=== PATIENT | male | born 1955 | race American Indian/Alaskan Native ===

== ENCOUNTER 2016-11-26 14:03 | Inpatient (IN) | payer SELFPAY ==
[2016-11-26] MEDS ORDERED: NACL 0.9% 1000 ML 1,000 ML IV ONE (14:56)
[2016-11-26 15:06] LABS: Basophils % (Auto) 0.9 % (0.0-1.8); Eosinophils % (Auto) 0.2 % (0.0-4.3); Hematocrit 39.2 % (35.5-45.6); Hemoglobin 13.7 gm/dl (11.8-15.2); Mean Corpuscular HGB Conc 35 % (32-34); Mean Corpuscular Hemoglobin 34 pg (28-32); Mean Corpuscular Volume 96 fl (84-94); Platelet Count 161 K/mm3 (140-440); Red Blood Count 4.07 M/mm3 (3.65-5.03); Red Cell Distribution Width 14.9 % (13.2-15.2); White Blood Count 10.8 K/mm3 (4.5-11.0)
[2016-11-26 15:18] LABS: INR 1.31 (0.87-1.13)
[2016-11-26 15:19] LABS: Partial Thromboplastin Time 33.2 Sec. (24.2-36.6)
[2016-11-26 15:29] LABS: Albumin 3.5 g/dL (3.9-5); Albumin/Globulin Ratio 0.8 %; Bilirubin,Total 2.4 mg/dL (0.1-1.2); Calcium 8.5 mg/dL (8.4-10.2); Chloride 93.7 mmol/L (98-107); Potassium 3.3 mmol/L (3.6-5.0); Total Protein 7.9 g/dL (6.3-8.2)
[2016-11-26] MEDS ORDERED: NACL 0.9% 500 ML 500 ML IV ONE (18:03)
[2016-11-26] MEDS ORDERED: PROTONIX IV ONE (18:03)
[2016-11-26] MEDS ORDERED: ROCEPHIN/NS 1 GM/50 ML 1 GM/50 ML BAG IV ONE (18:12)
--- NOTE | 2016-11-26 18:12 | Emergency Department Report ---
ED General Adult HPI - General Chief complaint: GI Bleed Stated complaint: DARK STOOL/WEAKNESS/DIZZINESS Time Seen by Provider: 11/26/16 17:45 Source: patient Mode of arrival: Ambulatory Limitations: No Limitations - History of Present Illness Initial comments: 61 y/o cirrhotic, alcoholic, presents w/ cc of dark stools, lightheadedness. Pt states he has been drinking 1-2 shots per day depending on whether he can afford etoh. Pt deneis vomiting, hematemesis, but has noticed a gross change in stool, dark black, tarry. Pt feels lightheaded but no syncope. No hx of headache, vomiting, dyspnea, fever, chills. Denies anticoagulant use. Pt did have 2 episodes of aleve. Pt does not mild epigastric abd pain/left sided abd discomfort, no hx of trauma, falls. Severity scale (0 -10): 10 - Related Data Home Medications Medication Instructions Recorded Confirmed Last Taken Ranitidine HCl [Zantac] 300 mg PO QDAY 05/11/13 05/20/14 05/19/14 20:00 Previous Rx's Medication Instructions Recorded Last Taken Type Ferrous Sulfate [Feosol] 325 mg PO BID #60 tablet 05/13/13 Unknown Rx Pantoprazole [Protonix TAB] 40 mg PO QDAY #30 tablet 05/13/13 Unknown Rx Folic Acid [Folvite] 1 mg PO QDAY #30 tablet 05/24/14 Unknown Rx Furosemide [Lasix] 40 mg PO DAILY #30 tablet 05/24/14 Unknown Rx Spironolactone [Aldactone] 100 mg PO QDAY #30 tablet 05/24/14 Unknown Rx Thiamine [Vitamin B-1] 100 mg PO QDAY #30 tablet 05/24/14 Unknown Rx Allergies Allergy/AdvReac Type Severity Reaction Status Date / Time No Known Allergies Allergy Verified 11/26/16 14:51 ED Review of Systems ROS: Stated complaint: DARK STOOL/WEAKNESS/DIZZINESS Other details as noted in HPI Comment: All other systems reviewed and negative Constitutional: denies: chills, fever Eyes: denies: eye pain, eye discharge, vision change ENT: denies: ear pain, throat pain Respiratory: denies: cough, shortness of breath, wheezing Cardiovascular: denies: chest pain, palpitations Endocrine: no symptoms reported Gastrointestinal: denies: abdominal pain, nausea, diarrhea Genitourinary: denies: urgency, dysuria Musculoskeletal: denies: back pain, joint swelling, arthralgia Skin: denies: rash, lesions Neurological: denies: headache, weakness, paresthesias Psychiatric: denies: anxiety, depression Hematological/Lymphatic: denies: easy bleeding, easy bruising ED Past Medical Hx - Past Medical History Hx Hypertension: No Hx Heart Attack/AMI: No Hx Congestive Heart Failure: No Hx Diabetes: No Hx Deep Vein Thrombosis: No Hx Pulmonary Embolism: No Hx GERD: Yes Hx Liver Disease: No Hx Renal Disease: No Hx Sickle Cell Disease: No Hx Arthritis: No Hx Headaches / Migraines: No Hx Seizures: No Hx Kidney Stones: No Hx Asthma: No Hx COPD: No Hx Tuberculosis: No Hx Dementia: No Hx HIV: No Additional medical history: ulcers. esophagus "swells up into little knots". diverticulitis - Surgical History Past Surgical History?: No Hx Coronary Stent: No Hx Open Heart Surgery: No Hx Pacemaker: No Hx Internal Defibrillator: No Hx Cholecystectomy: No Hx Appendectomy: No Hx Breast Surgery: No - Social History Smoking Status: Never Smoker Substance Use Type: Alcohol - Medications Home Medications: Home Medications Medication Instructions Recorded Confirmed Last Taken Type Ranitidine HCl [Zantac] 300 mg PO QDAY 05/11/13 05/20/14 05/19/14 20:00 History Ferrous Sulfate [Feosol] 325 mg PO BID #60 tablet 05/13/13 05/24/14 Unknown Rx Pantoprazole [Protonix TAB] 40 mg PO QDAY #30 tablet 05/13/13 05/24/14 Unknown Rx Folic Acid [Folvite] 1 mg PO QDAY #30 tablet 05/24/14 Unknown Rx Furosemide [Lasix] 40 mg PO DAILY #30 tablet 05/24/14 Unknown Rx Spironolactone [Aldactone] 100 mg PO QDAY #30 tablet 05/24/14 Unknown Rx Thiamine [Vitamin B-1] 100 mg PO QDAY #30 tablet 05/24/14 Unknown Rx ED Physical Exam - General Limitations: No Limitations General appearance: alert, in no apparent distress - Head Head exam: Present: atraumatic, normocephalic - Eye Eye exam: Present: normal appearance, PERRL, EOMI - ENT ENT exam: Present: mucous membranes moist - Neck Neck exam: Present: normal inspection - Respiratory Respiratory exam: Present: normal lung sounds bilaterally. Absent: respiratory distress - Cardiovascular Cardiovascular Exam: Present: regular rate, normal rhythm. Absent: systolic murmur, diastolic murmur, rubs, gallop - GI/Abdominal GI/Abdominal exam: Present: soft, distended, normal bowel sounds, other (+ fluid wave, no rebound) - Rectal Rectal exam: Present: other (Jimenez Molina as advertising supervisor, grossly melanotic stool) - Extremities Exam Extremities exam: Present: normal inspection - Back Exam Back exam: Present: normal inspection - Neurological Exam Neurological exam: Present: alert, altered, oriented X3, CN II-XII intact, normal gait - Psychiatric Psychiatric exam: Present: normal affect, normal mood - Skin Skin exam: Present: warm, dry, intact, normal color. Absent: rash ED Course Vital Signs 11/26/16 11/26/16 11/26/16 14:45 17:11 17:55 Temperature 98.6 F 98.6 F Pulse Rate 103 H 99 H Respiratory 18 18 Rate Blood Pressure 85/51 101/58 97/61 Blood Pressure [Left] O2 Sat by Pulse 100 100 Oximetry 11/26/16 11/26/16 11/26/16 17:56 18:00 18:11 Temperature 98 F Pulse Rate 95 H 97 H Respiratory 16 20 16 Rate Blood Pressure 112/50 Blood Pressure 96/61 [Left] O2 Sat by Pulse 100 99 Oximetry ED Medical Decision Making - Lab Data Result diagrams: 11/26/16 14:57 11/26/16 14:57 - Medical Decision Making Suspect upper gi bleed, differential includes gastritis, variceal given etoh hx , PUD, will start octretodide/rocephin in case of variceal bleed, and protonix GTT. BP at eval was 112/64, improved. Spoke with Dr. Jay will admit Critical care attestation.: If time is entered above; I have spent that time in minutes in the direct care of this critically ill patient, excluding procedure time. ED Disposition Clinical Impression: Dehydration GI bleed Qualifiers: GI bleed type/associated pathology: melena Qualified Code(s): K92.1 - Melena Cirrhosis Qualifiers: Hepatic cirrhosis type: alcoholic cirrhosis Ascites presence: with ascites Qualified Code(s): K70.31 - Alcoholic cirrhosis of liver with ascites Ascites Qualifiers: Ascites type: due to alcoholic cirrhosis Qualified Code(s): K70.31 - Alcoholic cirrhosis of liver with ascites Disposition: OP ADMITTED IP TO THIS HOSP Is pt being admited?: Yes Condition: Stable Referrals: PRIMARY CARE, [Primary Care Provider] - 3-5 Days Forms: Accompanied Note Time of Disposition: 18:16
[2016-11-26] MEDS ORDERED: NACL 0.9% IV ONE (19:00)
[2016-11-26] MEDS ORDERED: PROTONIX 80 MG in NACL 0.9% 100 ML IV SCH (19:00)
[2016-11-26] MEDS ORDERED: SANDOSTATIN IV ONE (19:00)
[2016-11-26] MEDS ORDERED: SandoSTATIN 500 MCG in NACL 0.9% 100 ML IV ONE (19:03)
--- NOTE | 2016-11-26 19:43 | History and Physical Report ---
History of Present Illness Date of examination: 11/26/16 Date of admission: 11/26/2016 Chief complaint: CC Black Tarry stools History of present illness: 61 y/o AAM comes in for black tarry stools.and Lightheadedness.Patient has been drinking 1 to 2 shots per day inspite of having Cirrhosis and esophageal varices.Ascites present..Some SOB present.Patient denies vomiting and hematemesis.No Syncope.No Hx of Headache.No fever chills .Patient took Aleve testerday.No epigastric pain. Patient has history of EtOH dependence. Past medical history: Anemia, gastritis, esophageal varices, cirrhosis, ascites, . Past surgical history no surgeries. Social history: Alcohol on a regular basis. Used to drink heavily. Now in spite of having cirrhosis still uses 2-3 shots. Maybe understating. Family history: Significant for hypertension. Review of System: Constitutional: no fever, no chills, no weight loss Ears, eyes, nose, mouth and throat: no nasal congestion, no nasal discharge, no sinus pressure, no vision change, no red eye. Neck: No neck pain or rigidity. Cardiovascular: No chest pain, no orthopnea, no palpitations, no leg swelling Respiratory: No shortness of breath, no cough, no congestion, no wheezing Gastrointestinal: : As in HPI. Black tarry stools. Genitourinary : no dysuria, no hematuria Musculoskeletal: no joint swelling or muscle ache Integumentary: no rash, no pruritis Neurological: no parathesias, no numbness, no tingling Endocrine: no cold or heat intolerance, no polyuria or polydipsia Hematologic/Lymphatic: no easy bruising, no easy bleeding, no gland swelling Allergic/Immunologic: no urticaria, no angioedema. Medications and Allergies Allergies Allergy/AdvReac Type Severity Reaction Status Date / Time No Known Allergies Allergy Verified 11/26/16 14:51 Home Medications Medication Instructions Recorded Confirmed Last Taken Type Ranitidine HCl [Zantac] 300 mg PO QDAY 05/11/13 05/20/14 05/19/14 20:00 History Ferrous Sulfate [Feosol] 325 mg PO BID #60 tablet 05/13/13 05/24/14 Unknown Rx Pantoprazole [Protonix TAB] 40 mg PO QDAY #30 tablet 05/13/13 05/24/14 Unknown Rx Folic Acid [Folvite] 1 mg PO QDAY #30 tablet 05/24/14 Unknown Rx Furosemide [Lasix] 40 mg PO DAILY #30 tablet 05/24/14 Unknown Rx Spironolactone [Aldactone] 100 mg PO QDAY #30 tablet 05/24/14 Unknown Rx Thiamine [Vitamin B-1] 100 mg PO QDAY #30 tablet 05/24/14 Unknown Rx Active Meds: Active Medications Pantoprazole Sodium 80 mg/ (Sodium Chloride) 100 mls @ 10 mls/hr IV Q10H LUBA PRN Reason: 8 MG/HR Octreotide Acetate 500 mcg/ (Sodium Chloride) 101 mls @ 5.05 mls/hr IV TITRATE LUBA; 25 MCG/HR PRN Reason: Protocol Review of Systems All systems: negative Exam - Physical Exam Narrative exam: A middle-age male lying in bed in no distress - Constitutional Vitals: Temp Pulse Resp BP Pulse Ox 98 F 107 H 14 87/52 99 11/26/16 17:56 11/26/16 19:10 11/26/16 19:10 11/26/16 19:10 11/26/16 19:10 General appearance: Present: no acute distress, well-nourished - EENT Eyes: Present: PERRL ENT: hearing intact, clear oral mucosa - Neck Neck: Present: supple, normal ROM - Respiratory Respiratory effort: normal Respiratory: bilateral: CTA - Cardiovascular Heart rate: 80 Rhythm: regular Heart Sounds: Present: S1 & S2. Absent: rub, click - Extremities Extremities: pulses symmetrical, No edema Extremity abnormal: edema Peripheral Pulses: within normal limits - Abdominal General gastrointestinal: Present: soft, non-tender, distended (moderate), normal bowel sounds Male genitourinary: Present: normal - Rectal Rectal Exam: other (tarry stool positive for occult blood strongly) - Integumentary Integumentary: Present: clear, warm, dry - Musculoskeletal Musculoskeletal: gait normal, strength equal bilaterally - Psychiatric Psychiatric: appropriate mood/affect, intact judgment & insight - Neurologic Neurologic: CNII-XII intact, moves all extremities Results - Labs CBC & Chem 7: 11/26/16 14:57 11/26/16 14:57 Labs: Laboratory Last Values WBC 10.8 K/mm3 (4.5-11.0) 11/26/16 14:57 RBC 4.07 M/mm3 (3.65-5.03) 11/26/16 14:57 Hgb 13.7 gm/dl (11.8-15.2) 11/26/16 14:57 Hct 39.2 % (35.5-45.6) 11/26/16 14:57 MCV 96 fl (84-94) H 11/26/16 14:57 MCH 34 pg (28-32) H 11/26/16 14:57 MCHC 35 % (32-34) H 11/26/16 14:57 RDW 14.9 % (13.2-15.2) 11/26/16 14:57 Plt Count 161 K/mm3 (140-440) 11/26/16 14:57 Lymph % (Auto) 23.5 % (13.4-35.0) 11/26/16 14:57 [place] % (Auto) 8.7 % (0.0-7.3) H 11/26/16 14:57 Eos % (Auto) 0.2 % (0.0-4.3) 11/26/16 14:57 Baso % (Auto) 0.9 % (0.0-1.8) 11/26/16 14:57 Lymph # 2.5 K/mm3 (1.2-5.4) 11/26/16 14:57 [place] # 0.9 K/mm3 (0.0-0.8) H 11/26/16 14:57 Eos # 0.0 K/mm3 (0.0-0.4) 11/26/16 14:57 Baso # 0.1 K/mm3 (0.0-0.1) 11/26/16 14:57 Seg Neutrophils % 66.7 % (40.0-70.0) 11/26/16 14:57 Seg Neutrophils # 7.2 K/mm3 (1.8-7.7) 11/26/16 14:57 PT 16.2 Sec. (12.2-14.9) H 11/26/16 14:57 INR 1.31 (0.87-1.13) H 11/26/16 14:57 APTT 33.2 Sec. (24.2-36.6) 11/26/16 14:57 Sodium 132 mmol/L (137-145) L 11/26/16 14:57 Potassium 3.3 mmol/L (3.6-5.0) L 11/26/16 14:57 Chloride 93.7 mmol/L (98-107) L 11/26/16 14:57 Carbon Dioxide 26 mmol/L (22-30) 11/26/16 14:57 Anion Gap 16 mmol/L 11/26/16 14:57 BUN 44 mg/dL (9-20) H 11/26/16 14:57 Creatinine 2.2 mg/dL (0.8-1.5) H 11/26/16 14:57 Estimated GFR 37 ml/min 11/26/16 14:57 BUN/Creatinine Ratio 20.00 % 11/26/16 14:57 Glucose 100 mg/dL (75-100) 11/26/16 14:57 Lactic Acid 2.0 mmol/L (0.7-2.0) 11/26/16 18:35 Calcium 8.5 mg/dL (8.4-10.2) 11/26/16 14:57 Total Bilirubin 2.4 mg/dL (0.1-1.2) H 11/26/16 14:57 AST 54 units/L (5-40) H 11/26/16 14:57 ALT 38 units/L (7-56) 11/26/16 14:57 Alkaline Phosphatase 70 units/L (35-129) 11/26/16 14:57 Total Protein 7.9 g/dL (6.3-8.2) 11/26/16 14:57 Albumin 3.5 g/dL (3.9-5) L 11/26/16 14:57 Albumin/Globulin Ratio 0.8 % 11/26/16 14:57 Lipase 53 units/L (13-60) 11/26/16 14:57 Blood Type O POSITIVE 11/26/16 14:55 Antibody Screen TNR 11/26/16 14:55 LAURI Antibody Screen Negative 11/26/16 14:55 Short CBC 11/26/16 Range/Units 14:57 WBC 10.8 (4.5-11.0) K/mm3 Hgb 13.7 (11.8-15.2) gm/dl Hct 39.2 (35.5-45.6) % Plt Count 161 (140-440) K/mm3 BMP 11/26/16 14:57 Sodium 132 L Potassium 3.3 L Chloride 93.7 L Carbon Dioxide 26 BUN 44 H Creatinine 2.2 H Glucose 100 Calcium 8.5 Liver Function 11/26/16 Range/Units 14:57 Total Bilirubin 2.4 H (0.1-1.2) mg/dL AST 54 H (5-40) units/L ALT 38 (7-56) units/L Alkaline Phosphatase 70 (35-129) units/L Albumin 3.5 L (3.9-5) g/dL - Imaging and Cardiology EKG: report reviewed Assessment and Plan Assessment and plan: Assessment and plan: #1 GI bleed: Probably from upper GI tract from the esophageal varices or or from. Duodenal ulcer. Patient started on IV Protonix drip. GI consult requested. Check hemoglobin and hematocrit every 66-8 hours and transfuse if necessary. #2 Cirrhosis: Continue spironolactone. #3 Hypokalemia: Supplemental potassium. IV potassium ordered. #4 EtOH dependence: Patient started on CIWA protocol to prevent DTs. #5 DVT prophylaxis: Only SCDs for now. No Lovenox. Advance Directives: Yes (full code) VTE prophylaxis?: Mechanical Plan of care discussed with patient/family: Yes
[2016-11-26] MEDS ORDERED: MILK OF MAGNESIA PO PRN (19:46)
[2016-11-26] MEDS ORDERED: ZOFRAN IV PRN (19:46)
[2016-11-26] MEDS ORDERED: TYLENOL PO PRN (19:46)
[2016-11-26] MEDS ORDERED: DILAUDID IV PRN (19:46)
[2016-11-26] MEDS ORDERED: DULCOLAX PR PRN (19:46)
[2016-11-26] MEDS ORDERED: HALDOL IV PRN (19:54)
[2016-11-26] MEDS ORDERED: ATIVAN IV PRN ×3 (19:54)
[2016-11-26] MEDS ORDERED: ATIVAN PO PRN (19:54)
[2016-11-26] MEDS ORDERED: LIBRIUM PO PRN (19:54)
[2016-11-26] MEDS ORDERED: KCL 10MEQ/100ML 10 MEQ/100 ML BAG IV ONE (20:08)
[2016-11-26] MEDS: KCL 10MEQ/100ML 10 MEQ/100 ML BAG IV SCH (20:36)
[2016-11-26] MEDS: D5NS 1,000 ML IV SCH (21:29)
[2016-11-26] MEDS: SandoSTATIN 500 MCG in NACL 0.9% 100 ML IV SCH (22:14)
[2016-11-27] MEDS: KCL 10MEQ/100ML 10 MEQ/100 ML BAG IV SCH ×4 (00:02→02:37)
[2016-11-27] MEDS ORDERED: PROTONIX 80 MG in NACL 0.9% 100 ML IV SCH (05:00)
[2016-11-27 05:34] LABS: Basophils % (Auto) 0.5 % (0.0-1.8); Eosinophils % (Auto) 0.4 % (0.0-4.3); Hemoglobin 11.7 gm/dl (11.8-15.2); Mean Corpuscular HGB Conc 34 % (32-34); Mean Corpuscular Hemoglobin 33 pg (28-32); Mean Corpuscular Volume 97 fl (84-94); Platelet Count 117 K/mm3 (140-440); Red Blood Count 3.52 M/mm3 (3.65-5.03); Red Cell Distribution Width 14.8 % (13.2-15.2); White Blood Count 10.8 K/mm3 (4.5-11.0)
[2016-11-27 05:38] LABS: Alanine Aminotransferase 30 units/L (7-56); Albumin 3.1 g/dL (3.9-5); Albumin/Globulin Ratio 0.8 %; Alkaline Phosphatase 59 units/L (35-129); Anion Gap 16 mmol/L; BUN/Creatinine Ratio 28.33; Bilirubin,Total 2.3 mg/dL (0.1-1.2); Blood Urea Nitrogen 34 mg/dL (9-20); Calcium 7.9 mg/dL (8.4-10.2); Carbon Dioxide 23 mmol/L (22-30); Chloride 101.2 mmol/L (98-107); Glucose 109 mg/dL (75-100); Sodium 136 mmol/L (137-145); Total Protein 6.8 g/dL (6.3-8.2)
[2016-11-27 05:46] LABS: Potassium 4.6 mmol/L (3.6-5.0)
--- NOTE | 2016-11-27 12:24 | Post Operative Note ---
Pre-op diagnosis: gi bleed Post-op diagnosis: same Findings: EGD: hiatal hernia - small gastric remnant - 1 cm white based ulcer anastomosis (bx's) - ulcerated joseph anastomosis - negative other Procedure: EGD Anesthesia: MAC Surgeon: DARWIN EPPS Estimated blood loss: none Pathology: list Specimen disposition: to lab Condition: stable Disposition: floor
[2016-11-27] MEDS: SandoSTATIN 500 MCG in NACL 0.9% 100 ML IV SCH (12:46)
[2016-11-27] MEDS ORDERED: WATER FOR IRRIG STERILE IR ONE (13:03)
[2016-11-27] MEDS ORDERED: NACL 0.9% 1000 ML 1,000 ML ONE (14:15)
--- NOTE | 2016-11-27 14:42 | Anesthesia Day of Surgery ---
Anesthesia Day of Surgery - Day of Surgery Patient Examined: Yes Patient H&P Reviewed: Yes Patient is NPO: Yes
--- NOTE | 2016-11-27 14:42 | Anesthesia Consultation ---
Anesthesia Consult and Med Hx Date of service: 11/27/16 - Airway Anesthetic Teeth Evaluation: Partials (upper) ROM Head & Neck: Adequate Mental/Hyoid Distance: Adequate Mallampati Class: Class II Intubation Access Assessment: Probably Good - Pre-Operative Health Status ASA Pre-Surgery Classification: ASA3 Proposed Anesthetic Plan: MAC - Pulmonary Hx Smoking: No Hx Asthma: No SOB: No COPD: No Hx Pneumonia: No Hx Sleep Apnea: No - Cardiovascular System Hx Hypertension: Yes Hx Coronary Artery Disease: No Hx Heart Attack/AMI: No Hx Angina: No Hx Percutaneous Transluminal Coronary Angioplasty (PTCA): No Hx Pacemaker: No Hx Internal Defibrillator: No Hx Valvular Heart Disease: No Hx Heart Murmur: No Hx Peripheral Vascular Disease: No - Central Nervous System Hx Seizures: No CVA: No Hx Back Pain: No Hx Psychiatric Problems: No - Gastrointestinal Hx Ulcer: Yes (esophageal varices) - Endocrine Hx Renal Disease: No Hx End Stage Renal Disease: No Hx Cirrhosis: Yes Hx Liver Disease: No (h/o ascitis, s/p paracentesis x 2 (2013)) Hx Hypothyroidism: No Hx Hyperthyroidism: No - Hematic Hx Anemia: No Hx Sickle Cell Disease: No - Other Systems Hx Alcohol Use: Yes (abuse) Hx Substance Use: No Hx Cancer: No Hx Obesity: No
[2016-11-27] MEDS ORDERED: DIPRIVAN 10 MG/ML IV ONE (14:44)
[2016-11-27] MEDS ORDERED: NACL 0.9% 1000 ML 1,000 ML IV SCH (15:00)
--- NOTE | 2016-11-27 15:19 | Post Operative Note ---
Pre-op diagnosis: anemia Post-op diagnosis: same Findings: EGD: hiatal hernia - Grade II varices w/o bleeding stigmata - slightly irregular patch above g-e junction in area of varices (not biopsied) - 7 mm white based ulcer with multiple smaller ulceration antrum (bx's) - 10-12 mm mainly white based ulcer with some pigmented area noted distal duodenal buolb (possible bleeding source), bx's - negative other Procedure: EGD Anesthesia: MAC Surgeon: DARWIN EPPS Estimated blood loss: none Pathology: list Specimen disposition: to lab Condition: stable Disposition: floor
--- NOTE | 2016-11-27 16:03 | Progress Note ---
Assessment and Plan Assessment and plan: 1. GIB EGD performed today and showing hiatal hernia, grade 2 varices without bleeding stigmata, ulceration antrum, distal duodenal bulb ulcer which could be the bleeding source GI recommending switching PPI drip to IV twice a day, add Carafate, as well as, propranolol Needs outpatient follow-up for repeat EGD in 3-6 weeks 2. Esophageal varices See above discussion 3. Cirrhosis Secondary to alcohol abuse; still drinking despite having cirrhosis with esophageal varices; extensively counseled regarding importance of quitting Monitor coag, platelets 4. Alcohol abuse Placed on CiWA protocol Status post banana bag Start thiamine po 5. Anemia Acute blood loss anemia likely superimposed on chronic anemia No further bleeding Monitor H&H 6. Thrombocytopenia Secondary to alcohol abuse Monitor 7. Malnutrition Secondary to alcohol abuse and nutritional deficiencies Diet supplementation 8. Hypokalemia Replaced Today within normal limits Continue to monitor 9. Acute renal failure Likely secondary to vasomotor nephropathy Resolved with IV fluids 10. DVT prophylaxis SCDs History Interval history: s/p EGD; doing well, no complaints Hospitalist Physical - Constitutional Vitals: Temp Pulse Resp BP Pulse Ox 98.7 F 84 18 100/58 99 11/27/16 10:03 11/27/16 10:03 11/27/16 10:03 11/27/16 10:03 11/27/16 10:03 General appearance: Present: no acute distress, well-nourished - EENT Eyes: Present: PERRL, EOM intact. Absent: scleral icterus, conjunctival injection - Neck Neck: Present: supple. Absent: enlarged thyroid, masses or JVD - Respiratory Respiratory effort: normal Respiratory: bilateral: CTA, negative: rhonchi, wheezing - Cardiovascular Rhythm: regular Heart Sounds: Present: S1 & S2. Absent: systolic murmur - Extremities Extremities: no ischemia - Abdominal General gastrointestinal: soft, non-tender, non-distended, normal bowel sounds - Integumentary Integumentary: Present: warm, dry. Absent: jaundice, rash - Psychiatric Psychiatric: cooperative - Neurologic Neurologic: CNII-XII intact, no focal deficits Results - Labs CBC & Chem 7: 11/27/16 04:32 11/27/16 04:32 Labs: Laboratory Last Values WBC 10.8 K/mm3 (4.5-11.0) 11/27/16 04:32 RBC 3.52 M/mm3 (3.65-5.03) L 11/27/16 04:32 Hgb 11.7 gm/dl (11.8-15.2) L 11/27/16 04:32 Hct 34.0 % (35.5-45.6) L 11/27/16 04:32 MCV 97 fl (84-94) H 11/27/16 04:32 MCH 33 pg (28-32) H 11/27/16 04:32 MCHC 34 % (32-34) 11/27/16 04:32 RDW 14.8 % (13.2-15.2) 11/27/16 04:32 Plt Count 117 K/mm3 (140-440) L 11/27/16 04:32 Lymph % (Auto) 25.6 % (13.4-35.0) 11/27/16 04:32 [place] % (Auto) 9.0 % (0.0-7.3) H 11/27/16 04:32 Eos % (Auto) 0.4 % (0.0-4.3) 11/27/16 04:32 Baso % (Auto) 0.5 % (0.0-1.8) 11/27/16 04:32 Lymph # 2.8 K/mm3 (1.2-5.4) 11/27/16 04:32 [place] # 1.0 K/mm3 (0.0-0.8) H 11/27/16 04:32 Eos # 0.0 K/mm3 (0.0-0.4) 11/27/16 04:32 Baso # 0.1 K/mm3 (0.0-0.1) 11/27/16 04:32 Seg Neutrophils % 64.5 % (40.0-70.0) 11/27/16 04:32 Seg Neutrophils # 7.0 K/mm3 (1.8-7.7) 11/27/16 04:32 PT 16.2 Sec. (12.2-14.9) H 11/26/16 14:57 INR 1.31 (0.87-1.13) H 11/26/16 14:57 APTT 33.2 Sec. (24.2-36.6) 11/26/16 14:57 Sodium 136 mmol/L (137-145) L 11/27/16 04:32 Potassium 4.6 mmol/L (3.6-5.0) D 11/27/16 04:32 Chloride 101.2 mmol/L (98-107) 11/27/16 04:32 Carbon Dioxide 23 mmol/L (22-30) 11/27/16 04:32 Anion Gap 16 mmol/L 11/27/16 04:32 BUN 34 mg/dL (9-20) H 11/27/16 04:32 Creatinine 1.2 mg/dL (0.8-1.5) 11/27/16 04:32 Estimated GFR > 60 ml/min 11/27/16 04:32 BUN/Creatinine Ratio 28.33 % 11/27/16 04:32 Glucose 109 mg/dL (75-100) H 11/27/16 04:32 Lactic Acid 2.0 mmol/L (0.7-2.0) 11/26/16 18:35 Calcium 7.9 mg/dL (8.4-10.2) L 11/27/16 04:32 Total Bilirubin 2.3 mg/dL (0.1-1.2) H 11/27/16 04:32 AST 43 units/L (5-40) H 11/27/16 04:32 ALT 30 units/L (7-56) 11/27/16 04:32 Alkaline Phosphatase 59 units/L (35-129) 11/27/16 04:32 Ammonia 69.0 umol/L (25-60) H 11/26/16 20:12 Total Protein 6.8 g/dL (6.3-8.2) 11/27/16 04:32 Albumin 3.1 g/dL (3.9-5) L 11/27/16 04:32 Albumin/Globulin Ratio 0.8 % 11/27/16 04:32 Lipase 53 units/L (13-60) 11/26/16 14:57 Blood Type O POSITIVE 11/26/16 14:55 Antibody Screen TNR 11/26/16 14:55 LAURI Antibody Screen Negative 11/26/16 14:55
--- NOTE | 2016-11-27 16:05 | Operative Report ---
PROCEDURE: EGD. INDICATION: 1. Anemia. 2. GI bleed. MEDICATIONS: Propofol per MUSIC EDUCATION DIRECTOR. COMPLICATIONS: None. DESCRIPTION OF PROCEDURE: The patient was brought to the procedure suite. The patient had the procedure discussed with him at length. All risks, complications, and benefits were discussed after which the patient signed for the procedure to be performed. The patient was placed in left lateral decubitus position. Mouth block was placed in the patient's oral cavity. After adequate sedation, medication as above, endoscope was placed into the mouth and brought to the level of the second portion of duodenum. Retroflexion view performed. The patient's vital signs remained stable throughout the procedure. FINDINGS: There was noted to be 3 columns of grade 1 to 2 varices noted in the mid to distal esophagus. No significant bleeding stigmata was notable requiring treatment at this time. There was noted to be an irregular patch noted at GE junction just in the area of gastric varices. This was not malignant in appearance. Given its close proximity to the no interventions including biopsies were performed. There was a small to medium hiatal hernia at GE junction. The esophagus otherwise appeared to be normal. GE junction was 38 cm from the gums. There was noted to be multiple small ulcerations noted in the distal body and antrum. There was a 7 mm wide based ulcer also noted in that area. Biopsies were taken and sent to pathology. The remaining stomach otherwise appeared to be normal. There was a 9 to 12 mm mainly wide based ulcer with a pigmented area was noted in the distal bulb just before the duodenal sweep. No interventions were performed. Biopsies were taken and sent to pathology. Remaining duodenum otherwise appeared to be normal. Retroflexion view performed in the stomach showed no other pathology other than noted above. The patient tolerated the procedure well. No complications noted during the procedure. IMPRESSION: 1. Hiatal hernia. 2. Varices without interventions performed. 3. Irregular patch, not biopsied. 4. Smaller ulcer with multiple ulcerations as noted above in the stomach with biopsy performed. 5. Large ulcer in the duodenum with biopsies performed. Large ulcer may be the source of bleeding. RECOMMENDATIONS: 1. Followup hematocrit and transfuse as needed. 2. PPI IV b.i.d. and start Carafate suspension q.i.d. 3. Start propranolol 10 mg p.o. b.i.d. 4. Advance diet. 5. If H and H stable in a.m., okay to discharge. 6. The patient will require further repeat EGD as an outpatient. JOB# [id number] CAB/NTS
[2016-11-27] MEDS: CARAFATE PO SCH ×2 (18:07→23:59)
--- NOTE | 2016-11-27 22:47 | Consultation ---
INDICATION: 1. Anemia. 2. Gastrointestinal bleed. HISTORY OF PRESENT ILLNESS: The patient is a 61-year-old black male with history of reported alcoholic cirrhosis, who reported to have history of varices in the past. The patient reports he has not seen manager learning or had an EGD in over 5 years. The patient reports that he has been taking of NSAIDs recently. He also reports that he has been drinking recently. He reports 2-3 days of black tarry stools with progressive weakness and dizziness. Subsequently, came to the Emergency Room where he was noted to be anemic and heme positive. Subsequently, he was admitted and GI consulted. Denies any other specific GI problems or complaints. Denies any diarrhea or constipation. Denies any abdominal pain. Denies any weight loss. PAST MEDICAL HISTORY: 1. Alcoholic cirrhosis. 2. Reported history of esophageal varices in the past. MEDICATIONS: See chart. ALLERGIES: No known drug allergies. SOCIAL HISTORY: Reports heavy drinker in the past. FAMILY HISTORY: Negative for colon cancer, IBD, or liver disease. REVIEW OF SYSTEMS: GENERAL: Reports mild weakness. HEENT: No visual complaints or tinnitus. PULMONARY: No shortness of breath. CARDIOVASCULAR: No chest pain. GASTROINTESTINAL: Reports black stools. All points of 13-point review of systems otherwise negative. PHYSICAL EXAMINATION: VITAL SIGNS: Temperature of 99.5, pulse , respirations 20, blood pressure 112/59. GENERAL: Fairly nourished male in no acute distress. HEENT: Pupils equal, round, reactive to light and accommodation. Extraocular muscles intact. PULMONARY: Clear to auscultation bilaterally. CARDIOVASCULAR: Regular rate and rhythm. Normal S1, S2. ABDOMEN: Positive bowel sounds, soft. SKIN: No obvious rashes. LABORATORY DATA: Pertinent for white count of 10.8, hemoglobin and hematocrit of 11.7 and 34.0, platelet count of 117. INR of 1.31 with a PT of 16.2, PTT of 33.2. Chem-7 within normal limits. AST, ALT of 43 and 30, total bilirubin of 2.3, alkaline phosphatase normal. ASSESSMENT AND PLAN: A 61-year-old male with a reported history of alcoholic cirrhosis in the past who has not had any GI evaluation in over 5 years and recent history of NSAID use, now presents with black stools and noted anemia. Possibility of esophageal variceal bleed versus peptic ulcer versus other. PLAN: 1. Follow hematocrit and transfuse as needed. 2. IV PPI drip. 3. Sandostatin drip. 4. EGD today. 5. Further recommendation based on EGD and the patient's progress. JOB# [id number] [facility]
[2016-11-27] MEDS: PROTONIX IV SCH (23:59)
[2016-11-27] MEDS: INDERAL PO SCH (23:59)
[2016-11-28] MEDS: D5NS 1,000 ML IV SCH
[2016-11-28] MEDS: CARAFATE PO SCH (05:47)
[2016-11-28 06:16] LABS: Hematocrit 33.2 % (35.5-45.6); Hemoglobin 11.4 gm/dl (11.8-15.2); Mean Corpuscular HGB Conc 34 % (32-34); Mean Corpuscular Hemoglobin 34 pg (28-32); Mean Corpuscular Volume 99 fl (84-94); Platelet Count 111 K/mm3 (140-440); Red Blood Count 3.37 M/mm3 (3.65-5.03); Red Cell Distribution Width 14.7 % (13.2-15.2)
[2016-11-28 07:08] LABS: Anion Gap 13 mmol/L; BUN/Creatinine Ratio 17.77; Blood Urea Nitrogen 16 mg/dL (9-20); Calcium 8.1 mg/dL (8.4-10.2); Carbon Dioxide 24 mmol/L (22-30); Chloride 102.6 mmol/L (98-107); Glucose 94 mg/dL (75-100); Potassium 3.9 mmol/L (3.6-5.0); Sodium 136 mmol/L (137-145)
--- NOTE | 2016-11-28 08:51 | Discharge Summary ---
Providers - Providers Date of Admission: 11/26/16 18:30 Date of discharge: 11/28/16 Attending physician: UDAY BARAHONA 11/26/16 19:46 Consult to Physician [CONS] Routine Consulting Provider: LOGAN PAULSON Reason For Exam: GI bleed Place consult to:: yes Notified:: ALICE AT [facility] Phone number called:: [phone] Was contact made?: Yes If yes, spoke with:: ALICE AT [facility] Time called:: 21:37 Comment:: DR EPPS CALLED BACKED Primary care physician: LINTER SAW SHARPENER Hospitalization Reason for admission: black stools Condition: Stable Procedures: EGD Hospital course: Patient is a 61 years old -Portuguese male with alcoholic cirrhosis and esophageal varices, who continues to drink and take nonsteroidal anti- inflammatories occasionally, and presented to the hospital complaining of black , tarry stools. She was diagnosed with upper GI bleed, GI was consulted and underwent EGD that showed grade 2 esophageal varices without bleeding stigmata, but multiple ulcerations ( the distal duodenal bulb ulcer seems to be the bleeding source). Patient was on Protonix drip and was successfully transitioned to po along with Carafate; also started on propranolol as prophylaxis for bleeding from esophageal varices. He needs to follow with GI and have a repeat EGD in 3-6 weeks. Counseled regarding importance of quitting drinking, adherence to treatment and follow-up appointments. Discharge diagnosis: 1. UGIB 2. Esophageal varices 3. Alcoholic cirrhosis 4. Alcohol abuse 5. Blood loss anemia 6. Thrombocytopenia 7. Malnutrition 8. Hypokalemia - resolved 9. Acute renal failure - resolved Disposition: DISCHARGED TO HOME OR SELFCARE Time spent for discharge: 35 min Core Measure Documentation - Palliative Care Palliative Care/ Comfort Measures: Not Applicable - Core Measures Any of the following diagnoses?: none Exam - Physical Exam Narrative exam: Patient seen and examined: - Constitutional Vitals: Temp Pulse Resp BP Pulse Ox 98.6 F 77 18 128/69 99 11/28/16 08:30 11/28/16 08:30 11/28/16 08:30 11/28/16 08:30 11/28/16 08:30 General appearance: Present: no acute distress, well-nourished - EENT Eyes: Present: PERRL, EOM intact. Absent: scleral icterus, conjunctival injection - Neck Neck: Present: supple, normal ROM. Absent: masses or JVD - Respiratory Respiratory effort: normal Respiratory: bilateral: CTA, negative: rhonchi, wheezing - Cardiovascular Rhythm: regular Heart Sounds: Present: S1 & S2. Absent: systolic murmur - Extremities Extremities: no ischemia - Abdominal General gastrointestinal: Present: soft, non-tender, non-distended, normal bowel sounds - Integumentary Integumentary: Present: warm, dry. Absent: jaundice, rash - Musculoskeletal Musculoskeletal: strength equal bilaterally - Psychiatric Psychiatric: cooperative - Neurologic Neurologic: CNII-XII intact, no focal deficits Plan Activity: advance as tolerated Diet: low cholesterol, low salt Follow up with: PRIMARY CAREMD [Primary Care Provider] - 3-5 Days DARWIN EPPS MD [Staff Physician] - 6 Weeks Forms: Accompanied Note Prescriptions: Folic Acid [Folvite] 1 mg PO QDAY #30 tablet Pantoprazole [Protonix] 40 mg PO BID #60 tablet Propranolol [Inderal] 10 mg PO Q12HR #60 tablet Spironolactone [Aldactone] 100 mg PO QDAY #30 tablet Sucralfate [Carafate] 1 gm PO Q6HR #120 oral.liqd Thiamine [Vitamin B-1] 100 mg PO QDAY #30 tablet
[2016-11-28] MEDS: PROTONIX IV SCH (10:35)
[2016-11-28] MEDS: INDERAL PO SCH (10:51)
[2016-11-28 11:03] VITALS: BP 121/66
--- NOTE | 2016-11-28 11:16 | Admit Criteria Form ---
Admission Criteria Documentation: GASTROINTESTINAL BLEEDING Clinical Indications for Inpatient Care (Place 'X' for any and all applicable criteria): Ongoing inpatient care may be indicated for gastrointestinal bleeding with ANY ONE of the following (4)(20)(21)(22)(23)(24): [ ]I. Active bleeding (eg, fresh voluminous blood in emesis or nasogastric aspirate, or per rectum) [ ]II. Hemodynamic instability [ ]III. Anticoagulation therapy or coagulopathy ((eg, advanced liver disease, irreversible anticoagulation) [ ]IV. Ischemic colitis (22) [ ]V. Endoscopy showing arterial bleeding, adherent clot, nonbleeding visible vessel, varices, flat red spots, ulcer size greater than 2 cm, or portal hypertensive gastropathy [ ]. High-risk low platelet count [ ]VII. Anemia requiring inpatient care as indicated by ANY ONE of the following a)[ ] Cognitive impairment b)[ ] Syncope c)[ ] Heart failure d)[ ] Chest pain e)[ ] Dyspnea f)[ ] Other findings suggesting inadequate perfusion (eg, peripheral or myocardial ischemia, end organ dysfunction) [ ]VIII. High-risk low platelet count [X]IX. Suspected variceal cause of bleeding as indicated by ANY ONE of the following(27)(28): a)[X] Known varices b)[ ] Hepatomegaly or splenomegaly c)[ ] Ascites d)[ ] Jaundice or scleral icterus e)[ ] History of liver disease (eg, cirrhosis) f)[ ] Physical findings of portal hypertension (eg, caput medusa) g)[ ] Comorbid disorder indicating risk for portal vein thrombosis (eg , abdominal surgery, sepsis, shock, exchange transfusion, prior umbilical vein catheterization) Extended stay may be needed until ALL of the following are present(20)(38)(47): [ ]a) Hemodynamic stability [ ]b) No evidence of active bleeding (eg, stable Hematocrit) [ ]c) Platelet count, prothrombin time, and partial thromboplastin time acceptable for next level of care [ ]d) Surgical or other acute intervention not needed [ ]e) Oral hydration and diet tolerated The original [facility] [employer] content created by Morgan Vázquez has been revised. The portions of the content which have been revised are identified through the use of italic text or in bold, and Morgan Vázquez has neither reviewed nor approved the modified material. All other unmodified content is copyright [facility]. Please see references footnoted in the original [facility] edition 2016 Admission Criteria Met: Yes
--- NOTE | 2016-11-28 13:11 | Gastroenterology Progress Note ---
Assessment and Plan GI: stable w/o signs bleeding overnight - ok to d/c, - call if needed Subjective Date of service: 11/28/16 Interval history: - no problems overnight Objective - Constitutional Vitals: Temp Pulse Resp BP Pulse Ox 98.2 F 86 18 121/66 98 11/28/16 11:02 11/28/16 11:49 11/28/16 11:02 11/28/16 11:02 11/28/16 11:02 General appearance: no acute distress - Neck Neck: supple - Respiratory Respiratory: bilateral: CTA - Cardiovascular Rhythm: regular Heart Sounds: Present: S1 & S2 - Gastrointestinal General gastrointestinal: Present: soft, non-tender, non-distended - Labs CBC & Chem 7: 11/28/16 04:23 11/28/16 04:23 Labs: Laboratory Results - last 24 hr 11/28/16 11/28/16 04:23 04:23 WBC 7.0 RBC 3.37 L Hgb 11.4 L Hct 33.2 L MCV 99 H MCH 34 H MCHC 34 RDW 14.7 Plt Count 111 L Sodium 136 L Potassium 3.9 Chloride 102.6 Carbon Dioxide 24 Anion Gap 13 BUN 16 Creatinine 0.9 Estimated GFR > 60 BUN/Creatinine Ratio 17.77 Glucose 94 Calcium 8.1 L
[2016-11-28] MEDS ORDERED: PROTONIX PO SCH (22:00)
== END 2016-11-28 12:16 | disposition home or self-care (01) | DRG 378 ==
LOC: ED 14:03 → 4A 18:30
PROVIDERS: ADMIT Internal Medicine; ATTEND Internal Medicine
PROC: 0DB98ZX Excision of Duodenum, Via Natural or Artificial Opening Endoscopic, Diagnostic (ICD-10-PCS; principal; 2016-11-27)
PROC: 0DB68ZX Excision of Stomach, Via Natural or Artificial Opening Endoscopic, Diagnostic (ICD-10-PCS; 2016-11-27)
DX: K26.4 Chronic or unspecified duodenal ulcer with hemorrhage (principal); E46 Unspecified protein-calorie malnutrition; N17.9 Acute kidney failure, unspecified; K70.31 Alcoholic cirrhosis of liver with ascites; I85.00 Esophageal varices without bleeding; K21.9 Gastro-esophageal reflux disease without esophagitis; E86.0 Dehydration; K44.9 Diaphragmatic hernia without obstruction or gangrene; K25.9 Gastric ulcer, unspecified as acute or chronic, without hemorrhage or perforation; Z82.49 Family history of ischemic heart disease and other diseases of the circulatory system; E87.6 Hypokalemia; F10.20 Alcohol dependence, uncomplicated; D64.9 Anemia, unspecified; D69.6 Thrombocytopenia, unspecified; Z68.26 Body mass index [BMI] 26.0-26.9, adult; I10 Essential (primary) hypertension; Z71.41 Alcohol abuse counseling and surveillance of alcoholic
CPT/HCPCS: 36415; 80048; 80053; 82140; 82271; 83690; 85025; 85027; 85610; 85730; 86850; 86900; 86901; 87040; 88305; 88342; 93005; 93010; 96365; 96368; C9113; J0696; J2354; J2704; J3480; J7030; J7040; J7042

== ENCOUNTER 2017-02-08 09:50 | Emergency (ER) | payer SELFPAY ==
[2017-02-08] MEDS ORDERED: FOLVITE PO SCH (10:00)
[2017-02-08 10:49] LABS: Basophils % (Auto) 1.3 % (0.0-1.8); Hematocrit 39.6 % (35.5-45.6); Hemoglobin 13.6 gm/dl (11.8-15.2); Mean Corpuscular HGB Conc 34 % (32-34); Mean Corpuscular Hemoglobin 32 pg (28-32); Mean Corpuscular Volume 94 fl (84-94); Platelet Count 144 K/mm3 (140-440); Red Blood Count 4.22 M/mm3 (3.65-5.03); White Blood Count 5.7 K/mm3 (4.5-11.0)
[2017-02-08 10:57] LABS: Alanine Aminotransferase 62 units/L (7-56); Albumin/Globulin Ratio 0.8 %; Alkaline Phosphatase 82 units/L (35-129); Anion Gap 26 mmol/L; BUN/Creatinine Ratio 4.44; Blood Urea Nitrogen 4 mg/dL (9-20); Calcium 8.6 mg/dL (8.4-10.2); Carbon Dioxide 23 mmol/L (22-30); Glucose 96 mg/dL (75-100); Lipase 52 units/L (13-60); Potassium 3.2 mmol/L (3.6-5.0); Sodium 141 mmol/L (137-145); Total Protein 9.2 g/dL (6.3-8.2)
[2017-02-08] MEDS ORDERED: ZOFRAN ONE (16:45)
[2017-02-08] MEDS ORDERED: ZOFRAN IV ONE (16:51)
[2017-02-08] MEDS ORDERED: CARAFATE PO ONE (18:17)
[2017-02-08] MEDS ORDERED: VALIUM IV ONE (18:17)
[2017-02-08] MEDS ORDERED: PROTONIX IV ONE (18:17)
[2017-02-08] MEDS ORDERED: ATIVAN IV PRN (18:17)
[2017-02-08] MEDS ORDERED: VITAMIN B-1 100 MG, FOLVITE 1 MG, INFUVITE 10 ML in NACL 0.9% 1000 ML 1,000 ML IV ONE (18:18)
[2017-02-08] MEDS ORDERED: K-DUR PO ONE (18:19)
[2017-02-08] MEDS ORDERED: MAGNESIUM SULFATE 2GM/50ML 2 GM/50 ML BAG IV ONE (18:19)
--- NOTE | 2017-02-08 18:20 | Emergency Department Report ---
ED General Adult HPI - General Chief complaint: Chest Pain Stated complaint: CHEST AND ABD PAIN Time Seen by Provider: 02/08/17 18:06 Source: patient, RN notes reviewed, old records reviewed Mode of arrival: Ambulatory Limitations: No Limitations - History of Present Illness Initial comments: This is a 61-year-old male. The patient has a past medical history of alcohol abuse, esophageal varices, alcoholic cirrhosis, thrombocytopenia, upper GI bleed. He does not currently have a primary care doctor. He does not follow with local gastroenterology. The patient has an upper endoscopy performed November 2016, findings included hiatal hernia, grade 2 varices without bleeding stigmata, slightly irregular patch above the gastroesophageal junction and area of the varices, white-based ulcer with multiple smaller ulcerations at the antrum, and 10-12 mm mainly right -based ulcers with some pigmented areas noted distal to the duodenal bulb. The patient is brought to the hospital along with his with complaint of left upper quadrant/epigastric "funny sensation." The patient reports 2 episodes of red emesis. The patient reports that there is no bright red blood per rectum. As for the patient's nurse, the patient complained of chest pain, and his corroborates this, however the patient denies chest pain to me at this time. He reports that he consumes hard liquor daily, his last drink was yesterday. He is not homicidal. He is not suicidal. There is no leg pain. There is no leg swelling. No recent trips greater than 4 hours. A recent hospital admissions within the past 3-4 weeks. The patient cannot describe exacerbating or relieving factors. He does feel like he is experiencing alcohol withdrawal at this time. -: Gradual Location: abdomen Radiation: non-radiation Quality: aching Consistency: intermittent Improves with: none Worsens with: none Associated Symptoms: chest pain, loss of appetite, malaise, weakness - Related Data Home Medications Medication Instructions Recorded Confirmed Last Taken Ranitidine HCl [Zantac 150 MG TAB] 150 mg PO PRN PRN 02/08/17 02/08/17 Unknown Previous Rx's Medication Instructions Recorded Last Taken Type Folic Acid [Folvite] 1 mg PO QDAY #30 tablet 11/28/16 Unknown Rx Pantoprazole [Protonix] 40 mg PO BID #60 tablet 11/28/16 Unknown Rx Propranolol [Inderal] 10 mg PO Q12HR #60 tablet 11/28/16 Unknown Rx Spironolactone [Aldactone] 100 mg PO QDAY #30 tablet 11/28/16 Unknown Rx Sucralfate [Carafate] 1 gm PO Q6HR #120 oral.liqd 11/28/16 Unknown Rx Thiamine [Vitamin B-1] 100 mg PO QDAY #30 tablet 11/28/16 Unknown Rx Folic Acid [Folvite] 1 mg PO QDAY #30 tablet 02/08/17 Unknown Rx Multivitamin Tab [Multiple Vitamin 1 each PO QDAY #30 tablet 02/08/17 Unknown Rx TAB (Theragran)] Sucralfate [Carafate] 1 gm PO ACHS #60 tablet 02/08/17 Unknown Rx Thiamine [Vitamin B-1] 100 mg PO QDAY #30 tablet 02/08/17 Unknown Rx Allergies Allergy/AdvReac Type Severity Reaction Status Date / Time No Known Allergies Allergy Verified 11/26/16 14:51 ED Review of Systems ROS: Stated complaint: CHEST AND ABD PAIN Other details as noted in HPI Constitutional: malaise. denies: fever Eyes: denies: vision change ENT: denies: epistaxis Respiratory: denies: cough, orthopnea Cardiovascular: chest pain Gastrointestinal: nausea, vomiting, hematemesis. denies: hematochezia Genitourinary: as per HPI Musculoskeletal: as per HPI Skin: as per HPI. denies: lesions Neurological: weakness Psychiatric: denies: homicidal thoughts, suicidal thoughts ED Past Medical Hx - Past Medical History Previous Medical History?: Yes Hx Hypertension: Yes Hx Heart Attack/AMI: No Hx Congestive Heart Failure: No Hx Diabetes: No Hx Deep Vein Thrombosis: No Hx Pulmonary Embolism: No Hx GERD: Yes Hx Liver Disease: Yes (h/o ascitis, s/p paracentesis x 2 (2013)) Hx Renal Disease: No Hx Sickle Cell Disease: No Hx Arthritis: No Hx Headaches / Migraines: No Hx Seizures: No Hx Kidney Stones: No Hx Asthma: No Hx COPD: No Hx Tuberculosis: No Hx Dementia: No Hx HIV: No Additional medical history: ulcers. esophagus "swells up into little knots". diverticulitis - Surgical History Past Surgical History?: Yes Hx Coronary Stent: No Hx Open Heart Surgery: No Hx Pacemaker: No Hx Internal Defibrillator: No Hx Cholecystectomy: No Hx Appendectomy: No Hx Breast Surgery: No Additional Surgical History: paracentesis - Social History Smoking Status: Never Smoker Substance Use Type: Alcohol, Prescribed - Medications Home Medications: Home Medications Medication Instructions Recorded Confirmed Last Taken Type Folic Acid [Folvite] 1 mg PO QDAY #30 tablet 11/28/16 02/08/17 Unknown Rx Pantoprazole [Protonix] 40 mg PO BID #60 tablet 11/28/16 02/08/17 Unknown Rx Propranolol [Inderal] 10 mg PO Q12HR #60 tablet 11/28/16 02/08/17 Unknown Rx Spironolactone [Aldactone] 100 mg PO QDAY #30 tablet 11/28/16 02/08/17 Unknown Rx Sucralfate [Carafate] 1 gm PO Q6HR #120 oral.liqd 11/28/16 02/08/17 Unknown Rx Thiamine [Vitamin B-1] 100 mg PO QDAY #30 tablet 11/28/16 02/08/17 Unknown Rx Folic Acid [Folvite] 1 mg PO QDAY #30 tablet 02/08/17 Unknown Rx Multivitamin Tab [Multiple Vitamin 1 each PO QDAY #30 tablet 02/08/17 Unknown Rx TAB (Theragran)] Ranitidine HCl [Zantac 150 MG TAB] 150 mg PO PRN PRN 02/08/17 02/08/17 Unknown History Sucralfate [Carafate] 1 gm PO ACHS #60 tablet 02/08/17 Unknown Rx Thiamine [Vitamin B-1] 100 mg PO QDAY #30 tablet 02/08/17 Unknown Rx ED Physical Exam - General Limitations: No Limitations General appearance: alert, in no apparent distress - Head Head exam: Present: atraumatic, normocephalic - Eye Eye exam: Present: normal appearance, EOMI. Absent: PERRL, nystagmus - ENT ENT exam: Present: normal exam, normal orophraynx, mucous membranes dry, other ( patient has active tongue fasciculations) - Neck Neck exam: Present: normal inspection, full ROM. Absent: tenderness, meningismus - Respiratory Respiratory exam: Present: normal lung sounds bilaterally. Absent: respiratory distress, wheezes, rales, rhonchi, stridor, chest wall tenderness, accessory muscle use, decreased breath sounds, prolonged expiratory - Cardiovascular Cardiovascular Exam: Present: normal rhythm, tachycardia, normal heart sounds. Absent: systolic murmur, diastolic murmur, rubs, gallop - GI/Abdominal GI/Abdominal exam: Present: soft, normal bowel sounds. Absent: distended, tenderness, guarding, rebound, rigid, pulsatile mass - Rectal Rectal exam: Present: normal inspection, normal rectal tone, heme (-) stool, other (escorted by CIRERA Lomeli) - Extremities Exam Extremities exam: Present: normal inspection, full ROM, normal capillary refill. Absent: tenderness, pedal edema, joint swelling, calf tenderness - Back Exam Back exam: Present: normal inspection, full ROM. Absent: tenderness, CVA tenderness (R), CVA tenderness (L), muscle spasm, paraspinal tenderness, vertebral tenderness - Neurological Exam Neurological exam: Present: alert, oriented X3, other (Extraocular movements intact. Tongue midline. No facial droop. Facial sensation intact to light touch in the V1, V2, V3 distribution bilaterally. 5 and 5 strength in 4 extremities.. Sensation is intact to light touch in 4 extremities.). Absent: motor sensory deficit - Psychiatric Psychiatric exam: Present: anxious. Absent: homicidal ideation, suicidal ideation - Skin Skin exam: Present: warm, dry, intact, normal color. Absent: rash ED Course Vital Signs 02/08/17 02/08/17 02/08/17 10:01 15:22 15:31 Temperature 98.8 F Pulse Rate 116 H 97 H 98 H Respiratory 20 15 17 Rate Blood Pressure 143/85 O2 Sat by Pulse 98 99 Oximetry 02/08/17 02/08/17 02/08/17 15:40 15:50 16:00 Temperature Pulse Rate 102 H 102 H 103 H Respiratory 13 16 13 Rate Blood Pressure 149/92 160/86 O2 Sat by Pulse 98 98 98 Oximetry 02/08/17 02/08/17 02/08/17 16:10 16:20 16:30 Temperature Pulse Rate 129 H 105 H 107 H Respiratory 24 17 18 Rate Blood Pressure 160/86 161/86 154/87 O2 Sat by Pulse 98 98 98 Oximetry 02/08/17 02/08/17 02/08/17 17:00 17:30 18:00 Temperature Pulse Rate 107 H 106 H 108 H Respiratory 14 21 17 Rate Blood Pressure 147/81 166/86 165/88 O2 Sat by Pulse 96 98 99 Oximetry 02/08/17 02/08/17 02/08/17 18:30 18:54 19:00 Temperature Pulse Rate 110 H 96 H Respiratory 16 20 18 Rate Blood Pressure 145/91 148/86 O2 Sat by Pulse 96 97 Oximetry 02/08/17 02/08/17 02/08/17 19:30 20:00 20:30 Temperature Pulse Rate 104 H Respiratory 16 21 13 Rate Blood Pressure 136/88 140/89 151/92 O2 Sat by Pulse 97 94 94 Oximetry 02/08/17 02/08/17 02/08/17 21:00 21:30 22:25 Temperature Pulse Rate 110 H Respiratory 22 22 20 Rate Blood Pressure 161/108 162/96 157/102 O2 Sat by Pulse 97 96 96 Oximetry 02/08/17 02/08/17 02/08/17 22:31 22:39 22:41 Temperature Pulse Rate 101 H 104 H 103 H Respiratory 16 19 22 Rate Blood Pressure 159/90 159/90 159/90 O2 Sat by Pulse Oximetry 02/08/17 02/08/17 02/08/17 22:43 22:45 22:47 Temperature Pulse Rate 104 H 103 H 108 H Respiratory 18 18 17 Rate Blood Pressure 159/90 159/90 159/90 O2 Sat by Pulse Oximetry 02/08/17 02/08/17 02/08/17 22:49 22:51 22:53 Temperature Pulse Rate 100 H 98 H 103 H Respiratory 17 17 22 Rate Blood Pressure 157/102 157/102 157/102 O2 Sat by Pulse Oximetry 02/08/17 02/08/17 02/08/17 22:55 22:57 22:59 Temperature Pulse Rate 101 H 105 H 104 H Respiratory 14 14 17 Rate Blood Pressure 157/102 157/102 144/100 O2 Sat by Pulse Oximetry 02/08/17 02/08/17 02/08/17 23:00 23:01 23:03 Temperature Pulse Rate 107 H 109 H 103 H Respiratory 22 17 17 Rate Blood Pressure 144/100 144/100 144/100 O2 Sat by Pulse Oximetry 02/08/17 02/08/17 02/08/17 23:05 23:07 23:09 Temperature Pulse Rate 106 H 106 H 112 H Respiratory 13 17 15 Rate Blood Pressure 144/100 144/100 144/100 O2 Sat by Pulse Oximetry 02/08/17 02/08/17 02/08/17 23:11 23:13 23:15 Temperature Pulse Rate 111 H 111 H 109 H Respiratory 20 14 16 Rate Blood Pressure 144/100 144/100 144/100 O2 Sat by Pulse Oximetry 02/08/17 02/08/17 23:17 23:28 Temperature 97.9 F Pulse Rate 106 H Respiratory 16 Rate Blood Pressure 151/98 O2 Sat by Pulse 96 Oximetry ED Medical Decision Making - Lab Data Result diagrams: 02/08/17 10:14 02/08/17 10:14 Vital Signs 02/08/17 02/08/17 02/08/17 10:01 15:22 15:31 Temperature 98.8 F Pulse Rate 116 H 97 H 98 H Respiratory 20 15 17 Rate Blood Pressure 143/85 O2 Sat by Pulse 98 99 Oximetry 02/08/17 02/08/17 02/08/17 15:40 15:50 16:00 Temperature Pulse Rate 102 H 102 H 103 H Respiratory 13 16 13 Rate Blood Pressure 149/92 160/86 O2 Sat by Pulse 98 98 98 Oximetry 02/08/17 02/08/17 02/08/17 16:10 16:20 16:30 Temperature Pulse Rate 129 H 105 H 107 H Respiratory 24 17 18 Rate Blood Pressure 160/86 161/86 154/87 O2 Sat by Pulse 98 98 98 Oximetry 02/08/17 02/08/17 02/08/17 17:00 17:30 18:00 Temperature Pulse Rate 107 H 106 H 108 H Respiratory 14 21 17 Rate Blood Pressure 147/81 166/86 165/88 O2 Sat by Pulse 96 98 99 Oximetry 02/08/17 02/08/17 02/08/17 18:30 18:54 19:00 Temperature Pulse Rate 110 H 96 H Respiratory 16 20 18 Rate Blood Pressure 145/91 148/86 O2 Sat by Pulse 96 97 Oximetry Lab Results 02/08/17 02/08/17 02/08/17 Range/Units 10:14 10:14 13:24 WBC 5.7 (4.5-11.0) K/mm3 RBC 4.22 (3.65-5.03) M/mm3 Hgb 13.6 (11.8-15.2) gm/dl Hct 39.6 (35.5-45.6) % MCV 94 (84-94) fl MCH 32 (28-32) pg MCHC 34 (32-34) % RDW 15.0 (13.2-15.2) % Plt Count 144 (140-440) K/mm3 Lymph % (Auto) 16.0 (13.4-35.0) % [place] % (Auto) 6.3 (0.0-7.3) % Eos % (Auto) 0.0 (0.0-4.3) % Baso % (Auto) 1.3 (0.0-1.8) % Lymph # 0.9 L (1.2-5.4) K/mm3 [place] # 0.4 (0.0-0.8) K/mm3 Eos # 0.0 (0.0-0.4) K/mm3 Baso # 0.1 (0.0-0.1) K/mm3 Seg Neutrophils % 76.4 H (40.0-70.0) % Seg Neutrophils # 4.3 (1.8-7.7) K/mm3 PT (12.2-14.9) Sec. INR (0.87-1.13) APTT (24.2-36.6) Sec. Sodium 141 (137-145) mmol/L Potassium 3.2 L (3.6-5.0) mmol/L Chloride 95.0 L (98-107) mmol/L Carbon Dioxide 23 (22-30) mmol/L Anion Gap 26 mmol/L BUN 4 L (9-20) mg/dL Creatinine 0.9 (0.8-1.5) mg/dL Estimated GFR > 60 ml/min BUN/Creatinine Ratio 4.44 % Glucose 96 (75-100) mg/dL Lactic Acid (0.7-2.0) mmol/L Calcium 8.6 (8.4-10.2) mg/dL Magnesium (1.7-2.3) mg/dL Total Bilirubin 1.50 H (0.1-1.2) mg/dL AST 142 H (5-40) units/L ALT 62 H (7-56) units/L Alkaline Phosphatase 82 (35-129) units/L Ammonia (25-60) umol/L Total Creatine Kinase (55-170) units/L Troponin T < 0.010 < 0.010 (0.00-0.029) ng/mL Total Protein 9.2 H (6.3-8.2) g/dL Albumin 4.0 (3.9-5) g/dL Albumin/Globulin Ratio 0.8 % Lipase 52 (13-60) units/L Plasma/Serum Alcohol (0-0.07) gm% 02/08/17 02/08/17 02/08/17 Range/Units 16:15 18:54 18:54 WBC (4.5-11.0) K/mm3 RBC (3.65-5.03) M/mm3 Hgb (11.8-15.2) gm/dl Hct (35.5-45.6) % MCV (84-94) fl MCH (28-32) pg MCHC (32-34) % RDW (13.2-15.2) % Plt Count (140-440) K/mm3 Lymph % (Auto) (13.4-35.0) % [place] % (Auto) (0.0-7.3) % Eos % (Auto) (0.0-4.3) % Baso % (Auto) (0.0-1.8) % Lymph # (1.2-5.4) K/mm3 [place] # (0.0-0.8) K/mm3 Eos # (0.0-0.4) K/mm3 Baso # (0.0-0.1) K/mm3 Seg Neutrophils % (40.0-70.0) % Seg Neutrophils # (1.8-7.7) K/mm3 PT (12.2-14.9) Sec. INR (0.87-1.13) APTT (24.2-36.6) Sec. Sodium (137-145) mmol/L Potassium (3.6-5.0) mmol/L Chloride (98-107) mmol/L Carbon Dioxide (22-30) mmol/L Anion Gap mmol/L BUN (9-20) mg/dL Creatinine (0.8-1.5) mg/dL Estimated GFR ml/min BUN/Creatinine Ratio % Glucose (75-100) mg/dL Lactic Acid 3.30 H* (0.7-2.0) mmol/L Calcium (8.4-10.2) mg/dL Magnesium 1.50 L (1.7-2.3) mg/dL Total Bilirubin (0.1-1.2) mg/dL AST (5-40) units/L ALT (7-56) units/L Alkaline Phosphatase (35-129) units/L Ammonia (25-60) umol/L Total Creatine Kinase 648 H (55-170) units/L Troponin T < 0.010 (0.00-0.029) ng/mL Total Protein (6.3-8.2) g/dL Albumin (3.9-5) g/dL Albumin/Globulin Ratio % Lipase (13-60) units/L Plasma/Serum Alcohol (0-0.07) gm% 02/08/17 02/08/17 02/08/17 Range/Units 18:54 18:54 18:54 WBC (4.5-11.0) K/mm3 RBC (3.65-5.03) M/mm3 Hgb (11.8-15.2) gm/dl Hct (35.5-45.6) % MCV (84-94) fl MCH (28-32) pg MCHC (32-34) % RDW (13.2-15.2) % Plt Count (140-440) K/mm3 Lymph % (Auto) (13.4-35.0) % [place] % (Auto) (0.0-7.3) % Eos % (Auto) (0.0-4.3) % Baso % (Auto) (0.0-1.8) % Lymph # (1.2-5.4) K/mm3 [place] # (0.0-0.8) K/mm3 Eos # (0.0-0.4) K/mm3 Baso # (0.0-0.1) K/mm3 Seg Neutrophils % (40.0-70.0) % Seg Neutrophils # (1.8-7.7) K/mm3 PT 18.0 H (12.2-14.9) Sec. INR 1.49 H (0.87-1.13) APTT 33.3 (24.2-36.6) Sec. Sodium (137-145) mmol/L Potassium (3.6-5.0) mmol/L Chloride (98-107) mmol/L Carbon Dioxide (22-30) mmol/L Anion Gap mmol/L BUN (9-20) mg/dL Creatinine (0.8-1.5) mg/dL Estimated GFR ml/min BUN/Creatinine Ratio % Glucose (75-100) mg/dL Lactic Acid (0.7-2.0) mmol/L Calcium (8.4-10.2) mg/dL Magnesium (1.7-2.3) mg/dL Total Bilirubin (0.1-1.2) mg/dL AST (5-40) units/L ALT (7-56) units/L Alkaline Phosphatase (35-129) units/L Ammonia < 10.0 L (25-60) umol/L Total Creatine Kinase (55-170) units/L Troponin T (0.00-0.029) ng/mL Total Protein (6.3-8.2) g/dL Albumin (3.9-5) g/dL Albumin/Globulin Ratio % Lipase (13-60) units/L Plasma/Serum Alcohol 0.01 (0-0.07) gm% - EKG Data -: EKG Interpreted by La Rate: tachycardia - EKG Data 02/08/17 19:50 sinus tachycardia, 112 bpm, normal axis, QTC 513 ms, abnormal EKG , not morphologically consistent with STEMI, T-wave inversions in the inferior leads, appears unchanged from prior EKG from November 2016. - Radiology Data Radiology results: image reviewed - Medical Decision Making Differential diagnosis: Alcohol withdrawal, Terri-Simmons tear, upper GI bleed, pneumonia, acute coronary syndrome, alcohol dependency, pancreatitis, electrolyte derangement Assessment and plan: 61-year-old male with complaint of left upper quadrant abdominal pain, 2 episodes of reddish emesis, who is actively tremulous, and appears to be in mild to moderate alcohol withdrawal. He is clinically sober at this time, alert and oriented 3, not homicidal or suicidal, does not require a 1013. No pulmonary embolus or DVT risk factors, low risk by well's criteria. Abdomen is soft and benign, lipase is unremarkable, therefore I don't believe the patient requires an emergent imaging of the abdomen/pelvis. Hemoglobin and hematocrit stable. Guaiac negative from below. Carafate, fluids and Protonix ordered. Patient has a number of laboratory abnormalities, including hypomagnesemia, hypokalemia, and elevated lactic acid. Patient will be started on the ciwa protocol, he will be started on Protonix, and he will be started on IV fluids and D5 half-normal for probable starvation ketosis secondary to alcohol consumption. Elevated lactic acid is appreciated, this is most likely secondary to alcohol consumption. His electrolytes will be repleted. The case is discussed with the Hospital physician, Dr. Kat, who graciously to the patient to his service. Aspirin will be withheld giving concern for possible upper GI bleed. Liver function tests are appreciated, they appear to be chronic, I will defer to the inpatient team to further manage these as they see fit. Critical care attestation.: If time is entered above; I have spent that time in minutes in the direct care of this critically ill patient, excluding procedure time. ED Disposition Clinical Impression: EtOH dependence, Hypokalemia, Hematemesis, Chest pain Disposition: OP ADMIT IP TO THIS HOSP Is pt being admited?: Yes Condition: Stable Instructions: Chest Pain (ED) Prescriptions: Folic Acid [Folvite] 1 mg PO QDAY #30 tablet Multivitamin Tab [Multiple Vitamin TAB (Theragran)] 1 each PO QDAY #30 tablet Sucralfate [Carafate] 1 gm PO ACHS #60 tablet Thiamine [Vitamin B-1] 100 mg PO QDAY #30 tablet Referrals: PRIMARY CARE, [Primary Care Provider] - 3-5 Days
[2017-02-08] MEDS ORDERED: D5/0.45NS 1,000 ML IV SCH (19:00)
--- NOTE | 2017-02-08 19:09 | History and Physical Report ---
Medications and Allergies Allergies Allergy/AdvReac Type Severity Reaction Status Date / Time No Known Allergies Allergy Verified 11/26/16 14:51 Home Medications Medication Instructions Recorded Confirmed Last Taken Type Folic Acid [Folvite] 1 mg PO QDAY #30 tablet 11/28/16 02/08/17 Unknown Rx Pantoprazole [Protonix] 40 mg PO BID #60 tablet 11/28/16 02/08/17 Unknown Rx Propranolol [Inderal] 10 mg PO Q12HR #60 tablet 11/28/16 02/08/17 Unknown Rx Spironolactone [Aldactone] 100 mg PO QDAY #30 tablet 11/28/16 02/08/17 Unknown Rx Sucralfate [Carafate] 1 gm PO Q6HR #120 oral.liqd 11/28/16 02/08/17 Unknown Rx Thiamine [Vitamin B-1] 100 mg PO QDAY #30 tablet 11/28/16 02/08/17 Unknown Rx Active Meds: Active Medications Thiamine HCl 100 mg/ Folic Acid 1 mg/ Multivitamins/Minerals 10 ml/ Sodium Chloride 1,011.2 mls @ 250 mls/hr IV ONCE.ED ONE Stop: 02/08/17 22:20 Dextrose/Sodium Chloride (D5/0.45ns) 1,000 mls @ 0 mls/hr IV DIRECT LUBA PRN Reason: Wide Open Potassium Chloride (Kcl 10meq/100ml) 10 meq in 100 mls @ 100 mls/hr IV Q1H LUBA Stop: 02/08/17 20:59 Lorazepam (Ativan) 2 mg IV Q1HR PRN PRN Reason: [facility] 03-21 Exam - Constitutional Vitals: Temp Pulse Resp BP Pulse Ox 98.8 F 105 H 20 161/86 98 02/08/17 10:01 02/08/17 16:20 02/08/17 18:54 02/08/17 16:20 02/08/17 16:20 Results - Labs CBC & Chem 7: 02/08/17 10:14 02/08/17 10:14 Labs: Abnormal lab results 02/08/17 02/08/17 Range/Units 10:14 10:14 Lymph # 0.9 L (1.2-5.4) K/mm3 Seg Neutrophils % 76.4 H (40.0-70.0) % Potassium 3.2 L (3.6-5.0) mmol/L Chloride 95.0 L (98-107) mmol/L BUN 4 L (9-20) mg/dL Total Bilirubin 1.50 H (0.1-1.2) mg/dL AST 142 H (5-40) units/L ALT 62 H (7-56) units/L Total Protein 9.2 H (6.3-8.2) g/dL
[2017-02-08 19:23] LABS: INR 1.49 (0.87-1.13)
[2017-02-08 19:24] LABS: Partial Thromboplastin Time 33.3 Sec. (24.2-36.6)
[2017-02-08 19:33] LABS: Magnesium 1.5 mg/dL (1.7-2.3)
[2017-02-08] MEDS ORDERED: VITAMIN B-1 PO ONE (20:18)
[2017-02-08] MEDS ORDERED: THERAGRAN Tab PO ONE (20:18)
[2017-02-08] MEDS: KCL 10MEQ/100ML 10 MEQ/100 ML BAG IV SCH ×2 (20:56→21:11)
[2017-02-08] MEDS ORDERED: NACL 0.45% 500 ML IV ONE (21:00)
[2017-02-08] MEDS ORDERED: NACL ONE ×2 (21:34→21:59)
--- NOTE | 2017-02-08 22:49 | Cat Scan Report ---
FINAL REPORT PROCEDURE: CT ANGIO CHEST TECHNIQUE: Computerized tomographic angiography of the chest was performed after the IV injection of iodinated nonionic contrast including image processing. The image data was postprocessed using 2-dimensional multiplanar reformatted (MPR) and 3-dimensional (MIP and/or volume rendered) techniques. HISTORY: chest pain COMPARISON: No prior studies are available for comparison. FINDINGS: No pneumothorax or pleural effusion is seen. There is fatty infiltration of the liver. Benign cyst is seen in the superior pole of the right kidney. There is a moderate sized hiatus hernia. There is suggestion of paraesophageal varices. No mediastinal lymphadenopathy is seen. Heart and thoracic aorta are normal in size without evidence of dissection. No pulmonary embolus is seen. IMPRESSION: There is fatty infiltration of the liver and paraesophageal varices. Likely small hiatus hernia is seen. No pulmonary embolus is seen.
[2017-02-08 23:28] VITALS: BP 151/98
--- NOTE | 2017-02-09 09:46 | XRay Report ---
AP CHEST: History: Chest pain. AP view of the chest demonstrates a normal mediastinal and cardiac contour with clear lungs and normal bony and soft tissue structures. IMPRESSION: Normal AP chest.
== END 2017-02-08 23:50 | disposition admitted as inpatient to this hospital (09) ==
LOC: ED 09:50
DX: E87.6 Hypokalemia (principal); K92.0 Hematemesis; R07.9 Chest pain, unspecified; F10.20 Alcohol dependence, uncomplicated; I10 Essential (primary) hypertension; K21.9 Gastro-esophageal reflux disease without esophagitis
CPT/HCPCS: 36415; 71010; 71275; 80053; 82140; 82271; 82550; 83690; 83735; 84484; 85025; 85379; 85610; 85730; 93005; 93010; 96361; 96365; 96366; 96368; 96375; 99285; G0480; J2060; J2405; J3411; J3475; J3480; J7030; Q9967; 80320

== ENCOUNTER 2018-08-01 06:24 | Emergency (ER) | payer SELFPAY ==
[2018-08-01] MEDS ORDERED: NACL 0.9% 1000 ML 1,000 ML IV ONE (06:54)
[2018-08-01 07:15] LABS: Hematocrit 32.2 % (35.5-45.6); Hemoglobin 11.4 gm/dl (11.8-15.2); Mean Corpuscular HGB Conc 35 % (32-34); Mean Corpuscular Hemoglobin 38 pg (28-32); Mean Corpuscular Volume 107 fl (84-94); Platelet Count 91 K/mm3 (140-440); Red Blood Count 3.02 M/mm3 (3.65-5.03); Red Cell Distribution Width 15.6 % (13.2-15.2)
[2018-08-01 07:16] LABS: Basophils % (Auto) 0.5 % (0.0-1.8); Eosinophils % (Auto) 0.1 % (0.0-4.3); Lymphocytes # (Auto) 0.9 K/mm3 (1.2-5.4); Monocytes # (Auto) 0.9 K/mm3 (0.0-0.8); Monocytes % (Auto) 11.9 % (0.0-7.3)
[2018-08-01 07:32] LABS: Alanine Aminotransferase 37 units/L (7-56); Albumin 2.3 g/dL (3.9-5); BUN/Creatinine Ratio 8; Blood Urea Nitrogen 6 mg/dL (9-20); Calcium 7.7 mg/dL (8.4-10.2); Hemolysis Index 2; Lipase 40 units/L (13-60)
--- NOTE | 2018-08-01 08:10 | Emergency Department Report ---
ED Abdominal Pain HPI - General Chief Complaint: Abdominal Pain Stated Complaint: ABD PAIN Time Seen by Provider: 08/01/18 08:05 Source: patient Mode of arrival: Stretcher Limitations: No Limitations - History of Present Illness Initial Comments: Patient is 62-year-old male that presents to emergency room with complaints of abdominal pain and distention 3 weeks that is worsening. Patient states that he is also having bilateral lower extremity swelling and shortness of breath. Patient states that his shortness of breath is better with rest and worse with exertion. Patient states his abdominal pain is better with rest and worse with exertion. Patient states abdominal pain is a 8 out of 10 and is nonradiating. Patient denies pain in his legs. Patient states he's has cirrhosis of the liver and has had a paracentesis for over 6 months. MD Complaint: abdominal pain -: Gradual Location: diffuse Radiation: none Migration to: no migration Severity scale (0 -10): 8 Quality: aching, fullness Consistency: constant Improves With: rest Worsens With: movement Associated Symptoms: denies other symptoms. denies: nausea, vomiting, diarrhea, fever, chills, constipation, dysuria, hematemesis, hematochezia, melena, hematuria, anorexia, syncope - Related Data Home Medications Medication Instructions Recorded Confirmed Last Taken Ranitidine HCl [Zantac 150 MG TAB] 150 mg PO PRN PRN 02/08/17 02/08/17 Unknown Previous Rx's Medication Instructions Recorded Last Taken Type Folic Acid [Folvite] 1 mg PO QDAY #30 tablet 11/28/16 Unknown Rx Pantoprazole [Protonix] 40 mg PO BID #60 tablet 11/28/16 Unknown Rx Propranolol [Inderal] 10 mg PO Q12HR #60 tablet 11/28/16 Unknown Rx Spironolactone [Aldactone] 100 mg PO QDAY #30 tablet 11/28/16 Unknown Rx Sucralfate [Carafate] 1 gm PO Q6HR #120 oral.liqd 11/28/16 Unknown Rx Thiamine [Vitamin B-1] 100 mg PO QDAY #30 tablet 11/28/16 Unknown Rx Folic Acid [Folvite] 1 mg PO QDAY #30 tablet 02/08/17 Unknown Rx Multivitamin Tab [Multiple Vitamin 1 each PO QDAY #30 tablet 02/08/17 Unknown Rx TAB (Theragran)] Sucralfate [Carafate] 1 gm PO ACHS #60 tablet 02/08/17 Unknown Rx Thiamine [Vitamin B-1] 100 mg PO QDAY #30 tablet 02/08/17 Unknown Rx Allergies Allergy/AdvReac Type Severity Reaction Status Date / Time No Known Allergies Allergy Verified 11/26/16 14:51 ED Review of Systems ROS: Stated complaint: ABD PAIN Other details as noted in HPI Constitutional: denies: chills, fever Eyes: denies: eye pain, eye discharge, vision change ENT: denies: ear pain, throat pain Respiratory: shortness of breath. denies: cough, wheezing Cardiovascular: denies: chest pain, palpitations Endocrine: no symptoms reported Gastrointestinal: abdominal pain. denies: nausea, diarrhea Genitourinary: denies: urgency, dysuria Musculoskeletal: denies: back pain, joint swelling, arthralgia Skin: denies: rash, lesions Neurological: denies: headache, weakness, paresthesias Psychiatric: denies: anxiety, depression Hematological/Lymphatic: denies: easy bleeding, easy bruising ED Past Medical Hx - Past Medical History Previous Medical History?: Yes Hx Hypertension: Yes Hx Heart Attack/AMI: No Hx Congestive Heart Failure: No Hx Diabetes: No Hx Deep Vein Thrombosis: No Hx Pulmonary Embolism: No Hx GERD: Yes Hx Liver Disease: Yes (h/o ascitis, s/p paracentesis x 2 (2013)) Hx Renal Disease: No Hx Sickle Cell Disease: No Hx Arthritis: No Hx Headaches / Migraines: No Hx Seizures: No Hx Kidney Stones: No Hx Asthma: No Hx COPD: No Hx Tuberculosis: No Hx Dementia: No Hx HIV: No Additional medical history: ulcers. esophagus "swells up into little knots". diverticulitis - Surgical History Past Surgical History?: Yes Hx Coronary Stent: No Hx Open Heart Surgery: No Hx Pacemaker: No Hx Internal Defibrillator: No Hx Cholecystectomy: No Hx Appendectomy: No Hx Breast Surgery: No Additional Surgical History: paracentesis - Family History Family history: no significant - Social History Smoking Status: Never Smoker Substance Use Type: None - Medications Home Medications: Home Medications Medication Instructions Recorded Confirmed Last Taken Type Folic Acid [Folvite] 1 mg PO QDAY #30 tablet 11/28/16 02/08/17 Unknown Rx Pantoprazole [Protonix] 40 mg PO BID #60 tablet 11/28/16 02/08/17 Unknown Rx Propranolol [Inderal] 10 mg PO Q12HR #60 tablet 11/28/16 02/08/17 Unknown Rx Spironolactone [Aldactone] 100 mg PO QDAY #30 tablet 11/28/16 02/08/17 Unknown Rx Sucralfate [Carafate] 1 gm PO Q6HR #120 oral.liqd 11/28/16 02/08/17 Unknown Rx Thiamine [Vitamin B-1] 100 mg PO QDAY #30 tablet 11/28/16 02/08/17 Unknown Rx Folic Acid [Folvite] 1 mg PO QDAY #30 tablet 02/08/17 Unknown Rx Multivitamin Tab [Multiple Vitamin 1 each PO QDAY #30 tablet 02/08/17 Unknown Rx TAB (Theragran)] Ranitidine HCl [Zantac 150 MG TAB] 150 mg PO PRN PRN 02/08/17 02/08/17 Unknown History Sucralfate [Carafate] 1 gm PO ACHS #60 tablet 02/08/17 Unknown Rx Thiamine [Vitamin B-1] 100 mg PO QDAY #30 tablet 02/08/17 Unknown Rx ED Physical Exam - General Limitations: No Limitations General appearance: alert, in no apparent distress - Head Head exam: Present: atraumatic, normocephalic - Eye Eye exam: Present: normal appearance - ENT ENT exam: Present: mucous membranes moist - Neck Neck exam: Present: normal inspection - Respiratory Respiratory exam: Present: normal lung sounds bilaterally. Absent: respiratory distress - Cardiovascular Cardiovascular Exam: Present: regular rate, normal rhythm. Absent: systolic murmur, diastolic murmur, rubs, gallop - GI/Abdominal GI/Abdominal exam: Present: soft, distended, tenderness (generalized tenderness), normal bowel sounds - Rectal Rectal exam: Present: deferred - Extremities Exam Extremities exam: Present: full ROM, pedal edema, other (lower ext swelling noted) - Back Exam Back exam: Present: normal inspection - Neurological Exam Neurological exam: Present: alert, oriented X3 - Psychiatric Psychiatric exam: Present: normal affect, normal mood - Skin Skin exam: Present: warm, dry, intact, normal color. Absent: rash ED Course Vital Signs 08/01/18 08/01/18 08/01/18 06:46 08:44 08:45 Temperature 99.4 F Pulse Rate 117 H Respiratory 20 Rate Blood Pressure 140/78 129/74 Blood Pressure [Left] O2 Sat by Pulse 97 98 99 Oximetry 08/01/18 08/01/18 08/01/18 08:46 09:00 09:16 Temperature Pulse Rate 109 H Respiratory 18 Rate Blood Pressure 127/76 127/76 Blood Pressure 124/72 [Left] O2 Sat by Pulse 96 96 98 Oximetry 08/01/18 08/01/18 08/01/18 09:30 09:46 10:00 Temperature Pulse Rate Respiratory Rate Blood Pressure 127/76 127/76 127/76 Blood Pressure [Left] O2 Sat by Pulse 98 96 95 Oximetry 08/01/18 08/01/18 08/01/18 10:16 10:30 11:14 Temperature Pulse Rate Respiratory Rate Blood Pressure 133/73 133/73 133/73 Blood Pressure [Left] O2 Sat by Pulse 96 96 91 Oximetry 08/01/18 08/01/18 08/01/18 11:15 12:18 14:18 Temperature Pulse Rate Respiratory Rate Blood Pressure 133/73 120/71 Blood Pressure [Left] O2 Sat by Pulse 98 96 96 Oximetry 08/01/18 14:20 Temperature 98.7 F Pulse Rate 113 H Respiratory 18 Rate Blood Pressure Blood Pressure 120/71 [Left] O2 Sat by Pulse 96 Oximetry - Reevaluation(s) Reevaluation #1: Discussed all results with patient. Discussed plan of care and admission pat ient. Patient agrees with plan of admission 08/01/18 13:41 - Consultations Consultation #1: Hospital course consulted for admission. Hospitalist to assume care. 08/01/18 14:05 ED Medical Decision Making - Lab Data Result diagrams: 08/01/18 07:01 08/01/18 06:56 - EKG Data -: EKG Interpreted by Oh EKG shows normal: sinus rhythm, axis, intervals, QRS complexes, ST-T waves Rate: tachycardia - Radiology Data Radiology results: report reviewed CT ABDOMEN AND PELVIS WITH CONTRAST INDICATION: Abdominal pain. COMPARISON: 02/08/2017 chest CTA relevant images. FINDINGS: Abdomen and pelvis CT performed following intravenous administration of 100 cc of Omnipaque 300. LUNG BASES: Mild to moderate distal esophageal prominence/thickening again noted with multiple paraesophageal varices and new 4.3 x 2.7 cm left distal paraesophageal focal fluid on axial image 19, series 2. Mild extreme bibasilar atelectasis posteriorly noted as also possible trace right pleural effusion on axial images 36-37. ABDOMEN: Moderate ascites is new, also noted perihepatic and perisplenic. Cirrhotic liver again diffusely hypodense and heterogeneous with few tiny subcentimeter, indeterminate hypodensities. Patent veins. Homogenous spleen, approximately 13 cm in length. No radiopaque gallstones. No hydronephrosis with bilateral renal contrast excretion incidentally noted on the portal venous phase. Approximately 3.2 x 2 cm exophytic right interpolar cortical cyst again noted on axial image 51, series 2. Pancreas, adrenals, aorta and IVC within normal limits. Nonopacified GI tract evaluation limited, though grossly nonobstructive. Few perigastric varices incidentally noted. Colon decompressed with nonspecific diffuse exaggerated wall thickness. Some fluid/edema at the umbilicus incidentally noted on axial image 115, series 2. PELVIS: Seminal vesicle calcifications. Prostate may be slightly enlarged, though overall age-appropriate. Simple attenuation pelvic ascites noted. Otherwise grossly unremarkable urinary bladder and the rectosigmoid. No size significant adenopathy. Multilevel spinal degenerative changes as spurring, greatest lower thoracic. Bilateral SI joint degenerative changes with bony bridging on the left also noted. Bilateral hip degenerative changes also seen. CONCLUSION: 1. New mild to moderate ascites since February 2017 in this patient with underlying cirrhosis and portal hypertension, as detailed above. 2. Various other incidental findings, including slight bibasilar atelectasis and bony degenerative changes, amongst others, as above. Thank you for the opportunity to participate in this patient's care. Transcribed By: RS Dictated By: RAMONA WALKER MD Electronically Authenticated By: RAMONA WALKER MD Signed Date/Time: 08/01/18 1143 - Medical Decision Making She is a 8-year-old male presents to emergency with complaints of abdominal swelling and distention, abdominal pain and lower extremity swelling. Patient will have anasarca and ascites and cirrhosis of liver. Patient to be admitted to the hospitalist service for evaluation treatment. Patient's labs reviewed. Patient's CT reviewed and discussed with the patient. - Differential Diagnosis anisarca, ascites. abd pain. liver dis. sob. acs. Critical Care Time: Yes Critical care attestation.: If time is entered above; I have spent that time in minutes in the direct care of this critically ill patient, excluding procedure time. Critical Care Time: 45 minutes. ED Disposition Clinical Impression: SOB (shortness of breath), Hyponatremia, Thrombocytopenia, Liver disease, Anasarca, Edema extremities, Hypokalemia Ascites Qualifiers: Ascites type: other type Qualified Code(s): R18.8 - Other ascites Cirrhosis Qualifiers: Hepatic cirrhosis type: unspecified hepatic cirrhosis Ascites presence: with ascites Qualified Code(s): K74.60 - Unspecified cirrhosis of liver Disposition: DC-09 OP ADMIT IP TO THIS HOSP Is pt being admited?: Yes Does the pt Need Aspirin: No Condition: Critical Time of Disposition: 13:43
--- NOTE | 2018-08-01 08:30 | XRay Report ---
CHEST 2 VIEWS INDICATION: Shortness of breath. COMPARISON: 02/08/2017 FINDINGS: Frontal and lateral chest radiographs again demonstrate normal cardiomediastinal silhouette. Well-expanded lungs. No pleural effusions or CHF. Subtle left retrocardiac density may represent known hiatal hernia. Multilevel thoracic spondylosis/DISH. CONCLUSION: No acute chest process, as described. Thank you for the opportunity to participate in this patient's care.
--- NOTE | 2018-08-01 11:47 | Cat Scan Report ---
CT ABDOMEN AND PELVIS WITH CONTRAST INDICATION: Abdominal pain. COMPARISON: 02/08/2017 chest CTA relevant images. FINDINGS: Abdomen and pelvis CT performed following intravenous administration of 100 cc of Omnipaque 300. LUNG BASES: Mild to moderate distal esophageal prominence/thickening again noted with multiple paraesophageal varices and new 4.3 x 2.7 cm left distal paraesophageal focal fluid on axial image 19, series 2. Mild extreme bibasilar atelectasis posteriorly noted as also possible trace right pleural effusion on axial images 36-37. ABDOMEN: Moderate ascites is new, also noted perihepatic and perisplenic. Cirrhotic liver again diffusely hypodense and heterogeneous with few tiny subcentimeter, indeterminate hypodensities. Patent veins. Homogenous spleen, approximately 13 cm in length. No radiopaque gallstones. No hydronephrosis with bilateral renal contrast excretion incidentally noted on the portal venous phase. Approximately 3.2 x 2 cm exophytic right interpolar cortical cyst again noted on axial image 51, series 2. Pancreas, adrenals, aorta and IVC within normal limits. Nonopacified GI tract evaluation limited, though grossly nonobstructive. Few perigastric varices incidentally noted. Colon decompressed with nonspecific diffuse exaggerated wall thickness. Some fluid/edema at the umbilicus incidentally noted on axial image 115, series 2. PELVIS: Seminal vesicle calcifications. Prostate may be slightly enlarged, though overall age-appropriate. Simple attenuation pelvic ascites noted. Otherwise grossly unremarkable urinary bladder and the rectosigmoid. No size significant adenopathy. Multilevel spinal degenerative changes as spurring, greatest lower thoracic. Bilateral SI joint degenerative changes with bony bridging on the left also noted. Bilateral hip degenerative changes also seen. CONCLUSION: 1. New mild to moderate ascites since February 2017 in this patient with underlying cirrhosis and portal hypertension, as detailed above. 2. Various other incidental findings, including slight bibasilar atelectasis and bony degenerative changes, amongst others, as above. Thank you for the opportunity to participate in this patient's care.
[2018-08-01 12:53] LABS: Bilirubin,Urine NEG (Negative); Blood,Urine NEG (Negative); Color,Urine Amber (Yellow); Protein,Urine <15 mg/dL mg/dL (Negative)
[2018-08-01] MEDS ORDERED: ZOFRAN IV ONE (13:39)
--- NOTE | 2018-08-01 14:05 | Consultation ---
Medications and Allergies Allergies Allergy/AdvReac Type Severity Reaction Status Date / Time No Known Allergies Allergy Verified 11/26/16 14:51 Home Medications Medication Instructions Recorded Confirmed Last Taken Type Folic Acid [Folvite] 1 mg PO QDAY #30 tablet 11/28/16 02/08/17 Unknown Rx Pantoprazole [Protonix] 40 mg PO BID #60 tablet 11/28/16 02/08/17 Unknown Rx Propranolol [Inderal] 10 mg PO Q12HR #60 tablet 11/28/16 02/08/17 Unknown Rx Spironolactone [Aldactone] 100 mg PO QDAY #30 tablet 11/28/16 02/08/17 Unknown Rx Sucralfate [Carafate] 1 gm PO Q6HR #120 oral.liqd 11/28/16 02/08/17 Unknown Rx Thiamine [Vitamin B-1] 100 mg PO QDAY #30 tablet 11/28/16 02/08/17 Unknown Rx Folic Acid [Folvite] 1 mg PO QDAY #30 tablet 02/08/17 Unknown Rx Multivitamin Tab [Multiple Vitamin 1 each PO QDAY #30 tablet 02/08/17 Unknown Rx TAB (Theragran)] Ranitidine HCl [Zantac 150 MG TAB] 150 mg PO PRN PRN 02/08/17 02/08/17 Unknown History Sucralfate [Carafate] 1 gm PO ACHS #60 tablet 02/08/17 Unknown Rx Thiamine [Vitamin B-1] 100 mg PO QDAY #30 tablet 02/08/17 Unknown Rx Exam - Constitutional Vitals: Temp Pulse Resp BP Pulse Ox 99.4 F 109 H 18 133/73 98 08/01/18 06:46 08/01/18 08:46 08/01/18 08:46 08/01/18 11:15 08/01/18 11:15 Results - Labs CBC & Chem 7: 08/01/18 07:01 08/01/18 06:56 Labs: Abnormal lab results 08/01/18 08/01/18 08/01/18 Range/Units 06:56 07:01 12:22 RBC 3.02 L (3.65-5.03) M/mm3 Hgb 11.4 L (11.8-15.2) gm/dl Hct 32.2 L (35.5-45.6) % MCV 107 H (84-94) fl MCH 38 H (28-32) pg MCHC 35 H (32-34) % RDW 15.6 H (13.2-15.2) % Plt Count 91 L (140-440) K/mm3 Lymph % (Auto) 12.0 L (13.4-35.0) % Sunflower % (Auto) 11.9 H (0.0-7.3) % Lymph # 0.9 L (1.2-5.4) K/mm3 Sunflower # 0.9 H (0.0-0.8) K/mm3 Seg Neutrophils % 75.5 H (40.0-70.0) % Sodium 131 L (137-145) mmol/L Potassium 3.2 L (3.6-5.0) mmol/L Chloride 93.5 L (98-107) mmol/L BUN 6 L (9-20) mg/dL Calcium 7.7 L (8.4-10.2) mg/dL Total Bilirubin 7.60 H (0.1-1.2) mg/dL AST 115 H (5-40) units/L Total Protein 8.4 H (6.3-8.2) g/dL Albumin 2.3 L (3.9-5) g/dL Ur Specific [place] 1.036 H (1.003-1.030)
[2018-08-01 14:15] LABS: Creatine Kinase MB 4.7 ng/mL (0.0-4.0)
[2018-08-01 14:21] VITALS: BP 120/71
== END 2018-08-01 18:35 | disposition admitted as inpatient to this hospital (09) ==
LOC: ED 06:24
DX: R18.8 Other ascites (principal); K74.60 Unspecified cirrhosis of liver; E87.6 Hypokalemia; E87.1 Hypo-osmolality and hyponatremia; R60.0 Localized edema; R60.1 Generalized edema; D69.6 Thrombocytopenia, unspecified; I10 Essential (primary) hypertension; K21.9 Gastro-esophageal reflux disease without esophagitis
CPT/HCPCS: 36415; 71046; 74177; 80053; 81001; 82550; 82553; 83690; 83880; 84484; 85025; 93005; 93010; 96374; 99291; J2405; Q9967

== ENCOUNTER 2018-11-19 11:56 | Inpatient (IN) | payer OTHER ==
--- NOTE | 2018-11-19 12:37 | Emergency Department Report ---
Chief Complaint: Medical Clearance Stated Complaint: DIALYSIS Time Seen by Provider: 11/19/18 12:31 - HPI History of Present Illness: pt states he was admitted at [facility] and was started on dialysis was admitted for alcoholic cirrhosis presents to the ED for "dialysis" pt was discharged from the hospital 11/17 pt is asymptomatic mildly tachycardic, otherwise normal will send to the MAIN ed for further eval and management MSE screening note: Focused history performed Due to findings the following was ordered: labs, EKG ED Disposition for MSE Condition: Stable
[2018-11-19 13:21] LABS: Basophils % (Auto) 0.3 % (0.0-1.8); Eosinophils % (Auto) 0.4 % (0.0-4.3); Hematocrit 25.3 % (35.5-45.6); Hemoglobin 8.8 gm/dl (11.8-15.2); Lymphocytes % (Auto) 13.1 % (13.4-35.0); Mean Corpuscular HGB Conc 35 % (32-34); Mean Corpuscular Volume 105 fl (84-94); Monocytes % (Auto) 12.5 % (0.0-7.3); Platelet Count 85 K/mm3 (140-440); Red Blood Count 2.42 M/mm3 (3.65-5.03); Red Cell Distribution Width 20.2 % (13.2-15.2)
[2018-11-19 13:34] LABS: Albumin 2.2 g/dL (3.9-5); Calcium 7.6 mg/dL (8.4-10.2)
[2018-11-19] MEDS ORDERED: CEPHULAC PO ONE (14:40)
[2018-11-19] MEDS ORDERED: MAG-OX PO STA (14:40)
--- NOTE | 2018-11-19 14:41 | Emergency Department Report ---
ED General Adult HPI - General Chief complaint: Medical Clearance Stated complaint: DIALYSIS Time Seen by Provider: 11/19/18 12:31 Source: patient, family, EMS (ems notes not available at time of chart dictation), RN notes reviewed Mode of arrival: Ambulatory Limitations: No Limitations - History of Present Illness Initial comments: Nephrology: Dr. Chriss Min/ Dr Linda Horta covering This is a 63-year-old gentleman. He has a past medical history of end-stage renal disease, on dialysis, hepatic encephalopathy. The patient was recently and reportedly discharged from [facility], after a near one-month stay for hepatic encephalopathy, and end- stage renal disease on dialysis. Patient had a tunneled dialysis access catheter placed, and was discharged, and as per family, does not have outpatient dialysis. He is also reportedly not taking his lactulose, or his rifixin, secondary to cost. He presents to the emergency room today with family because they were instructed to present to the emergency room by a hospice nurse; Shelley Arnold; [phone]. The patient's specifically states that this aforementioned nurse instructed the patient to present to this emergency room, in spite of his care being delivered at the aforementioned medical facility. The patient denies physical pain at this time. He denies complaints at this time. In the emergency room, found to have renal insufficiency, with a creatinine of 4.3, elevated ammonia levels, at 109, although patient is not encephalopathic at this time. He is also found to be hyponatremic, suspected to be hypervolemic hyponatremia. Contacted case management, who indicates that the patient's does not have outpatient dialysis. Contacted risk management, Ann Thibodeaux, and they were informed about the patient's bounce back. Case management, risk management will follow. Old medical records have been requested. Aforementioned covering retail planning manager will follow in consultation. Patient will be admitted to the medical service for dialysis. Dr Bijan Jay to admit Radiation: other Severity scale (0 -10): 0 Quality: other Consistency: other Improves with: other Worsens with: other - Related Data Home Medications Medication Instructions Recorded Confirmed Last Taken Ranitidine HCl [Zantac 150 MG TAB] 150 mg PO PRN PRN 02/08/17 11/20/18 11/18/18 Previous Rx's Medication Instructions Recorded Last Taken Type Folic Acid [Folvite] 1 mg PO QDAY #30 tablet 11/28/16 11/18/18 Rx Pantoprazole [Protonix] 40 mg PO BID #60 tablet 11/28/16 11/18/18 Rx Sucralfate [Carafate] 1 gm PO Q6HR #120 oral.liqd 11/28/16 11/18/18 Rx Thiamine [Vitamin B-1] 100 mg PO QDAY #30 tablet 11/28/16 11/18/18 Rx Folic Acid [Folvite] 1 mg PO QDAY #30 tablet 08/01/18 11/18/18 Rx Multivitamin Tab [Multiple Vitamin 1 each PO QDAY #30 tablet 08/01/18 11/18/18 Rx TAB (Theragran)] Propranolol [Inderal] 10 mg PO Q12HR #60 tablet 08/01/18 11/18/18 Rx Spironolactone [Aldactone] 100 mg PO QDAY #30 tablet 08/01/18 11/18/18 Rx Sucralfate [Carafate] 1 gm PO ACHS #60 tablet 08/01/18 11/18/18 Rx Thiamine [Vitamin B-1] 100 mg PO QDAY #30 tablet 08/01/18 11/18/18 Rx Allergies Allergy/AdvReac Type Severity Reaction Status Date / Time No Known Allergies Allergy Verified 11/26/16 14:51 ED Review of Systems ROS: Stated complaint: DIALYSIS Other details as noted in HPI Constitutional: denies: fever Eyes: denies: eye discharge Respiratory: shortness of breath (chronic). denies: cough Cardiovascular: denies: chest pain Gastrointestinal: denies: abdominal pain, vomiting Genitourinary: denies: dysuria Musculoskeletal: denies: back pain Neurological: weakness. denies: as per HPI ED Past Medical Hx - Past Medical History Hx Hypertension: Yes Hx Heart Attack/AMI: No Hx Congestive Heart Failure: No Hx Diabetes: No Hx Deep Vein Thrombosis: No Hx Pulmonary Embolism: No Hx GERD: Yes Hx Liver Disease: Yes (h/o ascitis, s/p paracentesis x 2 (2013)) Hx Renal Disease: Yes (HD) Hx Sickle Cell Disease: No Hx Arthritis: No Hx Headaches / Migraines: No Hx Seizures: No Hx Kidney Stones: No Hx Asthma: No Hx COPD: No Hx Tuberculosis: No Hx Dementia: No Hx HIV: No Additional medical history: ulcers. esophagus "swells up into little knots", alcoholic cirrohsis. diverticulitis - Surgical History Hx Coronary Stent: No Hx Open Heart Surgery: No Hx Pacemaker: No Hx Internal Defibrillator: No Hx Cholecystectomy: No Hx Appendectomy: No Hx Breast Surgery: No Additional Surgical History: paracentesis, right chest wall VASCATH - Social History Smoking Status: Unknown if ever smoked Substance Use Type: None - Medications Home Medications: Home Medications Medication Instructions Recorded Confirmed Last Taken Type Folic Acid [Folvite] 1 mg PO QDAY #30 tablet 11/28/16 11/20/18 11/18/18 Rx Pantoprazole [Protonix] 40 mg PO BID #60 tablet 11/28/16 11/20/18 11/18/18 Rx Sucralfate [Carafate] 1 gm PO Q6HR #120 oral.liqd 11/28/16 11/20/18 11/18/18 Rx Thiamine [Vitamin B-1] 100 mg PO QDAY #30 tablet 11/28/16 11/20/18 11/18/18 Rx Ranitidine HCl [Zantac 150 MG TAB] 150 mg PO PRN PRN 02/08/17 11/20/18 11/18/18 History Folic Acid [Folvite] 1 mg PO QDAY #30 tablet 08/01/18 11/20/18 11/18/18 Rx Multivitamin Tab [Multiple Vitamin 1 each PO QDAY #30 tablet 08/01/18 11/20/18 11/18/18 Rx TAB (Theragran)] Propranolol [Inderal] 10 mg PO Q12HR #60 tablet 08/01/18 11/20/18 11/18/18 Rx Spironolactone [Aldactone] 100 mg PO QDAY #30 tablet 08/01/18 11/20/18 11/18/18 Rx Sucralfate [Carafate] 1 gm PO ACHS #60 tablet 08/01/18 11/20/18 11/18/18 Rx Thiamine [Vitamin B-1] 100 mg PO QDAY #30 tablet 08/01/18 11/20/18 11/18/18 Rx ED Physical Exam - General Limitations: No Limitations General appearance: alert, in no apparent distress - Head Head exam: Present: atraumatic, normocephalic - Eye Eye exam: Present: normal appearance, EOMI, other (visual acuity intact to finger counting, color perception, reading at a close distance). Absent: nystagmus - ENT ENT exam: Present: normal exam, normal orophraynx, mucous membranes moist, normal external ear exam - Neck Neck exam: Present: normal inspection, full ROM. Absent: tenderness, me ningismus - Respiratory Respiratory exam: Present: normal lung sounds bilaterally, other (there is a dialysis access catheter in the right hemithorax, with no redness, pus or streaking). Absent: respiratory distress - Cardiovascular Cardiovascular Exam: Present: regular rate, normal rhythm, tachycardia, normal heart sounds. Absent: bradycardia, systolic murmur, diastolic murmur, rubs, gallop - GI/Abdominal GI/Abdominal exam: Present: soft, distended, other (fluid wave is appreciated). Absent: tenderness, guarding, rebound, rigid, pulsatile mass - Rectal Rectal exam: Present: deferred - Extremities Exam Extremities exam: Present: normal inspection, full ROM, pedal edema, other (2+ pulses noted in the bilateral upper, lower extremities. Compartments soft. No long bony tenderness. The pelvis is stable.). Absent: calf tenderness - Back Exam Back exam: Present: normal inspection, full ROM. Absent: paraspinal tenderness, vertebral tenderness - Neurological Exam Neurological exam: Present: alert, oriented X3, other (Extraocular movements intact. Tongue midline. No facial droop. Facial sensation intact to light touch in the V1, V2, V3 distribution bilaterally. 5 and 5 strength in 4 extremities.. Sensation is intact to light touch in 4 extremities.). Absent: motor sensory deficit - Psychiatric Psychiatric exam: Present: normal affect, normal mood - Skin Skin exam: Present: warm, dry, intact, normal color. Absent: rash ED Course Vital Signs 11/19/18 11/19/18 11/19/18 12:33 14:17 14:30 Temperature 98.2 F Pulse Rate 105 H 103 H 101 H Respiratory 20 14 Rate Blood Pressure 123/72 127/69 O2 Sat by Pulse 99 Oximetry 11/19/18 11/19/18 11/19/18 14:31 14:40 14:50 Temperature Pulse Rate 101 H 101 H 94 H Respiratory 16 14 12 Rate Blood Pressure 127/69 127/69 113/68 O2 Sat by Pulse 100 100 100 Oximetry 11/19/18 11/19/18 11/19/18 15:00 15:10 15:20 Temperature Pulse Rate 90 92 H 96 H Respiratory 10 L 10 L 13 Rate Blood Pressure 123/69 123/69 113/64 O2 Sat by Pulse 100 100 100 Oximetry 11/19/18 11/19/18 11/19/18 15:30 15:40 15:50 Temperature Pulse Rate 96 H 91 H 98 H Respiratory 13 14 13 Rate Blood Pressure 122/69 122/69 125/74 O2 Sat by Pulse 100 100 100 Oximetry 11/19/18 11/19/18 11/19/18 16:00 16:10 16:20 Temperature Pulse Rate 89 89 89 Respiratory 9 L 12 11 L Rate Blood Pressure 123/65 123/65 125/68 O2 Sat by Pulse 100 100 100 Oximetry 11/19/18 11/19/18 11/19/18 16:30 16:40 16:58 Temperature Pulse Rate 93 H 91 H 105 H Respiratory 14 11 L 12 Rate Blood Pressure 119/64 119/64 135/73 O2 Sat by Pulse 100 Oximetry 11/19/18 11/19/18 11/19/18 17:00 17:10 17:20 Temperature Pulse Rate 97 H 98 H 88 Respiratory 13 11 L 13 Rate Blood Pressure 135/73 135/73 80/43 O2 Sat by Pulse Oximetry 11/19/18 11/19/18 11/19/18 17:30 17:40 17:50 Temperature Pulse Rate 92 H 95 H 92 H Respiratory 11 L 15 22 Rate Blood Pressure 80/43 80/43 135/73 O2 Sat by Pulse Oximetry 11/19/18 11/19/18 11/19/18 18:00 18:10 18:20 Temperature Pulse Rate 90 94 H 93 H Respiratory 15 13 14 Rate Blood Pressure 100/58 100/58 80/43 O2 Sat by Pulse Oximetry 11/19/18 11/19/18 18:30 18:50 Temperature 98.2 F Pulse Rate 96 H 93 H Respiratory 12 18 Rate Blood Pressure 80/43 100/82 O2 Sat by Pulse Oximetry - Reevaluation(s) Reevaluation #1: 11/19/18 16:57 Differential diagnosis, including without limited to: Hype ammonemia, end-stage renal disease, on dialysis, hyperammonemia, need for outpatient dialysis ED Medical Decision Making - Lab Data Result diagrams: 11/20/18 05:43 11/20/18 05:43 Vital Signs 11/19/18 11/19/18 11/19/18 12:33 14:17 14:30 Temperature 98.2 F Pulse Rate 105 H 103 H 101 H Respiratory 20 14 Rate Blood Pressure 123/72 127/69 O2 Sat by Pulse 99 Oximetry Lab Results 11/19/18 11/19/18 11/19/18 Range/Units 13:06 13:06 13:06 WBC 7.8 (4.5-11.0) K/mm3 RBC 2.42 L (3.65-5.03) M/mm3 Hgb 8.8 L (11.8-15.2) gm/dl Hct 25.3 L (35.5-45.6) % MCV 105 H (84-94) fl MCH 36 H (28-32) pg MCHC 35 H (32-34) % RDW 20.2 H (13.2-15.2) % Plt Count 85 L (140-440) K/mm3 Lymph % (Auto) 13.1 L (13.4-35.0) % [place] % (Auto) 12.5 H (0.0-7.3) % Eos % (Auto) 0.4 (0.0-4.3) % Baso % (Auto) 0.3 (0.0-1.8) % Lymph # 1.0 L (1.2-5.4) K/mm3 [place] # 1.0 H (0.0-0.8) K/mm3 Eos # 0.0 (0.0-0.4) K/mm3 Baso # 0.0 (0.0-0.1) K/mm3 Seg Neutrophils % 73.7 H (40.0-70.0) % Seg Neutrophils # 5.8 (1.8-7.7) K/mm3 Sodium 127 L (137-145) mmol/L Potassium 3.9 (3.6-5.0) mmol/L Chloride 93.4 L (98-107) mmol/L Carbon Dioxide 24 (22-30) mmol/L Anion Gap 14 mmol/L BUN 31 H (9-20) mg/dL Creatinine 4.3 H (0.8-1.5) mg/dL Estimated GFR 17 ml/min BUN/Creatinine Ratio 7 % Glucose 133 H (75-100) mg/dL Calcium 7.6 L (8.4-10.2) mg/dL Phosphorus 3.50 (2.5-4.5) mg/dL Magnesium 1.60 L (1.7-2.3) mg/dL Total Bilirubin 3.40 H (0.1-1.2) mg/dL AST 40 (5-40) units/L ALT 22 (7-56) units/L Alkaline Phosphatase 136 H (35-129) units/L Ammonia 109.0 H (25-60) umol/L Total Protein 7.9 (6.3-8.2) g/dL Albumin 2.2 L (3.9-5) g/dL Albumin/Globulin Ratio 0.4 % - EKG Data -: EKG Interpreted by Mo EKG shows normal: sinus rhythm Rate: normal - EKG Data 11/19/18 16:56 This is a sinus rhythm, 97 bpm, motion artifact, left ventricular hypertrophy, QTC prolonged, abnormal EKG, not having chest pain, his EKG is not consistent with ST elevation myocardial infarction. - Radiology Data Radiology results: report reviewed, image reviewed Print Report Referring Physician: ANA PAULINO Patient Name: BIJAN GARCIA Date of : 1955 Sex: Male Report Date: 2018-11-19 Report Status: Finalized Findings [facility] [address] [place] [address] XRay Report Signed Patient: BIJAN GARCIA MR#: [id number] : 1955 Acct:[id number] Age/Sex: 63 / M ADM Date: 11/19/18 Loc: ED Attending Dr: Ordering Physician: ANA PAULINO MD Date of Service: 11/19/18 Procedure(s): XR chest 1V ap Accession Number(s): [id number] cc: ANA PAULINO MD Fluoro Time In Minutes: PROCEDURE: XR CHEST 1V AP TECHNIQUE: Frontal chest radiograph. HISTORY: esrd COMPARISONS: 08/01/2018. FINDINGS: Placement of a right IJ emma neled catheter is noted with the tip projecting within the right atrium. The cardiomediastinal silhouette is normal. Mild patchy left lower lobe opacities are seen. No pleural effusion. No pneumothorax. No acute osseous abnormality. IMPRESSION: 1. Right IJ tunneled assess catheter tip projecting the right atrium. 2. Mild focal left lower lobe opacities are similar in appearance to the prior study which may represent focal atelectasis versus scarring. This document is electronically signed by Demi Cristobal., November 19 2018 04:06:15 PM ET Transcribed By: MG Dictated By: DEMI POLLARD MD Electronically Authenticated By: DEMI POLLARD MD Signed Date/Time: 11/19/18 8440 Critical care attestation.: If time is entered above; I have spent that time in minutes in the direct care of this critically ill patient, excluding procedure time. ED Disposition Clinical Impression: Hyperammonemia, ESRD needing dialysis Disposition: OP ADMIT IP TO THIS HOSP Is pt being admited?: Yes Condition: Fair
[2018-11-19] MEDS ORDERED: PROCRIT SUB-Q PRN (15:47)
[2018-11-19] MEDS ORDERED: NACL 0.9% 100 ML IV PRN ×2 (15:47→17:24)
--- NOTE | 2018-11-19 16:08 | XRay Report ---
PROCEDURE: XR CHEST 1V AP TECHNIQUE: Frontal chest radiograph. HISTORY: esrd COMPARISONS: 08/01/2018. FINDINGS: Placement of a right IJ tunneled catheter is noted with the tip projecting within the right atrium. T he cardiomediastinal silhouette is normal. Mild patchy left lower lobe opacities are seen. No pleural effusion. No pneumothorax. No acute osseous abnormality. IMPRESSION: 1. Right IJ tunneled assess catheter tip projecting the right atrium. 2. Mild focal left lower lobe opacities are similar in appearance to the prior study which may repres ent focal atelectasis versus scarring. This document is electronically signed by Demi Cristobal., November 19 2018 04:06:15 PM ET
[2018-11-19 20:57] LABS: Hepatitis C Virus Antibody Non-Reactive (NonReactive)
[2018-11-19 20:58] LABS: Hepatitis B Surface Antigen Non-Reactive (Negative)
[2018-11-19] MEDS: ALDACTONE PO SCH (21:34)
--- NOTE | 2018-11-19 21:36 | History and Physical Report ---
History of Present Illness Date of examination: 11/19/18 Date of admission: 11/19/18 16:58 Chief complaint: Comes in for Hemodialysis History of present illness: 63-year-old AAM with recent initiation of HD at [facility] renamed as [facility] comed in for HD.Does not have any complaints. He has a past medical history of end- stage renal disease, on dialysis, hepatic encephalopathy. The patient was recently discharged from [facility], after a near one-month stay for hepatic encephalopathy, and end-stage renal disease on dialysis. Apparently no HD outpatient slot was arranged for the patient. Patient had a tunneled dialysis access catheter placed, and was discharged, and as per family, does not have outpatient dialysis. He is also reportedly not taking his lactulose, or his rifixin, secondary to cost. He presents to the emergency room today with family because they were instructed to present to the emergency room by a hospice nurse; Shelley Arnold; [phone]. Case management and risk management informed. Patient asymptomatic Past Medical History Hypertension: Yes GERD: Yes Liver Disease: Yes (h/o ascitis, s/p paracentesis x 2 (2013)) Renal Disease: Yes (HD) Kidney Ston alcoholic cirrohsis. diverticulitis Surgical History paracentesis, right chest wall VASCATH Social History Smoking Status: Unknown if ever smoked Substance Use Type: None Review of systems Stated complaint: DIALYSIS Other details as noted in HPI Constitutional: denies: fever Eyes: denies: eye discharge Respiratory: shortness of breath (chronic). denies: cough Cardiovascular: denies: chest pain Gastrointestinal: denies: abdominal pain, vomiting Genitourinary: denies: dysuria Musculoskeletal: denies: back pain Neurological: weakness. denies: as per HPI Medications and Allergies Allergies Allergy/AdvReac Type Severity Reaction Status Date / Time No Known Allergies Allergy Verified 11/26/16 14:51 Home Medications Medication Instructions Recorded Confirmed Last Taken Type Folic Acid [Folvite] 1 mg PO QDAY #30 tablet 11/28/16 02/08/17 Unknown Rx Pantoprazole [Protonix] 40 mg PO BID #60 tablet 11/28/16 02/08/17 Unknown Rx Sucralfate [Carafate] 1 gm PO Q6HR #120 oral.liqd 11/28/16 02/08/17 Unknown Rx Thiamine [Vitamin B-1] 100 mg PO QDAY #30 tablet 11/28/16 02/08/17 Unknown Rx Ranitidine HCl [Zantac 150 MG TAB] 150 mg PO PRN PRN 02/08/17 02/08/17 Unknown History Folic Acid [Folvite] 1 mg PO QDAY #30 tablet 08/01/18 Unknown Rx Multivitamin Tab [Multiple Vitamin 1 each PO QDAY #30 tablet 08/01/18 Unknown Rx TAB (Theragran)] Propranolol [Inderal] 10 mg PO Q12HR #60 tablet 08/01/18 Unknown Rx Spironolactone [Aldactone] 100 mg PO QDAY #30 tablet 08/01/18 Unknown Rx Sucralfate [Carafate] 1 gm PO ACHS #60 tablet 08/01/18 Unknown Rx Thiamine [Vitamin B-1] 100 mg PO QDAY #30 tablet 08/01/18 Unknown Rx Active Meds: Active Medications Epoetin Kennedy (Procrit) 20,000 unit SUB-Q MIRANDA PRN PRN Reason: hemodialysis Folic Acid (Folvite) 1 mg PO QDAY LUBA Sodium Chloride (Nacl 0.9%) 100 mls @ 999 mls/hr IV MIRANDA PRN PRN Reason: Hypotension Sodium Chloride (Nacl 0.9%) 100 mls @ 999 mls/hr IV MIRANDA PRN PRN Reason: Hypotension Multivitamins (Theragran Tab) 1 each PO QDAY LUBA Pantoprazole Sodium (Protonix) 40 mg PO BID LUBA Propranolol HCl (Inderal) 10 mg PO Q12HR LUBA Spironolactone (Aldactone) 100 mg PO QDAY LUBA Sucralfate (Carafate) 1 gm PO ACHS LUBA Thiamine HCl (Vitamin B-1) 100 mg PO QDAY [facility] Exam - Constitutional Vitals: Temp Pulse Resp BP Pulse Ox 98.2 F 94 H 18 106/69 99 11/19/18 18:50 11/19/18 21:15 11/19/18 18:50 11/19/18 21:15 11/19/18 12:33 General appearance: Present: no acute distress, well-nourished - EENT Eyes: Present: PERRL ENT: hearing intact, clear oral mucosa - Neck Neck: Present: supple, normal ROM - Respiratory Respiratory effort: normal Respiratory: bilateral: CTA (RT Chest Vas cath) - Cardiovascular Heart rate: 116 Rhythm: regular Heart Sounds: Present: S1 & S2. Absent: rub, click - Extremities Extremities: no ischemia, pulses intact, pulses symmetrical, No edema Peripheral Pulses: within normal limits - Abdominal General gastrointestinal: Present: soft, non-tender, non-distended, normal bowel sounds Male genitourinary: Present: normal - Rectal Rectal Exam: deferred - Integumentary Integumentary: Present: clear, warm, dry - Musculoskeletal Musculoskeletal: gait normal, strength equal bilaterally - Psychiatric Psychiatric: appropriate mood/affect, intact judgment & insight - Neurologic Neurologic: CNII-XII intact, moves all extremities Results - Labs CBC & Chem 7: 11/19/18 13:06 11/19/18 13:06 Labs: Laboratory Last Values WBC 7.8 K/mm3 (4.5-11.0) 11/19/18 13:06 RBC 2.42 M/mm3 (3.65-5.03) L 11/19/18 13:06 Hgb 8.8 gm/dl (11.8-15.2) L 11/19/18 13:06 Hct 25.3 % (35.5-45.6) L 11/19/18 13:06 MCV 105 fl (84-94) H 11/19/18 13:06 MCH 36 pg (28-32) H 11/19/18 13:06 MCHC 35 % (32-34) H 11/19/18 13:06 RDW 20.2 % (13.2-15.2) H 11/19/18 13:06 Plt Count 85 K/mm3 (140-440) L 11/19/18 13:06 Lymph % (Auto) 13.1 % (13.4-35.0) L 11/19/18 13:06 [place] % (Auto) 12.5 % (0.0-7.3) H 11/19/18 13:06 Eos % (Auto) 0.4 % (0.0-4.3) 11/19/18 13:06 Baso % (Auto) 0.3 % (0.0-1.8) 11/19/18 13:06 Lymph # 1.0 K/mm3 (1.2-5.4) L 11/19/18 13:06 [place] # 1.0 K/mm3 (0.0-0.8) H 11/19/18 13:06 Eos # 0.0 K/mm3 (0.0-0.4) 11/19/18 13:06 Baso # 0.0 K/mm3 (0.0-0.1) 11/19/18 13:06 Seg Neutrophils % 73.7 % (40.0-70.0) H 11/19/18 13:06 Seg Neutrophils # 5.8 K/mm3 (1.8-7.7) 11/19/18 13:06 Sodium 127 mmol/L (137-145) L 11/19/18 13:06 Potassium 3.9 mmol/L (3.6-5.0) 11/19/18 13:06 Chloride 93.4 mmol/L (98-107) L 11/19/18 13:06 Carbon Dioxide 24 mmol/L (22-30) 11/19/18 13:06 Anion Gap 14 mmol/L 11/19/18 13:06 BUN 31 mg/dL (9-20) H 11/19/18 13:06 Creatinine 4.3 mg/dL (0.8-1.5) H 11/19/18 13:06 Estimated GFR 17 ml/min 11/19/18 13:06 BUN/Creatinine Ratio 7 % 11/19/18 13:06 Glucose 133 mg/dL (75-100) H 11/19/18 13:06 Calcium 7.6 mg/dL (8.4-10.2) L 11/19/18 13:06 Phosphorus 3.50 mg/dL (2.5-4.5) 11/19/18 13:06 Magnesium 1.60 mg/dL (1.7-2.3) L 11/19/18 13:06 Total Bilirubin 3.40 mg/dL (0.1-1.2) H 11/19/18 13:06 AST 40 units/L (5-40) 11/19/18 13:06 ALT 22 units/L (7-56) 11/19/18 13:06 Alkaline Phosphatase 136 units/L (35-129) H 11/19/18 13:06 Ammonia 109.0 umol/L (25-60) H 11/19/18 13:06 Total Protein 7.9 g/dL (6.3-8.2) 11/19/18 13:06 Albumin 2.2 g/dL (3.9-5) L 11/19/18 13:06 Albumin/Globulin Ratio 0.4 % 11/19/18 13:06 Hepatitis A IgM Ab Non-reactive (NonReactive) 11/19/18 19:50 Hep Bs Antigen Non-reactive (Negative) 11/19/18 19:50 Hep B Core IgM Ab Non-reactive (NonReactive) 11/19/18 19:50 Hepatitis C Antibody Non-reactive (NonReactive) 11/19/18 19:50 - Imaging and Cardiology EKG: report reviewed (Sinus tach 118/min) Assessment and Plan Advance Directives: Yes (full code) VTE prophylaxis?: Chemical Plan of care discussed with patient/family: Yes - Patient Problems (1) HE (hepatic encephalopathy) Current Visit: Yes Status: Acute Plan to address problem: Lactulose initiated q12h.Maybe increased to q8h Recheck Ammonia level (2) ESRD needing dialysis Current Visit: Yes Status: Acute Plan to address problem: Needs HD Needs placement for HD (3) GERD (gastroesophageal reflux disease) Current Visit: No Status: Chronic Qualifiers: Esophagitis presence: without esophagitis Qualified Code(s): K21.9 - Gastro-esophageal reflux disease without esophagitis Plan to address problem: COnt PPIs (4) HTN (hypertension) Current Visit: No Status: Chronic Qualifiers: Hypertension type: essential hypertension Qualified Code(s): I10 - Esse ntial (primary) hypertension Plan to address problem: Cont antihypertensives (5) Hepatic failure Current Visit: No Status: Chronic Qualifiers: Hepatic coma status: without hepatic coma Plan to address problem: On Lactulose (6) Hypomagnesemia Current Visit: No Status: Acute Plan to address problem: Supplemented (7) Cirrhosis Current Visit: No Status: Chronic Qualifiers: Hepatic cirrhosis type: alcoholic cirrhosis Ascites presence: without ascites Qualified Code(s): K70.30 - Alcoholic cirrhosis of liver without ascites Plan to address problem: Spironolactone Monitor K levels closely (8) DVT prophylaxis Current Visit: No Status: Acute Plan to address problem: On Heparin and GI prophyulaxis
[2018-11-19] MEDS ORDERED: SODIUM CHLORIDE FLUSH SYRINGE 10 ML IV PRN (21:40)
[2018-11-19] MEDS ORDERED: ZOFRAN IV PRN (21:40)
[2018-11-19] MEDS ORDERED: DILAUDID IV PRN (21:40)
[2018-11-19] MEDS ORDERED: TYLENOL PO PRN (21:40)
[2018-11-19] MEDS ORDERED: PROCRIT ONE (21:55)
[2018-11-19] MEDS ORDERED: CEPHULAC PR SCH (22:00)
[2018-11-19] MEDS: CEPHULAC PO SCH (22:48)
[2018-11-19] MEDS: PROTONIX PO SCH (22:52)
[2018-11-19] MEDS: VITAMIN B-1 PO SCH (22:52)
[2018-11-19] MEDS: CARAFATE PO SCH (22:52)
[2018-11-19] MEDS: SODIUM CHLORIDE FLUSH SYRINGE 10 ML IV SCH (22:53)
[2018-11-19] MEDS: INDERAL PO SCH (23:16)
--- NOTE | 2018-11-19 23:22 | Consultation ---
History of Present Illness - Reason for Consult Consult date: 11/19/18 end stage renal disease - History of Present Illness The patient is a 63 YO male with history significant for Alcoholic cirrhosis, Ascites, PUD, Anemia 2/2 GI bleed and ESRD (recently started on hemodialysis) who presented [facility] for need of hemodialysis. Patient was admitted at [facility] between 10/15/18 and 10/17/18, but unable to place him in any dialysis center. He was advised to go to the nearest ER for hemodialysis three times a week. He also had paracentesis twice at [facility]. Patient denies any N, V, D, abd pain, dizziness, fever, chills, dysuria, hematuria, cp, sob or weakness. He was last dialyzed 3 days ago. Nephrology was consulted for further evaluation. Past History Past Medical History: anemia, dialysis, ESRD Medications and Allergies Allergies Allergy/AdvReac Type Severity Reaction Status Date / Time No Known Allergies Allergy Verified 11/26/16 14:51 Home Medications Medication Instructions Recorded Confirmed Last Taken Type Folic Acid [Folvite] 1 mg PO QDAY #30 tablet 11/28/16 11/20/18 11/18/18 Rx Pantoprazole [Protonix] 40 mg PO BID #60 tablet 11/28/16 11/20/18 11/18/18 Rx Sucralfate [Carafate] 1 gm PO Q6HR #120 oral.liqd 11/28/16 11/20/18 11/18/18 Rx Thiamine [Vitamin B-1] 100 mg PO QDAY #30 tablet 11/28/16 11/20/18 11/18/18 Rx Ranitidine HCl [Zantac 150 MG TAB] 150 mg PO PRN PRN 02/08/17 11/20/18 11/18/18 History Folic Acid [Folvite] 1 mg PO QDAY #30 tablet 08/01/18 11/20/18 11/18/18 Rx Multivitamin Tab [Multiple Vitamin 1 each PO QDAY #30 tablet 08/01/18 11/20/18 11/18/18 Rx TAB (Theragran)] Propranolol [Inderal] 10 mg PO Q12HR #60 tablet 08/01/18 11/20/18 11/18/18 Rx Spironolactone [Aldactone] 100 mg PO QDAY #30 tablet 08/01/18 11/20/18 11/18/18 Rx Sucralfate [Carafate] 1 gm PO ACHS #60 tablet 08/01/18 11/20/18 11/18/18 Rx Thiamine [Vitamin B-1] 100 mg PO QDAY #30 tablet 08/01/18 11/20/18 11/18/18 Rx Active Meds: Active Medications Acetaminophen (Tylenol) 650 mg PO Q4H PRN PRN Reason: Pain MILD(1-3)/Fever >100.5/NASH Epoetin Kennedy (Procrit) 20,000 unit SUB-Q MIRANDA PRN PRN Reason: hemodialysis Folic Acid (Folvite) 1 mg PO QDAY [facility] Hydromorphone HCl (Dilaudid) 0.25 mg IV Q3H PRN PRN Reason: Pain, Moderate (4-6) Sodium Chloride (Nacl 0.9%) 100 mls @ 999 mls/hr IV MIRANAD PRN PRN Reason: Hypotension Sodium Chloride (Nacl 0.9%) 100 mls @ 999 mls/hr IV MIRANDA PRN PRN Reason: Hypotension Lactulose (Cephulac) 26.6667 gm PO Q12HR [facility] Last Admin: 11/19/18 22:48 Dose: Not Given Documented by: Multivitamins (Theragran Tab) 1 each PO QDAY [facility] Ondansetron HCl (Zofran) 4 mg IV Q8H PRN PRN Reason: Nausea And Vomiting Pantoprazole Sodium (Protonix) 40 mg PO BID [facility] Last Admin: 11/19/18 22:52 Dose: 40 mg Documented by: Propranolol HCl (Inderal) 10 mg PO Q12HR [facility] Last Admin: 11/19/18 23:16 Dose: 10 mg Documented by: Sodium Chloride (Sodium Chloride Flush Syringe 10 Ml) 10 ml IV BID [facility] Last Admin: 11/19/18 22:53 Dose: 10 ml Documented by: Sodium Chloride (Sodium Chloride Flush Syringe 10 Ml) 10 ml IV PRN PRN PRN Reason: LINE FLUSH Spironolactone (Aldactone) 100 mg PO QDAY [facility] Sucralfate (Carafate) 1 gm PO ACHS [facility] Last Admin: 11/19/18 22:52 Dose: 1 gm Documented by: Thiamine HCl (Vitamin B-1) 100 mg PO QDAY [facility] Last Admin: 11/19/18 22:52 Dose: 100 mg Documented by: Review of Systems Constitutional: no weight loss, no weight gain, no fever, no chills, no anorexia, no weakness, no poor appetite Cardiovascular: edema, leg edema, no chest pain, no orthopnea, no syncope, no lightheadedness, no shortness of breath, no dyspnea on exertion, no high blood pressure Respiratory: no cough, no hemoptysis, no shortness of breath, no dyspnea on exertion, no sleep apnea Gastrointestinal: no abdominal pain, no nausea, no vomiting, no diarrhea, no melena Genitourinary Male: no dysuria, no hematuria Musculoskeletal: no redness of joints Integumentary: no rash, no pruritis, no redness, no wounds, no jaundice Neurological: no head injury, no paralysis, no change in speech, no change in mentation Exam - Vital Signs Vital signs: Vital Signs Temp Pulse Resp BP Pulse Ox 98.2 F 105 H 20 123/72 99 11/19/18 12:33 11/19/18 12:33 11/19/18 12:33 11/19/18 12:33 11/19/18 12:33 - General Appearance General appearance: well-developed, appears stated age, other (not in distress, R IJ tunnel catheter) EENT: ATNC, PERRL, hearing intact, vision intact Neck: Present: neck supple, trachea midline Respiratory: Clear to Ascultation Heart: regular, S1S2, no murmurs Gastrointestinal: Present: normoactive bowel sounds, distended. Absent: tenderness Integumentary: no rash, warm and dry Neurologic: no focal deficit, no asterixis Musculoskeletal: Present: other (trace LE edema noted) Results - Lab Results 11/20/18 05:43 11/20/18 05:43 Most recent lab results Calcium 7.6 mg/dL (8.4-10.2) L 11/19/18 13:06 Phosphorus 3.50 mg/dL (2.5-4.5) 11/19/18 13:06 Magnesium 1.60 mg/dL (1.7-2.3) L 11/19/18 13:06 Assessment and Plan 1. ESRD: Hemodialysis today. Continue hemodialysis three times a week. Need outpatient HD chair. 2. Hyponatremia. 3. Anemia: Epogen with HD. 4. Alcoholic cirrhosis with ascites. 5. H/o GI bleed. 6. Intermittent hypotension.
[2018-11-20 06:15] LABS: Basophils % (Auto) 0.4 % (0.0-1.8); Eosinophils # (Auto) 0.1 K/mm3 (0.0-0.4); Hemoglobin 8.1 gm/dl (11.8-15.2); Lymphocytes # (Auto) 1.4 K/mm3 (1.2-5.4); Lymphocytes % (Auto) 19.4 % (13.4-35.0); Mean Corpuscular HGB Conc 35 % (32-34); Mean Corpuscular Volume 103 fl (84-94); Monocytes % (Auto) 13.9 % (0.0-7.3); Red Blood Count 2.24 M/mm3 (3.65-5.03)
[2018-11-20 06:17] LABS: Platelet Count 61 K/mm3 (140-440); Red Cell Distribution Width 20.2 % (13.2-15.2)
[2018-11-20] MEDS ORDERED: MAGNESIUM SULFATE 2GM/50ML 2 GM/50 ML BAG IV ONE (06:26)
[2018-11-20 06:42] LABS: Albumin 1.9 g/dL (3.9-5); Calcium 7.8 mg/dL (8.4-10.2)
--- NOTE | 2018-11-20 08:40 | Progress Note ---
Assessment and Plan 1. ESRD: Continue hemodialysis three times a week. Need outpatient HD chair. 2. Hypomagnesemia. 3. Anemia: Epogen with HD. 4. Alcoholic cirrhosis with ascites. 5. H/o GI bleed. 6. Intermittent hypotension. Subjective Date of service: 11/20/18 Interval history: Patient is doing ok. Objective - Vital Signs Vital signs: Vital Signs - 12hr 11/19/18 11/19/18 11/19/18 20:45 21:00 21:15 Temperature Pulse Rate 90 92 H 94 H Respiratory Rate Blood Pressure 111/69 111/73 106/69 O2 Sat by Pulse Oximetry 11/19/18 11/19/18 11/19/18 21:30 21:45 22:00 Temperature Pulse Rate 91 H 94 H 100 H Respiratory Rate Blood Pressure 112/69 105/69 110/73 O2 Sat by Pulse Oximetry 11/19/18 11/19/18 11/19/18 22:36 22:50 23:16 Temperature 98.2 F 97.3 F L Pulse Rate 96 H 105 H 105 H Respiratory 20 16 Rate Blood Pressure 123/75 109/64 109/64 O2 Sat by Pulse 100 Oximetry - General Appearance General appearance: well-developed, appears stated age, other (not in distress, R IJ tunnel catheter) EENT: ATNC, PERRL, hearing intact, vision intact Neck: supple Respiratory: Present: Clear to Ascultation Cardiology: regular, S1S2, no murmurs Gastrointestinal: normoactive bowel sounds, no tenderness, distended Integumentary: no rash, warm and dry Neurologic: no focal deficit, no asterixis Musculoskeletal: other (trace LE edema noted) Psychiatric: cooperative - Lab 11/20/18 05:43 11/20/18 05:43 Most recent lab results Calcium 7.8 mg/dL (8.4-10.2) L 11/20/18 05:43 Phosphorus 3.50 mg/dL (2.5-4.5) 11/19/18 13:06 Magnesium 1.50 mg/dL (1.7-2.3) L 11/20/18 05:43 Medications & Allergies - Medications Allergies/Adverse Reactions: Allergies No Known Allergies Allergy (Verified 11/26/16 14:51) Home Medications: Home Medications Medication Instructions Recorded Confirmed Last Taken Type Folic Acid [Folvite] 1 mg PO QDAY #30 tablet 11/28/16 11/20/18 11/18/18 Rx Pantoprazole [Protonix] 40 mg PO BID #60 tablet 11/28/16 11/20/18 11/18/18 Rx Sucralfate [Carafate] 1 gm PO Q6HR #120 oral.liqd 11/28/16 11/20/18 11/18/18 Rx Thiamine [Vitamin B-1] 100 mg PO QDAY #30 tablet 11/28/16 11/20/18 11/18/18 Rx Ranitidine HCl [Zantac 150 MG TAB] 150 mg PO PRN PRN 02/08/17 11/20/18 11/18/18 History Folic Acid [Folvite] 1 mg PO QDAY #30 tablet 08/01/18 11/20/18 11/18/18 Rx Multivitamin Tab [Multiple Vitamin 1 each PO QDAY #30 tablet 08/01/18 11/20/18 11/18/18 Rx TAB (Theragran)] Propranolol [Inderal] 10 mg PO Q12HR #60 tablet 08/01/18 11/20/18 11/18/18 Rx Spironolactone [Aldactone] 100 mg PO QDAY #30 tablet 08/01/18 11/20/18 11/18/18 Rx Sucralfate [Carafate] 1 gm PO ACHS #60 tablet 08/01/18 11/20/18 11/18/18 Rx Thiamine [Vitamin B-1] 100 mg PO QDAY #30 tablet 08/01/18 11/20/18 11/18/18 Rx Active Medications: Generic Name Dose Route Start Last Admin Trade Name Freq PRN Reason Stop Dose Admin Acetaminophen 650 mg 11/19/18 21:40 Tylenol PO Q4H PRN Pain MILD(1-3)/Fever >100.5/NASH Epoetin Kennedy 20,000 unit 11/19/18 15:47 Procrit SUB-Q MIRANDA PRN hemodialysis Folic Acid 1 mg 11/20/18 10:00 Folvite PO QDAY LUBA Heparin Sodium (Porcine) 5,000 unit 11/20/18 10:00 Heparin SUB-Q Q12HR [facility] Hydromorphone HCl 0.25 mg 11/19/18 21:40 Dilaudid IV Q3H PRN Pain, Moderate (4-6) Sodium Chloride 100 mls @ 999 mls/hr 11/19/18 15:47 Nacl 0.9% IV MIRANDA PRN Hypotension Sodium Chloride 100 mls @ 999 mls/hr 11/19/18 17:24 Nacl 0.9% IV MIRANDA PRN Hypotension Lactulose 26.6667 gm 11/19/18 22:00 11/19/18 22:48 Cephulac PO Not Given Q12HR [facility] Multivitamins 1 each 11/20/18 10:00 Theragran Tab PO QDAY [facility] Ondansetron HCl 4 mg 11/19/18 21:40 Zofran IV Q8H PRN Nausea And Vomiting Pantoprazole Sodium 40 mg 11/19/18 22:00 11/19/18 22:52 Protonix PO 40 mg BID LUBA Administration Propranolol HCl 10 mg 11/19/18 22:00 11/19/18 23:16 Inderal PO 10 mg Q12HR [facility] Administration Sodium Chloride 10 ml 11/19/18 22:00 11/19/18 22:53 Sodium Chloride Flush Syringe 10 Ml IV 10 ml BID LUBA Administration Sodium Chloride 10 ml 11/19/18 21:40 Sodium Chloride Flush Syringe 10 Ml IV PRN PRN LINE FLUSH Spironolactone 100 mg 11/19/18 21:34 Aldactone PO QDAY [facility] Sucralfate 1 gm 11/19/18 22:00 11/19/18 22:52 Carafate PO 1 gm ACHS LUBA Administration Thiamine HCl 100 mg 11/19/18 22:00 11/19/18 22:52 Vitamin B-1 PO 100 mg QDAY LU[facility] Administration
[2018-11-20] MEDS: CARAFATE PO SCH ×4 (08:57→21:43)
[2018-11-20] MEDS: ALDACTONE PO SCH (09:46)
[2018-11-20] MEDS: THERAGRAN Tab PO SCH (09:46)
[2018-11-20] MEDS: CEPHULAC PO SCH ×3 (09:46→21:41)
[2018-11-20] MEDS: FOLVITE PO SCH (09:46)
[2018-11-20] MEDS: PROTONIX PO SCH ×2 (09:46→21:41)
[2018-11-20] MEDS: VITAMIN B-1 PO SCH (09:46)
[2018-11-20] MEDS: INDERAL PO SCH ×2 (09:47→21:32)
[2018-11-20] MEDS: SODIUM CHLORIDE FLUSH SYRINGE 10 ML IV SCH ×2 (09:48→21:35)
[2018-11-20] MEDS: HEPARIN SUB-Q SCH ×3 (09:48→22:00)
--- NOTE | 2018-11-20 11:47 | Progress Note ---
Assessment and Plan Assessment and plan: Hepatic encephalopathy. Continue lactulose and monitor serial ammonia levels. ESRD. Continue hemodialysis per pediatric anesthesiologist. Case management consult for outpatient hemodialysis. GERD. Continue PPIs. Hypertension. Resume antihypertensive medications. Cirrhosis. Supportive care. Hypomagnesemia. Continue to replete as needed. History Interval history: 63-year-old AAM with recent initiation of HD at [facility] renamed as [facility] come in for HD.Does not have any complaints. He has a past medical history of end- stage renal disease, on dialysis, hepatic encephalopathy. The patient was recently discharged from [facility], after a near one-month stay for hepatic encephalopathy, and end-stage renal disease on dialysis. Apparently no HD outpatient slot was arranged for the patient. Patient had a tunneled dialysis access catheter placed, and was discharged, and as per family, does not have outpatient dialysis. He is also reportedly not taking his lactulose, or his rifixin, secondary to cost. He presents to the emergency room at our facility on 11/19/18 with family because they were instructed to present to the emergency room by a hospice nurse; Shelley Arnold; [phone]. Case management and risk management informed. Hospitalist Physical - Constitutional Vitals: Temp Pulse Resp BP Pulse Ox 98.0 F 74 19 94/56 100 11/20/18 11:19 11/20/18 11:19 11/20/18 11:19 11/20/18 11:19 11/20/18 11:19 General appearance: Present: no acute distress, well-nourished - EENT Eyes: Present: PERRL, EOM intact ENT: hearing intact, clear oral mucosa, dentition normal - Neck Neck: Present: supple, normal ROM - Respiratory Respiratory effort: normal Respiratory: bilateral: CTA - Cardiovascular Rhythm: regular Heart Sounds: Present: S1 & S2. Absent: gallop, rub - Extremities Extremities: no ischemia, No edema, Full ROM - Abdominal General gastrointestinal: soft, non-tender, non-distended, normal bowel sounds - Integumentary Integumentary: Present: clear, warm, dry - Neurologic Neurologic: CNII-XII intact, moves all extremities Results - Labs CBC & Chem 7: 11/20/18 05:43 11/20/18 05:43 Labs: Laboratory Last Values WBC 7.3 K/mm3 (4.5-11.0) 11/20/18 05:43 RBC 2.24 M/mm3 (3.65-5.03) L 11/20/18 05:43 Hgb 8.1 gm/dl (11.8-15.2) L 11/20/18 05:43 Hct 23.0 % (35.5-45.6) L 11/20/18 05:43 MCV 103 fl (84-94) H 11/20/18 05:43 MCH 36 pg (28-32) H 11/20/18 05:43 MCHC 35 % (32-34) H 11/20/18 05:43 RDW 20.2 % (13.2-15.2) H 11/20/18 05:43 Plt Count 61 K/mm3 (140-440) L 11/20/18 05:43 Lymph % (Auto) 19.4 % (13.4-35.0) 11/20/18 05:43 [place] % (Auto) 13.9 % (0.0-7.3) H 11/20/18 05:43 Eos % (Auto) 1.0 % (0.0-4.3) 11/20/18 05:43 Baso % (Auto) 0.4 % (0.0-1.8) 11/20/18 05:43 Lymph # 1.4 K/mm3 (1.2-5.4) 11/20/18 05:43 [place] # 1.0 K/mm3 (0.0-0.8) H 11/20/18 05:43 Eos # 0.1 K/mm3 (0.0-0.4) 11/20/18 05:43 Baso # 0.0 K/mm3 (0.0-0.1) 11/20/18 05:43 Seg Neutrophils % 65.3 % (40.0-70.0) 11/20/18 05:43 Seg Neutrophils # 4.8 K/mm3 (1.8-7.7) 11/20/18 05:43 Sodium 133 mmol/L (137-145) L 11/20/18 05:43 Potassium 4.0 mmol/L (3.6-5.0) 11/20/18 05:43 Chloride 98.0 mmol/L (98-107) 11/20/18 05:43 Carbon Dioxide 26 mmol/L (22-30) 11/20/18 05:43 Anion Gap 13 mmol/L 11/20/18 05:43 BUN 16 mg/dL (9-20) 11/20/18 05:43 Creatinine 2.8 mg/dL (0.8-1.5) H 11/20/18 05:43 Estimated GFR 28 ml/min 11/20/18 05:43 BUN/Creatinine Ratio 6 % 11/20/18 05:43 Glucose 88 mg/dL (75-100) 11/20/18 05:43 Hemoglobin A1c < 4.2 % (4-6) 11/19/18 13:00 Calcium 7.8 mg/dL (8.4-10.2) L 11/20/18 05:43 Phosphorus 3.50 mg/dL (2.5-4.5) 11/19/18 13:06 Magnesium 1.50 mg/dL (1.7-2.3) L 11/20/18 05:43 Total Bilirubin 3.00 mg/dL (0.1-1.2) H 11/20/18 05:43 AST 38 units/L (5-40) 11/20/18 05:43 ALT 19 units/L (7-56) 11/20/18 05:43 Alkaline Phosphatase 126 units/L (35-129) 11/20/18 05:43 Ammonia 109.0 umol/L (25-60) H 11/19/18 13:06 Total Protein 7.0 g/dL (6.3-8.2) 11/20/18 05:43 Albumin 1.9 g/dL (3.9-5) L 11/20/18 05:43 Albumin/Globulin Ratio 0.4 % 11/20/18 05:43 Hepatitis A IgM Ab Non-reactive (NonReactive) 11/19/18 19:50 Hep Bs Antigen Non-reactive (Negative) 11/19/18 19:50 Hep B Core IgM Ab Non-reactive (NonReactive) 11/19/18 19:50 Hepatitis C Antibody Non-reactive (NonReactive) 11/19/18 19:50 Active Medications - Current Medications Current Medications: Generic Name Dose Route Start Last Admin Trade Name Freq PRN Reason Stop Dose Admin Acetaminophen 650 mg 11/19/18 21:40 Tylenol PO Q4H PRN Pain MILD(1-3)/Fever >100.5/NASH Epoetin Kennedy 20,000 unit 11/19/18 15:47 Procrit SUB-Q MIRANDA PRN hemodialysis Folic Acid 1 mg 11/20/18 10:00 11/20/18 09:46 Folvite PO 1 mg QDAY LUBA Administration Heparin Sodium (Porcine) 5,000 unit 11/20/18 10:00 11/20/18 09:48 Heparin SUB-Q 5,000 unit Q12HR [facility] Administration Hydromorphone HCl 0.25 mg 11/19/18 21:40 Dilaudid IV Q3H PRN Pain, Moderate (4-6) Sodium Chloride 100 mls @ 999 mls/hr 11/19/18 15:47 Nacl 0.9% IV MIRANDA PRN Hypotension Sodium Chloride 100 mls @ 999 mls/hr 11/19/18 17:24 Nacl 0.9% IV MIRANDA PRN Hypotension Lactulose 26.6667 gm 11/19/18 22:00 11/20/18 09:46 Cephulac PO Not Given Q12HR [facility] Multivitamins 1 each 11/20/18 10:00 11/20/18 09:46 Theragran Tab PO 1 each QDAY LUBA Administration Ondansetron HCl 4 mg 11/19/18 21:40 Zofran IV Q8H PRN Nausea And Vomiting Pantoprazole Sodium 40 mg 11/19/18 22:00 11/20/18 09:46 Protonix PO 40 mg BID LUBA Administration Propranolol HCl 10 mg 11/19/18 22:00 11/20/18 09:47 Inderal PO 10 mg Q12HR LUBA Administration Sodium Chloride 10 ml 11/19/18 22:00 11/20/18 09:48 Sodium Chloride Flush Syringe 10 Ml IV 10 ml BID LUBA Administration Sodium Chloride 10 ml 11/19/18 21:40 Sodium Chloride Flush Syringe 10 Ml IV PRN PRN LINE FLUSH Spironolactone 100 mg 11/19/18 21:34 11/20/18 09:46 Aldactone PO 100 mg QDAY [facility] Administration Sucralfate 1 gm 11/19/18 22:00 11/20/18 11:40 Carafate PO 1 gm ACHS LUBA Administration Thiamine HCl 100 mg 11/19/18 22:00 11/20/18 09:46 Vitamin B-1 PO 100 mg QDAY LUBA Administration Nutrition/Malnutrition Assess - Dietary Evaluation Nutrition/Malnutrition Findings: Nutrition Notes Start: 11/20/18 10:13 Freq: Status: Active Protocol: Document 11/20/18 10:13 CP (Rec: 11/20/18 10:14 CP [id number]) Co-Sign 11/20/18 10:13 LP Nutrition Notes Need for Assessment generated from: Low BMI Initial or Follow up Brief Note Subjective/Other Information RD screen for low BMI. Pt has a BMI of 25.5. Nutrition Intervention Revisit per MD consult or patient Sign Off request:
[2018-11-21] MEDS: CARAFATE PO SCH ×4 (08:03→21:15)
[2018-11-21] MEDS: PROTONIX PO SCH ×2 (09:58→21:15)
[2018-11-21] MEDS: SODIUM CHLORIDE FLUSH SYRINGE 10 ML IV SCH ×2 (09:58→21:25)
[2018-11-21] MEDS: THERAGRAN Tab PO SCH (09:58)
[2018-11-21] MEDS: FOLVITE PO SCH (09:58)
[2018-11-21] MEDS: CEPHULAC PO SCH ×2 (09:59→21:16)
[2018-11-21] MEDS: ALDACTONE PO SCH (10:00)
[2018-11-21] MEDS: INDERAL PO SCH ×2 (10:00→21:25)
[2018-11-21] MEDS: HEPARIN SUB-Q SCH ×2 (10:00→21:15)
[2018-11-21] MEDS: VITAMIN B-1 PO SCH (11:06)
--- NOTE | 2018-11-21 12:16 | Progress Note ---
Assessment and Plan Assessment and plan: Hepatic encephalopathy. Continue lactulose and monitor serial ammonia levels. ESRD. Continue hemodialysis per fabricator special items. Case management consult for outpatient hemodialysis. GERD. Continue PPIs. Hypertension. Resume antihypertensive medications. Cirrhosis. Supportive care. Hypomagnesemia. Continue to replete as needed. History Interval history: 63-year-old AAM with recent initiation of HD at [facility] renamed as [facility] come in for HD.Does not have any complaints. He has a past medical history of end- stage renal disease, on dialysis, hepatic encephalopathy. The patient was recently discharged from [facility], after a near one-month stay for hepatic encephalopathy, and end-stage renal disease on dialysis. Apparently no HD outpatient slot was arranged for the patient. Patient had a tunneled dialysis access catheter placed, and was discharged, and as per family, does not have outpatient dialysis. He is also reportedly not taking his lactulose, or his rifixin, secondary to cost. He presents to the emergency room at our facility on 11/19/18 with family because they were instructed to present to the emergency room by a hospice nurse; Shelley Arnold; [phone]. Case management and risk management informed. Hospitalist Physical - Constitutional Vitals: Temp Pulse Resp BP Pulse Ox 98.6 F 82 16 99/57 98 11/21/18 11:23 11/21/18 11:23 11/21/18 11:23 11/21/18 11:23 11/21/18 11:23 General appearance: Present: no acute distress, well-nourished - EENT Eyes: Present: PERRL, EOM intact ENT: hearing intact, clear oral mucosa, dentition normal - Neck Neck: Present: supple, normal ROM - Respiratory Respiratory effort: normal Respiratory: bilateral: CTA - Cardiovascular Rhythm: regular Heart Sounds: Present: S1 & S2. Absent: gallop, rub - Extremities Extremities: no ischemia, No edema, Full ROM - Abdominal General gastrointestinal: soft, non-tender, non-distended, normal bowel sounds - Integumentary Integumentary: Present: clear, warm, dry - Neurologic Neurologic: CNII-XII intact, moves all extremities Results - Labs CBC & Chem 7: 11/20/18 05:43 11/20/18 05:43 Labs: Laboratory Last Values WBC 7.3 K/mm3 (4.5-11.0) 11/20/18 05:43 RBC 2.24 M/mm3 (3.65-5.03) L 11/20/18 05:43 Hgb 8.1 gm/dl (11.8-15.2) L 11/20/18 05:43 Hct 23.0 % (35.5-45.6) L 11/20/18 05:43 MCV 103 fl (84-94) H 11/20/18 05:43 MCH 36 pg (28-32) H 11/20/18 05:43 MCHC 35 % (32-34) H 11/20/18 05:43 RDW 20.2 % (13.2-15.2) H 11/20/18 05:43 Plt Count 61 K/mm3 (140-440) L 11/20/18 05:43 Lymph % (Auto) 19.4 % (13.4-35.0) 11/20/18 05:43 [place] % (Auto) 13.9 % (0.0-7.3) H 11/20/18 05:43 Eos % (Auto) 1.0 % (0.0-4.3) 11/20/18 05:43 Baso % (Auto) 0.4 % (0.0-1.8) 11/20/18 05:43 Lymph # 1.4 K/mm3 (1.2-5.4) 11/20/18 05:43 [place] # 1.0 K/mm3 (0.0-0.8) H 11/20/18 05:43 Eos # 0.1 K/mm3 (0.0-0.4) 11/20/18 05:43 Baso # 0.0 K/mm3 (0.0-0.1) 11/20/18 05:43 Seg Neutrophils % 65.3 % (40.0-70.0) 11/20/18 05:43 Seg Neutrophils # 4.8 K/mm3 (1.8-7.7) 11/20/18 05:43 Sodium 133 mmol/L (137-145) L 11/20/18 05:43 Potassium 4.0 mmol/L (3.6-5.0) 11/20/18 05:43 Chloride 98.0 mmol/L (98-107) 11/20/18 05:43 Carbon Dioxide 26 mmol/L (22-30) 11/20/18 05:43 Anion Gap 13 mmol/L 11/20/18 05:43 BUN 16 mg/dL (9-20) 11/20/18 05:43 Creatinine 2.8 mg/dL (0.8-1.5) H 11/20/18 05:43 Estimated GFR 28 ml/min 11/20/18 05:43 BUN/Creatinine Ratio 6 % 11/20/18 05:43 Glucose 88 mg/dL (75-100) 11/20/18 05:43 Hemoglobin A1c < 4.2 % (4-6) 11/19/18 13:00 Calcium 7.8 mg/dL (8.4-10.2) L 11/20/18 05:43 Phosphorus 3.50 mg/dL (2.5-4.5) 11/19/18 13:06 Magnesium 1.50 mg/dL (1.7-2.3) L 11/20/18 05:43 Total Bilirubin 3.00 mg/dL (0.1-1.2) H 11/20/18 05:43 AST 38 units/L (5-40) 11/20/18 05:43 ALT 19 units/L (7-56) 11/20/18 05:43 Alkaline Phosphatase 126 units/L (35-129) 11/20/18 05:43 Ammonia 83.0 umol/L (25-60) H 11/21/18 09:19 Total Protein 7.0 g/dL (6.3-8.2) 11/20/18 05:43 Albumin 1.9 g/dL (3.9-5) L 11/20/18 05:43 Albumin/Globulin Ratio 0.4 % 11/20/18 05:43 Hepatitis A IgM Ab Non-reactive (NonReactive) 11/19/18 19:50 Hep Bs Antigen Non-reactive (Negative) 11/19/18 19:50 Hep B Core IgM Ab Non-reactive (NonReactive) 11/19/18 19:50 Hepatitis C Antibody Non-reactive (NonReactive) 11/19/18 19:50 Active Medications - Current Medications Current Medications: Generic Name Dose Route Start Last Admin Trade Name Freq PRN Reason Stop Dose Admin Acetaminophen 650 mg 11/19/18 21:40 Tylenol PO Q4H PRN Pain MILD(1-3)/Fever >100.5/NASH Epoetin Kennedy 20,000 unit 11/19/18 15:47 Procrit SUB-Q MIRANDA PRN hemodialysis Folic Acid 1 mg 11/20/18 10:00 11/21/18 09:58 Folvite PO 1 mg QDAY LUBA Administration Heparin Sodium (Porcine) 5,000 unit 11/20/18 10:00 11/21/18 10:00 Heparin SUB-Q 5,000 unit Q12HR LUBA Administration Hydromorphone HCl 0.25 mg 11/19/18 21:40 Dilaudid IV Q3H PRN Pain, Moderate (4-6) Sodium Chloride 100 mls @ 999 mls/hr 11/19/18 15:47 Nacl 0.9% IV MIRANDA PRN Hypotension Sodium Chloride 100 mls @ 999 mls/hr 11/19/18 17:24 Nacl 0.9% IV MIRANDA PRN Hypotension Lactulose 26.6667 gm 11/19/18 22:00 11/21/18 09:59 Cephulac PO Not Given Q12HR [facility] Multivitamins 1 each 11/20/18 10:00 11/21/18 09:58 Theragran Tab PO 1 each QDAY LUBA Administration Ondansetron HCl 4 mg 11/19/18 21:40 Zofran IV Q8H PRN Nausea And Vomiting Pantoprazole Sodium 40 mg 11/19/18 22:00 11/21/18 09:58 Protonix PO 40 mg BID LUBA Administration Propranolol HCl 10 mg 11/19/18 22:00 11/21/18 10:00 Inderal PO Not Given Q12HR LUBA Sodium Chloride 10 ml 11/19/18 22:00 11/21/18 09:58 Sodium Chloride Flush Syringe 10 Ml IV 10 ml BID LUBA Administration Sodium Chloride 10 ml 11/19/18 21:40 Sodium Chloride Flush Syringe 10 Ml IV PRN PRN LINE FLUSH Spironolactone 100 mg 11/19/18 21:34 11/20/18 09:46 Aldactone PO 100 mg QDAY LUBA Administration Sucralfate 1 gm 11/19/18 22:00 11/21/18 08:03 Carafate PO 1 gm ACHS LUBA Administration Thiamine HCl 100 mg 11/19/18 22:00 11/21/18 11:06 Vitamin B-1 PO 100 mg QDAY LUBA Administration Nutrition/Malnutrition Assess - Dietary Evaluation Nutrition/Malnutrition Findings: Nutrition Notes Start: 11/20/18 10:13 Freq: Status: Active Protocol: Document 11/20/18 10:13 CP (Rec: 11/20/18 10:14 CP [id number]) Co-Sign 11/20/18 10:13 LP Nutrition Notes Need for Assessment generated from: Low BMI Initial or Follow up Brief Note Subjective/Other Information RD screen for low BMI. Pt has a BMI of 25.5. Nutrition Intervention Revisit per MD consult or patient Sign Off request:
--- NOTE | 2018-11-21 21:39 | Progress Note ---
Assessment and Plan 1. ESRD: Continue hemodialysis three times a week. Need outpatient HD chair. 2. Hypomagnesemia. 3. Anemia: Epogen with HD. 4. Alcoholic cirrhosis with ascites. 5. H/o GI bleed. 6. Hypotension: Start on Midodrine. Subjective Date of service: 11/21/18 Interval history: Patient is doing ok. Objective - Vital Signs Vital signs: Vital Signs - 12hr 11/21/18 11/21/18 11/21/18 10:00 11:23 17:08 Temperature 98.6 F 97.8 F Pulse Rate 82 87 Respiratory 16 20 Rate Blood Pressure 91/58 99/57 108/60 O2 Sat by Pulse 98 100 Oximetry 11/21/18 11/21/18 21:14 21:25 Temperature 98.0 F Pulse Rate 88 86 Respiratory 15 Rate Blood Pressure 84/41 84/41 O2 Sat by Pulse 100 Oximetry - General Appearance General appearance: well-developed, appears stated age, other (not in distress, R IJ tunnel catheter) EENT: ATNC, PERRL, hearing intact, vision intact Neck: supple Respiratory: Present: Clear to Ascultation Cardiology: regular, S1S2, no murmurs Gastrointestinal: normoactive bowel sounds, no tenderness, distended Integumentary: no rash, warm and dry Neurologic: no focal deficit, no asterixis Musculoskeletal: other (trace LE edema noted) Psychiatric: cooperative - Lab 11/20/18 05:43 11/20/18 05:43 Most recent lab results Calcium 7.8 mg/dL (8.4-10.2) L 11/20/18 05:43 Phosphorus 3.50 mg/dL (2.5-4.5) 11/19/18 13:06 Magnesium 1.50 mg/dL (1.7-2.3) L 11/20/18 05:43 Medications & Allergies - Medications Allergies/Adverse Reactions: Allergies No Known Allergies Allergy (Verified 11/26/16 14:51) Home Medications: Home Medications Medication Instructions Recorded Confirmed Last Taken Type Folic Acid [Folvite] 1 mg PO QDAY #30 tablet 11/28/16 11/20/18 11/18/18 Rx Pantoprazole [Protonix] 40 mg PO BID #60 tablet 11/28/16 11/20/18 11/18/18 Rx Sucralfate [Carafate] 1 gm PO Q6HR #120 oral.liqd 11/28/16 11/20/18 11/18/18 Rx Thiamine [Vitamin B-1] 100 mg PO QDAY #30 tablet 11/28/16 11/20/18 11/18/18 Rx Ranitidine HCl [Zantac 150 MG TAB] 150 mg PO PRN PRN 02/08/17 11/20/18 11/18/18 History Folic Acid [Folvite] 1 mg PO QDAY #30 tablet 08/01/18 11/20/18 11/18/18 Rx Multivitamin Tab [Multiple Vitamin 1 each PO QDAY #30 tablet 08/01/18 11/20/18 11/18/18 Rx TAB (Theragran)] Propranolol [Inderal] 10 mg PO Q12HR #60 tablet 08/01/18 11/20/18 11/18/18 Rx Spironolactone [Aldactone] 100 mg PO QDAY #30 tablet 08/01/18 11/20/18 11/18/18 Rx Sucralfate [Carafate] 1 gm PO ACHS #60 tablet 08/01/18 11/20/18 11/18/18 Rx Thiamine [Vitamin B-1] 100 mg PO QDAY #30 tablet 08/01/18 11/20/18 11/18/18 Rx Active Medications: Generic Name Dose Route Start Last Admin Trade Name Freq PRN Reason Stop Dose Admin Acetaminophen 650 mg 11/19/18 21:40 Tylenol PO Q4H PRN Pain MILD(1-3)/Fever >100.5/NASH Epoetin Kennedy 20,000 unit 11/19/18 15:47 Procrit SUB-Q MIRANDA PRN hemodialysis Folic Acid 1 mg 11/20/18 10:00 11/21/18 09:58 Folvite PO 1 mg QDAY LUBA Administration Heparin Sodium (Porcine) 5,000 unit 11/20/18 10:00 11/21/18 21:15 Heparin SUB-Q 5,000 unit Q12HR LUBA Administration Hydromorphone HCl 0.25 mg 11/19/18 21:40 Dilaudid IV Q3H PRN Pain, Moderate (4-6) Sodium Chloride 100 mls @ 999 mls/hr 11/19/18 15:47 Nacl 0.9% IV MIRANDA PRN Hypotension Sodium Chloride 100 mls @ 999 mls/hr 11/19/18 17:24 Nacl 0.9% IV MIRANDA PRN Hypotension Lactulose 26.6667 gm 11/19/18 22:00 11/21/18 21:16 Cephulac PO Not Given Q12HR [facility] Midodrine 10 mg 11/21/18 22:00 Proamatine PO TID [facility] Multivitamins 1 each 11/20/18 10:00 11/21/18 09:58 Theragran Tab PO 1 each QDAY [facility] Administration Ondansetron HCl 4 mg 11/19/18 21:40 Zofran IV Q8H PRN Nausea And Vomiting Pantoprazole Sodium 40 mg 11/19/18 22:00 11/21/18 21:15 Protonix PO 40 mg BID [facility] Administration Propranolol HCl 10 mg 11/19/18 22:00 11/21/18 21:25 Inderal PO Not Given Q12HR [facility] Sodium Chloride 10 ml 11/19/18 22:00 11/21/18 21:25 Sodium Chloride Flush Syringe 10 Ml IV 10 ml BID LUBA Administration Sodium Chloride 10 ml 11/19/18 21:40 Sodium Chloride Flush Syringe 10 Ml IV PRN PRN LINE FLUSH Spironolactone 100 mg 11/19/18 21:34 11/21/18 10:00 Aldactone PO Not Given QDAY [facility] Sucralfate 1 gm 11/19/18 22:00 11/21/18 21:15 Carafate PO 1 gm ACHS LUBA Administration Thiamine HCl 100 mg 11/19/18 22:00 11/21/18 11:06 Vitamin B-1 PO 100 mg QDAY [facility] Administration
[2018-11-21] MEDS ORDERED: ALBURX 25% (ALBUMIN) IV ONE (23:01)
[2018-11-21] MEDS: PROAMATINE PO SCH (23:10)
[2018-11-22 05:39] LABS: Hematocrit 23.7 % (35.5-45.6); Hemoglobin 8.3 gm/dl (11.8-15.2)
[2018-11-22 06:51] LABS: Albumin 2.1 g/dL (3.9-5); Calcium 7.7 mg/dL (8.4-10.2)
[2018-11-22] MEDS ORDERED: NACL 0.9% 100 ML IV PRN (07:12)
[2018-11-22] MEDS: CARAFATE PO SCH ×4 (08:00→21:51)
[2018-11-22] MEDS: PROAMATINE PO SCH ×3 (09:00→20:41)
--- NOTE | 2018-11-22 09:31 | Progress Note ---
Assessment and Plan 1. ESRD: Continue hemodialysis three times a week. HD today. 2. Hypomagnesemia. 3. Anemia: Epogen with HD. 4. Alcoholic cirrhosis with ascites: Paracentesis tomorrow. 5. H/o GI bleed. 6. Hypotension: On Midodrine. Subjective Date of service: 11/22/18 Interval history: Patient is doing ok. Objective - Vital Signs Vital signs: Vital Signs - 12hr 11/21/18 11/22/18 11/22/18 23:11 00:05 00:28 Temperature 98.4 F 98.4 F 97.7 F Pulse Rate 90 90 88 Respiratory 18 16 16 Rate Blood Pressure 91/44 91/44 Blood Pressure 93/50 [Left] O2 Sat by Pulse 99 100 Oximetry 11/22/18 11/22/18 00:43 05:01 Temperature 98.2 F 98.4 F Pulse Rate 91 H 92 H Respiratory 15 18 Rate Blood Pressure 107/63 Blood Pressure 85/37 [Left] O2 Sat by Pulse 100 100 Oximetry - General Appearance General appearance: well-developed, appears stated age, other (not in distress, R IJ tunnel catheter) EENT: ATNC, PERRL, hearing intact, vision intact Neck: supple Respiratory: Present: Clear to Ascultation Cardiology: regular, S1S2, no murmurs Gastrointestinal: normoactive bowel sounds, no tenderness, distended (increasing ascites) Integumentary: no rash, warm and dry Neurologic: no focal deficit, no asterixis, alert and oriented x3 Musculoskeletal: other (no edema) - Lab 11/22/18 05:20 11/22/18 05:20 Most recent lab results Calcium 7.7 mg/dL (8.4-10.2) L 11/22/18 05:20 Phosphorus 3.50 mg/dL (2.5-4.5) 11/19/18 13:06 Magnesium 1.50 mg/dL (1.7-2.3) L 11/20/18 05:43 Medications & Allergies - Medications Allergies/Adverse Reactions: Allergies No Known Allergies Allergy (Verified 11/26/16 14:51) Home Medications: Home Medications Medication Instructions Recorded Confirmed Last Taken Type Folic Acid [Folvite] 1 mg PO QDAY #30 tablet 11/28/16 11/20/18 11/18/18 Rx Pantoprazole [Protonix] 40 mg PO BID #60 tablet 11/28/16 11/20/18 11/18/18 Rx Sucralfate [Carafate] 1 gm PO Q6HR #120 oral.liqd 11/28/16 11/20/18 11/18/18 Rx Thiamine [Vitamin B-1] 100 mg PO QDAY #30 tablet 11/28/16 11/20/18 11/18/18 Rx Ranitidine HCl [Zantac 150 MG TAB] 150 mg PO PRN PRN 02/08/17 11/20/18 11/18/18 History Folic Acid [Folvite] 1 mg PO QDAY #30 tablet 08/01/18 11/20/18 11/18/18 Rx Multivitamin Tab [Multiple Vitamin 1 each PO QDAY #30 tablet 08/01/18 11/20/18 11/18/18 Rx TAB (Theragran)] Propranolol [Inderal] 10 mg PO Q12HR #60 tablet 08/01/18 11/20/18 11/18/18 Rx Spironolactone [Aldactone] 100 mg PO QDAY #30 tablet 08/01/18 11/20/18 11/18/18 Rx Sucralfate [Carafate] 1 gm PO ACHS #60 tablet 08/01/18 11/20/18 11/18/18 Rx Thiamine [Vitamin B-1] 100 mg PO QDAY #30 tablet 08/01/18 11/20/18 11/18/18 Rx Active Medications: Generic Name Dose Route Start Last Admin Trade Name Freq PRN Reason Stop Dose Admin Acetaminophen 650 mg 11/19/18 21:40 Tylenol PO Q4H PRN Pain MILD(1-3)/Fever >100.5/NASH Epoetin Kennedy 20,000 unit 11/19/18 15:47 Procrit SUB-Q MIRANDA PRN hemodialysis Folic Acid 1 mg 11/20/18 10:00 11/21/18 09:58 Folvite PO 1 mg QDAY LUBA Administration Heparin Sodium (Porcine) 5,000 unit 11/20/18 10:00 11/21/18 21:15 Heparin SUB-Q 5,000 unit Q12HR LUBA Administration Hydromorphone HCl 0.25 mg 11/19/18 21:40 Dilaudid IV Q3H PRN Pain, Moderate (4-6) Sodium Chloride 100 mls @ 999 mls/hr 11/19/18 15:47 Nacl 0.9% IV MIRANDA PRN Hypotension Sodium Chloride 100 mls @ 999 mls/hr 11/22/18 07:12 Nacl 0.9% IV MIRANDA PRN Hypotension Lactulose 26.6667 gm 11/19/18 22:00 11/21/18 21:16 Cephulac PO Not Given Q12HR LUBA Midodrine 10 mg 11/21/18 22:00 11/21/18 23:10 Proamatine PO 10 mg TID LUBA Administration Multivitamins 1 each 11/20/18 10:00 11/21/18 09:58 Theragran Tab PO 1 each QDAY LUBA Administration Ondansetron HCl 4 mg 11/19/18 21:40 Zofran IV Q8H PRN Nausea And Vomiting Pantoprazole Sodium 40 mg 11/19/18 22:00 11/21/18 21:15 Protonix PO 40 mg BID LUBA Administration Propranolol HCl 10 mg 11/19/18 22:00 11/21/18 21:25 Inderal PO Not Given Q12HR LUBA Sodium Chloride 10 ml 11/19/18 22:00 11/21/18 21:25 Sodium Chloride Flush Syringe 10 Ml IV 10 ml BID LUBA Administration Sodium Chloride 10 ml 11/19/18 21:40 Sodium Chloride Flush Syringe 10 Ml IV PRN PRN LINE FLUSH Spironolactone 100 mg 11/19/18 21:34 11/21/18 10:00 Aldactone PO Not Given QDAY LUBA Sucralfate 1 gm 11/19/18 22:00 11/21/18 21:15 Carafate PO 1 gm ACHS LUBA Administration Thiamine HCl 100 mg 11/19/18 22:00 11/21/18 11:06 Vitamin B-1 PO 100 mg QDAY LUBA Administration
[2018-11-22] MEDS ORDERED: NACL 0.9 (PRIMING MACHINE ONLY DIALYSIS) MC ONE (11:51)
--- NOTE | 2018-11-22 12:07 | Progress Note ---
Assessment and Plan Assessment and plan: Hepatic encephalopathy. Continue lactulose and monitor serial ammonia levels. Elevated today at 197. Resume lactulose. Give rectally if patient refuses. ESRD. Continue hemodialysis per trimmer operator three knife. Case management consult for outpatient hemodialysis. GERD. Continue PPIs. Hypertension. Resume antihypertensive medications. Cirrhosis. Supportive care. Hypomagnesemia. Continue to replete as needed. History Interval history: 63-year-old AAM with recent initiation of HD at [facility] renamed as [facility] come in for HD.Does not have any complaints. He has a past medical history of end- stage renal disease, on dialysis, hepatic encephalopathy. The patient was recently discharged from [facility], after a near one-month stay for hepatic encephalopathy, and end-stage renal disease on dialysis. Apparently no HD outpatient slot was arranged for the patient. Patient had a tunneled dialysis access catheter placed, and was discharged, and as per family, does not have outpatient dialysis. He is also reportedly not taking his lactulose, or his rifixin, secondary to cost. He presents to the emergency room at our facility on 11/19/18 with family because they were instructed to present to the emergency room by a hospice nurse; Shelley Arnold; [phone]. Case management and risk management informed. Patient refusing his medications this morning. Patient is somewhat confused Hospitalist Physical - Constitutional Vitals: Temp Pulse Resp BP Pulse Ox 98.2 F 89 16 96/61 100 11/22/18 09:30 11/22/18 12:00 11/22/18 09:30 11/22/18 12:00 11/22/18 05:01 General appearance: Present: no acute distress, well-nourished - EENT Eyes: Present: PERRL, EOM intact ENT: hearing intact, clear oral mucosa, dentition normal - Neck Neck: Present: supple, normal ROM - Respiratory Respiratory effort: normal Respiratory: bilateral: CTA - Cardiovascular Rhythm: regular Heart Sounds: Present: S1 & S2. Absent: gallop, rub - Extremities Extremities: no ischemia, No edema, Full ROM - Abdominal General gastrointestinal: soft, non-tender, non-distended, normal bowel sounds - Integumentary Integumentary: Present: clear, warm, dry - Neurologic Neurologic: CNII-XII intact, moves all extremities Results - Labs CBC & Chem 7: 11/22/18 05:20 11/22/18 05:20 Labs: Laboratory Last Values WBC 7.3 K/mm3 (4.5-11.0) 11/20/18 05:43 RBC 2.24 M/mm3 (3.65-5.03) L 11/20/18 05:43 Hgb 8.3 gm/dl (11.8-15.2) L 11/22/18 05:20 Hct 23.7 % (35.5-45.6) L 11/22/18 05:20 MCV 103 fl (84-94) H 11/20/18 05:43 MCH 36 pg (28-32) H 11/20/18 05:43 MCHC 35 % (32-34) H 11/20/18 05:43 RDW 20.2 % (13.2-15.2) H 11/20/18 05:43 Plt Count 61 K/mm3 (140-440) L 11/20/18 05:43 Lymph % (Auto) 19.4 % (13.4-35.0) 11/20/18 05:43 [place] % (Auto) 13.9 % (0.0-7.3) H 11/20/18 05:43 Eos % (Auto) 1.0 % (0.0-4.3) 11/20/18 05:43 Baso % (Auto) 0.4 % (0.0-1.8) 11/20/18 05:43 Lymph # 1.4 K/mm3 (1.2-5.4) 11/20/18 05:43 [place] # 1.0 K/mm3 (0.0-0.8) H 11/20/18 05:43 Eos # 0.1 K/mm3 (0.0-0.4) 11/20/18 05:43 Baso # 0.0 K/mm3 (0.0-0.1) 11/20/18 05:43 Seg Neutrophils % 65.3 % (40.0-70.0) 11/20/18 05:43 Seg Neutrophils # 4.8 K/mm3 (1.8-7.7) 11/20/18 05:43 Sodium 129 mmol/L (137-145) L 11/22/18 05:20 Potassium 4.0 mmol/L (3.6-5.0) 11/22/18 05:20 Chloride 94.4 mmol/L (98-107) L 11/22/18 05:20 Carbon Dioxide 24 mmol/L (22-30) 11/22/18 05:20 Anion Gap 15 mmol/L 11/22/18 05:20 BUN 28 mg/dL (9-20) H 11/22/18 05:20 Creatinine 4.2 mg/dL (0.8-1.5) H 11/22/18 05:20 Estimated GFR 18 ml/min 11/22/18 05:20 BUN/Creatinine Ratio 7 % 11/22/18 05:20 Glucose 117 mg/dL (75-100) H 11/22/18 05:20 Hemoglobin A1c < 4.2 % (4-6) 11/19/18 13:00 Calcium 7.7 mg/dL (8.4-10.2) L 11/22/18 05:20 Phosphorus 3.50 mg/dL (2.5-4.5) 11/19/18 13:06 Magnesium 1.50 mg/dL (1.7-2.3) L 11/20/18 05:43 Total Bilirubin 2.30 mg/dL (0.1-1.2) H 11/22/18 05:20 AST 29 units/L (5-40) 11/22/18 05:20 ALT 17 units/L (7-56) 11/22/18 05:20 Alkaline Phosphatase 123 units/L (35-129) 11/22/18 05:20 Ammonia 197.0 umol/L (25-60) H 11/22/18 05:20 Total Protein 6.9 g/dL (6.3-8.2) 11/22/18 05:20 Albumin 2.1 g/dL (3.9-5) L 11/22/18 05:20 Albumin/Globulin Ratio 0.4 % 11/22/18 05:20 Hepatitis A IgM Ab Non-reactive (NonReactive) 11/19/18 19:50 Hep Bs Antigen Non-reactive (Negative) 11/19/18 19:50 Hep B Core IgM Ab Non-reactive (NonReactive) 11/19/18 19:50 Hepatitis C Antibody Non-reactive (NonReactive) 11/19/18 19:50 Active Medications - Current Medications Current Medications: Generic Name Dose Route Start Last Admin Trade Name Freq PRN Reason Stop Dose Admin Acetaminophen 650 mg 11/19/18 21:40 Tylenol PO Q4H PRN Pain MILD(1-3)/Fever >100.5/NASH Epoetin Kennedy 20,000 unit 11/19/18 15:47 11/22/18 12:05 Procrit SUB-Q 20,000 unit MIRANDA PRN Administration hemodialysis Folic Acid 1 mg 11/20/18 10:00 11/21/18 09:58 Folvite PO 1 mg QDAY LUBA Administration Heparin Sodium (Porcine) 5,000 unit 11/20/18 10:00 11/21/18 21:15 Heparin SUB-Q 5,000 unit Q12HR LUBA Administration Hydromorphone HCl 0.25 mg 11/19/18 21:40 Dilaudid IV Q3H PRN Pain, Moderate (4-6) Sodium Chloride 100 mls @ 999 mls/hr 11/19/18 15:47 Nacl 0.9% IV MIRANDA PRN Hypotension Sodium Chloride 100 mls @ 999 mls/hr 11/22/18 07:12 Nacl 0.9% IV MIRANDA PRN Hypotension Lactulose 26.6667 gm 11/19/18 22:00 11/21/18 21:16 Cephulac PO Not Given Q12HR LUBA Midodrine 10 mg 11/21/18 22:00 11/21/18 23:10 Proamatine PO 10 mg TID LUBA Administration Multivitamins 1 each 11/20/18 10:00 11/21/18 09:58 Theragran Tab PO 1 each QDAY LUBA Administration Ondansetron HCl 4 mg 11/19/18 21:40 Zofran IV Q8H PRN Nausea And Vomiting Pantoprazole Sodium 40 mg 11/19/18 22:00 11/21/18 21:15 Protonix PO 40 mg BID LUBA Administration Propranolol HCl 10 mg 11/19/18 22:00 11/21/18 21:25 Inderal PO Not Given Q12HR LUBA Sodium Chloride 10 ml 11/19/18 22:00 11/21/18 21:25 Sodium Chloride Flush Syringe 10 Ml IV 10 ml BID LUBA Administration Sodium Chloride 10 ml 11/19/18 21:40 Sodium Chloride Flush Syringe 10 Ml IV PRN PRN LINE FLUSH Spironolactone 100 mg 11/19/18 21:34 11/21/18 10:00 Aldactone PO Not Given QDAY LUBA Sucralfate 1 gm 11/19/18 22:00 11/21/18 21:15 Carafate PO 1 gm ACHS LUBA Administration Thiamine HCl 100 mg 11/19/18 22:00 11/21/18 11:06 Vitamin B-1 PO 100 mg QDAY LUBA Administration Nutrition/Malnutrition Assess - Dietary Evaluation Nutrition/Malnutrition Findings: Nutrition Notes Start: 11/20/18 10:13 Freq: Status: Active Protocol: Document 11/20/18 10:13 CP (Rec: 11/20/18 10:14 CP [id number]) Co-Sign 11/20/18 10:13 LP Nutrition Notes Need for Assessment generated from: Low BMI Initial or Follow up Brief Note Subjective/Other Information RD screen for low BMI. Pt has a BMI of 25.5. Nutrition Intervention Revisit per MD consult or patient Sign Off request:
[2018-11-22] MEDS: INDERAL PO SCH ×2 (13:56→22:01)
[2018-11-22] MEDS: ALDACTONE PO SCH (13:57)
[2018-11-22] MEDS: VITAMIN B-1 PO SCH (14:02)
[2018-11-22] MEDS: HEPARIN SUB-Q SCH ×2 (14:02→21:51)
[2018-11-22] MEDS: THERAGRAN Tab PO SCH (14:02)
[2018-11-22] MEDS: PROTONIX PO SCH ×2 (14:02→21:51)
[2018-11-22] MEDS: FOLVITE PO SCH (14:03)
[2018-11-22] MEDS: CEPHULAC PO SCH ×2 (14:04→21:48)
[2018-11-22] MEDS: SODIUM CHLORIDE FLUSH SYRINGE 10 ML IV SCH ×2 (14:05→22:02)
--- NOTE | 2018-11-23 08:22 | Vascular Lab Report ---
PROCEDURE: VL VENOUS DUPLEX UE BILAT TECHNIQUE: Duplex Doppler evaluation performed of bilateral upper extremity arteries and veins. Duque scale, color flow and spectral waveform imaging performed. HISTORY: Hemodialysis access. COMPARISON: None FINDINGS: There are are acceptable arterial waveforms bilaterally. There is some thrombus noted in the left cephalic vein in the forearm. Veins are otherwise patent. Hi gh bifurcation of the left radial and ulnar arteries noted. Vascular diameters as follows: Right brachial artery: 0.41 cm, 55 cm/s Right radial artery: 0.15 cm, 81 cm/s Right ulnar artery: 0.17 cm, 38 cm/s right axillary artery 0.41 cm, 77 cm/s Left brachial artery: 0.39 cm, 63 cm/s Left radial artery: 0.20 cm, 57 cm/s Ulnar artery: 0.10 cm, 67 cm/s. Left axillary artery: 0.50 cm, 67 cm/s Right axillary vein: 0.70 cm Right upper and mid biceps basilic vein not visualized. Right lobe biceps basilic vein: 0.19 cm Right Antecubital fossa basilic vein: 0.26 cm Right Forearm basilic vein: Not visualized Right cephalic vein at the shoulder, upper biceps, mid biceps lower biceps measuring 0.21, 0.09, 0.11 , 0.12 cm respectively. Right forearm cephalic vein is not visualized. Left axillary vein: 0.5 cm Left axillary basilic vein: 0.62 cm Left Upper biceps basilic vein 0.23 cm Left Mid biceps basilic: 0.18 cm Left lobe biceps basilic vein: 0.23 cm Left Antecubital fossa basilic vein 0.23 cm: 0.16 cm Left forearm basilic vein: Not visualized Left cephalic vein in the upper arm not visualized. Left cephalic veins in upper forearm, mid forearm and distal forearm measuring 0.21, 0.19, 0.12 cm respectively. Chronic thrombus noted in this area. IMPRESSION: Vascular diameters and an velocity measurements as indicated above. Some thrombus seen i n forearm cephalic vein of the left upper extremity. This document is electronically signed by Maria Luisa Dobson MD., November 23 2018 08:19:55 AM ET
[2018-11-23] MEDS: PROAMATINE PO SCH ×3 (08:33→21:36)
[2018-11-23] MEDS: CARAFATE PO SCH ×3 (08:34→18:13)
[2018-11-23 09:13] LABS: INR 1.71 (0.87-1.13)
[2018-11-23] MEDS: CEPHULAC PO SCH (09:30)
[2018-11-23] MEDS: FOLVITE PO SCH (09:31)
[2018-11-23] MEDS: ALDACTONE PO SCH (09:31)
[2018-11-23] MEDS: PROTONIX PO SCH (09:31)
[2018-11-23] MEDS: VITAMIN B-1 PO SCH (09:31)
[2018-11-23] MEDS: THERAGRAN Tab PO SCH (09:31)
[2018-11-23] MEDS: SODIUM CHLORIDE FLUSH SYRINGE 10 ML IV SCH (09:31)
[2018-11-23] MEDS: HEPARIN SUB-Q SCH (09:32)
[2018-11-23] MEDS: INDERAL PO SCH (09:33)
[2018-11-23] MEDS ORDERED: MAG-OX PO SCH (10:00)
--- NOTE | 2018-11-23 10:23 | Progress Note ---
Assessment and Plan 1. ESRD: Continue hemodialysis three times a week. HD today. 2. Hypomagnesemia. 3. Anemia: Epogen with HD. 4. Alcoholic cirrhosis with ascites: S/p Paracentesis today. 5. H/o GI bleed. 6. Hypotension: On Midodrine. Outpatient HD at [facility] starting 11/30/18. Subjective Date of service: 11/23/18 Interval history: Patient is doing ok. Objective - Vital Signs Vital signs: Vital Signs - 12hr 11/22/18 11/23/18 22:42 04:15 Temperature 97.9 F Pulse Rate 94 H 96 H Respiratory 24 24 Rate Blood Pressure 94/47 O2 Sat by Pulse 100 99 Oximetry - General Appearance General appearance: well-developed, appears stated age, other (not in distress, R IJ tunnel catheter) EENT: ATNC, PERRL, mucous membranes moist, hearing intact, vision intact Neck: supple Respiratory: Present: Clear to Ascultation Cardiology: regular, S1S2, no murmurs Gastrointestinal: normoactive bowel sounds, other (slight dsitention noted) Integumentary: no rash Neurologic: no focal deficit, no asterixis, alert and oriented x3 Musculoskeletal: other (no edema) - Lab 11/22/18 05:20 11/22/18 05:20 Most recent lab results Calcium 7.7 mg/dL (8.4-10.2) L 11/22/18 05:20 Phosphorus 3.50 mg/dL (2.5-4.5) 11/19/18 13:06 Magnesium 1.50 mg/dL (1.7-2.3) L 11/20/18 05:43 Medications & Allergies - Medications Allergies/Adverse Reactions: Allergies No Known Allergies Allergy (Verified 11/26/16 14:51) Home Medications: Home Medications Medication Instructions Recorded Confirmed Last Taken Type Sucralfate [Carafate] 1 gm PO Q6HR #120 oral.liqd 11/28/16 11/20/18 11/18/18 Rx Ranitidine HCl [Zantac 150 MG TAB] 150 mg PO PRN PRN 02/08/17 11/20/18 11/18/18 History Folic Acid [Folvite] 1 mg PO QDAY #30 tablet 08/01/18 11/20/18 11/18/18 Rx Thiamine [Vitamin B-1] 100 mg PO QDAY #30 tablet 08/01/18 11/20/18 11/18/18 Rx Folic Acid [Folvite] 1 mg PO QDAY #30 tablet 11/23/18 Unknown Rx Lactulose [Cephulac] 26.6667 gm PO Q12HR 30 Days 11/23/18 Unknown Rx oral.liqd Magnesium Oxide [Mag-Ox] 400 mg PO QDAY #30 tablet 11/23/18 Unknown Rx Midodrine [Proamatine] 10 mg PO TID #90 tablet 11/23/18 Unknown Rx Multivitamin Tab [Multiple Vitamin 1 each PO QDAY #30 tablet 11/23/18 Unknown Rx TAB (Theragran)] Pantoprazole [Protonix TAB] 40 mg PO BID #60 tablet 11/23/18 Unknown Rx Propranolol [Inderal] 10 mg PO Q12HR #60 tablet 11/23/18 Unknown Rx Spironolactone [Aldactone] 100 mg PO QDAY #30 tablet 11/23/18 Unknown Rx Sucralfate [Carafate] 1 gm PO ACHS #60 tablet 11/23/18 Unknown Rx Thiamine [Vitamin B-1] 100 mg PO QDAY #30 tablet 11/23/18 Unknown Rx Active Medications: Generic Name Dose Route Start Last Admin Trade Name Freq PRN Reason Stop Dose Admin Acetaminophen 650 mg 11/19/18 21:40 Tylenol PO Q4H PRN Pain MILD(1-3)/Fever >100.5/NASH Epoetin Kennedy 20,000 unit 11/19/18 15:47 11/22/18 12:05 Procrit SUB-Q 20,000 unit MIRANDA PRN Administration hemodialysis Folic Acid 1 mg 11/20/18 10:00 11/23/18 09:31 Folvite PO 1 mg QDAY LUBA Administration Heparin Sodium (Porcine) 5,000 unit 11/20/18 10:00 11/23/18 09:32 Heparin SUB-Q Not Given Q12HR LUBA Hydromorphone HCl 0.25 mg 11/19/18 21:40 Dilaudid IV Q3H PRN Pain, Moderate (4-6) Sodium Chloride 100 mls @ 999 mls/hr 11/19/18 15:47 Nacl 0.9% IV MIRANDA PRN Hypotension Sodium Chloride 100 mls @ 999 mls/hr 11/22/18 07:12 Nacl 0.9% IV MIRANDA PRN Hypotension Lactulose 26.6667 gm 11/19/18 22:00 11/23/18 09:30 Cephulac PO 26.6667 gm Q12HR LUBA Administration Magnesium Oxide 400 mg 11/23/18 10:00 11/23/18 09:31 Mag-Ox PO 400 mg QDAY LUBA Administration Midodrine 10 mg 11/21/18 22:00 11/23/18 08:33 Proamatine PO 10 mg TID LUBA Administration Multivitamins 1 each 11/20/18 10:00 11/23/18 09:31 Theragran Tab PO 1 each QDAY LUBA Administration Ondansetron HCl 4 mg 11/19/18 21:40 Zofran IV Q8H PRN Nausea And Vomiting Pantoprazole Sodium 40 mg 11/19/18 22:00 11/23/18 09:31 Protonix PO 40 mg BID LUBA Administration Propranolol HCl 10 mg 11/19/18 22:00 11/23/18 09:33 Inderal PO Not Given Q12HR LUBA Sodium Chloride 10 ml 11/19/18 22:00 11/23/18 09:31 Sodium Chloride Flush Syringe 10 Ml IV 10 ml BID LUBA Administration Sodium Chloride 10 ml 11/19/18 21:40 Sodium Chloride Flush Syringe 10 Ml IV PRN PRN LINE FLUSH Spironolactone 100 mg 11/19/18 21:34 11/23/18 09:31 Aldactone PO 100 mg QDAY LUBA Administration Sucralfate 1 gm 11/19/18 22:00 11/23/18 08:34 Carafate PO 1 gm ACHS LUBA Administration Thiamine HCl 100 mg 11/19/18 22:00 11/23/18 09:31 Vitamin B-1 PO 100 mg QDAY LUBA Administration
[2018-11-23] MEDS ORDERED: XYLOCAINE 1% 20 mL ONE (10:46)
--- NOTE | 2018-11-23 11:59 | Discharge Summary ---
Providers - Providers Date of Admission: 11/19/18 16:58 Date of discharge: 11/23/18 Attending physician: OSIRIS HARPER 11/19/18 14:37 Consult to Case Management [CONS] Urgent Services Needed at Discharge: Log Operations Coordinator Notified:: needs hd Consult to Physician [CONS] Urgent Comment: Consulting Provider: TRINITY IRELAND Physician Instructions: Reason For Exam: ckd 11/19/18 15:32 Consult to Physician [CONS] Urgent Comment: Consulting Provider: VERNA HUGHES Physician Instructions: Reason For Exam: vicki [facility] Reason for admission: ESRD Condition: Fair Hospital course: 63-year-old AAM with recent initiation of HD at [facility] presented in for HD. He has a past medical history of end-stage renal disease, on dialysis, and hepatic encephalopathy. The patient was recently discharged from [facility], after a near one-month stay for hepatic encephalopathy, and end-stage renal disease on dialysis. Apparently no HD outpatient slot was arranged for the patient as initially presumed. Patient had a tunneled dialysis access catheter placed, and was discharged, and as per family but did not have outpatient dialysis. He was also reportedly not taking his lactulose, or his rifixin, secondary to cost. He presented to the emergency room at our facility on 11/19/18 with family because they were instructed to present to the emergency room by a hospice nurse; Shelley Arnold; [phone]. The patient was seen by nephrology in consultation and underwent appropriate hemodialysis while as an inpatient at our facility. Patient was continued on his lactulose. Patient refuses a dose of lactulose yesterday and had a resultant elevation in ammonia level of 197. He was confused yesterday morning but resolved after taking his lactulose yesterday evening. Patient is at his baseline mental status and ammonia level is 53 this morning. Case management reports that patient is accepted at facility of [facility]. Pt schedule is T-T-S at 1:30 p.m. First treatment will start 11/27/18. Pt must arrive 30 minutes prior to scheduled time. Dedicated discharge time 32 minutes. Disposition: - TO HOME OR SELFCARE Time spent for discharge: 32 - Discharge Diagnoses (1) ESRD needing dialysis Status: Acute (2) HE (hepatic encephalopathy) Status: Acute (3) Hyperammonemia Status: Acute (4) Ascites Status: Acute (5) Cirrhosis Status: Acute Qualifiers: Hepatic cirrhosis type: unspecified hepatic cirrhosis Ascites presence: with ascites Qualified Code(s): K74.60 - Unspecified cirrhosis of liver; R18.8 - Other ascites Core Measure Documentation - Palliative Care Palliative Care/ Comfort Measures: Not Applicable - Core Measures Any of the following diagnoses?: none Exam - Constitutional Vitals: Temp Pulse Resp BP Pulse Ox 97.9 F 96 H 24 94/47 99 11/23/18 04:15 11/23/18 04:15 11/23/18 04:15 11/23/18 04:15 11/23/18 04:15 General appearance: Present: no acute distress, well-nourished - EENT Eyes: Present: PERRL ENT: hearing intact, clear oral mucosa - Neck Neck: Present: supple, normal ROM - Respiratory Respiratory effort: normal Respiratory: bilateral: CTA - Cardiovascular Heart Sounds: Present: S1 & S2. Absent: rub, click - Extremities Extremities: pulses symmetrical, No edema Peripheral Pulses: within normal limits - Abdominal General gastrointestinal: Present: soft, non-tender, non-distended, normal bowel sounds Male genitourinary: Present: normal - Integumentary Integumentary: Present: clear, warm, dry - Musculoskeletal Musculoskeletal: gait normal, strength equal bilaterally - Psychiatric Psychiatric: appropriate mood/affect, intact judgment & insight - Neurologic Neurologic: CNII-XII intact, moves all extremities Plan Activity: no restrictions Weight Bearing Status: Full Weight Bearing Diet: low salt Special Instructions: restrict fluid intake to (1L) Follow up with: DOC LINARES MD [Primary Care Provider] - 3-5 Days Prescriptions: Spironolactone [Aldactone] 100 mg PO QDAY #30 tablet Sucralfate [Carafate] 1 gm PO ACHS #60 tablet Lactulose [Cephulac] 26.6667 gm PO Q12HR 30 Days oral.liqd Folic Acid [Folvite] 1 mg PO QDAY #30 tablet Propranolol [Inderal] 10 mg PO Q12HR #60 tablet Magnesium Oxide [Mag-Ox] 400 mg PO QDAY #30 tablet Multivitamin Tab [Multiple Vitamin TAB (Theragran)] 1 each PO QDAY #30 tablet Midodrine [Proamatine] 10 mg PO TID #90 tablet Pantoprazole [Protonix TAB] 40 mg PO BID #60 tablet Thiamine [Vitamin B-1] 100 mg PO QDAY #30 tablet
--- NOTE | 2018-11-23 12:25 | Procedure Note ---
Date of procedure: 11/23/18 Pre-op diagnosis: Ascites Post-op diagnosis: same Procedure: US guided paracentesis. Findings: 5.7 liters of yellow serous fluid removed. Anesthesia: local Surgeon: RAMONA WALKER Estimated blood loss: none Pathology: none Specimen disposition: discarded Condition: stable Disposition: floor
--- NOTE | 2018-11-23 12:28 | Ultrasound Report ---
ULTRASOUND-GUIDED PARACENTESIS INDICATION: Ascites. COMPARISON: 05/21/2014 at this institution. Patient also states most recent paracentesis at [place] 1 week ago. FINDINGS: After explaining the risk and benefits to the patient, written informed consent obtained. Using ultrasound guidance, an appropriate skin site in the right lower quadrant marked. Skin prepped and draped in the usual sterile fashion. 1% Xylocaine used for local anesthesia. Using ultrasound guidance, a 5 [place] [employer] catheter was placed into the fluid and 5700 cc of straw-colored fluid aspirated. No sample sent to laboratory. Catheter removed and hemostasis achieved. Patient tolerated the procedure well and left the radiology department in stable condition. CONCLUSION: Ultrasound guided paracentesis, as described above. Dr. Sykes present for and performed the entire procedure. Thank you for the opportunity to participate in this patient's care.
[2018-11-23] MEDS ORDERED: NACL 0.9% 100 ML IV PRN (14:19)
[2018-11-23 20:09] VITALS: BP 118/62
== END 2018-11-23 21:25 | disposition home or self-care (01) | DRG 441 ==
LOC: ED 11:56 → 3A 16:58
PROVIDERS: ADMIT Internal Medicine; ATTEND Hospitalist
PROC: 5A1D70Z Performance of Urinary Filtration, Intermittent, Less than 6 Hours Per Day (ICD-10-PCS; 2018-11-19)
PROC: 5A1D70Z Performance of Urinary Filtration, Intermittent, Less than 6 Hours Per Day (ICD-10-PCS; 2018-11-22)
PROC: 0W9G3ZZ Drainage of Peritoneal Cavity, Percutaneous Approach (ICD-10-PCS; principal; 2018-11-23)
PROC: 5A1D70Z Performance of Urinary Filtration, Intermittent, Less than 6 Hours Per Day (ICD-10-PCS; 2018-11-23)
DX: K72.90 Hepatic failure, unspecified without coma (principal); N18.6 End stage renal disease; E72.20 Disorder of urea cycle metabolism, unspecified; E87.1 Hypo-osmolality and hyponatremia; F10.188 Alcohol abuse with other alcohol-induced disorder; I12.0 Hypertensive chronic kidney disease with stage 5 chronic kidney disease or end stage renal disease; K21.9 Gastro-esophageal reflux disease without esophagitis; E83.42 Hypomagnesemia; D63.1 Anemia in chronic kidney disease; K70.31 Alcoholic cirrhosis of liver with ascites; Y90.9 Presence of alcohol in blood, level not specified; Z79.899 Other long term (current) drug therapy
CPT/HCPCS: 36415; 49083; 71045; 80053; 80074; 82140; 83036; 83735; 84100; 85014; 85018; 85025; 85610; 93005; 93010; 93970; G0378; J0885; J1644; J3475; J7030; P9047

== ENCOUNTER 2018-12-04 11:58 | Inpatient (IN) | payer OTHER ==
--- NOTE | 2018-12-04 13:56 | XRay Report ---
AP CHEST: HISTORY: Volume overload AP view of the chest demonstrates a normal mediastinal and cardiac contour with clear lungs and normal bony and soft tissue structures. Right IJ venous catheter is unchanged in position since 11/19/18. IMPRESSION: Unremarkable AP chest.
[2018-12-04 14:00] LABS: Basophils # (Auto) 0.1 K/mm3 (0.0-0.1); Basophils % (Auto) 0.7 % (0.0-1.8); Eosinophils % (Auto) 0.2 % (0.0-4.3); Hematocrit 21.2 % (35.5-45.6); Hemoglobin 7.4 gm/dl (11.8-15.2); Lymphocytes % (Auto) 13.7 % (13.4-35.0); Mean Corpuscular HGB Conc 35 % (32-34); Mean Corpuscular Volume 105 fl (84-94); Monocytes # (Auto) 0.5 K/mm3 (0.0-0.8); Monocytes % (Auto) 7.5 % (0.0-7.3); Red Blood Count 2.02 M/mm3 (3.65-5.03); Red Cell Distribution Width 18.8 % (13.2-15.2)
--- NOTE | 2018-12-04 14:07 | Emergency Department Report ---
ED General Adult HPI - General Chief complaint: Medical Clearance Stated complaint: HYPOTENSION Time Seen by Provider: 12/04/18 12:41 Source: EMS Mode of arrival: Stretcher Limitations: Other - History of Present Illness Initial comments: Patient presents to the emergency department with a chief complaint of missing dialysis. Patient states he was at dialysis today and was sent to the emergency department for further evaluation. Prior to dialysis first patient's blood pressure was 96/45 THEN 80/41, THEN 60/32 AT that point the certified pharmacy technician was con tacted and Midodrin 10mg x 2 was ordered. -: Gradual Location: abdomen Severity scale (0 -10): 1 Quality: aching Consistency: constant Improves with: none Worsens with: none Associated Symptoms: denies other symptoms Treatments Prior to Arrival: none - Related Data Home Medications Medication Instructions Recorded Confirmed Last Taken Lactulose [Cephulac] 30 ml PO Q12HR 12/04/18 12/04/18 Unknown Previous Rx's Medication Instructions Recorded Last Taken Type Folic Acid [Folvite] 1 mg PO QDAY #30 tablet 11/23/18 Unknown Rx Magnesium Oxide [Mag-Ox] 400 mg PO QDAY #30 tablet 11/23/18 Unknown Rx Midodrine [Proamatine] 10 mg PO TID #90 tablet 11/23/18 Unknown Rx Multivitamin Tab [Multiple Vitamin 1 each PO QDAY #30 tablet 11/23/18 Unknown Rx TAB (Theragran)] Pantoprazole [Protonix TAB] 40 mg PO BID #60 tablet 11/23/18 Unknown Rx Propranolol [Inderal] 10 mg PO Q12HR #60 tablet 11/23/18 Unknown Rx Spironolactone [Aldactone] 100 mg PO QDAY #30 tablet 11/23/18 Unknown Rx Sucralfate [Carafate] 1 gm PO ACHS #60 tablet 11/23/18 Unknown Rx Thiamine [Vitamin B-1] 100 mg PO QDAY #30 tablet 11/23/18 Unknown Rx Allergies Allergy/AdvReac Type Severity Reaction Status Date / Time No Known Allergies Allergy Verified 11/26/16 14:51 ED Review of Systems ROS: Stated complaint: HYPOTENSION Other details as noted in HPI Comment: All other systems reviewed and negative Constitutional: denies: chills, fever Eyes: denies: eye pain, eye discharge, vision change ENT: denies: ear pain, throat pain Respiratory: denies: cough, shortness of breath, wheezing Cardiovascular: denies: chest pain, palpitations Endocrine: no symptoms reported Gastrointestinal: denies: abdominal pain, nausea, diarrhea Genitourinary: denies: urgency, dysuria Musculoskeletal: denies: back pain, joint swelling, arthralgia Skin: denies: rash, lesions Neurological: denies: headache, weakness, paresthesias Psychiatric: denies: anxiety, depression Hematological/Lymphatic: denies: easy bleeding, easy bruising ED Past Medical Hx - Past Medical History Previous Medical History?: Yes Hx Hypertension: Yes Hx Heart Attack/AMI: No Hx Congestive Heart Failure: No Hx Diabetes: No Hx Deep Vein Thrombosis: No Hx Pulmonary Embolism: No Hx GERD: Yes Hx Liver Disease: Yes (h/o ascitis, s/p paracentesis x 2 (2013)) Hx Renal Disease: No Hx Sickle Cell Disease: No Hx Arthritis: No Hx Headaches / Migraines: No Hx Seizures: No Hx Kidney Stones: No (ESRD) Hx Asthma: No Hx COPD: No Hx Tuberculosis: No Hx Dementia: No Hx HIV: No Additional medical history: ulcers. esophagus "swells up into little knots". diverticulitis - Surgical History Past Surgical History?: Yes Hx Coronary Stent: No Hx Open Heart Surgery: No Hx Pacemaker: No Hx Internal Defibrillator: No Hx Cholecystectomy: No Hx Appendectomy: No Hx Breast Surgery: No Additional Surgical History: paracentesis - Social History Smoking Status: Never Smoker Substance Use Type: Alcohol - Medications Home Medications: Home Medications Medication Instructions Recorded Confirmed Last Taken Type Folic Acid [Folvite] 1 mg PO QDAY #30 tablet 11/23/18 12/04/18 Unknown Rx Magnesium Oxide [Mag-Ox] 400 mg PO QDAY #30 tablet 11/23/18 12/04/18 Unknown Rx Midodrine [Proamatine] 10 mg PO TID #90 tablet 11/23/18 12/04/18 Unknown Rx Multivitamin Tab [Multiple Vitamin 1 each PO QDAY #30 tablet 11/23/18 12/04/18 U nknown Rx TAB (Theragran)] Pantoprazole [Protonix TAB] 40 mg PO BID #60 tablet 11/23/18 12/04/18 Unknown Rx Propranolol [Inderal] 10 mg PO Q12HR #60 tablet 11/23/18 12/04/18 Unknown Rx Spironolactone [Aldactone] 100 mg PO QDAY #30 tablet 11/23/18 12/04/18 Unknown Rx Sucralfate [Carafate] 1 gm PO ACHS #60 tablet 11/23/18 12/04/18 Unknown Rx Thiamine [Vitamin B-1] 100 mg PO QDAY #30 tablet 11/23/18 12/04/18 Unknown Rx Lactulose [Cephulac] 30 ml PO Q12HR 12/04/18 12/04/18 Unknown History ED Physical Exam - General Limitations: Other General appearance: alert, in no apparent distress - Head Head exam: Present: atraumatic, normocephalic - Eye Eye exam: Present: normal appearance - ENT ENT exam: Present: mucous membranes moist - Neck Neck exam: Present: normal inspection - Respiratory Respiratory exam: Present: normal lung sounds bilaterally. Absent: respiratory distress - Cardiovascular Cardiovascular Exam: Present: regular rate, normal rhythm. Absent: systolic murmur, diastolic murmur, rubs, gallop - GI/Abdominal GI/Abdominal exam: Present: soft, distended (positive fluid wave), normal bowel sounds. Absent: tenderness - Rectal Rectal exam: Present: deferred - Extremities Exam Extremities exam: Present: normal inspection - Back Exam Back exam: Present: normal inspection - Neurological Exam Neurological exam: Present: alert, oriented X3, CN II-XII intact. Absent: motor sensory deficit - Psychiatric Psychiatric exam: Present: normal affect, normal mood - Skin Skin exam: Present: warm, dry, intact, normal color. Absent: rash ED Course Vital Signs 12/04/18 12/04/18 12/04/18 12:04 12:10 12:46 Temperature 98 F Pulse Rate 102 H Respiratory 16 Rate Blood Pressure 107/43 109/61 Blood Pressure 107/43 [Left] O2 Sat by Pulse 100 100 Oximetry 12/04/18 12/04/18 12/04/18 12:50 13:15 13:30 Temperature Pulse Rate Respiratory 16 Rate Blood Pressure 114/59 126/66 Blood Pressure [Left] O2 Sat by Pulse 100 100 99 Oximetry 12/04/18 12/04/18 12/04/18 14:27 15:00 16:00 Temperature Pulse Rate Respiratory Rate Blood Pressure 126/66 106/63 100/58 Blood Pressure [Left] O2 Sat by Pulse 98 100 99 Oximetry 12/04/18 12/04/18 17:00 18:15 Temperature 98 F Pulse Rate 102 H Respiratory 16 Rate Blood Pressure 103/55 Blood Pressure 107/43 [Left] O2 Sat by Pulse 100 100 Oximetry ED Medical Decision Making - Lab Data Result diagrams: 12/04/18 13:36 12/04/18 13:36 Lab Results 12/04/18 12/04/18 12/04/18 Range/Units 13:36 13:36 13:36 WBC 7.1 (4.5-11.0) K/mm3 RBC 2.02 L (3.65-5.03) M/mm3 Hgb 7.4 L (11.8-15.2) gm/dl Hct 21.2 L (35.5-45.6) % MCV 105 H (84-94) fl MCH 37 H (28-32) pg MCHC 35 H (32-34) % RDW 18.8 H (13.2-15.2) % Plt Count 12 L* (140-440) K/mm3 Lymph % (Auto) 13.7 (13.4-35.0) % [place] % (Auto) 7.5 H (0.0-7.3) % Eos % (Auto) 0.2 (0.0-4.3) % Baso % (Auto) 0.7 (0.0-1.8) % Lymph # 1.0 L (1.2-5.4) K/mm3 [place] # 0.5 (0.0-0.8) K/mm3 Eos # 0.0 (0.0-0.4) K/mm3 Baso # 0.1 (0.0-0.1) K/mm3 Seg Neutrophils % 77.9 H (40.0-70.0) % Seg Neutrophils # 5.5 (1.8-7.7) K/mm3 PT 23.4 H (12.2-14.9) Sec. INR 1.93 H (0.87-1.13) Ammonia 46.0 (25-60) umol/L - Radiology Data Radiology results: report reviewed - Medical Decision Making Results and plan a care discussed with the patient Critical Care Time: Yes Critical care time in (mins) excluding proc time.: 35 Critical care attestation.: If time is entered above; I have spent that time in minutes in the direct care of this critically ill patient, excluding procedure time. ED Disposition Clinical Impression: Hypotension, Thrombocytopenia Ascites Qualifiers: Ascites type: other type Qualified Code(s): R18.8 - Other ascites Disposition: OP ADMIT IP TO THIS HOSP Is pt being admited?: Yes Does the pt Need Aspirin: No Condition: Fair
[2018-12-04 14:10] LABS: Platelet Count 12 K/mm3 (140-440)
--- NOTE | 2018-12-04 14:25 | Ultrasound Report ---
ULTRASOUND ABDOMEN LIMITED: TECHNIQUE: Transabdominal ultrasound with color Doppler interrogation. HISTORY: Ascites, abdominal distention. COMPARISON: none. FINDINGS: The 4 quadrants of the abdomen were scanned which demonstrate moderate to large simple appearing ascites throughout the abdomen. IMPRESSION: Moderate to large ascites.
[2018-12-04 14:38] LABS: INR TNR (0.87-1.13)
[2018-12-04 14:42] LABS: Partial Thromboplastin Time TNR Sec. (24.2-36.6)
[2018-12-04] MEDS ORDERED: NACL 0.9% 500 ML 500 ML IV ONE (15:07)
--- NOTE | 2018-12-04 15:07 | History and Physical Report ---
History of Present Illness Chief complaint: I need dialysis, and im bloated History of present illness: 63 YO Male with ETOH Dependence, Cirrhosis, ESRD on HD(T,R,Sa), Hepatic Encephalopathy presents to ED for evaluation. Pt states that he went to his dialysis center for routine dialysis and was found to be hypotensive with blood pressure of 80-96/32-41, as well as shortness of breath and abdominal distention. EMS notified and upon arrival the patient was found to be in distress and transported to [facility]. Pt seen and evaluated in ED and found to have ESRD, Thrombocytopenia, as well as recurrent Acsites. Nephrology consulted in ED. IR consulted for therapeutic paracentesis. Pt admitted to medical floor. Pt denies fever, chills, CP, Palpitations, NVD, Abdominal pain, productive cough, or recent ill contacts. Past History Past Medical History: other (ETOH Dependence, Cirrhosis) Past Surgical History: Other (Paracentesis, Vas Cath) Social history: single, alcohol abuse. denies: smoking, prescription drug abuse Family history: hypertension Medications and Allergies Allergies Allergy/AdvReac Type Severity Reaction Status Date / Time No Known Allergies Allergy Verified 11/26/16 14:51 Home Medications Medication Instructions Recorded Confirmed Last Taken Type Folic Acid [Folvite] 1 mg PO QDAY #30 tablet 11/23/18 12/04/18 Unknown Rx Magnesium Oxide [Mag-Ox] 400 mg PO QDAY #30 tablet 11/23/18 12/04/18 Unknown Rx Midodrine [Proamatine] 10 mg PO TID #90 tablet 11/23/18 12/04/18 Unknown Rx Multivitamin Tab [Multiple Vitamin 1 each PO QDAY #30 tablet 11/23/18 12/04/18 Unknown Rx TAB (Theragran)] Pantoprazole [Protonix TAB] 40 mg PO BID #60 tablet 11/23/18 12/04/18 Unknown Rx Propranolol [Inderal] 10 mg PO Q12HR #60 tablet 11/23/18 12/04/18 Unknown Rx Spironolactone [Aldactone] 100 mg PO QDAY #30 tablet 11/23/18 12/04/18 Unknown Rx Sucralfate [Carafate] 1 gm PO ACHS #60 tablet 11/23/18 12/04/18 Unknown Rx Thiamine [Vitamin B-1] 100 mg PO QDAY #30 tablet 11/23/18 12/04/18 Unknown Rx Lactulose [Cephulac] 30 ml PO Q12HR 12/04/18 12/04/18 Unknown History Review of Systems Constitutional: no weight loss, no weight gain, no fever, no chills Ears, nose, mouth and throat: no ear pain, no ear discharge, no tinnitis, no decreased hearing, no nose pain Cardiovascular: no chest pain, no orthopnea, no palpitations, no rapid/irregular heart beat Respiratory: no cough, no cough with sputum, no excessive sputum, no hemoptysis Gastrointestinal: no abdominal pain, no nausea, no vomiting, no diarrhea Genitourinary Male: no hematuria, no flank pain, no discharge, no urinary frequency, no urinary hesitancy Rectal: no pain, no incontinence, no bleeding Musculoskeletal: no neck stiffness, no neck pain, no shooting arm pain, no arm numbness/tingling, no low back pain Integumentary: no rash, no pruritis, no redness, no sores, no wounds Neurological: no transient paralysis, no paralysis, no weakness, no parathesias, no numbness, no tingling, no seizures Psychiatric: no anxiety, no memory loss, no change in sleep habits, no sleep disturbances, no insomnia, no hypersomnia, no change in appetite Endocrine: no cold intolerance, no heat intolerance, no polyphagia, no excessive thirst, no polydipsia, no polyuria, no nocturia, no excessive sweating Hematologic/Lymphatic: no easy bruising, no easy bleeding, no lymphadenopathy, no lymphedema Allergic/Immunologic: no urticaria, no allergic rhinitis, no wheezing, no persistent infections, no anaphylaxis Exam - Constitutional Vitals: Temp Pulse Resp BP Pulse Ox 98 F 102 H 16 126/66 99 12/04/18 12:10 12/04/18 12:10 12/04/18 12:50 12/04/18 13:30 12/04/18 13:30 General appearance: Present: mild distress - EENT Eyes: Present: PERRL ENT: hearing intact, clear oral mucosa - Neck Neck: Present: supple, normal ROM, masses or JVD - Respiratory Respiratory effort: normal Respiratory: bilateral: diminished, rhonchi - Cardiovascular Heart Sounds: Present: S1 & S2. Absent: rub, click - Extremities Extremities: pulses symmetrical Extremity abnormal: edema Peripheral Pulses: within normal limits - Abdominal General gastrointestinal: Present: soft, non-tender, distended, normal bowel sounds. Absent: hypoactive bowel sounds, absent bowel sounds, hepatomegaly, splenomegaly, mass Male genitourinary: Present: normal - Integumentary Integumentary: Present: clear, warm, dry - Musculoskeletal Musculoskeletal: gait normal, strength equal bilaterally - Psychiatric Psychiatric: appropriate mood/affect, intact judgment & insight - Neurologic Neurologic: CNII-XII intact, moves all extremities Results - Labs CBC & Chem 7: 12/04/18 13:36 12/04/18 13:36 Labs: Abnormal lab results 12/04/18 Range/Units 13:36 RBC 2.02 L (3.65-5.03) M/mm3 Hgb 7.4 L (11.8-15.2) gm/dl Hct 21.2 L (35.5-45.6) % MCV 105 H (84-94) fl MCH 37 H (28-32) pg MCHC 35 H (32-34) % RDW 18.8 H (13.2-15.2) % Plt Count 12 L* (140-440) K/mm3 [place] % (Auto) 7.5 H (0.0-7.3) % Lymph # 1.0 L (1.2-5.4) K/mm3 Seg Neutrophils % 77.9 H (40.0-70.0) % Assessment and Plan - Patient Problems (1) ESRD (end stage renal disease) on dialysis Current Visit: Yes Status: Acute Plan to address problem: Nephrology consulted in ED, dialysis as per renal team. (2) Ascites Current Visit: No Status: Acute Qualifiers: Ascites type: due to alcoholic cirrhosis Qualified Code(s): K70.31 - Alcoholic cirrhosis of liver with ascites Plan to address problem: IR consulted for Paracentesis, serial abdominal exam. (3) Cirrhosis Current Visit: No Status: Acute Qualifiers: Hepatic cirrhosis type: unspecified hepatic cirrhosis Ascites presence: with ascites Qualified Code(s): K74.60 - Unspecified cirrhosis of liver; R18.8 - Other ascites Plan to address problem: Secondary to ESRD, supportive care, LFT, supportive care. (4) Thrombocytopenia Current Visit: Yes Status: Acute Plan to address problem: Platelet transfusion, am cbc to evaluated platelet count prior to paracentesis. goal platelet count above 20K. (5) Hyponatremia syndrome Current Visit: Yes Status: Acute Plan to address problem: IVF resuscitation as tolerated in AM, fluid restriction overnight, repeat bmp in AM. (6) DVT prophylaxis Current Visit: No Status: Acute Plan to address problem: SCD to BLE while in bed,
[2018-12-04] MEDS ORDERED: PERCOCET 5/325 PO PRN (15:09)
[2018-12-04] MEDS ORDERED: SODIUM CHLORIDE FLUSH SYRINGE 10 ML IV PRN (15:09)
[2018-12-04] MEDS ORDERED: TYLENOL PO PRN (15:09)
[2018-12-04] MEDS ORDERED: PROVENTIL IH PRN (15:09)
[2018-12-04] MEDS ORDERED: ZOFRAN IV PRN (15:09)
--- NOTE | 2018-12-04 15:14 | Consultation ---
History of Present Illness - Reason for Consult Consult date: 12/04/18 end stage renal disease - History of Present Illness The patient is a 63 YO Male, who is known to our service, with history significant for ETOH Cirrhosis, Recurrent ascites, PUD, ESRD on HD(TTS) and Anemia who presented to [facility] ED for evaluation of low BP. Pt's SBP dropped to 70's while on hemodialysis today and he was transferred to ED via ambulance. Patient c/o sob, orthopnea, leg swelling and abdominal distention. In the ED his BP is 107/43, Hb 7.4 and platelet 12. IR consulted for therapeutic paracentesis, but unable to do due to low platelet count. Pt denies fever, chills, CP, N, V, D, Abdominal pain, cough, dizziness or syncope. Nephrology was consulted for further evaluation. Past History Past Medical History: anemia, dialysis, ESRD, other (cirrhosis) Medications and Allergies Allergies Allergy/AdvReac Type Severity Reaction Status Date / Time No Known Allergies Allergy Verified 11/26/16 14:51 Home Medications Medication Instructions Recorded Confirmed Last Taken Type Folic Acid [Folvite] 1 mg PO QDAY #30 tablet 11/23/18 12/04/18 Unknown Rx Magnesium Oxide [Mag-Ox] 400 mg PO QDAY #30 tablet 11/23/18 12/04/18 Unknown Rx Midodrine [Proamatine] 10 mg PO TID #90 tablet 11/23/18 12/04/18 Unknown Rx Multivitamin Tab [Multiple Vitamin 1 each PO QDAY #30 tablet 11/23/18 12/04/18 Unknown Rx TAB (Theragran)] Pantoprazole [Protonix TAB] 40 mg PO BID #60 tablet 11/23/18 12/04/18 Unknown Rx Propranolol [Inderal] 10 mg PO Q12HR #60 tablet 11/23/18 12/04/18 Unknown Rx Spironolactone [Aldactone] 100 mg PO QDAY #30 tablet 11/23/18 12/04/18 Unknown Rx Sucralfate [Carafate] 1 gm PO ACHS #60 tablet 11/23/18 12/04/18 Unknown Rx Thiamine [Vitamin B-1] 100 mg PO QDAY #30 tablet 11/23/18 12/04/18 Unknown Rx Lactulose [Cephulac] 30 ml PO Q12HR 12/04/18 12/04/18 Unknown History Active Meds: Active Medications Acetaminophen (Tylenol) 650 mg PO Q4H PRN PRN Reason: Pain MILD(1-3)/Fever >100.5/NASH Albuterol (Proventil) 2.5 mg IH Q4HRT PRN PRN Reason: Shortness Of Breath Famotidine (Pepcid) 20 mg PO BID LUBA Ondansetron HCl (Zofran) 4 mg IV Q8H PRN PRN Reason: Nausea And Vomiting Oxycodone/Acetaminophen (Percocet 5/325) 1 tab PO Q6H PRN PRN Reason: Pain, Moderate (4-6) Sodium Chloride (Sodium Chloride Flush Syringe 10 Ml) 10 ml IV BID LUBA Sodium Chloride (Sodium Chloride Flush Syringe 10 Ml) 10 ml IV PRN PRN PRN Reason: LINE FLUSH Review of Systems Constitutional: no weight loss, no weight gain, no fever, no chills, no weakness Cardiovascular: orthopnea, edema, shortness of breath, dyspnea on exertion, leg edema, no chest pain, no palpitations, no syncope, no lightheadedness, no high blood pressure Respiratory: shortness of breath, dyspnea on exertion, no cough Gastrointestinal: no abdominal pain, no nausea, no vomiting, no diarrhea, no melena Genitourinary Male: no dysuria, no hematuria Exam - Vital Signs Vital signs: Vital Signs BP 107/43 12/04/18 12:04 - General Appearance General appearance: well-developed, appears stated age, other (not in distress) EENT: ATNC, PERRL, hearing intact, vision intact Neck: Present: neck supple, trachea midline Respiratory: Clear to Ascultation Heart: regular, S1S2, no murmurs Gastrointestinal: Present: normoactive bowel sounds, other (distended, ascites noted). Absent: tenderness Integumentary: no rash, warm and dry Neurologic: no focal deficit, no asterixis, alert and oriented x3 Musculoskeletal: Present: other (trace LE edema noted) Results - Lab Results 12/05/18 04:56 12/05/18 04:56 Assessment and Plan 1. ESRD: Patient's outpatient schedule is TTS. Monitor for hemodialysis needs. 2. Hyponatremia: Monitor. 3. Anemia: Epogen with HD. 4. Alcoholic cirrhosis with ascites: IR paracentesis. 5. Hypotension: Midodrine.
[2018-12-04 16:04] LABS: Albumin 1.8 g/dL (3.9-5); Calcium 8.4 mg/dL (8.4-10.2)
[2018-12-04] MEDS: PEPCID PO SCH (21:20)
[2018-12-04] MEDS: SODIUM CHLORIDE FLUSH SYRINGE 10 ML IV SCH (21:20)
[2018-12-05 05:20] LABS: Basophils % (Auto) 0.5 % (0.0-1.8); Eosinophils # (Auto) 0.1 K/mm3 (0.0-0.4); Lymphocytes # (Auto) 1.6 K/mm3 (1.2-5.4); Lymphocytes % (Auto) 19.8 % (13.4-35.0); Mean Corpuscular HGB Conc 35 % (32-34); Mean Corpuscular Volume 104 fl (84-94); Monocytes # (Auto) 1.2 K/mm3 (0.0-0.8); Monocytes % (Auto) 14.9 % (0.0-7.3); Platelet Count 120 K/mm3 (140-440); Red Blood Count 1.51 M/mm3 (3.65-5.03); Red Cell Distribution Width 18.3 % (13.2-15.2)
[2018-12-05 05:25] LABS: Hematocrit 15.7 % (35.5-45.6); Hemoglobin 5.5 gm/dl (11.8-15.2)
[2018-12-05] MEDS ORDERED: NACL 0.9% 500 ML 500 ML IV ONE ×2 (05:29→09:50)
[2018-12-05 05:44] LABS: Calcium 7.8 mg/dL (8.4-10.2)
[2018-12-05] MEDS: PEPCID PO SCH (09:31)
[2018-12-05] MEDS: SODIUM CHLORIDE FLUSH SYRINGE 10 ML IV SCH ×2 (09:31→21:29)
[2018-12-05] MEDS ORDERED: NACL 0.9% 500 ML 500 ML IV NR (10:00)
[2018-12-05] MEDS ORDERED: PROTONIX PO SCH (10:00)
[2018-12-05 11:04] LABS: INR 1.8 (0.87-1.13)
--- NOTE | 2018-12-05 11:50 | Progress Note ---
Assessment and Plan 1. ESRD: Patient's outpatient schedule is TTS. Plan for HD tomorrow. Monitor for hemodialysis needs. 2. Hyponatremia: Monitor. 3. Anemia: PRBC today. Epogen with HD. 4. Alcoholic cirrhosis with ascites: IR paracentesis. 5. Hypotension: Midodrine. 6. Coagulopathy: FFP ordered. Subjective Date of service: 12/05/18 Interval history: Patient was seen and examined at the bedside. Objective - Vital Signs Vital signs: Vital Signs - 12hr 12/05/18 12/05/18 12/05/18 00:27 00:50 01:05 Temperature 97.4 F L 97.7 F Pulse Rate 88 92 H Respiratory 16 20 Rate Blood Pressure 90/50 92/54 Blood Pressure 90/52 [Left] O2 Sat by Pulse Oximetry 12/05/18 12/05/18 12/05/18 01:35 06:11 06:18 Temperature 97.8 F 98.1 F Pulse Rate 88 101 H Respiratory 16 15 Rate Blood Pressure 96/54 80/39 Blood Pressure 90/50 [Left] O2 Sat by Pulse 93 Oximetry 12/05/18 12/05/18 12/05/18 10:00 11:30 11:45 Temperature 99.4 F 98.5 F Pulse Rate 98 H 97 H Respiratory 18 18 Rate Blood Pressure 89/51 88/50 Blood Pressure [Left] O2 Sat by Pulse 94 94 Oximetry - General Appearance General appearance: well-developed, appears stated age, other (not in distress, R IJ tunnel catheter) EENT: ATNC, PERRL, hearing intact, vision intact Neck: supple Respiratory: Present: Clear to Ascultation Cardiology: regular, S1S2, no murmurs Gastrointestinal: normoactive bowel sounds, no tenderness, distended Integumentary: no rash, warm and dry Neurologic: no focal deficit, no asterixis, alert and oriented x3 Musculoskeletal: other (trace LE edema noted) - Lab 12/05/18 04:56 12/05/18 04:56 Most recent lab results Calcium 7.8 mg/dL (8.4-10.2) L 12/05/18 04:56 Medications & Allergies - Medications Allergies/Adverse Reactions: Allergies No Known Allergies Allergy (Verified 11/26/16 14:51) Home Medications: Home Medications Medication Instructions Recorded Confirmed Last Taken Type Folic Acid [Folvite] 1 mg PO QDAY #30 tablet 11/23/18 12/04/18 Unknown Rx Magnesium Oxide [Mag-Ox] 400 mg PO QDAY #30 tablet 11/23/18 12/04/18 Unknown Rx Midodrine [Proamatine] 10 mg PO TID #90 tablet 11/23/18 12/04/18 Unknown Rx Multivitamin Tab [Multiple Vitamin 1 each PO QDAY #30 tablet 11/23/18 12/04/18 Unknown Rx TAB (Theragran)] Pantoprazole [Protonix TAB] 40 mg PO BID #60 tablet 11/23/18 12/04/18 Unknown Rx Propranolol [Inderal] 10 mg PO Q12HR #60 tablet 11/23/18 12/04/18 Unknown Rx Spironolactone [Aldactone] 100 mg PO QDAY #30 tablet 11/23/18 12/04/18 Unknown Rx Sucralfate [Carafate] 1 gm PO ACHS #60 tablet 11/23/18 12/04/18 Unknown Rx Thiamine [Vitamin B-1] 100 mg PO QDAY #30 tablet 11/23/18 12/04/18 Unknown Rx Lactulose [Cephulac] 30 ml PO Q12HR 12/04/18 12/04/18 Unknown History Active Medications: Generic Name Dose Route Start Last Admin Trade Name Freq PRN Reason Stop Dose Admin Acetaminophen 650 mg 12/04/18 15:09 Tylenol PO Q4H PRN Pain MILD(1-3)/Fever >100.5/NASH Albuterol 2.5 mg 12/04/18 15:09 Proventil IH Q4HRT PRN Shortness Of Breath Folic Acid 1 mg 12/05/18 10:00 Folvite PO QDAY [facility] Sodium Chloride 500 mls @ 0 mls/hr 12/05/18 10:00 12/05/18 09:32 Nacl 0.9% 500 Ml IV 12/05/18 14:00 50 mls/hr ONCE NR Administration As Directed Midodrine 10 mg 12/05/18 12:00 Proamatine PO TID LUBA Multivitamins 1 each 12/05/18 10:00 Theragran Tab PO QDAY [facility] Ondansetron HCl 4 mg 12/04/18 15:09 Zofran IV Q8H PRN Nausea And Vomiting Oxycodone/Acetaminophen 1 tab 12/04/18 15:09 Percocet 5/325 PO Q6H PRN Pain, Moderate (4-6) Pantoprazole Sodium 40 mg 12/05/18 11:00 Protonix IV BID LUBA Sodium Chloride 10 ml 12/04/18 22:00 12/05/18 09:31 Sodium Chloride Flush Syringe 10 Ml IV 10 ml BID LUBA Administration Sodium Chloride 10 ml 12/04/18 15:09 Sodium Chloride Flush Syringe 10 Ml IV PRN PRN LINE FLUSH Sucralfate 1 gm 12/05/18 11:30 Carafate PO ACHS [facility] Thiamine HCl 100 mg 12/05/18 10:00 Vitamin B-1 PO QDAY LUBA
[2018-12-05] MEDS: PROTONIX IV SCH ×2 (12:08→21:29)
[2018-12-05] MEDS: PROAMATINE PO SCH ×2 (12:08→21:29)
[2018-12-05] MEDS: FOLVITE PO SCH (12:09)
[2018-12-05] MEDS: CARAFATE PO SCH ×3 (12:09→21:29)
[2018-12-05] MEDS: THERAGRAN Tab PO SCH (12:10)
[2018-12-05] MEDS: VITAMIN B-1 PO SCH (12:10)
--- NOTE | 2018-12-05 12:28 | Gastroenterology Consultation ---
<KAEL RAMSEY - Last Filed: 12/05/18 13:03> History of Present Illness - Reason for Consult Consult date: 12/05/18 anemia Requesting physician: ADRIANA OLIVO - History of Present Illness Patient is a 63 y/o male with PMH of ETOH abuse, alcoholic cirrhosis, hepatic encephalopathy, and ESRD on HD who was brought from dialysis to ED for further evaluation of hypotension. Upon admission, he was found to have abdominal distension (ascites), and thrombocytopenia (plt count 12). Nephrology following. GI has been consulted for drop in H/H this am (5.5/15.7). Patient is previously known to our service from a consult in 2017 for GI bleed/anemia with undergoing an EGD at that time that revealed PUD and varices (grade II). This morning paulo jacobson was resting in bed w/o acute distress. He reports black stool for the past few days. No hematemesis or hematochezia. Admits to abdominal distention with discomfort described as a "fullness" associated with ascites but denies fever, CP, SOB, dizziness, wt loss, N/V, diarrhea, or constipation. No NSAID use. Denies recent alcohol use. Past History Past Medical History: other (as per HPI) Past Surgical History: Other (Paracentesis, Vas Cath) Social history: single, alcohol abuse. denies: smoking, prescription drug abuse Family history: hypertension Medications and Allergies Allergies Allergy/AdvReac Type Severity Reaction Status Date / Time No Known Allergies Allergy Verified 11/26/16 14:51 Home Medications Medication Instructions Recorded Confirmed Last Taken Type Folic Acid [Folvite] 1 mg PO QDAY #30 tablet 11/23/18 12/04/18 Unknown Rx Magnesium Oxide [Mag-Ox] 400 mg PO QDAY #30 tablet 11/23/18 12/04/18 Unknown Rx Midodrine [Proamatine] 10 mg PO TID #90 tablet 11/23/18 12/04/18 Unknown Rx Multivitamin Tab [Multiple Vitamin 1 each PO QDAY #30 tablet 11/23/18 12/04/18 U nknown Rx TAB (Theragran)] Pantoprazole [Protonix TAB] 40 mg PO BID #60 tablet 11/23/18 12/04/18 Unknown Rx Propranolol [Inderal] 10 mg PO Q12HR #60 tablet 11/23/18 12/04/18 Unknown Rx Spironolactone [Aldactone] 100 mg PO QDAY #30 tablet 11/23/18 12/04/18 Unknown Rx Sucralfate [Carafate] 1 gm PO ACHS #60 tablet 11/23/18 12/04/18 Unknown Rx Thiamine [Vitamin B-1] 100 mg PO QDAY #30 tablet 11/23/18 12/04/18 Unknown Rx Lactulose [Cephulac] 30 ml PO Q12HR 12/04/18 12/04/18 Unknown History Active Meds: Active Medications Acetaminophen (Tylenol) 650 mg PO Q4H PRN PRN Reason: Pain MILD(1-3)/Fever >100.5/NASH Albuterol (Proventil) 2.5 mg IH Q4HRT PRN PRN Reason: Shortness Of Breath Folic Acid (Folvite) 1 mg PO QDAY [facility] Last Admin: 12/05/18 12:09 Dose: 1 mg Documented by: Sodium Chloride (Nacl 0.9% 500 Ml) 500 mls @ 0 mls/hr IV ONCE NR Stop: 12/05/18 14:00 Last Admin: 12/05/18 09:32 Dose: 50 mls/hr Documented by: Midodrine (Proamatine) 10 mg PO TID [facility] Last Admin: 12/05/18 12:08 Dose: 10 mg Documented by: Multivitamins (Theragran Tab) 1 each PO QDAY [facility] Last Admin: 12/05/18 12:10 Dose: 1 each Documented by: Ondansetron HCl (Zofran) 4 mg IV Q8H PRN PRN Reason: Nausea And Vomiting Oxycodone/Acetaminophen (Percocet 5/325) 1 tab PO Q6H PRN PRN Reason: Pain, Moderate (4-6) Pantoprazole Sodium (Protonix) 40 mg IV BID [facility] Last Admin: 12/05/18 12:08 Dose: 40 mg Documented by: Sodium Chloride (Sodium Chloride Flush Syringe 10 Ml) 10 ml IV BID [facility] Last Admin: 12/05/18 09:31 Dose: 10 ml Documented by: Sodium Chloride (Sodium Chloride Flush Syringe 10 Ml) 10 ml IV PRN PRN PRN Reason: LINE FLUSH Sucralfate (Carafate) 1 gm PO [facility] Last Admin: 12/05/18 12:09 Dose: 1 gm Documented by: Thiamine HCl (Vitamin B-1) 100 mg PO QDAY [facility] Last Admin: 12/05/18 12:10 Dose: 100 mg Documented by: medications reviewed/updated as required Review of Systems - Review of Systems All systems: negative Gastrointestinal: melena, other (abdominal distension (ascites)) Exam - Constitutional Vital Signs: Temp Pulse Resp BP Pulse Ox 98.4 F 99 H 18 87/51 94 12/05/18 12:15 12/05/18 12:15 12/05/18 12:15 12/05/18 12:15 12/05/18 12:15 General appearance: no acute distress - EENT Eyes: PERRL, EOM intact ENT: hearing intact - Respiratory Respiratory: bilateral: CTA - Cardiovascular Rhythm: regular - Gastrointestinal General gastrointestinal: Present: soft, non-tender, distended (ascites), normal bowel sounds - Neurologic Neurological: alert and oriented x3 - Labs CBC & Chem 7: 12/05/18 04:56 12/05/18 04:56 Lab Results: Laboratory Results - last 24 hr 12/04/18 12/04/18 12/04/18 13:36 13:36 13:36 WBC 7.1 RBC 2.02 L Hgb 7.4 L Hct 21.2 L MCV 105 H MCH 37 H MCHC 35 H RDW 18.8 H Plt Count 12 L* Lymph % (Auto) 13.7 [place] % (Auto) 7.5 H Eos % (Auto) 0.2 Baso % (Auto) 0.7 Lymph # 1.0 L [place] # 0.5 Eos # 0.0 Baso # 0.1 Seg Neutrophils % 77.9 H Seg Neutrophils # 5.5 PT TNR INR TNR APTT TNR Sodium 125 L Potassium 3.9 Chloride 88.6 L Carbon Dioxide 20 L Anion Gap 20 BUN 30 H Creatinine 6.2 H Estimated GFR 11 BUN/Creatinine Ratio 5 Glucose 96 POC Glucose Calcium 8.4 Total Bilirubin 7.50 H AST 40 ALT 17 Alkaline Phosphatase 79 Ammonia Total Protein 7.1 Albumin 1.8 L Albumin/Globulin Ratio 0.3 Blood Type Antibody Screen Crossmatch 12/04/18 12/04/18 12/04/18 13:36 15:15 15:15 WBC RBC Hgb Hct MCV MCH MCHC RDW Plt Count Lymph % (Auto) [place] % (Auto) Eos % (Auto) Baso % (Auto) Lymph # [place] # Eos # Baso # Seg Neutrophils % Seg Neutrophils # PT INR APTT 42.0 H Sodium Potassium Chloride Carbon Dioxide Anion Gap BUN Creatinine Estimated GFR BUN/Creatinine Ratio Glucose POC Glucose Calcium Total Bilirubin AST ALT Alkaline Phosphatase Ammonia 46.0 Total Protein Albumin Albumin/Globulin Ratio Blood Type O POSITIVE Antibody Screen Crossmatch 12/04/18 12/05/18 12/05/18 21:37 04:56 04:56 WBC 8.1 RBC 1.51 L Hgb 5.5 L* Hct 15.7 L* MCV 104 H MCH 37 H MCHC 35 H RDW 18.3 H Plt Count 120 L D Lymph % (Auto) 19.8 [place] % (Auto) 14.9 H Eos % (Auto) 1.0 Baso % (Auto) 0.5 Lymph # 1.6 [place] # 1.2 H Eos # 0.1 Baso # 0.0 Seg Neutrophils % 63.8 Seg Neutrophils # 5.1 PT INR APTT Sodium 126 L Potassium 3.7 Chloride 89.3 L Carbon Dioxide 26 Anion Gap 14 BUN 38 H Creatinine 7.5 H Estimated GFR 9 BUN/Creatinine Ratio 5 Glucose 88 POC Glucose 125 H Calcium 7.8 L Total Bilirubin AST ALT Alkaline Phosphatase Ammonia Total Protein Albumin Albumin/Globulin Ratio Blood Type Antibody Screen Crossmatch 12/05/18 12/05/18 12/05/18 05:19 08:24 Unknown WBC RBC Hgb Hct MCV MCH MCHC RDW Plt Count Lymph % (Auto) [place] % (Auto) Eos % (Auto) Baso % (Auto) Lymph # [place] # Eos # Baso # Seg Neutrophils % Seg Neutrophils # PT 22.1 H INR 1.80 H APTT Sodium Potassium Chloride Carbon Dioxide Anion Gap BUN Creatinine Estimated GFR BUN/Creatinine Ratio Glucose POC Glucose 79 Calcium Total Bilirubin AST ALT Alkaline Phosphatase Ammonia Total Protein Albumin Albumin/Globulin Ratio Blood Type O POSITIVE Antibody Screen Negative Crossmatch See Detail Assessment and Plan 1.anemia 2.melena 3.H/o PUD 4.alcoholic cirrhosis 5.H/o esophageal varices -afebrile -WBC WNL -plt 120-s/p transfusion -INR 1.80 -T.sidney 7.50, AST 40, ALT 17, alk phos 79 -ammonia WNL (46) -H/H 5.5/15.7-transfusion PRBCs pending -continue to monitor H/H and transfuse as -hold blood thinning medications -patient reports black stool for the past few days. No hematemesis or hematochezia. He has a hx of decompensated cirrhosis with ascites, hepatic encephalopathy, and esophageal varices, along with PUD -last EGD 2016 showed grade II varices, antral ulcer with multiple other small ulcerations, and duodenal bulb ulcer -etiology-possible ulcer vs varices vs other -clinically, patient is currently hypotensive. Reports abdominal distension/discomfort but no N/V. No encephalopathy noted upon exam. -EGD once medically stable -Keen NPO -continue PPI and MVI -hold blood thinning medications -ascites-paracentesis pending -resume home lactulose (titrate to goal of BMs x 2-3/day) -will defer diuretics to nephrology -home propanalol on hold due to hypotension -continue alcohol cessation -continue to trend labs and supportive care -electrolyte management per primary team -further recommendations to follow 6.ESRD on HD <LOGAN PAULSON R - Last Filed: 12/05/18 15:07> Medications and Allergies Active Meds: Active Medications Acetaminophen (Tylenol) 650 mg PO Q4H PRN PRN Reason: Pain MILD(1-3)/Fever >100.5/NASH Albuterol (Proventil) 2.5 mg IH Q4HRT PRN PRN Reason: Shortness Of Breath Folic Acid (Folvite) 1 mg PO QDAY [facility] Last Admin: 12/05/18 12:09 Dose: 1 mg Documented by: Midodrine (Proamatine) 10 mg PO TID [facility] Last Admin: 12/05/18 12:08 Dose: 10 mg Documented by: Multivitamins (Theragran Tab) 1 each PO QDAY [facility] Last Admin: 12/05/18 12:10 Dose: 1 each Documented by: Ondansetron HCl (Zofran) 4 mg IV Q8H PRN PRN Reason: Nausea And Vomiting Oxycodone/Acetaminophen (Percocet 5/325) 1 tab PO Q6H PRN PRN Reason: Pain, Moderate (4-6) Pantoprazole Sodium (Protonix) 40 mg IV BID [facility] Last Admin: 12/05/18 12:08 Dose: 40 mg Documented by: Sodium Chloride (Sodium Chloride Flush Syringe 10 Ml) 10 ml IV BID [facility] Last Admin: 12/05/18 09:31 Dose: 10 ml Documented by: Sodium Chloride (Sodium Chloride Flush Syringe 10 Ml) 10 ml IV PRN PRN PRN Reason: LINE FLUSH Sucralfate (Carafate) 1 gm PO ACHS [facility] Last Admin: 12/05/18 12:09 Dose: 1 gm Documented by: Thiamine HCl (Vitamin B-1) 100 mg PO QDAY [facility] Last Admin: 12/05/18 12:10 Dose: 100 mg Documented by: Exam - Constitutional Vital Signs: Temp Pulse Resp BP Pulse Ox 98 F 95 H 20 101/62 94 12/05/18 14:50 12/05/18 14:50 12/05/18 14:50 12/05/18 14:50 12/05/18 14:35 - Labs CBC & Chem 7: 12/05/18 04:56 12/05/18 04:56 Lab Results: Laboratory Results - last 24 hr 12/04/18 12/04/18 12/04/18 13:36 15:15 15:15 WBC RBC Hgb Hct MCV MCH MCHC RDW Plt Count Lymph % (Auto) [place] % (Auto) Eos % (Auto) Baso % (Auto) Lymph # [place] # Eos # Baso # Seg Neutrophils % Seg Neutrophils # PT INR APTT 42.0 H Sodium 125 L Potassium 3.9 Chloride 88.6 L Carbon Dioxide 20 L Anion Gap 20 BUN 30 H Creatinine 6.2 H Estimated GFR 11 BUN/Creatinine Ratio 5 Glucose 96 POC Glucose Calcium 8.4 Total Bilirubin 7.50 H AST 40 ALT 17 Alkaline Phosphatase 79 Total Protein 7.1 Albumin 1.8 L Albumin/Globulin Ratio 0.3 Blood Type O POSITIVE Antibody Screen Crossmatch 12/04/18 12/05/18 12/05/18 21:37 04:56 04:56 WBC 8.1 RBC 1.51 L Hgb 5.5 L* Hct 15.7 L* MCV 104 H MCH 37 H MCHC 35 H RDW 18.3 H Plt Count 120 L D Lymph % (Auto) 19.8 [place] % (Auto) 14.9 H Eos % (Auto) 1.0 Baso % (Auto) 0.5 Lymph # 1.6 [place] # 1.2 H Eos # 0.1 Baso # 0.0 Seg Neutrophils % 63.8 Seg Neutrophils # 5.1 PT INR APTT Sodium 126 L Potassium 3.7 Chloride 89.3 L Carbon Dioxide 26 Anion Gap 14 BUN 38 H Creatinine 7.5 H Estimated GFR 9 BUN/Creatinine Ratio 5 Glucose 88 POC Glucose 125 H Calcium 7.8 L Total Bilirubin AST ALT Alkaline Phosphatase Total Protein Albumin Albumin/Globulin Ratio Blood Type Antibody Screen Crossmatch 12/05/18 12/05/18 12/05/18 05: 08:24 Unknown WBC RBC Hgb Hct MCV MCH MCHC RDW Plt Count Lymph % (Auto) [place] % (Auto) Eos % (Auto) Baso % (Auto) Lymph # [place] # Eos # Baso # Seg Neutrophils % Seg Neutrophils # PT 22.1 H INR 1.80 H APTT Sodium Potassium Chloride Carbon Dioxide Anion Gap BUN Creatinine Estimated GFR BUN/Creatinine Ratio Glucose POC Glucose 79 Calcium Total Bilirubin AST ALT Alkaline Phosphatase Total Protein Albumin Albumin/Globulin Ratio Blood Type O POSITIVE Antibody Screen Negative Crossmatch See Detail Assessment and Plan Pt with ESLD due to EtOH, quit 4 yrs ago, with 1 month hx of ESRD on HD, admitted from HD for low BP. Found to be profoundly anemic. Also has tense ascites. Pt has been getting monthly paracentesis x several months, and was hospitalized at [facility] x 1 month, out last week. Has known esophageal varices and PUD. States had dark stool x last several days. No abd pain, N/V. PE - stool - light yellow INR - elevated Plan - agree with transfusion - give vit K and check for response - will do EGD tomorrow to assess and possibly treat varices. - agree with paracentesis, which he will likely need prn
--- NOTE | 2018-12-05 13:51 | Progress Note ---
Assessment and Plan /GI bleed with melana - hb 5.5 this am, transfuse two unit PRBC - consult GI, has h/o esophageal varices - PPI IV BID /ESRD (end stage renal disease) on dialysis Nephrology consulted in ED, dialysis as per renal team. /Hypotension - likely from GI bleed and chronic LD - start on midodrine, cont to monitor /Ascites IR consulted for Paracentesis, cont serial abdominal exam. /Alcoholic hepatic Cirrhosis Secondary to ESRD, supportive care, monitor LFT, / Thrombocytopenia, from LD Platelet transfusion, goal platelet count above 20K. / Hyponatremia likely from hypervolumia fluid restriction overnight, repeat bmp in AM. / DVT prophylaxis SCD to BLE while in bed, Brief history: Patient is a 63 y/o male with PMH of ETOH abuse, alcoholic cirrhosis, hepatic encephalopathy, and ESRD on HD who was brought from dialysis to ED for further evaluation of hypotension. Upon admission, he was found to have abdominal distension (ascites), and thrombocytopenia (plt count 12), H/H this am (5.5/15.7). Patient in 2017 had GI bleed/anemia with undergoing an EGD at that time that revealed PUD and varices (grade II). He reported black stool for the past few days. consulted renal for HD, GI for possible EGD and ordered paracentesis. Abdominal US: Moderate to severe ascitis Subjective Date of service: 12/05/18 Interval history: Patient seen and examined. Medical records and medication list reviewed. No acute event overnight noted by the RN. Patient denies any chest pain or difficulty breathing. hb noted 5.5 this am, had black stool for last few days Discussed plan of care at bedside with patient and with his daughter by phone. Objective - Exam Narrative Exam: General appearance: Present: mild distress - EENT Eyes: Present: PERRL ENT: hearing intact, clear oral mucosa - Neck Neck: Present: supple, normal ROM, masses or JVD - Respiratory Respiratory effort: normal Respiratory: bilateral: diminished, rhonchi - Cardiovascular Heart Sounds: Present: S1 & S2. Absent: rub, click - Extremities Extremities: pulses symmetrical Extremity abnormal: edema Peripheral Pulses: within normal limits - Abdominal General gastrointestinal: Present: non-tender, distended, normal bowel sounds. hypoactive bowel sounds, Male genitourinary: Present: normal - Integumentary Integumentary: Present: clear, warm, dry - Musculoskeletal Musculoskeletal: gait normal, strength equal bilaterally - Psychiatric Psychiatric: appropriate mood/affect, intact judgment & insight - Neurologic Neurologic: CNII-XII intact, moves all extremities - Constitutional Vitals: Vital Signs - 12hr 12/05/18 12/05/18 12/05/18 06:11 06:18 10:00 Temperature 98.1 F Pulse Rate 101 H Respiratory 15 Rate Blood Pressure 80/39 Blood Pressure 90/50 [Left] O2 Sat by Pulse 93 94 Oximetry 12/05/18 12/05/18 12/05/18 11:30 11:45 12:12 Temperature 99.4 F 98.5 F 98.4 F Pulse Rate 98 H 97 H 99 H Respiratory 18 18 18 Rate Blood Pressure 89/51 88/50 87/51 Blood Pressure [Left] O2 Sat by Pulse 94 Oximetry 12/05/18 12:15 Temperature 98.4 F Pulse Rate 99 H Respiratory 18 Rate Blood Pressure 87/51 Blood Pressure [Left] O2 Sat by Pulse 94 Oximetry - Labs CBC & Chem 7: 12/06/18 04:27 12/06/18 04:27 Labs: Abnormal lab results 12/04/18 12/04/18 12/04/18 Range/Units 13:36 13:36 15:15 RBC 2.02 L (3.65-5.03) M/mm3 Hgb 7.4 L (11.8-15.2) gm/dl Hct 21.2 L (35.5-45.6) % MCV 105 H (84-94) fl MCH 37 H (28-32) pg MCHC 35 H (32-34) % RDW 18.8 H (13.2-15.2) % Plt Count 12 L* (140-440) K/mm3 [place] % (Auto) 7.5 H (0.0-7.3) % Lymph # 1.0 L (1.2-5.4) K/mm3 [place] # (0.0-0.8) K/mm3 Seg Neutrophils % 77.9 H (40.0-70.0) % PT (12.2-14.9) Sec. INR (0.87-1.13) APTT 42.0 H (24.2-36.6) Sec. Sodium 125 L (137-145) mmol/L Chloride 88.6 L (98-107) mmol/L Carbon Dioxide 20 L (22-30) mmol/L BUN 30 H (9-20) mg/dL Creatinine 6.2 H (0.8-1.5) mg/dL POC Glucose (70-105) Calcium (8.4-10.2) mg/dL Total Bilirubin 7.50 H (0.1-1.2) mg/dL Albumin 1.8 L (3.9-5) g/dL Crossmatch 12/04/18 12/05/18 12/05/18 Range/Units 21:37 04:56 04:56 RBC 1.51 L (3.65-5.03) M/mm3 Hgb 5.5 L* (11.8-15.2) gm/dl Hct 15.7 L* (35.5-45.6) % MCV 104 H (84-94) fl MCH 37 H (28-32) pg MCHC 35 H (32-34) % RDW 18.3 H (13.2-15.2) % Plt Count 120 L D (140-440) K/mm3 [place] % (Auto) 14.9 H (0.0-7.3) % Lymph # (1.2-5.4) K/mm3 [place] # 1.2 H (0.0-0.8) K/mm3 Seg Neutrophils % (40.0-70.0) % PT (12.2-14.9) Sec. INR (0.87-1.13) APTT (24.2-36.6) Sec. Sodium 126 L (137-145) mmol/L Chloride 89.3 L (98-107) mmol/L Carbon Dioxide (22-30) mmol/L BUN 38 H (9-20) mg/dL Creatinine 7.5 H (0.8-1.5) mg/dL POC Glucose 125 H (70-105) Calcium 7.8 L (8.4-10.2) mg/dL Total Bilirubin (0.1-1.2) mg/dL Albumin (3.9-5) g/dL Crossmatch 12/05/18 12/05/18 Range/Units 05:19 Unknown RBC (3.65-5.03) M/mm3 Hgb (11.8-15.2) gm/dl Hct (35.5-45.6) % MCV (84-94) fl MCH (28-32) pg MCHC (32-34) % RDW (13.2-15.2) % Plt Count (140-440) K/mm3 [place] % (Auto) (0.0-7.3) % Lymph # (1.2-5.4) K/mm3 [place] # (0.0-0.8) K/mm3 Seg Neutrophils % (40.0-70.0) % PT 22.1 H (12.2-14.9) Sec. INR 1.80 H (0.87-1.13) APTT (24.2-36.6) Sec. Sodium (137-145) mmol/L Chloride (98-107) mmol/L Carbon Dioxide (22-30) mmol/L BUN (9-20) mg/dL Creatinine (0.8-1.5) mg/dL POC Glucose (70-105) Calcium (8.4-10.2) mg/dL Total Bilirubin (0.1-1.2) mg/dL Albumin (3.9-5) g/dL Crossmatch See Detail
[2018-12-05] MEDS ORDERED: XYLOCAINE 1% 20 mL ONE (15:16)
[2018-12-05] MEDS ORDERED: VITAMIN K (ADULT ONLY) 10 MG in NACL 0.9% 50 ML IV ONE (16:00)
[2018-12-06 06:12] LABS: Hemoglobin 6.6 gm/dl (11.8-15.2); Mean Corpuscular HGB Conc 36 % (32-34); Mean Corpuscular Volume 97 fl (84-94); Red Blood Count 1.88 M/mm3 (3.65-5.03)
[2018-12-06 06:26] LABS: INR 1.67 (0.87-1.13)
[2018-12-06 06:31] LABS: Platelet Count 88 K/mm3 (140-440); Red Cell Distribution Width 21.4 % (13.2-15.2)
[2018-12-06 06:36] LABS: Hematocrit 18.2 % (35.5-45.6)
[2018-12-06 08:49] LABS: Basophils % (Manual) 0 % (0.0-1.8); Total Cells Counted 100
[2018-12-06 08:50] LABS: Anisocytosis 2+; Hypochromasia 1+; Platelet Estimate Consistent w Auto
[2018-12-06] MEDS ORDERED: NACL 0.9% 500 ML 500 ML IV NR (09:00)
[2018-12-06] MEDS ORDERED: NACL 0.9% 100 ML IV PRN (09:33)
[2018-12-06] MEDS ORDERED: PROCRIT SUB-Q PRN (09:33)
[2018-12-06] MEDS ORDERED: ALBURX 25% (ALBUMIN) IV PRN (09:33)
--- NOTE | 2018-12-06 09:33 | Progress Note ---
Assessment and Plan 1. ESRD: Patient's outpatient schedule is TTS. Plan for HD today. 2. Hyponatremia: Monitor. 3. Anemia: PRBC today. Epogen with HD. S/p EGD today. 4. Alcoholic cirrhosis with ascites: S/p IR paracentesis yesterday. 5. Hypotension: Midodrine. 6. Coagulopathy. Subjective Date of service: 12/06/18 Interval history: Patient was seen and examined at the bedside. Objective - Vital Signs Vital signs: Vital Signs - 12hr 12/05/18 12/05/18 12/05/18 21:45 22:15 22:45 Temperature 98.4 F 98.0 F 98.7 F Pulse Rate 92 H 95 H 94 H Respiratory 20 16 20 Rate Blood Pressure 76/47 76/48 81/41 Blood Pressure [Left] O2 Sat by Pulse 95 94 96 Oximetry 12/05/18 12/05/18 12/06/18 23:15 23:45 00:00 Temperature 98.4 F 98.6 F 98.2 F Pulse Rate 94 H 92 H 92 H Respiratory 18 16 20 Rate Blood Pressure 79/48 78/48 Blood Pressure 80/49 [Left] O2 Sat by Pulse 94 95 98 Oximetry 12/06/18 12/06/18 00:30 05:49 Temperature 98.4 F 98.7 F Pulse Rate 95 H 94 H Respiratory 20 17 Rate Blood Pressure 80/44 89/41 Blood Pressure [Left] O2 Sat by Pulse 96 96 Oximetry - General Appearance General appearance: well-developed, appears stated age, other (not in distress, R IJ tunnel catheter) EENT: ATNC, PERRL, hearing intact, vision intact Neck: supple Respiratory: Present: Clear to Ascultation Cardiology: regular, S1S2, no murmurs Gastrointestinal: normoactive bowel sounds, no tenderness, distended (ascites noted) Integumentary: no rash, warm and dry Neurologic: no focal deficit, no asterixis, alert and oriented x3 Musculoskeletal: other (trace LE edema noted) Psychiatric: cooperative - Lab 12/06/18 04:27 12/06/18 04:27 Most recent lab results Calcium 8.0 mg/dL (8.4-10.2) L 12/06/18 04:27 Medications & Allergies - Medications Allergies/Adverse Reactions: Allergies No Known Allergies Allergy (Verified 11/26/16 14:51) Home Medications: Home Medications Medication Instructions Recorded Confirmed Last Taken Type Folic Acid [Folvite] 1 mg PO QDAY #30 tablet 11/23/18 12/04/18 Unknown Rx Magnesium Oxide [Mag-Ox] 400 mg PO QDAY #30 tablet 11/23/18 12/04/18 Unknown Rx Midodrine [Proamatine] 10 mg PO TID #90 tablet 11/23/18 12/04/18 Unknown Rx Multivitamin Tab [Multiple Vitamin 1 each PO QDAY #30 tablet 11/23/18 12/04/18 Unknown Rx TAB (Theragran)] Pantoprazole [Protonix TAB] 40 mg PO BID #60 tablet 11/23/18 12/04/18 Unknown Rx Propranolol [Inderal] 10 mg PO Q12HR #60 tablet 11/23/18 12/04/18 Unknown Rx Spironolactone [Aldactone] 100 mg PO QDAY #30 tablet 11/23/18 12/04/18 Unknown Rx Sucralfate [Carafate] 1 gm PO ACHS #60 tablet 11/23/18 12/04/18 Unknown Rx Thiamine [Vitamin B-1] 100 mg PO QDAY #30 tablet 11/23/18 12/04/18 Unknown Rx Lactulose [Cephulac] 30 ml PO Q12HR 12/04/18 12/04/18 Unknown History Active Medications: Generic Name Dose Route Start Last Admin Trade Name Freq PRN Reason Stop Dose Admin Acetaminophen 650 mg 12/04/18 15:09 Tylenol PO Q4H PRN Pain MILD(1-3)/Fever >100.5/NASH Albuterol 2.5 mg 12/04/18 15:09 Proventil IH Q4HRT PRN Shortness Of Breath Folic Acid 1 mg 12/05/18 10:00 12/05/18 12:09 Folvite PO 1 mg QDAY LUBA Administration Sodium Chloride 500 mls @ 0 mls/hr 12/06/18 09:00 Nacl 0.9% 500 Ml IV 12/06/18 16:00 ONCE NR As Directed Midodrine 10 mg 12/05/18 12:00 12/05/18 21:29 Proamatine PO 10 mg TID LUBA Administration Multivitamins 1 each 12/05/18 10:00 12/05/18 12:10 Theragran Tab PO 1 each QDAY LUBA Administration Ondansetron HCl 4 mg 12/04/18 15:09 Zofran IV Q8H PRN Nausea And Vomiting Oxycodone/Acetaminophen 1 tab 12/04/18 15:09 Percocet 5/325 PO Q6H PRN Pain, Moderate (4-6) Pantoprazole Sodium 40 mg 12/05/18 11:00 12/05/18 21:29 Protonix IV 40 mg BID LUBA Administration Sodium Chloride 10 ml 12/04/18 22:00 12/05/18 21:29 Sodium Chloride Flush Syringe 10 Ml IV 10 ml BID LUBA Administration Sodium Chloride 10 ml 12/04/18 15:09 Sodium Chloride Flush Syringe 10 Ml IV PRN PRN LINE FLUSH Sucralfate 1 gm 12/05/18 11:30 12/05/18 21:29 Carafate PO 1 gm ACHS LUBA Administration Thiamine HCl 100 mg 12/05/18 10:00 12/05/18 12:10 Vitamin B-1 PO 100 mg QDAY LUBA Administration
[2018-12-06] MEDS: CARAFATE PO SCH ×4 (09:43→21:43)
[2018-12-06] MEDS: PROAMATINE PO SCH ×4 (09:43→21:41)
[2018-12-06] MEDS: PROTONIX IV SCH ×2 (09:43→21:42)
[2018-12-06] MEDS: FOLVITE PO SCH (10:25)
[2018-12-06] MEDS: VITAMIN B-1 PO SCH (10:30)
[2018-12-06] MEDS ORDERED: NEO SYNEPHRINE/NS Syringe(OR USE) IV ONE (12:35)
[2018-12-06] MEDS ORDERED: AMIDATE IV ONE (12:35)
[2018-12-06] MEDS ORDERED: NACL 0.9% 1000 ML 1,000 ML ONE (12:56)
--- NOTE | 2018-12-06 13:09 | Post Operative Note ---
Pre-op diagnosis: Anemia, cirrhosis, hx melena Post-op diagnosis: other (Esophageal varices, hiatal hernia) Findings: 1. Grade 2 distal esophageal varices, banded x 3. No stigmata of bleeding. 2. 5 cm hiatal hernia. 3. O/w normal EGD, with no evidence of active or old bleeding. Procedure: EGD with variceal banding Anesthesia: MAC Surgeon: LOGAN PAULSON Estimated blood loss: none Pathology: none Condition: stable Disposition: floor (Monitor for complications. Will check NH3 and consider adding Xifaxan.)
--- NOTE | 2018-12-06 13:48 | Progress Note ---
Assessment and Plan /GI bleed with melana - hb dropped to 5.5, transfused two unit PRBC, will do additional one more unit as Hb 6.6 today - consult GI, has h/o esophageal varices - PPI IV BID, s/p EGD showed grade 2 esophageal varices /ESRD (end stage renal disease) on dialysis Nephrology consulted in ED, dialysis as per renal team. /Hypotension - likely from GI bleed and chronic LD - started on midodrine, cont to monitor /Ascites IR consulted for Paracentesis - pending for elevated INR, cont serial abdominal exam. /Alcoholic hepatic Cirrhosis Secondary to ESRD, supportive care, monitor LFT, / Thrombocytopenia, from LD s/p Platelet transfusion, goal platelet count above 20K. / Hyponatremia likely from hypervolumia fluid restriction overnight, monitor BMP. /Coagulopathy, likely from alcoholic liver disease s/p one unit FFP, cont to monitor / DVT prophylaxis SCD to BLE while in bed, Brief history: Patient is a 63 y/o male with PMH of ETOH abuse, alcoholic cirrhosis, hepatic encephalopathy, and ESRD on HD who was brought from dialysis to ED for further evaluation of hypotension. Upon admission, he was found to have abdominal distension (ascites), and thrombocytopenia (plt count 12), H/H this am (5.5/15.7). Patient in 2017 had GI bleed/anemia with undergoing an EGD at that time that revealed PUD and varices (grade II). He reported black stool for the past few days. consulted renal for HD, GI for possible EGD and ordered paracentesis. Abdominal US: Moderate to severe ascitis Subjective Date of service: 12/06/18 Interval history: Patient seen and examined. Medical records and medication list reviewed. No acute event overnight noted by the RN. Patient denies any chest pain or difficulty breathing. hb noted 6.6 this am, S/p EGD today, pending parenthesis Objective - Exam Narrative Exam: General appearance: Present: mild distress - EENT Eyes: Present: PERRL ENT: hearing intact, clear oral mucosa - Neck Neck: Present: supple, normal ROM, masses or JVD - Respiratory Respiratory effort: normal Respiratory: bilateral: diminished, rhonchi - Cardiovascular Heart Sounds: Present: S1 & S2. Absent: rub, click - Extremities Extremities: pulses symmetrical Extremity abnormal: edema Peripheral Pulses: within normal limits - Abdominal General gastrointestinal: Present: non-tender, distended, normal bowel sounds. hypoactive bowel sounds, Male genitourinary: Present: normal - Integumentary Integumentary: Present: clear, warm, dry - Musculoskeletal Musculoskeletal: gait normal, strength equal bilaterally - Psychiatric Psychiatric: appropriate mood/affect, intact judgment & insight - Neurologic Neurologic: CNII-XII intact, moves all extremities - Constitutional Vitals: Vital Signs - 12hr 12/06/18 12/06/18 12/06/18 05:49 10:27 10:43 Temperature 98.7 F 98.2 F 98.2 F Pulse Rate 94 H 88 91 H Respiratory 17 20 20 Rate Blood Pressure 89/41 86/48 97/49 O2 Sat by Pulse 96 97 97 Oximetry 12/06/18 12/06/18 12/06/18 10:55 11:25 11:42 Temperature 98.4 F 98.4 F 98.4 F Pulse Rate 88 89 95 H Respiratory 20 20 15 Rate Blood Pressure 98/51 89/52 97/49 O2 Sat by Pulse 100 98 94 Oximetry 12/06/18 12/06/18 12/06/18 11:45 12:12 13:06 Temperature 98.4 F 98.4 F 97.9 F Pulse Rate 95 H 91 H 106 H Respiratory 15 16 22 Rate Blood Pressure 97/49 95/55 105/44 O2 Sat by Pulse 94 96 99 Oximetry 12/06/18 12/06/18 13:24 13:35 Temperature Pulse Rate 93 H 97 H Respiratory 15 18 Rate Blood Pressure 95/45 92/51 O2 Sat by Pulse 100 100 Oximetry - Labs CBC & Chem 7: 12/07/18 07:44 12/07/18 07:44 Labs: Abnormal lab results 12/05/18 12/05/18 12/06/18 Range/Units 05:19 13:03 04:27 RBC 1.88 L (3.65-5.03) M/mm3 Hgb 6.6 L (11.8-15.2) gm/dl Hct 18.2 L* (35.5-45.6) % MCV 97 H (84-94) fl MCH 35 H (28-32) pg MCHC 36 H (32-34) % RDW 21.4 H (13.2-15.2) % Plt Count 88 L (140-440) K/mm3 Seg Neuts % (Manual) 81.0 H (40.0-70.0) % Lymphocytes # (Manual) 1.0 L (1.2-5.4) K/mm3 PT (12.2-14.9) Sec. INR (0.87-1.13) Sodium (137-145) mmol/L Potassium (3.6-5.0) mmol/L Chloride (98-107) mmol/L BUN (9-20) mg/dL Creatinine (0.8-1.5) mg/dL POC Glucose 122 H (70-105) Calcium (8.4-10.2) mg/dL Crossmatch See Detail 12/06/18 12/06/18 Range/Units 04:27 04:27 RBC (3.65-5.03) M/mm3 Hgb (11.8-15.2) gm/dl Hct (35.5-45.6) % MCV (84-94) fl MCH (28-32) pg MCHC (32-34) % RDW (13.2-15.2) % Plt Count (140-440) K/mm3 Seg Neuts % (Manual) (40.0-70.0) % Lymphocytes # (Manual) (1.2-5.4) K/mm3 PT 20.8 H (12.2-14.9) Sec. INR 1.67 H (0.87-1.13) Sodium 127 L (137-145) mmol/L Potassium 3.2 L (3.6-5.0) mmol/L Chloride 88.0 L (98-107) mmol/L BUN 45 H (9-20) mg/dL Creatinine 8.6 H (0.8-1.5) mg/dL POC Glucose (70-105) Calcium 8.0 L (8.4-10.2) mg/dL Crossmatch
[2018-12-06] MEDS: THERAGRAN Tab PO SCH (14:54)
[2018-12-06] MEDS: SODIUM CHLORIDE FLUSH SYRINGE 10 ML IV SCH ×2 (14:58→21:42)
--- NOTE | 2018-12-06 14:58 | Operative Report ---
UPPER ENDOSCOPY REPORT PROCEDURE: Upper endoscopy with variceal banding. SEDATION: MAC by Anesthesia. HISTORY: The patient is a 63-year-old man with a known history of end-stage liver disease due to cirrhosis with a prior history of varices. No history of bleeding. He does have a history of peptic ulcer disease that has bled apparently with anemia in the past. He was started on dialysis approximately a month ago for new onset renal failure. He presents with a history of black stool though on exam, he had light yellow stool. He was also anemic and had abdominal distention. He has undergone paracentesis. Procedure, indications, risks, and benefits were explained and consent was obtained. The patient was placed in left lateral decubitus position and sedated. [employer] video upper endoscope was passed through the mouth and oropharynx into the descending duodenum. Scope was then gradually withdrawn with close inspection of mucosa. FINDINGS: 1. Grade 2 esophageal varices with some red spots on them in the distal esophagus with the Z-line located at 33 cm from the gums. Three bands were placed start on 2 different columns. No bleeding noted prior to the procedure and there was only a small amount of blood after band placement. 2. A 5 cm hiatal hernia from 33-38 cm from the gums. 3. Otherwise, normal gastric antrum, fundus, body, and cardia. 4. Normal appearing duodenal bulb and duodenum with no evidence of ulcers. The patient apparently had 2 necrotic duodenal bulb ulcers 4 months ago. The patient tolerated the procedure well without immediate complication. IMPRESSION: 1. Grade 2 esophageal varices in the distal esophagus --3 bands placed. They were not actively bleeding and there was no stigmata. 2. A 5 cm hiatal hernia. 3. Otherwise, normal endoscopy. PLAN: 1. Monitor H and H and transfuse as needed. 2. Consider hematology evaluation or erythropoietin if it has not been initiated previously. 3. The patient is somewhat lethargic today and this may be due to his need for dialysis. If he fails to improve, would recommend rechecking ammonia level and initiating Xifaxan. 4. Follow up on paracentesis results and the patient may well need p.r.n. paracentesis. [facility]# [id number] HRC/NTS
--- NOTE | 2018-12-06 17:49 | Anesthesia Day of Surgery ---
Anesthesia Day of Surgery - Day of Surgery Patient Examined: Yes Patient H&P Reviewed: Yes Patient is NPO: Yes
[2018-12-07 05:58] LABS: Calcium 7.7 mg/dL (8.4-10.2)
[2018-12-07 08:05] LABS: Basophils % (Auto) 0.6 % (0.0-1.8); Eosinophils # (Auto) 0.1 K/mm3 (0.0-0.4); Hematocrit 23.5 % (35.5-45.6); Hemoglobin 8.4 gm/dl (11.8-15.2); Lymphocytes # (Auto) 1.6 K/mm3 (1.2-5.4); Lymphocytes % (Auto) 21.3 % (13.4-35.0); Mean Corpuscular HGB Conc 36 % (32-34); Mean Corpuscular Volume 97 fl (84-94); Monocytes # (Auto) 1.2 K/mm3 (0.0-0.8); Monocytes % (Auto) 15.9 % (0.0-7.3); Red Blood Count 2.42 M/mm3 (3.65-5.03); Red Cell Distribution Width 19.8 % (13.2-15.2)
[2018-12-07 08:08] LABS: Platelet Count 71 K/mm3 (140-440)
[2018-12-07] MEDS: CARAFATE PO SCH ×4 (08:15→21:22)
[2018-12-07 08:16] LABS: INR 1.77 (0.87-1.13)
[2018-12-07] MEDS: PROAMATINE PO SCH ×3 (08:16→21:22)
[2018-12-07 08:23] LABS: Calcium 7.7 mg/dL (8.4-10.2)
[2018-12-07] MEDS: FOLVITE PO SCH (09:20)
[2018-12-07] MEDS: VITAMIN B-1 PO SCH (09:20)
[2018-12-07] MEDS: THERAGRAN Tab PO SCH (09:20)
[2018-12-07] MEDS: SODIUM CHLORIDE FLUSH SYRINGE 10 ML IV SCH ×2 (09:21→21:23)
--- NOTE | 2018-12-07 09:31 | Progress Note ---
Assessment and Plan 1. ESRD: Continue hemodialysis three times a week, TTS schedule. 2. Hyponatremia: Monitor. 3. Anemia: S/p PRBC yesterday. Epogen with HD. S/p EGD. 4. Alcoholic cirrhosis with ascites: S/p IR paracentesis. 5. Hypotension: Midodrine. 6. Coagulopathy. Subjective Date of service: 12/07/18 Interval history: Patient was seen and examined at the bedside. No new complaint. Objective - Vital Signs Vital signs: Vital Signs - 12hr 12/06/18 12/07/18 22:04 05:06 Temperature 97.9 F 98.4 F Pulse Rate 91 H 93 H Respiratory 20 20 Rate Blood Pressure 97/58 90/38 O2 Sat by Pulse 97 93 Oximetry - General Appearance General appearance: well-developed, appears stated age, other (not in distress, R IJ tunnel catheter) EENT: ATNC, PERRL, hearing intact, vision intact Neck: supple Respiratory: Present: Clear to Ascultation Cardiology: regular, S1S2, no murmurs Gastrointestinal: normoactive bowel sounds, no tenderness, distended (ascites noted) Integumentary: no rash, warm and dry Neurologic: no focal deficit, no asterixis, alert and oriented x3 Musculoskeletal: other (no edema) - Lab 12/08/18 04:22 12/08/18 04:22 Most recent lab results Calcium 7.7 mg/dL (8.4-10.2) L 12/07/18 07:44 Medications & Allergies - Medications Allergies/Adverse Reactions: Allergies No Known Allergies Allergy (Verified 11/26/16 14:51) Home Medications: Home Medications Medication Instructions Recorded Confirmed Last Taken Type Folic Acid [Folvite] 1 mg PO QDAY #30 tablet 12/08/18 Unknown Rx Lactulose [Cephulac] 30 ml PO Q12HR 30 Days oral.liqd 12/08/18 Unknown Rx Midodrine [Proamatine] 10 mg PO TID #90 tablet 12/08/18 Unknown Rx Multivitamin Tab [Multiple Vitamin 1 each PO QDAY #30 tablet 12/08/18 Unknown Rx TAB (Theragran)] Pantoprazole [Protonix TAB] 40 mg PO BID #60 tablet 12/08/18 Unknown Rx Rifaximin [Xifaxan] 550 mg PO BID #60 tablet 12/08/18 Unknown Rx Sucralfate [Carafate] 1 gm PO ACHS #60 tablet 12/08/18 Unknown Rx Thiamine [Vitamin B-1] 100 mg PO QDAY #30 tablet 12/08/18 Unknown Rx Active Medications: Generic Name Dose Route Start Last Admin Trade Name Freq PRN Reason Stop Dose Admin Acetaminophen 650 mg 12/04/18 15:09 Tylenol PO Q4H PRN Pain MILD(1-3)/Fever >100.5/NASH Albumin Human 12.5 gm 12/06/18 09:33 Alburx 25% (Albumin) IV MIRANDA PRN Hypotension Albuterol 2.5 mg 12/04/18 15:09 Proventil IH Q4HRT PRN Shortness Of Breath Epoetin Kennedy 20,000 unit 12/06/18 09:33 Procrit SUB-Q MIRANDA PRN hemodialysis Folic Acid 1 mg 12/05/18 10:00 12/07/18 09:20 Folvite PO 1 mg QDAY LUBA Administration Sodium Chloride 100 mls @ 999 mls/hr 12/06/18 09:33 Nacl 0.9% IV MIRANDA PRN Hypotension Midodrine 10 mg 12/05/18 12:00 12/07/18 08:16 Proamatine PO 10 mg TID LUBA Administration Multivitamins 1 each 12/05/18 10:00 12/07/18 09:20 Theragran Tab PO 1 each QDAY LUBA Administration Ondansetron HCl 4 mg 12/04/18 15:09 Zofran IV Q8H PRN Nausea And Vomiting Oxycodone/Acetaminophen 1 tab 12/04/18 15:09 Percocet 5/325 PO Q6H PRN Pain, Moderate (4-6) Pantoprazole Sodium 40 mg 12/05/18 11:00 12/06/18 21:42 Protonix IV 40 mg BID LUBA Administration Sodium Chloride 10 ml 12/04/18 22:00 12/07/18 09:21 Sodium Chloride Flush Syringe 10 Ml IV 10 ml BID LUBA Administration Sodium Chloride 10 ml 12/04/18 15:09 Sodium Chloride Flush Syringe 10 Ml IV PRN PRN LINE FLUSH Sucralfate 1 gm 12/05/18 11:30 12/07/18 08:15 Carafate PO 1 gm ACHS LUBA Administration Thiamine HCl 100 mg 12/05/18 10:00 12/07/18 09:20 Vitamin B-1 PO 100 mg QDAY LUBA Administration
--- NOTE | 2018-12-07 09:36 | Progress Note ---
Assessment and Plan /GI bleed with melana - hb dropped to 5.5, transfused two unit PRBC, will do additional one more unit as Hb 6.6 today - consult GI, has h/o esophageal varices - PPI IV BID, s/p EGD showed grade 2 esophageal varices /ESRD (end stage renal disease) on dialysis Nephrology consulted in ED, dialysis as per renal team. /Hypotension - likely from GI bleed and chronic LD - started on midodrine, cont to monitor /Ascites IR consulted for Paracentesis - s/p 4l fluid drained on 12/05/18, cont serial abdominal exam. /Alcoholic hepatic Cirrhosis Secondary to ESRD, supportive care, monitor LFT, / Thrombocytopenia, from LD s/p Platelet transfusion, goal platelet count above 20K. / Hyponatremia likely from hypervolumia fluid restriction overnight, monitor BMP. /Coagulopathy, likely from alcoholic liver disease s/p one unit FFP, cont to monitor / DVT prophylaxis SCD to BLE while in bed, Brief history: Patient is a 63 y/o male with PMH of ETOH abuse, alcoholic cirrhosis, hepatic encephalopathy, and ESRD on HD who was brought from dialysis to ED for further evaluation of hypotension. Upon admission, he was found to have abdominal distension (ascites), and thrombocytopenia (plt count 12), H/H this am (5.5/15.7). Patient in 2017 had GI bleed/anemia with undergoing an EGD at that time that revealed PUD and varices (grade II). He reported black stool for the past few days. consulted renal for HD, GI for possible EGD and ordered paracentesis. Abdominal US: Moderate to severe ascitis Subjective Date of service: 12/07/18 Objective - Constitutional Vitals: Vital Signs - 12hr 12/06/18 12/07/18 22:04 05:06 Temperature 97.9 F 98.4 F Pulse Rate 91 H 93 H Respiratory 20 20 Rate Blood Pressure 97/58 90/38 O2 Sat by Pulse 97 93 Oximetry - Labs CBC & Chem 7: 12/07/18 07:44 12/07/18 07:44 Labs: Abnormal lab results 12/05/18 12/07/18 12/07/18 Range/Units 05:19 05:08 07:44 RBC 2.42 L (3.65-5.03) M/mm3 Hgb 8.4 L (11.8-15.2) gm/dl Hct 23.5 L (35.5-45.6) % MCV 97 H (84-94) fl MCH 35 H (28-32) pg MCHC 36 H (32-34) % RDW 19.8 H (13.2-15.2) % Plt Count 71 L (140-440) K/mm3 [place] % (Auto) 15.9 H (0.0-7.3) % [place] # 1.2 H (0.0-0.8) K/mm3 PT (12.2-14.9) Sec. INR (0.87-1.13) Sodium 130 L (137-145) mmol/L Potassium 3.3 L (3.6-5.0) mmol/L Chloride 95.8 L (98-107) mmol/L BUN 28 H (9-20) mg/dL Creatinine 6.5 H (0.8-1.5) mg/dL Calcium 7.7 L (8.4-10.2) mg/dL Crossmatch See Detail 12/07/18 12/07/18 Range/Units 07:44 07:44 RBC (3.65-5.03) M/mm3 Hgb (11.8-15.2) gm/dl Hct (35.5-45.6) % MCV (84-94) fl MCH (28-32) pg MCHC (32-34) % RDW (13.2-15.2) % Plt Count (140-440) K/mm3 [place] % (Auto) (0.0-7.3) % [place] # (0.0-0.8) K/mm3 PT 21.8 H (12.2-14.9) Sec. INR 1.77 H (0.87-1.13) Sodium 129 L (137-145) mmol/L Potassium 3.3 L (3.6-5.0) mmol/L Chloride 93.3 L (98-107) mmol/L BUN 29 H (9-20) mg/dL Creatinine 6.9 H (0.8-1.5) mg/dL Calcium 7.7 L (8.4-10.2) mg/dL Crossmatch
[2018-12-07] MEDS ORDERED: K-DUR PO ONE (10:00)
--- NOTE | 2018-12-07 10:05 | Discharge Summary ---
Providers - Providers Date of Admission: 12/04/18 15:09 Date of discharge: 12/08/18 Attending physician: ADRIANA OLIVO 12/04/18 15:11 Consult to Physician [CONS] Routine Comment: Consulting Provider: VERNA HUGHES Physician Instructions: Reason For Exam: esrd 12/04/18 17:18 Consult to Interventional Radiology [CONS] Routine Consulting Provider: ROB KILGORE Reason For Exam: therapeutic paracentesis Place consult to:: Notified:: Was contact made?: Yes If yes, spoke with:: SPOKE TO 12/05/18 13:34 Consult to Physician [CONS] Routine Comment: Consulting Provider: LOGAN PAULSON Physician Instructions: Reason For Exam: GI bleed 12/07/18 10:00 Consult to Physician [CONS] Routine Reason For Exam: therapeutic paracentesis Consulting Provider: ROB KILGORE Physician Instructions: Comment: [facility] Condition: Fair Pertinent studies: Abdominal US CXR Hospital course: Brief history: Patient is a 63 y/o male with PMH of ETOH abuse, alcoholic cirrhosis, hepatic encephalopathy, and ESRD on HD who was brought from dialysis to ED for further evaluation of hypotension. Upon admission, he was found to have abdominal distension (ascites), and thrombocytopenia (plt count 12), H/H (5.5/15.7). Patient in 2017 had GI bleed/anemia with undergoing an EGD at that time that revealed PUD and varices (grade II). He reported black stool for the past few days. consulted renal for HD, GI for possible EGD and ordered paracentesis. His mental status also declined and noted elevated ammonia level. He was transfused total 3 units PRBC, started on lactulose, received HD per renal, paracentesis drained 4L ascitic fluid. BP improved with midodrine. EGD showed grade 2 esophageal varices. FFP and platelets given for coagulopathy. GI recommended medical Mx. Patient and his family was discussed for hospice due to advance liver failure, recurrent anemia and ascitis. But patient refused. He was then discharged home with selfcare in stable condition. Abdominal US: Moderate to severe ascitis Discharge Diagnosis and management: / Encephalopathy, hepatic - had elevated ammonia level. placed on lactulose - mental status improved, ammonia level trended down /GI bleed with melana - hb dropped to 5.5, transfused total three units PRBC, - consulted GI, has h/o esophageal varices - Placed on PPI IV BID, s/p EGD showed grade 2 esophageal varices /ESRD (end stage renal disease) on dialysis Nephrology consulted in ED, dialysis as per renal team. /Hypotension - likely from GI bleed and chronic LD - started on midodrine, cont to monitor /Ascites IR consulted for Paracentesis - s/p 4l fluid drained on 12/05/18, further Mx outpt per IR /Alcoholic hepatic Cirrhosis Secondary to ESRD, supportive care, monitored LFT, / Thrombocytopenia, from LD s/p Platelet transfusion, goal platelet count above 20K. / Hyponatremia likely from hypervolumia fluid restriction, monitored BMP. /Coagulopathy, likely from alcoholic liver disease s/p one unit FFP, cont to monitor / DVT prophylaxis SCD to BLE while in bed, Disposition: Daughter wated home hospice, CM notified, but patient refused hospice. d/c home with self care. Disposition: TO HOME OR SELFCARE Time spent for discharge: 34 minutes Core Measure Documentation - Palliative Care Palliative Care/ Comfort Measures: Not Applicable (Patient denied hospice) - Core Measures Any of the following diagnoses?: none Exam - Physical Exam Narrative exam: General appearance: Present: no distress - EENT Eyes: Present: PERRL ENT: hearing intact, clear oral mucosa - Neck Neck: Present: supple, normal ROM, masses or JVD - Respiratory Respiratory effort: normal Respiratory: bilateral: diminished, rhonchi - Cardiovascular Heart Sounds: Present: S1 & S2. Absent: rub, click - Extremities Extremities: pulses symmetrical Extremity abnormal: edema Peripheral Pulses: within normal limits - Abdominal General gastrointestinal: Present: non-tender, mildly distended, normal bowel sounds. Male genitourinary: Present: normal - Integumentary Integumentary: Present: clear, warm, dry - Musculoskeletal Musculoskeletal: gait normal, strength equal bilaterally - Psychiatric Psychiatric: appropriate mood/affect, intact judgment & insight - Neurologic Neurologic: CNII-XII intact, moves all extremities - Constitutional Vitals: Temp Pulse Resp BP Pulse Ox 98.4 F 93 H 20 90/38 93 12/07/18 05:06 12/07/18 05:06 12/07/18 05:06 12/07/18 05:06 12/07/18 05:06 Plan Activity: fall precautions Weight Bearing Status: Non-Weight Bearing Diet: low fat Follow up with: DOC LINARES MD [Primary Care Provider] - 3-5 Days ROB KILGORE MD [Staff Physician] - 7 Days Prescriptions: Sucralfate [Carafate] 1 gm PO ACHS #60 tablet Lactulose [Cephulac] 30 ml PO Q12HR 30 Days oral.liqd Folic Acid [Folvite] 1 mg PO QDAY #30 tablet Multivitamin Tab [Multiple Vitamin TAB (Theragran)] 1 each PO QDAY #30 tablet Midodrine [Proamatine] 10 mg PO TID #90 tablet Pantoprazole [Protonix TAB] 40 mg PO BID #60 tablet Thiamine [Vitamin B-1] 100 mg PO QDAY #30 tablet Rifaximin [Xifaxan] 550 mg PO BID #60 tablet
[2018-12-07] MEDS: PROTONIX IV SCH (10:19)
--- NOTE | 2018-12-07 11:27 | Gastroenterology Progress Note ---
<KAEL RAMSEY - Last Filed: 12/07/18 11:27> Assessment and Plan 1.anemia 2.melena 3.H/o PUD 4.alcoholic cirrhosis 5.H/o esophageal varices 6.ESRD on HD -afebrile -WBC WNL (7.4) -plt 71, INR 1.77 -INR 1.77 -T.sidney 7.50, AST 40, ALT 17, alk phos 79 on 12/04 -ammonia WNL (46) on admission -H/H 8.4/23.5-s/p transfusion PRBCs -continue to monitor H/H and transfuse as needed -patient has a hx of decompensated cirrhosis with ascites, hepatic encephalopathy, and esophageal varices -EGD 2016 showed grade II varices, antral ulcer with multiple other small ulcerations, and duodenal bulb ulcer -s/p repeat EGD yesterday that showed grade 2 distal esophageal varices (banded x 3; no stigmata of bleeding) and 5 cm hiatal hernia -clinically, patient is stable but noted to be confused this am (oriented to person only). No evidence of abd pain or N/V. Abdomen remains distended (ascites). No active signs of bleeding overnight or this am per nursing. -ascites-s/p paracentesis 12/04 with 4L removed; repeat LVP pending -resume aldactone if okay with nephrology -encephalopathy- will order ammonia level-resume lactulose (titrate to goal of BM x 2-3/day) -start on xifaxan -continue PPI and MVI -consider resuming home propanalol when BP stable -continue to trend labs and supportive care (CMP and INR in am) -continue alcohol cessation -electrolyte management per primary team -will follow Subjective Date of service: 12/07/18 Principal diagnosis: GI bleed Interval history: Patient resting in bed this am w/o acute distress but noted to be confused and oriented to person only. No evidence of abd pain or N/V. No active signs of ble eding overnight or this am per nursing. Objective - Constitutional Vitals: Temp Pulse Resp BP Pulse Ox 98.4 F 93 H 20 90/38 93 12/07/18 05:06 12/07/18 05:06 12/07/18 05:06 12/07/18 05:06 12/07/18 05:06 General appearance: no acute distress, other (confused) - Respiratory Respiratory: bilateral: CTA (anterior) - Cardiovascular Rhythm: regular - Gastrointestinal General gastrointestinal: Present: soft, non-tender, distended (mildly), normal bowel sounds - Neurologic Neurological: oriented to person - Labs CBC & Chem 7: 12/07/18 07:44 12/07/18 07:44 Labs: Laboratory Results - last 24 hr 12/05/18 12/06/18 12/07/18 05:19 14:47 05:08 WBC RBC Hgb Hct MCV MCH MCHC RDW Plt Count Lymph % (Auto) Bracken % (Auto) Eos % (Auto) Baso % (Auto) Lymph # Bracken # Eos # Baso # Seg Neutrophils % Seg Neutrophils # PT INR Sodium 130 L Potassium 3.3 L Chloride 95.8 L Carbon Dioxide 25 Anion Gap 13 BUN 28 H Creatinine 6.5 H Estimated GFR 11 BUN/Creatinine Ratio 4 Glucose 81 POC Glucose 83 Calcium 7.7 L Crossmatch See Detail 12/07/18 12/07/18 12/07/18 07:44 07:44 07:44 WBC 7.4 RBC 2.42 L Hgb 8.4 L Hct 23.5 L MCV 97 H MCH 35 H MCHC 36 H RDW 19.8 H Plt Count 71 L Lymph % (Auto) 21.3 Bracken % (Auto) 15.9 H Eos % (Auto) 1.0 Baso % (Auto) 0.6 Lymph # 1.6 Bracken # 1.2 H Eos # 0.1 Baso # 0.0 Seg Neutrophils % 61.2 Seg Neutrophils # 4.5 PT 21.8 H INR 1.77 H Sodium 129 L Potassium 3.3 L Chloride 93.3 L Carbon Dioxide 27 Anion Gap 12 BUN 29 H Creatinine 6.9 H Estimated GFR 10 BUN/Creatinine Ratio 4 Glucose 79 POC Glucose Calcium 7.7 L Crossmatch <LOGAN PAULSON - Last Filed: 12/07/18 15:04> Assessment and Plan Pt awake and alert. Denies discomfort. Daughter in room. She states he has no appetite, and is not eating. Of note, [place] [facility] [place] and was getting paracentesis on a qod basis, per my conversation with Dr. Valladares. Refractory ascites is a poor prognostic sign, foreign with dialysis ongoing as well. Discussed options with daughter. Offered to refer to Liver Transplant center, as best option would be Liver/Kidney transplant, but pt is a poor candidate. Discussed need for better nutrition, and possible use of Marinol or other appetite stimulant. Alternatively, Hospice care is a reasonable option as well. Discussed with Dr. Sher. Will sign off. Thanks. Objective - Constitutional Vitals: Temp Pulse Resp BP Pulse Ox 98.1 F 95 H 14 92/54 97 12/07/18 11:32 12/07/18 11:32 12/07/18 11:32 12/07/18 11:32 12/07/18 11:32 - Labs CBC & Chem 7: 12/07/18 07:44 12/07/18 07:44 Labs: Laboratory Results - last 24 hr 12/07/18 12/07/18 12/07/18 05:08 07:44 07:44 WBC 7.4 RBC 2.42 L Hgb 8.4 L Hct 23.5 L MCV 97 H MCH 35 H MCHC 36 H RDW 19.8 H Plt Count 71 L Lymph % (Auto) 21.3 Bracken % (Auto) 15.9 H Eos % (Auto) 1.0 Baso % (Auto) 0.6 Lymph # 1.6 Bracken # 1.2 H Eos # 0.1 Baso # 0.0 Seg Neutrophils % 61.2 Seg Neutrophils # 4.5 PT INR Sodium 130 L 129 L Potassium 3.3 L 3.3 L Chloride 95.8 L 93.3 L Carbon Dioxide 25 27 Anion Gap 13 12 BUN 28 H 29 H Creatinine 6.5 H 6.9 H Estimated GFR 11 10 BUN/Creatinine Ratio 4 4 Glucose 81 79 Calcium 7.7 L 7.7 L 12/07/18 07:44 WBC RBC Hgb Hct MCV MCH MCHC RDW Plt Count Lymph % (Auto) Bracken % (Auto) Eos % (Auto) Baso % (Auto) Lymph # Bracken # Eos # Baso # Seg Neutrophils % Seg Neutrophils # PT 21.8 H INR 1.77 H Sodium Potassium Chloride Carbon Dioxide Anion Gap BUN Creatinine Estimated GFR BUN/Creatinine Ratio Glucose Calcium
[2018-12-07] MEDS: ALDACTONE PO SCH (11:48)
[2018-12-07] MEDS: CEPHULAC PO SCH (11:49)
[2018-12-07] MEDS: XIFAXAN PO SCH ×2 (13:16→21:22)
--- NOTE | 2018-12-07 15:18 | Event Note ---
Date: 12/07/18 Okay to discharge from an IR standpoint. The patient will be scheduled next week as an outpatient for paracentesis.
[2018-12-07 15:39] LABS: Hematocrit 26.4 % (35.5-45.6); Hemoglobin 9.1 gm/dl (11.8-15.2)
[2018-12-08 04:54] LABS: Basophils % (Auto) 0.5 % (0.0-1.8); Eosinophils # (Auto) 0.1 K/mm3 (0.0-0.4); Eosinophils % (Auto) 1.4 % (0.0-4.3); Hematocrit 24.3 % (35.5-45.6); Hemoglobin 8.5 gm/dl (11.8-15.2); Lymphocytes # (Auto) 1.9 K/mm3 (1.2-5.4); Lymphocytes % (Auto) 21.2 % (13.4-35.0); Mean Corpuscular HGB Conc 35 % (32-34); Mean Corpuscular Volume 99 fl (84-94); Monocytes # (Auto) 1.3 K/mm3 (0.0-0.8); Monocytes % (Auto) 14.8 % (0.0-7.3); Red Blood Count 2.46 M/mm3 (3.65-5.03)
[2018-12-08 04:55] LABS: Platelet Count 81 K/mm3 (140-440)
[2018-12-08 04:58] LABS: INR 1.85 (0.87-1.13)
[2018-12-08 05:11] LABS: Albumin 1.6 g/dL (3.9-5); Calcium 8.1 mg/dL (8.4-10.2)
[2018-12-08] MEDS: PROAMATINE PO SCH ×2 (08:11→15:18)
[2018-12-08] MEDS: CARAFATE PO SCH ×2 (08:11→12:55)
[2018-12-08] MEDS ORDERED: PROTONIX PO SCH (10:00)
[2018-12-08] MEDS ORDERED: PROTONIX IV SCH (10:00)
--- NOTE | 2018-12-08 12:41 | Progress Note ---
Assessment and Plan / Encephalopathy, hepatic - elevated ammonia level. placed on lactulose /GI bleed with melana - hb dropped to 5.5, transfused total three units PRBC, - consulted GI, has h/o esophageal varices - Placed on PPI IV BID, s/p EGD showed grade 2 esophageal varices /ESRD (end stage renal disease) on dialysis Nephrology consulted in ED, dialysis as per renal team. /Hypotension - likely from GI bleed and chronic LD - started on midodrine, cont to monitor /Ascites IR consulted for Paracentesis - s/p 4l fluid drained on 12/05/18, ordered another paracentesis today /Alcoholic hepatic Cirrhosis Secondary to ESRD, supportive care, monitor LFT, / Thrombocytopenia, from LD s/p Platelet transfusion, goal platelet count above 20K. / Hyponatremia likely from hypervolumia fluid restriction overnight, monitor BMP. /Coagulopathy, likely from alcoholic liver disease s/p one unit FFP, cont to monitor / DVT prophylaxis SCD to BLE while in bed, Disposition: home hospice, CM notified Brief history: Patient is a 63 y/o male with PMH of ETOH abuse, alcoholic cirrhosis, hepatic encephalopathy, and ESRD on HD who was brought from dialysis to ED for further evaluation of hypotension. Upon admission, he was found to have abdominal distension (ascites), and thrombocytopenia (plt count 12), H/H this am (5.5/15.7). Patient in 2017 had GI bleed/anemia with undergoing an EGD at that time that revealed PUD and varices (grade II). He reported black stool for the past few days. consulted renal for HD, GI for possible EGD and ordered paracentesis. Abdominal US: Moderate to severe ascitis Subjective Date of service: 12/07/18 Principal diagnosis: GI bleed Interval history: Patient seen and examined. Medical records and medication list reviewed. No acute event overnight noted by the RN. appears more lethargic today Discussed with daughter, she wants patient with hopsice Objective - Exam Narrative Exam: General appearance: Present: no distress - EENT Eyes: Present: PERRL ENT: hearing intact, clear oral mucosa - Neck Neck: Present: supple, normal ROM, masses or JVD - Respiratory Respiratory effort: normal Respiratory: bilateral: diminished, rhonchi - Cardiovascular Heart Sounds: Present: S1 & S2. Absent: rub, click - Extremities Extremities: pulses symmetrical Extremity abnormal: edema Peripheral Pulses: within normal limits - Abdominal General gastrointestinal: Present: non-tender, distended, normal bowel sounds. hypoactive bowel sounds, Male genitourinary: Present: normal - Integumentary Integumentary: Present: clear, warm, dry - Musculoskeletal Musculoskeletal: gait normal, strength equal bilaterally - Psychiatric Psychiatric: cooperative, appears lethargic - Neurologic Neurologic: CNII-XII intact, moves all extremities - Constitutional Vitals: Vital Signs - 12hr 12/08/18 12/08/18 12/08/18 08:35 08:47 09:00 Temperature 98.3 F Pulse Rate 85 84 84 Respiratory 20 Rate Blood Pressure 103/62 106/65 105/68 12/08/18 12/08/18 12/08/18 09:15 09:30 09:45 Temperature Pulse Rate 84 89 82 Respiratory Rate Blood Pressure 104/64 99/64 105/67 12/08/18 12/08/18 12/08/18 10:00 10:15 10:30 Temperature Pulse Rate 82 88 87 Respiratory Rate Blood Pressure 109/70 105/70 106/69 12/08/18 12/08/18 12/08/18 10:45 11:00 11:15 Temperature Pulse Rate 88 89 90 Respiratory Rate Blood Pressure 103/70 103/70 108/69 12/08/18 11:30 Temperature Pulse Rate 91 H Respiratory Rate Blood Pressure 103/64 - Labs CBC & Chem 7: 12/08/18 04:22 12/08/18 04:22 Labs: Abnormal lab results 12/07/18 12/07/18 12/08/18 Range/Units 15:20 15:20 04:22 RBC 2.46 L (3.65-5.03) M/mm3 Hgb 9.1 L 8.5 L (11.8-15.2) gm/dl Hct 26.4 L 24.3 L (35.5-45.6) % MCV 99 H (84-94) fl MCH 35 H (28-32) pg MCHC 35 H (32-34) % RDW 20.0 H (13.2-15.2) % Plt Count 81 L (140-440) K/mm3 Hayes % (Auto) 14.8 H (0.0-7.3) % Hayes # 1.3 H (0.0-0.8) K/mm3 PT (12.2-14.9) Sec. INR (0.87-1.13) Sodium (137-145) mmol/L Potassium (3.6-5.0) mmol/L Chloride (98-107) mmol/L BUN (9-20) mg/dL Creatinine (0.8-1.5) mg/dL Calcium (8.4-10.2) mg/dL Total Bilirubin (0.1-1.2) mg/dL Ammonia 158.0 H (25-60) umol/L Total Protein (6.3-8.2) g/dL Albumin (3.9-5) g/dL 12/08/18 12/08/18 Range/Units 04:22 04:22 RBC (3.65-5.03) M/mm3 Hgb (11.8-15.2) gm/dl Hct (35.5-45.6) % MCV (84-94) fl MCH (28-32) pg MCHC (32-34) % RDW (13.2-15.2) % Plt Count (140-440) K/mm3 Hayes % (Auto) (0.0-7.3) % Hayes # (0.0-0.8) K/mm3 PT 22.6 H (12.2-14.9) Sec. INR 1.85 H (0.87-1.13) Sodium 128 L (137-145) mmol/L Potassium 3.5 L (3.6-5.0) mmol/L Chloride 91.2 L (98-107) mmol/L BUN 33 H (9-20) mg/dL Creatinine 8.3 H (0.8-1.5) mg/dL Calcium 8.1 L (8.4-10.2) mg/dL Total Bilirubin 4.20 H (0.1-1.2) mg/dL Ammonia (25-60) umol/L Total Protein 5.8 L (6.3-8.2) g/dL Albumin 1.6 L (3.9-5) g/dL
--- NOTE | 2018-12-08 12:43 | Progress Note ---
Assessment and Plan / Encephalopathy, hepatic - elevated ammonia level. placed on lactulose /GI bleed with melana - hb dropped to 5.5, transfused total three units PRBC, - consulted GI, has h/o esophageal varices - Placed on PPI IV BID, s/p EGD showed grade 2 esophageal varices /ESRD (end stage renal disease) on dialysis Nephrology consulted in ED, dialysis as per renal team. /Hypotension - likely from GI bleed and chronic LD - started on midodrine, cont to monitor /Ascites IR consulted for Paracentesis - s/p 4l fluid drained on 12/05/18, further Mx outpt per IR /Alcoholic hepatic Cirrhosis Secondary to ESRD, supportive care, monitor LFT, / Thrombocytopenia, from LD s/p Platelet transfusion, goal platelet count above 20K. / Hyponatremia likely from hypervolumia fluid restriction overnight, monitor BMP. /Coagulopathy, likely from alcoholic liver disease s/p one unit FFP, cont to monitor / DVT prophylaxis SCD to BLE while in bed, Disposition: home hospice, CM notified - likely will be set up on Monday Brief history: Patient is a 63 y/o male with PMH of ETOH abuse, alcoholic cirrhosis, hepatic encephalopathy, and ESRD on HD who was brought from dialysis to ED for further evaluation of hypotension. Upon admission, he was found to have abdominal distension (ascites), and thrombocytopenia (plt count 12), H/H this am (5.5/15.7). Patient in 2017 had GI bleed/anemia with undergoing an EGD at that time that revealed PUD and varices (grade II). He reported black stool for the past few days. consulted renal for HD, GI for possible EGD and ordered paracentesis. Abdominal US: Moderate to severe ascitis Subjective Date of service: 12/08/18 Principal diagnosis: GI bleed Objective - Constitutional Vitals: Vital Signs - 12hr 12/08/18 12/08/18 12/08/18 08:35 08:47 09:00 Temperature 98.3 F Pulse Rate 85 84 84 Respiratory 20 Rate Blood Pressure 103/62 106/65 105/68 12/08/18 12/08/18 12/08/18 09:15 09:30 09:45 Temperature Pulse Rate 84 89 82 Respiratory Rate Blood Pressure 104/64 99/64 105/67 12/08/18 12/08/18 12/08/18 10:00 10:15 10:30 Temperature Pulse Rate 82 88 87 Respiratory Rate Blood Pressure 109/70 105/70 106/69 12/08/18 12/08/18 12/08/18 10:45 11:00 11:15 Temperature Pulse Rate 88 89 90 Respiratory Rate Blood Pressure 103/70 103/70 108/69 12/08/18 11:30 Temperature Pulse Rate 91 H Respiratory Rate Blood Pressure 103/64 - Labs CBC & Chem 7: 12/08/18 04:22 12/08/18 04:22 Labs: Abnormal lab results 12/07/18 12/07/18 12/08/18 Range/Units 15:20 15:20 04:22 RBC 2.46 L (3.65-5.03) M/mm3 Hgb 9.1 L 8.5 L (11.8-15.2) gm/dl Hct 26.4 L 24.3 L (35.5-45.6) % MCV 99 H (84-94) fl MCH 35 H (28-32) pg MCHC 35 H (32-34) % RDW 20.0 H (13.2-15.2) % Plt Count 81 L (140-440) K/mm3 Bureau % (Auto) 14.8 H (0.0-7.3) % Bureau # 1.3 H (0.0-0.8) K/mm3 PT (12.2-14.9) Sec. INR (0.87-1.13) Sodium (137-145) mmol/L Potassium (3.6-5.0) mmol/L Chloride (98-107) mmol/L BUN (9-20) mg/dL Creatinine (0.8-1.5) mg/dL Calcium (8.4-10.2) mg/dL Total Bilirubin (0.1-1.2) mg/dL Ammonia 158.0 H (25-60) umol/L Total Protein (6.3-8.2) g/dL Albumin (3.9-5) g/dL 12/08/18 12/08/18 Range/Units 04:22 04:22 RBC (3.65-5.03) M/mm3 Hgb (11.8-15.2) gm/dl Hct (35.5-45.6) % MCV (84-94) fl MCH (28-32) pg MCHC (32-34) % RDW (13.2-15.2) % Plt Count (140-440) K/mm3 Bureau % (Auto) (0.0-7.3) % Bureau # (0.0-0.8) K/mm3 PT 22.6 H (12.2-14.9) Sec. INR 1.85 H (0.87-1.13) Sodium 128 L (137-145) mmol/L Potassium 3.5 L (3.6-5.0) mmol/L Chloride 91.2 L (98-107) mmol/L BUN 33 H (9-20) mg/dL Creatinine 8.3 H (0.8-1.5) mg/dL Calcium 8.1 L (8.4-10.2) mg/dL Total Bilirubin 4.20 H (0.1-1.2) mg/dL Ammonia (25-60) umol/L Total Protein 5.8 L (6.3-8.2) g/dL Albumin 1.6 L (3.9-5) g/dL
[2018-12-08] MEDS: FOLVITE PO SCH (12:55)
[2018-12-08] MEDS: THERAGRAN Tab PO SCH (12:55)
[2018-12-08] MEDS: VITAMIN B-1 PO SCH (12:55)
[2018-12-08] MEDS: XIFAXAN PO SCH (12:55)
[2018-12-08] MEDS: ALDACTONE PO SCH (12:55)
[2018-12-08] MEDS: SODIUM CHLORIDE FLUSH SYRINGE 10 ML IV SCH (12:56)
[2018-12-08] MEDS: CEPHULAC PO SCH (12:56)
[2018-12-08] MEDS ORDERED: K-DUR PO ONE (13:00)
--- NOTE | 2018-12-08 13:39 | Progress Note ---
Assessment and Plan 1. ESRD: Continue hemodialysis three times a week, TTS schedule. 2. Hyponatremia: Limit fluid intake. Monitor. 3. Anemia: S/p PRBC. Epogen with HD. S/p EGD. 4. Alcoholic cirrhosis with ascites: S/p IR paracentesis. 5. Hypotension: Midodrine. 6. Coagulopathy. Subjective Date of service: 12/08/18 Principal diagnosis: GI bleed Interval history: Patient was seen and examined at the bedside. No new complaint. Objective - Vital Signs Vital signs: Vital Signs - 12hr 12/08/18 12/08/18 12/08/18 08:35 08:47 09:00 Temperature 98.3 F Pulse Rate 85 84 84 Respiratory 20 Rate Blood Pressure 103/62 106/65 105/68 12/08/18 12/08/18 12/08/18 09:15 09:30 09:45 Temperature Pulse Rate 84 89 82 Respiratory Rate Blood Pressure 104/64 99/64 105/67 12/08/18 12/08/18 12/08/18 10:00 10:15 10:30 Temperature Pulse Rate 82 88 87 Respiratory Rate Blood Pressure 109/70 105/70 106/69 12/08/18 12/08/18 12/08/18 10:45 11:00 11:15 Temperature Pulse Rate 88 89 90 Respiratory Rate Blood Pressure 103/70 103/70 108/69 12/08/18 12/08/18 12/08/18 11:30 11:45 12:49 Temperature Pulse Rate 91 H 92 H 93 H Respiratory Rate Blood Pressure 103/64 102/65 98/64 - General Appearance General appearance: well-developed, appears stated age, other (not in distress, R IJ tunnel catheter) EENT: ATNC, PERRL, hearing intact, vision intact Neck: supple Respiratory: Present: Clear to Ascultation Cardiology: regular, S1S2, no murmurs Gastrointestinal: normoactive bowel sounds, tenderness, distended (Ascites) Integumentary: no rash, warm and dry Neurologic: no focal deficit, no asterixis, alert and oriented x3 Musculoskeletal: other (no edema) - Lab 12/08/18 04:22 12/08/18 04:22 Most recent lab results Calcium 8.1 mg/dL (8.4-10.2) L 12/08/18 04:22 Medications & Allergies - Medications Allergies/Adverse Reactions: Allergies No Known Allergies Allergy (Verified 11/26/16 14:51) Home Medications: Home Medications Medication Instructions Recorded Confirmed Last Taken Type Folic Acid [Folvite] 1 mg PO QDAY #30 tablet 12/08/18 Unknown Rx Lactulose [Cephulac] 30 ml PO Q12HR 30 Days oral.liqd 12/08/18 Unknown Rx Midodrine [Proamatine] 10 mg PO TID #90 tablet 12/08/18 Unknown Rx Multivitamin Tab [Multiple Vitamin 1 each PO QDAY #30 tablet 12/08/18 Unknown Rx TAB (Theragran)] Pantoprazole [Protonix TAB] 40 mg PO BID #60 tablet 12/08/18 Unknown Rx Rifaximin [Xifaxan] 550 mg PO BID #60 tablet 12/08/18 Unknown Rx Sucralfate [Carafate] 1 gm PO ACHS #60 tablet 12/08/18 Unknown Rx Thiamine [Vitamin B-1] 100 mg PO QDAY #30 tablet 12/08/18 Unknown Rx Active Medications: Generic Name Dose Route Start Last Admin Trade Name Freq PRN Reason Stop Dose Admin Acetaminophen 650 mg 12/04/18 15:09 Tylenol PO Q4H PRN Pain MILD(1-3)/Fever >100.5/NASH Albumin Human 12.5 gm 12/06/18 09:33 Alburx 25% (Albumin) IV MIRANDA PRN Hypotension Albuterol 2.5 mg 12/04/18 15:09 Proventil IH Q4HRT PRN Shortness Of Breath Epoetin Kennedy 20,000 unit 12/06/18 09:33 12/08/18 12:12 Procrit SUB-Q 20,000 unit MIRANDA PRN Administration hemodialysis Folic Acid 1 mg 12/05/18 10:00 12/08/18 12:55 Folvite PO 1 mg QDAY LUBA Administration Sodium Chloride 100 mls @ 999 mls/hr 12/06/18 09:33 Nacl 0.9% IV MIRANDA PRN Hypotension Lactulose 20 gm 12/07/18 11:00 12/08/18 12:56 Cephulac PO 20 gm QDAY LUBA Administration Midodrine 10 mg 12/05/18 12:00 12/08/18 08:11 Proamatine PO 10 mg TID LUBA Administration Multivitamins 1 each 12/05/18 10:00 12/08/18 12:55 Theragran Tab PO 1 each QDAY LUBA Administration Ondansetron HCl 4 mg 12/04/18 15:09 Zofran IV Q8H PRN Nausea And Vomiting Oxycodone/Acetaminophen 1 tab 12/04/18 15:09 Percocet 5/325 PO Q6H PRN Pain, Moderate (4-6) Pantoprazole Sodium 40 mg 12/08/18 10:00 12/08/18 12:55 Protonix PO 40 mg DAILY LUBA Administration Rifaximin 550 mg 12/07/18 12:00 12/08/18 12:55 Xifaxan PO 550 mg BID LUBA Administration Sodium Chloride 10 ml 12/04/18 22:00 12/08/18 12:56 Sodium Chloride Flush Syringe 10 Ml IV 10 ml BID LUBA Administration Sodium Chloride 10 ml 12/04/18 15:09 Sodium Chloride Flush Syringe 10 Ml IV PRN PRN LINE FLUSH Spironolactone 50 mg 12/07/18 11:00 12/08/18 12:55 Aldactone PO 50 mg QDAY LUBA Administration Sucralfate 1 gm 12/05/18 11:30 12/08/18 12:55 Carafate PO 1 gm ACHS LUBA Administration Thiamine HCl 100 mg 12/05/18 10:00 12/08/18 12:55 Vitamin B-1 PO 100 mg QDAY LUBA Administration
[2018-12-08 14:09] VITALS: BP 107/62
[2018-12-08] MEDS ORDERED: NACL 0.9 (PRIMING MACHINE ONLY DIALYSIS) MC ONE (14:37)
--- NOTE | 2018-12-08 14:40 | Event Note ---
Date: 12/08/18 No significant change. For refractory ascites, options are prn paracentesis and also could consider peritoneal catheter placement for ease of drainage, though higher risk if pt has inadequate support. No further recommendations other than as noted previously.
--- NOTE | 2019-01-01 11:08 | Ultrasound Report ---
Exam: Ultrasound guided paracentesis Clinical indication: Ascites Date: 12/05/2018 Procedure: Following an explanation of the risks, benefits and alternatives; written informed consent was obtained. Patient was brought to the ultrasound suite and for quadrant ultrasound of the abdomen was performed. A moderate to large amount of ascites was identified. An appropriate access site was chosen in the left lower quadrant. The patient's left lower abdomen was prepped and draped in the usual sterile fashion. 1% lidocaine was used for anesthesia. Under ultrasound guidance, a 5 Nepali Yueh needle was advanced into the ascitic fluid. An ultrasound image was saved to document appropriate positioning. The trocar was removed and a total of 4 L of clear yellow ascitic fluid was aspirated. Samples were sent for laboratory analysis. The entire volume of ascitic fluid was not removed secondary to the patient's baseline hypotension. Yueh needle was removed and hemostasis achieved using compression. Sterile dressing was applied. The patient tolerated the procedure well. There were no immediate post procedure complications. Impression: Ultrasound guided paracentesis with 4 L of clear yellow ascitic fluid aspirated. Samples were sent for laboratory analysis.
== END 2018-12-08 16:15 | disposition home or self-care (01) | DRG 441 ==
LOC: ED 11:58 → 3A 15:09
PROVIDERS: ADMIT Internal Medicine; ATTEND Internal Medicine
PROC: 30233R1 Transfusion of Nonautologous Platelets into Peripheral Vein, Percutaneous Approach (ICD-10-PCS; 2018-12-05)
PROC: 30233N1 Transfusion of Nonautologous Red Blood Cells into Peripheral Vein, Percutaneous Approach (ICD-10-PCS; 2018-12-05)
PROC: 0W9G3ZZ Drainage of Peritoneal Cavity, Percutaneous Approach (ICD-10-PCS; 2018-12-05)
PROC: 06L38CZ Occlusion of Esophageal Vein with Extraluminal Device, Via Natural or Artificial Opening Endoscopic (ICD-10-PCS; principal; 2018-12-06)
PROC: 5A1D70Z Performance of Urinary Filtration, Intermittent, Less than 6 Hours Per Day (ICD-10-PCS; 2018-12-06)
PROC: 5A1D70Z Performance of Urinary Filtration, Intermittent, Less than 6 Hours Per Day (ICD-10-PCS; 2018-12-08)
DX: K72.90 Hepatic failure, unspecified without coma (principal); N18.6 End stage renal disease; I85.11 Secondary esophageal varices with bleeding; F10.288 Alcohol dependence with other alcohol-induced disorder; E87.1 Hypo-osmolality and hyponatremia; I12.0 Hypertensive chronic kidney disease with stage 5 chronic kidney disease or end stage renal disease; D68.4 Acquired coagulation factor deficiency; K70.31 Alcoholic cirrhosis of liver with ascites; Y90.0 Blood alcohol level of less than 20 mg/100 ml; D69.59 Other secondary thrombocytopenia; K21.9 Gastro-esophageal reflux disease without esophagitis; K44.9 Diaphragmatic hernia without obstruction or gangrene; D69.6 Thrombocytopenia, unspecified; Z99.2 Dependence on renal dialysis; Z82.49 Family history of ischemic heart disease and other diseases of the circulatory system; Z79.899 Other long term (current) drug therapy; Z87.11 Personal history of peptic ulcer disease
CPT/HCPCS: 36415; 36430; 49083; 71045; 76705; 80048; 80053; 82140; 82962; 85007; 85014; 85018; 85025; 85610; 85730; 86850; 86900; 86901; 86920; 87116; G0378; C9113; J0885; J2370; J3430; J7030; J7040; P9016; P9017; P9035

== ENCOUNTER 2018-12-24 21:02 | Inpatient (IN) | payer OTHER ==
[2018-12-24] MEDS ORDERED: NACL 0.9% 1000 ML 1,000 ML ONE (21:41)
[2018-12-24] MEDS ORDERED: NACL 0.9% 1000 ML 1,000 ML IV ONE ×2 (21:43→22:41)
[2018-12-24] MEDS ORDERED: D50W (25GM) Syringe IV ONE (22:00)
[2018-12-24] MEDS ORDERED: D50W (25GM) Vial IV ONE (22:01)
--- NOTE | 2018-12-24 22:08 | Emergency Department Report ---
- General Chief complaint: Dyspnea/Respdistress Stated complaint: DIFFICULTY IN BREATHING Time Seen by Provider: 12/24/18 21:39 Source: patient, old records reviewed Mode of arrival: Wheelchair Limitations: No Limitations - History of Present Illness Initial comments: 63-year-old male with a past medical history of alcoholic abuse, liver cirrhosis, hepatic and cephalopathy, disease on hemodialysis, ascites requiring paracentesis, thrombocytopenia, recurrent anemia secondary to GI bleed, and peptic ulcer disease and grade 3 varices presents to the hospital with complaints of generalized weakness and diminished mental status. Patient was just discharged from the hospital here December 08 after admission on December 04. At that time patient required repeated paracentesis and blood transfusion for H&H of 5.5/15.7 and a platelet count of 12. He also is treated for hepatic encephal opathy with lactulose. Hospice was offered but declined by patient. Since that time patient was readmitted to [facility] for "the same thing" and discharge 2 days ago. Patient lives at home with one of his sisters. Another sister came to check on him today and found that he was weak, confused, and had difficulty ambulating. She noted his blood pressure was low and therefore called EMS to bring him to a hospital. Patient undergoes dialysis Monday, , and Monday with last dialysis while at hospital but did not received dialysis on Monday. He denies any pain, fever, and states he has normal urine output. Patient is somewhat compliant with his medications. Patient is oriented to self, place, but states years 2012. Primary care doctor: [facility]. Patient's daughter is the primary decision maker -EGD 2016 showed grade II varices, antral ulcer with multiple other small ulcerations, and duodenal bulb ulcer -EGD 12/06/18 showed grade 2 distal esophageal varices (banded x 3; no stigmata of bleeding) and 5 cm hiatal hernia - Related Data Previous Rx's Medication Instructions Recorded Last Taken Type Folic Acid [Folvite] 1 mg PO QDAY #30 tablet 12/08/18 Unknown Rx Lactulose [Cephulac] 30 ml PO Q12HR 30 Days oral.liqd 12/08/18 Unknown Rx Midodrine [Proamatine] 10 mg PO TID #90 tablet 12/08/18 Unknown Rx Multivitamin Tab [Multiple Vitamin 1 each PO QDAY #30 tablet 12/08/18 Unknown Rx TAB (Theragran)] Pantoprazole [Protonix TAB] 40 mg PO BID #60 tablet 12/08/18 Unknown Rx Rifaximin [Xifaxan] 550 mg PO BID #60 tablet 12/08/18 Unknown Rx Sucralfate [Carafate] 1 gm PO ACHS #60 tablet 12/08/18 Unknown Rx Thiamine [Vitamin B-1] 100 mg PO QDAY #30 tablet 12/08/18 Unknown Rx Allergies Allergy/AdvReac Type Severity Reaction Status Date / Time No Known Allergies Allergy Verified 11/26/16 14:51 ED Review of Systems ROS: Stated complaint: DIFFICULTY IN BREATHING Other details as noted in HPI Comment: All other systems reviewed and negative ED Past Medical Hx - Past Medical History Hx Hypertension: Yes Hx Heart Attack/AMI: No Hx Congestive Heart Failure: No Hx Diabetes: No Hx Deep Vein Thrombosis: No Hx Pulmonary Embolism: No Hx GERD: Yes Hx Liver Disease: Yes (h/o ascitis, s/p paracentesis x 2 (2013)) Hx Renal Disease: Yes Hx Sickle Cell Disease: No Hx Arthritis: No Hx Headaches / Migraines: No Hx Seizures: No Hx Kidney Stones: No (ESRD) Hx Asthma: No Hx COPD: No Hx Tuberculosis: No Hx Dementia: No Hx HIV: No Additional medical history: ulcers. esophagus "swells up into little knots". diverticulitis - Surgical History Hx Coronary Stent: No Hx Open Heart Surgery: No Hx Pacemaker: No Hx Internal Defibrillator: No Hx Cholecystectomy: No Hx Appendectomy: No Hx Breast Surgery: No Additional Surgical History: paracentesis - Social History Smoking Status: Never Smoker - Medications Home Medications: Home Medications Medication Instructions Recorded Confirmed Last Taken Type Folic Acid [Folvite] 1 mg PO QDAY #30 tablet 12/08/18 Unknown Rx Lactulose [Cephulac] 30 ml PO Q12HR 30 Days oral.liqd 12/08/18 Unknown Rx Midodrine [Proamatine] 10 mg PO TID #90 tablet 12/08/18 Unknown Rx Multivitamin Tab [Multiple Vitamin 1 each PO QDAY #30 tablet 12/08/18 Unknown Rx TAB (Theragran)] Pantoprazole [Protonix TAB] 40 mg PO BID #60 tablet 12/08/18 Unknown Rx Rifaximin [Xifaxan] 550 mg PO BID #60 tablet 12/08/18 Unknown Rx Sucralfate [Carafate] 1 gm PO ACHS #60 tablet 12/08/18 Unknown Rx Thiamine [Vitamin B-1] 100 mg PO QDAY #30 tablet 12/08/18 Unknown Rx ED Physical Exam - General Limitations: No Limitations - Other Other exam information: General: No limitations, patient is alert in no acute distress Head exam: Atraumatic, normocephalic Eyes exam: Normal appearance ENT: Moist mucous membrane, normal oropharynx Neck exam: Normal inspection, full range of motion, no meningismus nontender Respiratory exam: Clear to auscultation bilateral, no wheezes, rales, crackles Cardiovascular: Normal rate and rhythm, right upper chest wall dialysis catheter Abdomen: Soft, nondistended, ascites, nontender, normal bowel sounds, no rebound or guarding. Rectal: Guaic positive stool brown in color, no melena Extremity: Full range of motion, 1-2+ pitting lower extremity edema. No leg asymmetry, or calf tenderness Back: Normal Inspection, full range of motion, no tenderness Neurologic: Alert, oriented x2, cranial nerves intact, no motor or sensory deficit Psychiatric: normal affect, normal mood Skin: Warm, dry, intact ED Course Vital Signs 12/24/18 12/24/18 12/24/18 21:16 21:20 21:25 Temperature Pulse Rate 102 H 104 H 104 H Respiratory 33 H 30 H 33 H Rate Blood Pressure 220/177 236/157 Blood Pressure [Right] O2 Sat by Pulse 96 Oximetry 12/24/18 12/24/18 12/24/18 21:30 21:35 21:41 Temperature Pulse Rate 103 H 102 H 104 H Respiratory 33 H 36 H 33 H Rate Blood Pressure 75/39 77/45 74/38 Blood Pressure [Right] O2 Sat by Pulse 100 Oximetry 12/24/18 12/24/18 12/24/18 21:45 21:51 21:55 Temperature Pulse Rate 102 H 103 H 104 H Respiratory 34 H 19 33 H Rate Blood Pressure 75/43 81/41 86/45 Blood Pressure [Right] O2 Sat by Pulse 48 L Oximetry 12/24/18 12/24/18 12/24/18 22:01 22:05 22:10 Temperature Pulse Rate 105 H 104 H 103 H Respiratory 29 H 23 24 Rate Blood Pressure 118/95 86/45 78/45 Blood Pressure [Right] O2 Sat by Pulse 89 94 Oximetry 12/24/18 12/24/18 12/24/18 22:15 22:20 22:25 Temperature Pulse Rate 102 H 105 H 105 H Respiratory 29 H 26 H 28 H Rate Blood Pressure 90/45 93/50 93/48 Blood Pressure [Right] O2 Sat by Pulse 100 98 99 Oximetry 12/24/18 12/24/18 12/24/18 22:30 22:35 22:40 Temperature Pulse Rate 104 H 101 H 103 H Respiratory 31 H 35 H 33 H Rate Blood Pressure 81/44 70/41 76/40 Blood Pressure [Right] O2 Sat by Pulse 97 95 96 Oximetry 12/24/18 12/24/18 12/24/18 22:45 22:50 22:53 Temperature Pulse Rate 105 H 107 H 109 H Respiratory 33 H 32 H 30 H Rate Blood Pressure 83/45 88/38 88/38 Blood Pressure [Right] O2 Sat by Pulse 96 94 94 Oximetry 12/24/18 12/24/18 12/24/18 22:55 23:00 23:04 Temperature 97 F L Pulse Rate 109 H 107 H 106 H Respiratory 29 H 31 H 28 H Rate Blood Pressure 93/54 95/51 Blood Pressure 95/51 [Right] O2 Sat by Pulse 95 97 98 Oximetry 12/24/18 12/24/18 12/24/18 23:05 23:10 23:15 Temperature Pulse Rate 104 H 106 H 103 H Respiratory 31 H 31 H 30 H Rate Blood Pressure 90/45 94/44 90/49 Blood Pressure [Right] O2 Sat by Pulse 97 96 96 Oximetry 12/24/18 12/24/18 12/24/18 23:20 23:25 23:30 Temperature Pulse Rate 104 H 104 H 105 H Respiratory 30 H 28 H 27 H Rate Blood Pressure 92/46 86/42 96/47 Blood Pressure [Right] O2 Sat by Pulse 96 95 93 Oximetry 12/24/18 12/24/18 12/24/18 23:35 23:41 23:45 Temperature Pulse Rate 108 H 103 H 104 H Respiratory 20 27 H 23 Rate Blood Pressure 96/47 73/41 76/49 Blood Pressure [Right] O2 Sat by Pulse 90 93 93 Oximetry 12/24/18 12/24/18 12/25/18 23:50 23:55 00:01 Temperature Pulse Rate 105 H 105 H 121 H Respiratory 26 H 27 H 29 H Rate Blood Pressure 78/51 67/44 91/46 Blood Pressure [Right] O2 Sat by Pulse 91 90 89 Oximetry 12/25/18 12/25/18 12/25/18 00:05 00:10 00:15 Temperature Pulse Rate 121 H 121 H 122 H Respiratory 28 H 29 H 28 H Rate Blood Pressure 96/56 88/47 86/40 Blood Pressure [Right] O2 Sat by Pulse 93 88 87 Oximetry 12/25/18 12/25/18 12/25/18 00:20 00:25 00:30 Temperature Pulse Rate 124 H 123 H 117 H Respiratory 29 H 28 H 29 H Rate Blood Pressure 86/43 87/50 76/43 Blood Pressure [Right] O2 Sat by Pulse 88 89 83 L Oximetry 12/25/18 12/25/18 12/25/18 00:35 00:40 00:45 Temperature Pulse Rate 105 H 105 H 107 H Respiratory 30 H 29 H 28 H Rate Blood Pressure 71/42 65/30 75/46 Blood Pressure [Right] O2 Sat by Pulse 86 85 84 Oximetry 12/25/18 12/25/18 12/25/18 00:50 00:55 01:00 Temperature Pulse Rate 106 H 107 H 106 H Respiratory 30 H 26 H 27 H Rate Blood Pressure 73/40 76/42 82/44 Blood Pressure [Right] O2 Sat by Pulse 86 84 92 Oximetry 12/25/18 12/25/18 12/25/18 01:05 01:10 01:15 Temperature Pulse Rate 107 H 105 H 107 H Respiratory 28 H 27 H 33 H Rate Blood Pressure 91/45 81/36 71/41 Blood Pressure [Right] O2 Sat by Pulse 92 92 93 Oximetry 12/25/18 12/25/18 12/25/18 01:20 01:25 01:30 Temperature Pulse Rate 106 H 105 H 106 H Respiratory 32 H 33 H 29 H Rate Blood Pressure 81/42 69/40 73/41 Blood Pressure [Right] O2 Sat by Pulse 93 94 93 Oximetry 12/25/18 12/25/18 01:35 01:40 Temperature Pulse Rate 103 H 103 H Respiratory 20 29 H Rate Blood Pressure 74/44 68/41 Blood Pressure [Right] O2 Sat by Pulse 92 95 Oximetry - Reevaluation(s) Reevaluation #1: 12/24/18 23:36 pt had elise hematemesis at this time. GI called. PPI and octreotide ordered - Consultations Consultation #1: 12/24/18 23:53 case d/w Dr. Kapoor GI continuous churn buttermaker. He will review chart and determine if emergent endoscopy is needed rec to be be reinformed if recurrent hematemesis 12/25/18 00:19 Pt has second episode of hematemesis. Dr Kaporo will come in to scope pt tonight. Consultation #2: 12/25/18 00:08 case d/w Dr Horta nephrology ED Medical Decision Making - Lab Data Result diagrams: 12/25/18 07:10 12/25/18 07:10 Lab Results 12/24/18 12/24/18 12/24/18 Range/Units 21:53 21:53 21:53 WBC 4.1 L (4.5-11.0) K/mm3 RBC 2.29 L (3.65-5.03) M/mm3 Hgb 8.2 L (11.8-15.2) gm/dl Hct 23.9 L (35.5-45.6) % MCV 104 H (84-94) fl MCH 36 H (28-32) pg MCHC 34 (32-34) % RDW 23.7 H (13.2-15.2) % Plt Count 49 L (140-440) K/mm3 Seg Neutrophils % Macroeconomics Professor PT (12.2-14.9) Sec. INR (0.87-1.13) APTT (24.2-36.6) Sec. VBG pH (7.320-7.420) Sodium 127 L (137-145) mmol/L Potassium 3.7 (3.6-5.0) mmol/L Chloride 91.3 L (98-107) mmol/L Carbon Dioxide 11 L (22-30) mmol/L Anion Gap 28 mmol/L BUN 56 H (9-20) mg/dL Creatinine 11.0 H (0.8-1.5) mg/dL Estimated GFR 6 ml/min BUN/Creatinine Ratio 5 % Glucose 59 L (75-100) mg/dL POC Glucose (70-105) Lactic Acid (0.7-2.0) mmol/L Calcium 7.7 L (8.4-10.2) mg/dL Magnesium (1.7-2.3) mg/dL Total Bilirubin 3.10 H (0.1-1.2) mg/dL AST 26 (5-40) units/L ALT 14 (7-56) units/L Alkaline Phosphatase 109 (35-129) units/L Ammonia 217.0 H (25-60) umol/L Total Creatine Kinase (55-170) units/L CK-MB (CK-2) (0.0-4.0) ng/mL CK-MB (CK-2) Rel Index (0-4) Troponin T (0.00-0.029) ng/mL NT-Pro-B Natriuret Pep 3036 H (0-900) pg/mL Total Protein 5.7 L (6.3-8.2) g/dL Albumin 1.5 L (3.9-5) g/dL Albumin/Globulin Ratio 0.4 % Blood Type Antibody Screen Antibody Identification 12/24/18 12/24/18 12/24/18 Range/Units 21:53 21:53 21:53 WBC (4.5-11.0) K/mm3 RBC (3.65-5.03) M/mm3 Hgb (11.8-15.2) gm/dl Hct (35.5-45.6) % MCV (84-94) fl MCH (28-32) pg MCHC (32-34) % RDW (13.2-15.2) % Plt Count (140-440) K/mm3 Seg Neutrophils % PT (12.2-14.9) Sec. INR (0.87-1.13) APTT (24.2-36.6) Sec. VBG pH (7.320-7.420) Sodium (137-145) mmol/L Potassium (3.6-5.0) mmol/L Chloride (98-107) mmol/L Carbon Dioxide (22-30) mmol/L Anion Gap mmol/L BUN (9-20) mg/dL Creatinine (0.8-1.5) mg/dL Estimated GFR ml/min BUN/Creatinine Ratio % Glucose (75-100) mg/dL POC Glucose (70-105) Lactic Acid 11.70 H* (0.7-2.0) mmol/L Calcium (8.4-10.2) mg/dL Magnesium (1.7-2.3) mg/dL Total Bilirubin (0.1-1.2) mg/dL AST (5-40) units/L ALT (7-56) units/L Alkaline Phosphatase (35-129) units/L Ammonia (25-60) umol/L Total Creatine Kinase 36 L (55-170) units/L CK-MB (CK-2) 1.7 (0.0-4.0) ng/mL CK-MB (CK-2) Rel Index 4.7 H (0-4) Troponin T < 0.010 (0.00-0.029) ng/mL NT-Pro-B Natriuret Pep (0-900) pg/mL Total Protein (6.3-8.2) g/dL Albumin (3.9-5) g/dL Albumin/Globulin Ratio % Blood Type O POSITIVE Antibody Screen Negative Antibody Identification Not Reportable 12/24/18 12/24/18 12/24/18 Range/Units 22:06 22:11 22:12 WBC (4.5-11.0) K/mm3 RBC (3.65-5.03) M/mm3 Hgb (11.8-15.2) gm/dl Hct (35.5-45.6) % MCV (84-94) fl MCH (28-32) pg MCHC (32-34) % RDW (13.2-15.2) % Plt Count (140-440) K/mm3 Seg Neutrophils % PT 13.7 (12.2-14.9) Sec. INR 0.99 (0.87-1.13) APTT 67.2 H* (24.2-36.6) Sec. VBG pH 7.313 L (7.320-7.420) Sodium (137-145) mmol/L Potassium (3.6-5.0) mmol/L Chloride (98-107) mmol/L Carbon Dioxide (22-30) mmol/L Anion Gap mmol/L BUN (9-20) mg/dL Creatinine (0.8-1.5) mg/dL Estimated GFR ml/min BUN/Creatinine Ratio % Glucose (75-100) mg/dL POC Glucose 53 L (70-105) Lactic Acid (0.7-2.0) mmol/L Calcium (8.4-10.2) mg/dL Magnesium (1.7-2.3) mg/dL Total Bilirubin (0.1-1.2) mg/dL AST (5-40) units/L ALT (7-56) units/L Alkaline Phosphatase (35-129) units/L Ammonia (25-60) umol/L Total Creatine Kinase (55-170) units/L CK-MB (CK-2) (0.0-4.0) ng/mL CK-MB (CK-2) Rel Index (0-4) Troponin T (0.00-0.029) ng/mL NT-Pro-B Natriuret Pep (0-900) pg/mL Total Protein (6.3-8.2) g/dL Albumin (3.9-5) g/dL Albumin/Globulin Ratio % Blood Type Antibody Screen Antibody Identification 12/24/18 12/24/18 Range/Units 22:12 22:50 WBC (4.5-11.0) K/mm3 RBC (3.65-5.03) M/mm3 Hgb (11.8-15.2) gm/dl Hct (35.5-45.6) % MCV (84-94) fl MCH (28-32) pg MCHC (32-34) % RDW (13.2-15.2) % Plt Count (140-440) K/mm3 Seg Neutrophils % PT (12.2-14.9) Sec. INR (0.87-1.13) APTT (24.2-36.6) Sec. VBG pH (7.320-7.420) Sodium (137-145) mmol/L Potassium (3.6-5.0) mmol/L Chloride (98-107) mmol/L Carbon Dioxide (22-30) mmol/L Anion Gap mmol/L BUN (9-20) mg/dL Creatinine (0.8-1.5) mg/dL Estimated GFR ml/min BUN/Creatinine Ratio % Glucose (75-100) mg/dL POC Glucose 122 H (70-105) Lactic Acid (0.7-2.0) mmol/L Calcium (8.4-10.2) mg/dL Magnesium 2.00 (1.7-2.3) mg/dL Total Bilirubin (0.1-1.2) mg/dL AST (5-40) units/L ALT (7-56) units/L Alkaline Phosphatase (35-129) units/L Ammonia (25-60) umol/L Total Creatine Kinase (55-170) units/L CK-MB (CK-2) (0.0-4.0) ng/mL CK-MB (CK-2) Rel Index (0-4) Troponin T (0.00-0.029) ng/mL NT-Pro-B Natriuret Pep (0-900) pg/mL Total Protein (6.3-8.2) g/dL Albumin (3.9-5) g/dL Albumin/Globulin Ratio % Blood Type Antibody Screen Antibody Identification - EKG Data -: EKG Interpreted by [facility] EKG shows normal: sinus rhythm, axis (qrs 24), QRS complexes (qrsd 82), ST-T waves (ant lat t wave inv) Rate: tachycardia (105) - Radiology Data Radiology results: report reviewed PROCEDURE: XR CHEST 1V AP TECHNIQUE: Chest radiograph single view. HISTORY: sob COMPARISONS: November 19, 2018 . FINDINGS: Heart: Normal. Mediastinum/Vessels: Normal. Lungs/Pleural space: Normal. Bony thorax: No acute osseous abnormality. Life support devices: There is a right central catheter, this ends in the SVC. IMPRESSION: No acute cardiopulmonary abnormality. - Medical Decision Making Patient has multiple significant end-stage comorbidities. Patient was offered hospice upon recent admission and the patient declined. -Hepatic encephalopathy by mouth lactulose ordered but then canceled once patient developed elise hematemesis. Protonix bolus followed by drip and octreotide bolus followed by drip ordered -Patient presents with hypotension, hypoglycemia, and low-sodium. This all could be related to liver cirrhosis/sepsis however, cortisol test was sent to rule out adrenal insufficiency. One dose of hydrocortisone IV was provided -PT has elevated lactic acid was covered empirically with vancomycin and Zosyn for sepsis. Patient also has a dialysis catheter which could be source of infection -Patient receiving normal saline IV bolus with reassessment of respiratory status in between boluses due to history of end-stage renal disease and chronic decreased renal output. No signs of initial pulmonary edema -Patient is coagulopathic which is chronic. transfusion may be needed given elise hematemesis (guaic + but brown stool) 2 Units PRBC to be held 1 unit of platelets ordered to be tranfused -There is some improvement in systolic pressure IV fluid bolus -Pt will need admission to the hospital for further management. - Differential Diagnosis sepsis, hyperkalemia, renal failure, noncompliance, liver failure, Critical Care Time: Yes Critical care time in (mins) excluding proc time.: 65 Critical care attestation.: If time is entered above; I have spent that time in minutes in the direct care of this critically ill patient, excluding procedure time. ED Disposition Clinical Impression: Cirrhosis, Hypotension, HE (hepatic encephalopathy), Hyponatremia syndrome, Hyperammonemia, ESRD (end stage renal disease) on dialysis, Thrombocytopenia, Ascites, Elevated lactic acid level, Hypoglycemia, Hematemesis Disposition: -09 OP ADMIT IP TO THIS HOSP Is pt being admited?: Yes Condition: Undetermined Time of Disposition: 23:18 (Dr Estrada/hosptialist)
[2018-12-24 22:30] LABS: Hematocrit 23.9 % (35.5-45.6); Hemoglobin 8.2 gm/dl (11.8-15.2); Mean Corpuscular HGB Conc 34 % (32-34); Mean Corpuscular Volume 104 fl (84-94); Red Blood Count 2.29 M/mm3 (3.65-5.03)
[2018-12-24 22:40] LABS: INR 0.99 (0.87-1.13)
[2018-12-24 22:46] LABS: Partial Thromboplastin Time 67.2 Sec. (24.2-36.6)
[2018-12-24 22:47] LABS: Creatine Kinase MB 1.7 ng/mL (0.0-4.0)
[2018-12-24 22:49] LABS: Albumin 1.5 g/dL (3.9-5); Calcium 7.7 mg/dL (8.4-10.2); Red Cell Distribution Width 23.7 % (13.2-15.2)
[2018-12-24] MEDS ORDERED: ZOSYN/NS 4.5GM/100ML 4.5 GM/100 ML VIAL IV ONE (22:59)
[2018-12-24] MEDS ORDERED: VANCOMYCIN/NS 1 GM/250 ML 1 GM/250 ML BAG IV ONE (23:00)
[2018-12-24] MEDS ORDERED: CEPHULAC PO ONE (23:00)
--- NOTE | 2018-12-24 23:05 | XRay Report ---
PROCEDURE: XR CHEST 1V AP TECHNIQUE: Chest radiograph single view. HISTORY: sob COMPARISONS: November 19, 2018 . FINDINGS: Heart: Normal. Mediastinum/Vessels: Normal. Lungs/Pleural space: Normal. Bony thorax: No acute osseous abnormality. Life support devices: There is a right central catheter, this ends in the SVC. IMPRESSION: No acute cardiopulmonary abnormality. This document is electronically signed by Deirdre Hernandez DO., Dec 24 2018 11:03:10 PM ET
[2018-12-24 23:19] LABS: Platelet Count 49 K/mm3 (140-440)
[2018-12-24] MEDS ORDERED: NACL 0.9% 1000 ML 1,000 ML IV SCH ×2 (23:31→23:45)
[2018-12-24] MEDS ORDERED: SandoSTATIN 500 MCG in NACL 0.9% 100 ML IV ONE (23:37)
[2018-12-24] MEDS ORDERED: PROTONIX IV ONE (23:37)
[2018-12-24] MEDS ORDERED: ZOFRAN ONE (23:39)
[2018-12-24] MEDS ORDERED: ZOFRAN IV ONE (23:40)
[2018-12-24] MEDS ORDERED: D5NS 1,000 ML IV SCH (23:45)
[2018-12-24] MEDS ORDERED: NACL 0.9% 500 ML 500 ML IV ONE ×2 (23:55→23:57)
[2018-12-25 00:19] LABS: Basophils % (Manual) 0 % (0.0-1.8); Total Cells Counted 100
[2018-12-25 00:20] LABS: Band Neutrophils # (Manual) 1.7 K/mm3; Eosinophils % (Manual) 0 % (0.0-4.3); Giant Platelets Rare; Large Platelets Few
[2018-12-25 00:21] LABS: Anisocytosis 2+; Hypochromasia 1+; Platelet Estimate Appears Decreased; Target Cells Few
[2018-12-25] MEDS: PROTONIX 80 MG in NACL 0.9% 100 ML IV SCH ×2 (00:40→08:30)
[2018-12-25] MEDS ORDERED: TYLENOL PO PRN (01:00)
[2018-12-25] MEDS ORDERED: SODIUM CHLORIDE FLUSH SYRINGE 10 ML IV PRN (01:00)
[2018-12-25] MEDS ORDERED: MORPHINE IV PRN (01:00)
[2018-12-25] MEDS ORDERED: LEVOPHED DRIP 4 MG/NS 250 ML 4 MG/250 ML BAG IV SCH ×3 (01:00→05:00)
[2018-12-25] MEDS ORDERED: ZOFRAN IV PRN (01:00)
[2018-12-25] MEDS ORDERED: NACL 0.9% 1000 ML 1,000 ML ONE (01:05)
[2018-12-25] MEDS ORDERED: WATER FOR IRRIG STERILE IR ONE ×2 (01:05→04:06)
[2018-12-25] MEDS ORDERED: QUELICIN ONE (01:50)
[2018-12-25] MEDS ORDERED: DIPRIVAN 10 MG/ML IV ONE (01:50)
[2018-12-25] MEDS ORDERED: XYLOCAINE MPF 2% ONE (01:50)
--- NOTE | 2018-12-25 01:52 | History and Physical Report ---
<NIGHAT DONG - Last Filed: 12/25/18 02:29> History of Present Illness Date of examination: 12/24/18 Date of admission: 12/24/2018 Chief complaint: Difficulty breathing, altered mental status History of present illness: 63-year-old -Filipino male with history of EtOH dependence, cirrhosis, ESRD on HD T/Th/S, hepatic encephalopathy, ascites requiring multiple therapeutic paracentesis, thrombocytopenia, recurrent anemia secondary to GI bleed, PUD with grade 2 distal esophageal varices( banded 3 on 12/06/18), who represents to [facility] via EMS complaints of generalized weakness and altered mental status. According to patient's sister he was found to be weak, confused and had difficulty ambulating. She decided to check his blood pressure and noted it to be low (recall exact reading), and decided to call EMS. Upon arrival to ED patient was found to be tachycardiac and hypotensive. Patient experienced witnessed elies hemoptysis 2. Denies pain, fever, diaphoresis, recent sick contact, cough. According to patient's daughter, patient was admitted to [facility] for 1 week, and received therapeutic paracentesis with removal of 6 L of fluid. He was discharged on 12/21. A review of medical records revealed patient was discharged from [facility] on 12/08/18. Previous admission he required repeated paracentesis and blood transfusion for H&H of 5.5/15.7 and a platelet count of 12. He was offered home hospice but declined. Past History Past Medical History: ESRD (on HD T/NICKOLAS/S), GERD, hypertension, liver disease (history of ascites, status post multiple paracentesis) Past Surgical History: Other (left upper chest vascath access) Medications and Allergies Allergies Allergy/AdvReac Type Severity Reaction Status Date / Time No Known Allergies Allergy Verified 11/26/16 14:51 Home Medications Medication Instructions Recorded Confirmed Last Taken Type Folic Acid [Folvite] 1 mg PO QDAY #30 tablet 12/08/18 Unknown Rx Lactulose [Cephulac] 30 ml PO Q12HR 30 Days oral.liqd 12/08/18 Unknown Rx Midodrine [Proamatine] 10 mg PO TID #90 tablet 12/08/18 Unknown Rx Multivitamin Tab [Multiple Vitamin 1 each PO QDAY #30 tablet 12/08/18 Unknown Rx TAB (Theragran)] Pantoprazole [Protonix TAB] 40 mg PO BID #60 tablet 12/08/18 Unknown Rx Rifaximin [Xifaxan] 550 mg PO BID #60 tablet 12/08/18 Unknown Rx Sucralfate [Carafate] 1 gm PO ACHS #60 tablet 12/08/18 Unknown Rx Thiamine [Vitamin B-1] 100 mg PO QDAY #30 tablet 12/08/18 Unknown Rx Active Meds: Active Medications Acetaminophen (Tylenol) 650 mg PO Q4H PRN PRN Reason: Pain MILD(1-3)/Fever >100.5/NASH Pantoprazole Sodium 80 mg/ (Sodium Chloride) 100 mls @ 10 mls/hr IV DIRECT LUBA Last Admin: 12/25/18 00:40 Dose: 8 mg/hr, 10 mls/hr Documented by: Octreotide Acetate 500 mcg/ (Sodium Chloride) 101 mls @ 5.05 mls/hr IV TITR ONE; Protocol Stop: 12/25/18 19:36 Last Admin: 12/25/18 00:33 Dose: 25 mcg/hr, 5.05 mls/hr Documented by: Norepinephrine (Levophed Drip 4 Mg/Ns 250 Ml) 4 mg in 250 mls @ 7.5 mls/hr IV TITR LUBA; Protocol Sodium Chloride (Nacl 0.9% 1000 Ml) 1,000 mls @ 42 mls/hr IV DIRECT LUBA Stop: 12/28/18 09:49 Morphine Sulfate (Morphine) 2 mg IV Q4H PRN PRN Reason: Pain, Moderate (4-6) Stop: 12/26/18 23:59 Ondansetron HCl (Zofran) 4 mg IV Q8H PRN PRN Reason: Nausea And Vomiting Sodium Chloride (Sodium Chloride Flush Syringe 10 Ml) 10 ml IV BID LUBA Sodium Chloride (Sodium Chloride Flush Syringe 10 Ml) 10 ml IV PRN PRN PRN Reason: LINE FLUSH Review of Systems All systems: negative (reviewed and no additional remarkable complaint except as noted below) Constitutional: weakness Respiratory: dyspnea on exertion Gastrointestinal: hematemesis Musculoskeletal: other (generalized weakness) Exam - Physical Exam Narrative exam: Physical exam General appearance: Present: Mild distress, oriented to person and self - EENT Eyes: Present: PERRL, EOM intact ENT: hearing intact, poor dentition - Neck Neck: Present: supple, normal ROM - Respiratory Respiratory effort: Non-labored Respiratory: bilateral: diminished (bases) - Cardiovascular Heart rate: 105 (bpm) Rhythm: Sinus tachycardia Heart Sounds: Present: S1 & S2. Absent: rub, click - Extremities Extremities: no ischemia, pulses intact, abnormal (left upper chest Vas-Cath access) - Peripheral Assessment Peripheral Pulses: within normal limits - Abdominal General gastrointestinal: Rounded, firm, non-tender, normal bowel sounds, witness one episode of elsie hemoptysis - Integumentary Integumentary: Present: warm, dry - Musculoskeletal Musculoskeletal: generalized weakness - Psychiatric Psychiatric: cooperative - Constitutional Vitals: Temp Pulse Resp BP Pulse Ox 97 F L 106 H 28 H 95/51 98 12/24/18 23:04 12/24/18 23:04 12/24/18 23:04 12/24/18 23:04 12/24/18 23:04 Results - Labs CBC & Chem 7: 12/24/18 21:53 12/24/18 21:53 Labs: Laboratory Last Values WBC 4.1 K/mm3 (4.5-11.0) L 12/24/18 21:53 RBC 2.29 M/mm3 (3.65-5.03) L 12/24/18 21:53 Hgb 8.2 gm/dl (11.8-15.2) L 12/24/18 21:53 Hct 23.9 % (35.5-45.6) L 12/24/18 21:53 MCV 104 fl (84-94) H 12/24/18 21:53 MCH 36 pg (28-32) H 12/24/18 21:53 MCHC 34 % (32-34) 12/24/18 21:53 RDW 23.7 % (13.2-15.2) H 12/24/18 21:53 Plt Count 49 K/mm3 (140-440) L 12/24/18 21:53 Add Manual Diff Complete 12/24/18 21:53 Total Counted 100 12/24/18 21:53 Seg Neutrophils % Burlap Bag Sewer 12/24/18 21:53 Seg Neuts % (Manual) 36.0 % (40.0-70.0) L 12/24/18 21:53 42.0 % 12/24/18 21:53 0 % (13.4-35.0) L 12/24/18 21:53 Reactive Lymphs % (Man) 0 % 12/24/18 21:53 8.0 % (0.0-7.3) H 12/24/18 21:53 0 % (0.0-4.3) 12/24/18 21:53 0 % (0.0-1.8) 12/24/18 21:53 13.0 % 12/24/18 21:53 1.0 % 12/24/18 21:53 0 % 12/24/18 21:53 0 % 12/24/18 21:53 Nucleated RBC % Not Reportable 12/24/18 21:53 Seg Neutrophils # Man 1.5 K/mm3 (1.8-7.7) L 12/24/18 21:53 Band Neutrophils # 1.7 K/mm3 12/24/18 21:53 0.0 K/mm3 (1.2-5.4) L 12/24/18 21:53 Abs React Lymphs (Man) 0.0 K/mm3 12/24/18 21:53 0.3 K/mm3 (0.0-0.8) 12/24/18 21:53 0.0 K/mm3 (0.0-0.4) 12/24/18 21:53 0.0 K/mm3 (0.0-0.1) 12/24/18 21:53 0.5 K/mm3 12/24/18 21:53 0.0 K/mm3 12/24/18 21:53 0.0 K/mm3 12/24/18 21:53 Blast Cells # 0.0 K/mm3 12/24/18 21:53 WBC Morphology Not Reportable 12/24/18 21:53 Hypersegmented Neuts Not Reportable 12/24/18 21:53 Hyposegmented Neuts Not Reportable 12/24/18 21:53 Hypogranular Neuts Not Reportable 12/24/18 21:53 Not Reportable 12/24/18 21:53 Not Reportable 12/24/18 21:53 Not Reportable 12/24/18 21:53 Not Reportable 12/24/18 21:53 Not Reportable 12/24/18 21:53 Not Reportable 12/24/18 21:53 Appears decreased 12/24/18 21:53 Not Reportable 12/24/18 21:53 Plt Clumps, EDTA Not Reportable 12/24/18 21:53 Few 12/24/18 21:53 Rare 12/24/18 21:53 Not Reportable 12/24/18 21:53 Plt Morphology Comment Not Reportable 12/24/18 21:53 RBC Morphology Not Reportable 12/24/18 21:53 Dimorphic RBCs Not Reportable 12/24/18 21:53 Not Reportable 12/24/18 21:53 1+ 12/24/18 21:53 Not Reportable 12/24/18 21:53 2+ 12/24/18 21:53 Not Reportable 12/24/18 21:53 Not Reportable 12/24/18 21:53 Not Reportable 12/24/18 21:53 Not Reportable 12/24/18 21:53 Not Reportable 12/24/18 21:53 Few 12/24/18 21:53 Not Reportable 12/24/18 21:53 Not Reportable 12/24/18 21:53 Not Reportable 12/24/18 21:53 Not Reportable 12/24/18 21:53 Not Reportable 12/24/18 21:53 Not Reportable 12/24/18 21:53 Not Reportable 12/24/18 21:53 Not Reportable 12/24/18 21:53 Not Reportable 12/24/18 21:53 Acanthocytes (Spur) Not Reportable 12/24/18 21:53 Rouleaux Not Reportable 12/24/18 21:53 Not Reportable 12/24/18 21:53 Not Reportable 12/24/18 21:53 Not Reportable 12/24/18 21:53 Not Reportable 12/24/18 21:53 Hem Pathologist Commnt No 12/24/18 21:53 PT 13.7 Sec. (12.2-14.9) 12/24/18 22:12 INR 0.99 (0.87-1.13) 12/24/18 22:12 APTT 67.2 Sec. (24.2-36.6) H* 12/24/18 22:12 VBG pH 7.313 (7.320-7.420) L 12/24/18 22:11 Sodium 127 mmol/L (137-145) L 12/24/18 21:53 Potassium 3.7 mmol/L (3.6-5.0) 12/24/18 21:53 Chloride 91.3 mmol/L (98-107) L 12/24/18 21:53 Carbon Dioxide 11 mmol/L (22-30) L 12/24/18 21:53 28 mmol/L 12/24/18 21:53 BUN 56 mg/dL (9-20) H 12/24/18 21:53 11.0 mg/dL (0.8-1.5) H 12/24/18 21:53 Estimated GFR 6 ml/min 12/24/18 21:53 5 % 12/24/18 21:53 Glucose 59 mg/dL (75-100) L 12/24/18 21:53 POC Glucose 122 (70-105) H 12/24/18 22:50 Lactic Acid 11.10 mmol/L (0.7-2.0) H* 12/25/18 00:33 Calcium 7.7 mg/dL (8.4-10.2) L 12/24/18 21:53 Magnesium 2.00 mg/dL (1.7-2.3) 12/24/18 22:12 3.10 mg/dL (0.1-1.2) H 12/24/18 21:53 AST 26 units/L (5-40) 12/24/18 21:53 ALT 14 units/L (7-56) 12/24/18 21:53 109 units/L (35-129) 12/24/18 21:53 217.0 umol/L (25-60) H 12/24/18 21:53 36 units/L (55-170) L 12/24/18 21:53 CK-MB (CK-2) 1.7 ng/mL (0.0-4.0) 12/24/18 21:53 CK-MB (CK-2) Rel Index 4.7 (0-4) H 12/24/18 21:53 < 0.010 ng/mL (0.00-0.029) 12/24/18 21:53 NT-Pro-B Natriuret Pep 3036 pg/mL (0-900) H 12/24/18 21:53 5.7 g/dL (6.3-8.2) L 12/24/18 21:53 1.5 g/dL (3.9-5) L 12/24/18 21:53 0.4 % 12/24/18 21:53 Blood Type O POSITIVE 12/24/18 21:53 Antibody Screen Negative 12/24/18 21:53 Antibody Identification Not Reportable 12/24/18 21:53 Crossmatch See Detail 12/24/18 21:53 - Imaging and Cardiology EKG: image reviewed (sinus tachycardia identified 105 bpm) Chest x-ray: report reviewed, image reviewed (no acute cardio pulmonary abnormalities) Assessment and Plan Assessment and plan: 63-year-old -Filipino male with history of EtOH dependence, cirrhosis, ESRD on HD T/, hepatic encephalopathy, ascites requiring multiple therapeutic paracentesis, thrombocytopenia, recurrent anemia secondary to GI bleed, PUD with grade 3 varices, who represents to [facility] via EMS complaints of generalized weakness and altered mental status. According to patient's sister he was found to be weak, confused and had difficulty ambulating. She decided to check his blood pressure and noted it to be low (recall exact reading), and decided to call EMS. Upon arrival to ED patient was found to be tachycardic and hypotensive. Patient experienced witnessed elise hemoptysis 2. He was treated with fluid boluses and blood pressure slightly improved for a short period. Ultimately he was started on Levophed gtt to maintain map [address] Kapoor was consulted and will proceed with emergent EGD. Patient is thrombocytopenic with platelet count of 49. We will transfuse platelet. Elevated lactic acid and 11.20, blood cultures drawn and empirically started on vancomycin and Zosyn. Weight Patient abdomen is rounded and firm. Will contact IR with therapeutic paracentesis. I spoke with the patient's daughter in regards to hospice services. She stated that she is interested, however her father does not want hospice services. Also discuss patient's CODE STATUS and family would like patient to remain full code at this time. Hepatic encephalopathy Hypotension Thrombocytopenia Coagulopathic Hypoglycemia Hyponatremia-likely secondary ESRD on HD T// Ascites Suspicion of sepsis SIRS Alcoholic hepatic cirrhosis Plan: Continue supportive care Continue to monitor BP Continue Levophed gtt Nothing by mouth Monitor I&O's Monitor LFTs Cultures pending UA pending Start ceftriaxone 2 g Continue Protonix gtt Dr. Kapoor consulted and following Continue monitoring CBC Monitor Hgb, transfuse when necessary Monitor platelets, to use when necessary Monitor electrolytes, replete as needed Consult nephrology Consult IR for therapeutic paracentesis DVT PPX on SCD's Medication reconciliation pending Advance Directives: No VTE prophylaxis?: Mechanical Plan of care discussed with patient/family: Yes <TYRONE KAT - Last Filed: 12/25/18 21:54> History of Present Illness Date of admission: 12/25/18 01:00 Exam - Constitutional Vitals: Temp Pulse Resp BP Pulse Ox 97.6 F 78 15 74/32 26 L 12/25/18 16:00 12/25/18 18:01 12/25/18 18:01 12/25/18 18:01 12/25/18 18:01 Results - Labs CBC & Chem 7: 12/25/18 07:10 12/25/18 07:10 Labs: Laboratory Last Values WBC 9.6 K/mm3 (4.5-11.0) 12/25/18 07:10 RBC 3.27 M/mm3 (3.65-5.03) L 12/25/18 07:10 Hgb 11.1 gm/dl (11.8-15.2) L 12/25/18 07:10 Hct 33.7 % (35.5-45.6) L D 12/25/18 07:10 MCV 103 fl (84-94) H 12/25/18 07:10 MCH 34 pg (28-32) H 12/25/18 07:10 MCHC 33 % (32-34) 12/25/18 07:10 RDW 19.2 % (13.2-15.2) H 12/25/18 07:10 Plt Count 29 K/mm3 (140-440) L 12/25/18 07:10 Add Manual Diff Complete 12/24/18 21:53 Total Counted 100 12/24/18 21:53 Seg Neutrophils % Burlap Bag Sewer 12/24/18 21:53 Seg Neuts % (Manual) 36.0 % (40.0-70.0) L 12/24/18 21:53 42.0 % 12/24/18 21:53 0 % (13.4-35.0) L 12/24/18 21:53 Reactive Lymphs % (Man) 0 % 12/24/18 21:53 8.0 % (0.0-7.3) H 12/24/18 21:53 0 % (0.0-4.3) 12/24/18 21:53 0 % (0.0-1.8) 12/24/18 21:53 13.0 % 12/24/18 21:53 1.0 % 12/24/18 21:53 0 % 12/24/18 21:53 0 % 12/24/18 21:53 Nucleated RBC % Not Reportable 12/24/18 21:53 Seg Neutrophils # Man 1.5 K/mm3 (1.8-7.7) L 12/24/18 21:53 Band Neutrophils # 1.7 K/mm3 12/24/18 21:53 0.0 K/mm3 (1.2-5.4) L 12/24/18 21:53 Abs React Lymphs (Man) 0.0 K/mm3 12/24/18 21:53 0.3 K/mm3 (0.0-0.8) 12/24/18 21:53 0.0 K/mm3 (0.0-0.4) 12/24/18 21:53 0.0 K/mm3 (0.0-0.1) 12/24/18 21:53 0.5 K/mm3 12/24/18 21:53 0.0 K/mm3 12/24/18 21:53 0.0 K/mm3 12/24/18 21:53 Blast Cells # 0.0 K/mm3 12/24/18 21:53 WBC Morphology Not Reportable 12/24/18 21:53 Hypersegmented Neuts Not Reportable 12/24/18 21:53 Hyposegmented Neuts Not Reportable 12/24/18 21:53 Hypogranular Neuts Not Reportable 12/24/18 21:53 Not Reportable 12/24/18 21:53 Not Reportable 12/24/18 21:53 Not Reportable 12/24/18 21:53 Not Reportable 12/24/18 21:53 Not Reportable 12/24/18 21:53 Not Reportable 12/24/18 21:53 Appears decreased 12/24/18 21:53 Not Reportable 12/24/18 21:53 Plt Clumps, EDTA Not Reportable 12/24/18 21:53 Few 12/24/18 21:53 Rare 12/24/18 21:53 Not Reportable 12/24/18 21:53 Plt Morphology Comment Not Reportable 12/24/18 21:53 RBC Morphology Not Reportable 12/24/18 21:53 Dimorphic RBCs Not Reportable 12/24/18 21:53 Not Reportable 12/24/18 21:53 1+ 12/24/18 21:53 Not Reportable 12/24/18 21:53 2+ 12/24/18 21:53 Not Reportable 12/24/18 21:53 Not Reportable 12/24/18 21:53 Not Reportable 12/24/18 21:53 Not Reportable 12/24/18 21:53 Not Reportable 12/24/18 21:53 Few 12/24/18 21:53 Not Reportable 12/24/18 21:53 Not Reportable 12/24/18 21:53 Not Reportable 12/24/18 21:53 Not Reportable 12/24/18 21:53 Not Reportable 12/24/18 21:53 Not Reportable 12/24/18 21:53 Not Reportable 12/24/18 21:53 Not Reportable 12/24/18 21:53 Not Reportable 12/24/18 21:53 Acanthocytes (Spur) Not Reportable 12/24/18 21:53 Rouleaux Not Reportable 12/24/18 21:53 Not Reportable 12/24/18 21:53 Not Reportable 12/24/18 21:53 Not Reportable 12/24/18 21:53 Not Reportable 12/24/18 21:53 Hem Pathologist Commnt No 12/24/18 21:53 PT 46.2 Sec. (12.2-14.9) H 12/25/18 07:10 INR 4.53 (0.87-1.13) H 12/25/18 07:10 APTT 73.1 Sec. (24.2-36.6) H* 12/25/18 07:10 POC ABG pH 6.990 (7.35-7.45) L 12/25/18 08:59 POC ABG pCO2 30.4 (35-45) L 12/25/18 08:59 POC ABG pO2 196 (80-105) H 12/25/18 08:59 POC ABG HCO3 7.3 (22-26 mml/L) 12/25/18 08:59 POC ABG Total CO2 8 (23-27mmol/L) 12/25/18 08:59 POC ABG O2 Sat 99 12/25/18 08:59 POC ABG Base Excess -24 ((-2) - (+3)mmol/L) 12/25/18 08:59 VBG pH 7.313 (7.320-7.420) L 12/24/18 22:11 100 % 12/25/18 08:59 Sodium 130 mmol/L (137-145) L 12/25/18 07:10 Potassium 4.3 mmol/L (3.6-5.0) 12/25/18 07:10 Chloride 96.4 mmol/L (98-107) L 12/25/18 07:10 Carbon Dioxide 7 mmol/L (22-30) L* 12/25/18 07:10 31 mmol/L 12/25/18 07:10 BUN 54 mg/dL (9-20) H 12/25/18 07:10 10.3 mg/dL (0.8-1.5) H 12/25/18 07:10 Estimated GFR 6 ml/min 12/25/18 07:10 5 % 12/25/18 07:10 Glucose 126 mg/dL (75-100) H 12/25/18 07:10 POC Glucose 78 (70-105) 12/25/18 08:27 Lactic Acid 12.90 mmol/L (0.7-2.0) H* 12/25/18 07:10 Calcium 7.5 mg/dL (8.4-10.2) L 12/25/18 07:10 Magnesium 2.00 mg/dL (1.7-2.3) 12/24/18 22:12 3.10 mg/dL (0.1-1.2) H 12/24/18 21:53 AST 26 units/L (5-40) 12/24/18 21:53 ALT 14 units/L (7-56) 12/24/18 21:53 109 units/L (35-129) 12/24/18 21:53 217.0 umol/L (25-60) H 12/24/18 21:53 36 units/L (55-170) L 12/24/18 21:53 CK-MB (CK-2) 1.7 ng/mL (0.0-4.0) 12/24/18 21:53 CK-MB (CK-2) Rel Index 4.7 (0-4) H 12/24/18 21:53 < 0.010 ng/mL (0.00-0.029) 12/24/18 21:53 NT-Pro-B Natriuret Pep 3036 pg/mL (0-900) H 12/24/18 21:53 5.7 g/dL (6.3-8.2) L 12/24/18 21:53 1.5 g/dL (3.9-5) L 12/24/18 21:53 0.4 % 12/24/18 21:53 Blood Type O POSITIVE 12/24/18 21:53 Antibody Screen Negative 12/24/18 21:53 Antibody Identification Not Reportable 12/24/18 21:53 Crossmatch See Detail 12/24/18 21:53 Assessment and Plan Assessment and plan: A/P: -Septic shock probably 2/2 SBP -GIB likely 2/2 variceal bleed -Acute on chronic hyponatremia -End stage alcoholic liver disease -Acute on chronic thrombocytopenia -Recurrent ascites due to cirrhosis of liver Disp: Condition is guarded and prognosis is very poor I personally discussed the patient with the BANK MESSENGER-C, I agree with the above assessment and plan
--- NOTE | 2018-12-25 01:53 | Gastroenterology Consultation ---
History of Present Illness - Reason for Consult Consult date: 12/25/18 hematemesis Requesting physician: AIDAN COOPER - History of Present Illness This is a 63 yo with ESLD with ascites, HE, and varices who underwent EGD with banding of varices approximately 3 weeks ago along with ESRD/HD, history PUD as well, presented with generalized weakness and confusion. History obtained from family at bedside and chart A sister came to check on him and found that he was weak, confused, and had difficulty ambulating so EMS called and brought to hospital, where he was tachy and hypotensive (initial hypertensive reads were suspected to be false). Then he had large volume elise hematemesis witnessed by Dr. Cooper so I am called in. Patient has had 2 episodes elise hematemesis with large amount of dark red blood. No melena as of yet. Past Medical History: other (as per HPI) Past Surgical History: Other (Paracentesis, Vas Cath) Social history: single, alcohol abuse. denies: smoking, prescription drug abuse Family history: hypertension Current meds obtained/updated/reviewed Medications and Allergies Allergies Allergy/AdvReac Type Severity Reaction Status Date / Time No Known Allergies Allergy Verified 11/26/16 14:51 Home Medications Medication Instructions Recorded Confirmed Last Taken Type Folic Acid [Folvite] 1 mg PO QDAY #30 tablet 12/08/18 Unknown Rx Lactulose [Cephulac] 30 ml PO Q12HR 30 Days oral.liqd 12/08/18 Unknown Rx Midodrine [Proamatine] 10 mg PO TID #90 tablet 12/08/18 Unknown Rx Multivitamin Tab [Multiple Vitamin 1 each PO QDAY #30 tablet 12/08/18 Unknown Rx TAB (Theragran)] Pantoprazole [Protonix TAB] 40 mg PO BID #60 tablet 12/08/18 Unknown Rx Rifaximin [Xifaxan] 550 mg PO BID #60 tablet 12/08/18 Unknown Rx Sucralfate [Carafate] 1 gm PO ACHS #60 tablet 12/08/18 Unknown Rx Thiamine [Vitamin B-1] 100 mg PO QDAY #30 tablet 12/08/18 Unknown Rx Active Meds: Active Medications Acetaminophen (Tylenol) 650 mg PO Q4H PRN PRN Reason: Pain MILD(1-3)/Fever >100.5/NASH Pantoprazole Sodium 80 mg/ (Sodium Chloride) 100 mls @ 10 mls/hr IV DIRECT LUBA Last Admin: 12/25/18 00:40 Dose: 8 mg/hr, 10 mls/hr Documented by: Octreotide Acetate 500 mcg/ (Sodium Chloride) 101 mls @ 5.05 mls/hr IV TITR ONE; Protocol Stop: 12/25/18 19:36 Last Admin: 12/25/18 00:33 Dose: 25 mcg/hr, 5.05 mls/hr Documented by: Norepinephrine (Levophed Drip 4 Mg/Ns 250 Ml) 4 mg in 250 mls @ 7.5 mls/hr IV TITR LUBA; Protocol Sodium Chloride (Nacl 0.9% 1000 Ml) 1,000 mls @ 42 mls/hr IV DIRECT LUBA Stop: 12/28/18 09:49 Morphine Sulfate (Morphine) 2 mg IV Q4H PRN PRN Reason: Pain, Moderate (4-6) Stop: 12/26/18 23:59 Ondansetron HCl (Zofran) 4 mg IV Q8H PRN PRN Reason: Nausea And Vomiting Sodium Chloride (Sodium Chloride Flush Syringe 10 Ml) 10 ml IV BID LUBA Sodium Chloride (Sodium Chloride Flush Syringe 10 Ml) 10 ml IV PRN PRN PRN Reason: LINE FLUSH Review of Systems - Review of Systems ROS unobtainable: due to mental status Exam - Constitutional Vital Signs: Temp Pulse Resp BP Pulse Ox 97 F L 106 H 28 H 95/51 98 12/24/18 23:04 12/24/18 23:04 12/24/18 23:04 12/24/18 23:04 12/24/18 23:04 General appearance: other (tachypnic, uncomfortable appearing) - EENT Eyes: scleral icterus - Neck Neck: supple - Respiratory Respiratory effort: other (tachypnic) - Cardiovascular Rhythm: other (tachy) - Gastrointestinal General gastrointestinal: Present: other (tense ascites with positive fluid wave) - Integumentary Integumentary: Present: dry - Neurologic Neurological: disoriented - Psychiatric Psychiatric: depressed - Labs CBC & Chem 7: 12/24/18 21:53 12/24/18 21:53 Lab Results: Laboratory Results - last 24 hr 12/24/18 12/24/18 12/24/18 21:53 21:53 21:53 WBC 4.1 L RBC 2.29 L Hgb 8.2 L Hct 23.9 L MCV 104 H MCH 36 H MCHC 34 RDW 23.7 H Plt Count 49 L Add Manual Diff Complete Total Counted 100 Seg Neutrophils % Cherry Sorter Seg Neuts % (Manual) 36.0 L Band Neutrophils % 42.0 Lymphocytes % (Manual) 0 L Reactive Lymphs % (Man) 0 Monocytes % (Manual) 8.0 H Eosinophils % (Manual) 0 Basophils % (Manual) 0 Metamyelocytes % 13.0 Myelocytes % 1.0 Promyelocytes % 0 Blast Cells % 0 Nucleated RBC % Not Reportable Seg Neutrophils # Man 1.5 L Band Neutrophils # 1.7 Lymphocytes # (Manual) 0.0 L Abs React Lymphs (Man) 0.0 Monocytes # (Manual) 0.3 Eosinophils # (Manual) 0.0 Basophils # (Manual) 0.0 Metamyelocytes # 0.5 Myelocytes # 0.0 Promyelocytes # 0.0 Blast Cells # 0.0 WBC Morphology Not Reportable Hypersegmented Neuts Not Reportable Hyposegmented Neuts Not Reportable Hypogranular Neuts Not Reportable Smudge Cells Not Reportable Toxic Granulation Not Reportable Toxic Vacuolation Not Reportable Dohle Bodies Not Reportable Pelger-Huet Anomaly Not Reportable Sen Rods Not Reportable Platelet Estimate Appears decreased Clumped Platelets Not Reportable Plt Clumps, EDTA Not Reportable Large Platelets Few Giant Platelets Rare Platelet Satelliting Not Reportable Plt Morphology Comment Not Reportable RBC Morphology Not Reportable Dimorphic RBCs Not Reportable Polychromasia Not Reportable Hypochromasia 1+ Poikilocytosis Not Reportable Anisocytosis 2+ Microcytosis Not Reportable Macrocytosis Not Reportable Spherocytes Not Reportable Pappenheimer Bodies Not Reportable Sickle Cells Not Reportable Target Cells Few Tear Drop Cells Not Reportable Ovalocytes Not Reportable Helmet Cells Not Reportable Collier-Ranburne Bodies Not Reportable Seneca Rings Not Reportable Melba Cells Not Reportable Bite Cells Not Reportable Crenated Cell Not Reportable Elliptocytes Not Reportable Acanthocytes (Spur) Not Reportable Rouleaux Not Reportable Hemoglobin C Crystals Not Reportable Schistocytes Not Reportable Malaria parasites Not Reportable López Bodies Not Reportable Hem Pathologist Commnt No PT INR APTT VBG pH Sodium 127 L Potassium 3.7 Chloride 91.3 L Carbon Dioxide 11 L Anion Gap 28 BUN 56 H Creatinine 11.0 H Estimated GFR 6 BUN/Creatinine Ratio 5 Glucose 59 L POC Glucose Lactic Acid Calcium 7.7 L Magnesium Total Bilirubin 3.10 H AST 26 ALT 14 Alkaline Phosphatase 109 Ammonia 217.0 H Total Creatine Kinase CK-MB (CK-2) CK-MB (CK-2) Rel Index Troponin T NT-Pro-B Natriuret Pep 3036 H Total Protein 5.7 L Albumin 1.5 L Albumin/Globulin Ratio 0.4 Blood Type Antibody Screen Antibody Identification Crossmatch 12/24/18 12/24/18 12/24/18 21:53 21:53 21:53 WBC RBC Hgb Hct MCV MCH MCHC RDW Plt Count Add Manual Diff Total Counted Seg Neutrophils % Seg Neuts % (Manual) Band Neutrophils % Lymphocytes % (Manual) Reactive Lymphs % (Man) Monocytes % (Manual) Eosinophils % (Manual) Basophils % (Manual) Metamyelocytes % Myelocytes % Promyelocytes % Blast Cells % Nucleated RBC % Seg Neutrophils # Man Band Neutrophils # Lymphocytes # (Manual) Abs React Lymphs (Man) Monocytes # (Manual) Eosinophils # (Manual) Basophils # (Manual) Metamyelocytes # Myelocytes # Promyelocytes # Blast Cells # WBC Morphology Hypersegmented Neuts Hyposegmented Neuts Hypogranular Neuts Smudge Cells Toxic Granulation Toxic Vacuolation Dohle Bodies Pelger-Huet Anomaly Sen Rods Platelet Estimate Clumped Platelets Plt Clumps, EDTA Large Platelets Giant Platelets Platelet Satelliting Plt Morphology Comment RBC Morphology Dimorphic RBCs Polychromasia Hypochromasia Poikilocytosis Anisocytosis Microcytosis Macrocytosis Spherocytes Pappenheimer Bodies Sickle Cells Target Cells Tear Drop Cells Ovalocytes Helmet Cells Collier-Ranburne Bodies Seneca Rings Melba Cells Bite Cells Crenated Cell Elliptocytes Acanthocytes (Spur) Rouleaux Hemoglobin C Crystals Schistocytes Malaria parasites López Bodies Hem Pathologist Commnt PT INR APTT VBG pH Sodium Potassium Chloride Carbon Dioxide Anion Gap BUN Creatinine Estimated GFR BUN/Creatinine Ratio Glucose POC Glucose Lactic Acid 11.70 H* Calcium Magnesium Total Bilirubin AST ALT Alkaline Phosphatase Ammonia Total Creatine Kinase 36 L CK-MB (CK-2) 1.7 CK-MB (CK-2) Rel Index 4.7 H Troponin T < 0.010 NT-Pro-B Natriuret Pep Total Protein Albumin Albumin/Globulin Ratio Blood Type O POSITIVE Antibody Screen Negative Antibody Identification Not Reportable Crossmatch See Detail 12/24/18 12/24/18 12/24/18 22:06 22:11 22:12 WBC RBC Hgb Hct MCV MCH MCHC RDW Plt Count Add Manual Diff Total Counted Seg Neutrophils % Seg Neuts % (Manual) Band Neutrophils % Lymphocytes % (Manual) Reactive Lymphs % (Man) Monocytes % (Manual) Eosinophils % (Manual) Basophils % (Manual) Metamyelocytes % Myelocytes % Promyelocytes % Blast Cells % Nucleated RBC % Seg Neutrophils # Man Band Neutrophils # Lymphocytes # (Manual) Abs React Lymphs (Man) Monocytes # (Manual) Eosinophils # (Manual) Basophils # (Manual) Metamyelocytes # Myelocytes # Promyelocytes # Blast Cells # WBC Morphology Hypersegmented Neuts Hyposegmented Neuts Hypogranular Neuts Smudge Cells Toxic Granulation Toxic Vacuolation Dohle Bodies Pelger-Huet Anomaly Sen Rods Platelet Estimate Clumped Platelets Plt Clumps, EDTA Large Platelets Giant Platelets Platelet Satelliting Plt Morphology Comment RBC Morphology Dimorphic RBCs Polychromasia Hypochromasia Poikilocytosis Anisocytosis Microcytosis Macrocytosis Spherocytes Pappenheimer Bodies Sickle Cells Target Cells Tear Drop Cells Ovalocytes Helmet Cells Collier-Ranburne Bodies Seneca Rings Mckee Cells Bite Cells Crenated Cell Elliptocytes Acanthocytes (Spur) Rouleaux Hemoglobin C Crystals Schistocytes Malaria parasites López Bodies Hem Pathologist Commnt PT 13.7 INR 0.99 APTT 67.2 H* VBG pH 7.313 L Sodium Potassium Chloride Carbon Dioxide Anion Gap BUN Creatinine Estimated GFR BUN/Creatinine Ratio Glucose POC Glucose 53 L Lactic Acid Calcium Magnesium Total Bilirubin AST ALT Alkaline Phosphatase Ammonia Total Creatine Kinase CK-MB (CK-2) CK-MB (CK-2) Rel Index Troponin T NT-Pro-B Natriuret Pep Total Protein Albumin Albumin/Globulin Ratio Blood Type Antibody Screen Antibody Identification Crossmatch 12/24/18 12/24/18 12/24/18 22:12 22:50 23:19 WBC RBC Hgb Hct MCV MCH MCHC RDW Plt Count Add Manual Diff Total Counted Seg Neutrophils % Seg Neuts % (Manual) Band Neutrophils % Lymphocytes % (Manual) Reactive Lymphs % (Man) Monocytes % (Manual) Eosinophils % (Manual) Basophils % (Manual) Metamyelocytes % Myelocytes % Promyelocytes % Blast Cells % Nucleated RBC % Seg Neutrophils # Man Band Neutrophils # Lymphocytes # (Manual) Abs React Lymphs (Man) Monocytes # (Manual) Eosinophils # (Manual) Basophils # (Manual) Metamyelocytes # Myelocytes # Promyelocytes # Blast Cells # WBC Morphology Hypersegmented Neuts Hyposegmented Neuts Hypogranular Neuts Smudge Cells Toxic Granulation Toxic Vacuolation Dohle Bodies Pelger-Huet Anomaly Sen Rods Platelet Estimate Clumped Platelets Plt Clumps, EDTA Large Platelets Giant Platelets Platelet Satelliting Plt Morphology Comment RBC Morphology Dimorphic RBCs Polychromasia Hypochromasia Poikilocytosis Anisocytosis Microcytosis Macrocytosis Spherocytes Pappenheimer Bodies Sickle Cells Target Cells Tear Drop Cells Ovalocytes Helmet Cells Collier-Ranburne Bodies Seneca Rings Mckee Cells Bite Cells Crenated Cell Elliptocytes Acanthocytes (Spur) Rouleaux Hemoglobin C Crystals Schistocytes Malaria parasites López Bodies Hem Pathologist Commnt PT INR APTT VBG pH Sodium Potassium Chloride Carbon Dioxide Anion Gap BUN Creatinine Estimated GFR BUN/Creatinine Ratio Glucose POC Glucose 122 H Lactic Acid 11.20 H* Calcium Magnesium 2.00 Total Bilirubin AST ALT Alkaline Phosphatase Ammonia Total Creatine Kinase CK-MB (CK-2) CK-MB (CK-2) Rel Index Troponin T NT-Pro-B Natriuret Pep Total Protein Albumin Albumin/Globulin Ratio Blood Type Antibody Screen Antibody Identification Crossmatch 12/25/18 00:33 WBC RBC Hgb Hct MCV MCH MCHC RDW Plt Count Add Manual Diff Total Counted Seg Neutrophils % Seg Neuts % (Manual) Band Neutrophils % Lymphocytes % (Manual) Reactive Lymphs % (Man) Monocytes % (Manual) Eosinophils % (Manual) Basophils % (Manual) Metamyelocytes % Myelocytes % Promyelocytes % Blast Cells % Nucleated RBC % Seg Neutrophils # Man Band Neutrophils # Lymphocytes # (Manual) Abs React Lymphs (Man) Monocytes # (Manual) Eosinophils # (Manual) Basophils # (Manual) Metamyelocytes # Myelocytes # Promyelocytes # Blast Cells # WBC Morphology Hypersegmented Neuts Hyposegmented Neuts Hypogranular Neuts Smudge Cells Toxic Granulation Toxic Vacuolation Dohle Bodies Pelger-Huet Anomaly Sen Rods Platelet Estimate Clumped Platelets Plt Clumps, EDTA Large Platelets Giant Platelets Platelet Satelliting Plt Morphology Comment RBC Morphology Dimorphic RBCs Polychromasia Hypochromasia Poikilocytosis Anisocytosis Microcytosis Macrocytosis Spherocytes Pappenheimer Bodies Sickle Cells Target Cells Tear Drop Cells Ovalocytes Helmet Cells Collier-Ranburne Bodies Seneca Rings Melba Cells Bite Cells Crenated Cell Elliptocytes Acanthocytes (Spur) Rouleaux Hemoglobin C Crystals Schistocytes Malaria parasites López Bodies Hem Pathologist Commnt PT INR APTT VBG pH Sodium Potassium Chloride Carbon Dioxide Anion Gap BUN Creatinine Estimated GFR BUN/Creatinine Ratio Glucose POC Glucose Lactic Acid 11.10 H* Calcium Magnesium Total Bilirubin AST ALT Alkaline Phosphatase Ammonia Total Creatine Kinase CK-MB (CK-2) CK-MB (CK-2) Rel Index Troponin T NT-Pro-B Natriuret Pep Total Protein Albumin Albumin/Globulin Ratio Blood Type Antibody Screen Antibody Identification Crossmatch Assessment and Plan 1. Upper GI Bleed 2. Esophageal Varices 3. Cirrhosis with ascites 4. Hepatic encephalopathy 5. Shortness of breath Patient with elise hematemesis and hypotension and tachycardia, known history of varices and cirrhosis, therefore highest on differential diagnosis is variceal bleed. Also in Ddx is bleeding from banding site, recurrent PUD, PHG, etc. PPI and octreotide drips, antibiotics for SBP prophylaxis in setting of cirrhosis and ascites with GI bleed, and emergent EGD for this life threatening situation The situation was discussed in detail with the family including the daughter, Evelyn Giang #[phone] who is at bedside and who is identified as the decisi on maker for the patient, and the agreed upon decision was to pursue EGD immediately. Patient with SOB which is likely being exacerbated by his tense ascites, once his acute bleeding issue is resolved he will need a therapeutic paracentesis.
--- NOTE | 2018-12-25 03:59 | Operative Report ---
Operative Report Operative Report: DATE OF SERVICE: 12/25/18 SURGEON: Jefferson Kapoor MD EGD REPORT PREOPERATIVE DIAGNOSIS and POSTOPERATIVE DIAGNOSIS: GI bleed ESTIMATED BLOOD LOSS: 500cc DESCRIPTION OF PROCEDURE: A high-resolution EGD scope was passed through the oropharynx, esophagus, stomach, and second portion of duodenum. The scope was carefully withdrawn. Retroflexion was performed in the stomach. At the end of the procedure, the scope was cleaned using normal technique. Vital signs monitored continuously throughout. SEDATION: Provided by [facility]. COMPLICATIONS: No procedure specific complications. FINDINGS: * Blood in the duodenum obscuring views * Large amount of blood and food debris in the gastric fundus obscuring views; unable to visualize if gastric varices are present. * Food debris in the antrum obscuring views. * Large amount of blood and food debris in the esophagus obscuring views. Varices were able to be visualized, however did not see a source of active bleeding. Unable to assess GE junction. Due to the concern for active GI bleeding I decided to empirically band the esophageal varices. The 6 shooter pediatrics teacher was placed on the scope and the scope was reintroduced. However, the large amount of debris repeatedly clogged the suction port of the scope, preventing the banding kit from working as adequate suction could not be attained to suction a varix into the pediatrics teacher. The banding kit was switched out without success. Next the endoscope was switched and suction confirmed. A third banding kit was placed on the scope and proper function confirmed. The scope was reintroduced, but again the scope became clogged when I tried to band the scope. At this point I noted the patient's abdomen was even more distended than before and was hard on exam. An NGT was successfully placed and confirmed the tip was in the stomach, and at that point the procedure was terminated. * Total procedure time 74 minutes RECOMMENDATIONS: * Patient with upper GI bleed but unable to see or treat the source of the bleeding due to extensive amount of debris and despite extensive attempts failed to empirically band esophageal varices. Therefore continue supportive care with octreotide, protonix, and antibiotics for SBP prophylaxis, and transfusion of blood products and repeat blood work now * The clinical picture is concerning for a possible bowel obstruction as well, therefore please obtain stat imaging of the abdomen to assess for obstruction. Patient has an NGT placed for decompression * If there is no obstruction and the patient continues to bleed, then consult IR to consider TIPS procedure. * Recommendations verbally given to ICU attending. I spoke in person to the family who was present (siblings) and called the daughterEvelyn at [phone] as to the critical situation of the patient
[2018-12-25] MEDS ORDERED: NEO SYNEPHRINE IV SCH (04:00)
--- NOTE | 2018-12-25 04:55 | XRay Report ---
PROCEDURE: XR ABDOMEN 1V AP TECHNIQUE: Abdominal radiograph, single view. HISTORY: post op, gi bleed/obstruction COMPARISONS: None . FINDINGS: Bowel gas pattern: There are numerous of gas-filled slightly dilated small bowel throughout the abdo men. Postoperative ileus is suspected. . Masses or calcifications: None . Bony structures: No significant abnormality . Other: None . IMPRESSION: Slight postoperative ileus with multiple loops of slightly dilated gas-filled small asaf l throughout the abdomen.. This document is electronically signed by Deirdre Hernandez DO., Dec 25 2018 04:53:57 AM ET
--- NOTE | 2018-12-25 04:56 | XRay Report ---
PROCEDURE: XR CHEST 1V AP TECHNIQUE: Chest radiograph single view. HISTORY: ett placement COMPARISONS: December 24, 2018 . FINDINGS: Heart: Normal. Mediastinum/Vessels: Normal. Lungs/Pleural space: Mild vascular congestion. No effusion or pneumothorax. Bony thorax: No acute osseous abnormality. Life support devices: The endotracheal tube ends 4 cm above the demetrius. Nasogastric tube ends below t he hemidiaphragms. Right central catheter ends in the SVC. IMPRESSION: Slight vascular congestion. The endotracheal tube, nasogastric tube and right central ca theter are properly positioned.. This document is electronically signed by Deirdre Hernandez DO., Dec 25 2018 04:55:32 AM ET
[2018-12-25] MEDS ORDERED: D50W (25GM) Syringe IV ONE ×2 (07:27→10:00)
[2018-12-25] MEDS: Vasostrict 20 UNIT in NACL 0.9% 100 ML IV SCH ×2 (07:57→15:30)
[2018-12-25 08:03] LABS: Hematocrit 33.7 % (35.5-45.6); Hemoglobin 11.1 gm/dl (11.8-15.2); Mean Corpuscular HGB Conc 33 % (32-34); Mean Corpuscular Volume 103 fl (84-94); Red Blood Count 3.27 M/mm3 (3.65-5.03); Red Cell Distribution Width 19.2 % (13.2-15.2)
[2018-12-25 08:07] LABS: Platelet Count 29 K/mm3 (140-440)
[2018-12-25 08:14] LABS: INR 4.53 (0.87-1.13)
[2018-12-25 08:18] LABS: Partial Thromboplastin Time 73.1 Sec. (24.2-36.6)
[2018-12-25 08:26] LABS: Calcium 7.5 mg/dL (8.4-10.2)
[2018-12-25] MEDS: NEO-SYNEPHRINE 100 MG in NACL 0.9% 90 ML IV SCH ×3 (08:32→16:27)
[2018-12-25] MEDS: INTROPIN DRIP 800 MG/D5W 250 ML 800 MG/250 ML BAG IV SCH ×2 (08:43→15:26)
--- NOTE | 2018-12-25 08:44 | Consultation ---
History of Present Illness - Reason for Consult Consult date: 12/25/18 end stage renal disease, metabolic acidosis - History of Present Illness The patient is a 63 YO Male, who is well known to our service, with history significant for ETOH Cirrhosis, Recurrent ascites requiring multiple therapeutic paracentesis, Thrombocytopenia, recurrent anemia secondary to GI bleed, PUD, ESRD on HD(TTS) and Hypotension who presented to [facility] ED yesterday with c/o generalized weakness and altered mental status. Patient was not able to provide any history and there was no family member at the bedside. His blood pressure was noted it to be low at home yesterday and decided to call EMS. Upon arrival to ED patient was found to be tachycardiac and hypotensive. Patient experienced elise hemoptysis 2 in the ED. He was recently admitted at [facility] and underwent therapeutic paracentesis with removal of 6 L of fluid. He was discharged on 12/21. Patient underwent EGD today. Patient is currently intubated, on vent and on 4 different pressors. Nephrology was consulted for managing ESRD. Past History Past Medical History: dialysis, ESRD (on HD T/NICKOLAS/S), GERD, hypertension, liver disease (history of ascites, status post multiple paracentesis) Past Surgical History: Other (left upper chest vascath access) Medications and Allergies Allergies Allergy/AdvReac Type Severity Reaction Status Date / Time No Known Allergies Allergy Verified 11/26/16 14:51 Home Medications Medication Instructions Recorded Confirmed Last Taken Type Folic Acid [Folvite] 1 mg PO QDAY #30 tablet 12/08/18 Unknown Rx Lactulose [Cephulac] 30 ml PO Q12HR 30 Days oral.liqd 12/08/18 Unknown Rx Midodrine [Proamatine] 10 mg PO TID #90 tablet 12/08/18 Unknown Rx Multivitamin Tab [Multiple Vitamin 1 each PO QDAY #30 tablet 12/08/18 Unknown Rx TAB (Theragran)] Pantoprazole [Protonix TAB] 40 mg PO BID #60 tablet 12/08/18 Unknown Rx Rifaximin [Xifaxan] 550 mg PO BID #60 tablet 12/08/18 Unknown Rx Sucralfate [Carafate] 1 gm PO ACHS #60 tablet 12/08/18 Unknown Rx Thiamine [Vitamin B-1] 100 mg PO QDAY #30 tablet 12/08/18 Unknown Rx Active Meds: Active Medications Acetaminophen (Tylenol) 650 mg PO Q4H PRN PRN Reason: Pain MILD(1-3)/Fever >100.5/NASH Pantoprazole Sodium 80 mg/ (Sodium Chloride) 100 mls @ 10 mls/hr IV DIRECT LUBA Last Admin: 12/25/18 08:30 Dose: 8 mg/hr, 10 mls/hr Documented by: Sodium Chloride (Nacl 0.9% 1000 Ml) 1,000 mls @ 42 mls/hr IV DIRECT LUBA Stop: 12/28/18 09:49 Ceftriaxone Sodium (Rocephin/Ns 2 Gm/100 Ml) 2 gm in 100 mls @ 200 mls/hr IV Q24HR LUBA; Protocol Norepinephrine (Levophed Drip 4 Mg/Ns 250 Ml) 4 mg in 250 mls @ 7.5 mls/hr IV TITR LUBA; Protocol Last Admin: 12/25/18 06:40 Dose: 2 mcg/min, 7.5 mls/hr Documented by: Phenylephrine HCl 100 mg/ (Sodium Chloride) 100 mls @ 3 mls/hr IV TITR LUBA; Protocol Last Admin: 12/25/18 08:32 Dose: 50 mcg/min, 3 mls/hr Documented by: Vasopressin 20 unit/ Sodium (Chloride) 101 mls @ 9.09 mls/hr IV TITR LUBA; Protocol Last Admin: 12/25/18 07:57 Dose: 0.03 units/min, 9.09 mls/hr Documented by: Octreotide Acetate 500 mcg/ (Sodium Chloride) 101 mls @ 5.05 mls/hr IV TITR LUBA; Protocol Dopamine HCl/Dextrose (Intropin Drip 800 Mg/D5w 250 Ml) 800 mg in 250 mls @ 3.657 mls/hr IV TITR LUBA; Protocol Last Admin: 12/25/18 08:43 Dose: 2 mcg/kg/min, 3.657 mls/hr Documented by: Norepinephrine 8 mg/ Sodium (Chloride) 250 mls @ 3.75 mls/hr IV TITR LUBA; Protocol Morphine Sulfate (Morphine) 2 mg IV Q4H PRN PRN Reason: Pain, Moderate (4-6) Stop: 12/26/18 23:59 Ondansetron HCl (Zofran) 4 mg IV Q8H PRN PRN Reason: Nausea And Vomiting Sodium Chloride (Sodium Chloride Flush Syringe 10 Ml) 10 ml IV BID LUBA Sodium Chloride (Sodium Chloride Flush Syringe 10 Ml) 10 ml IV PRN PRN PRN Reason: LINE FLUSH Review of Systems ROS unobtainable: due to mental status Exam - Vital Signs Vital signs: Vital Signs Pulse Resp 102 H 33 H 12/24/18 21:16 12/24/18 21:16 - General Appearance General appearance: well-developed, appears stated age, intubated, other (on vent, R IJ tunnel catheter) EENT: ATNC Neck: Present: neck supple, trachea midline Respiratory: Clear to Ascultation Heart: regular, S1S2, no murmurs Gastrointestinal: Present: distended, other (ascites noted) Integumentary: no rash Neurologic: obtunded Musculoskeletal: Present: other (no edema) Results - Lab Results 12/25/18 07:10 12/25/18 07:10 Most recent lab results Calcium 7.5 mg/dL (8.4-10.2) L 12/25/18 07:10 Magnesium 2.00 mg/dL (1.7-2.3) 12/24/18 22:12 Assessment and Plan 1. ESRD: Patient's outpatient schedule is TTS. At present patient is severely hypotensive and unstable to do hemodialysis. Will continue to follow. 2. FEN: Lactic acidosis, start on bicarbonate drip. Monitor. 3. Anemia: 2/2 GI bleed. 4. GI bleed: S/p EGD. Followed by GI. 5. Respiratory failure: On vent. 6. Shock: On 4 different pressors. 7. Alcoholic cirrhosis with ascites: Overall prognosis is poor.
[2018-12-25] MEDS ORDERED: SandoSTATIN 500 MCG in NACL 0.9% 100 ML IV SCH (09:00)
[2018-12-25] MEDS: LEVOPHED 8 MG in NACL 0.9% 250ML 242 ML IV SCH ×3 (09:01→16:28)
--- NOTE | 2018-12-25 09:34 | Consultation ---
History of Present Illness - Reason for Consult Consult date: 12/25/18 Ascites - History of Present Illness Patient with a history of end-stage renal disease, renal failure who presents with upper GI bleed. He underwent an attempted esophageal banding procedure which was compensated secondary to debris. The patient is currently intubated and on for pressors. He has a MELD score of 40. Past History Past Medical History: ESRD (on HD T/NICKOLAS/S), GERD, hypertension, liver disease (history of ascites, status post multiple paracentesis) Past Surgical History: Other (left upper chest vascath access) Medications and Allergies Allergies Allergy/AdvReac Type Severity Reaction Status Date / Time No Known Allergies Allergy Verified 11/26/16 14:51 Home Medications Medication Instructions Recorded Confirmed Last Taken Type Folic Acid [Folvite] 1 mg PO QDAY #30 tablet 12/08/18 Unknown Rx Lactulose [Cephulac] 30 ml PO Q12HR 30 Days oral.liqd 12/08/18 Unknown Rx Midodrine [Proamatine] 10 mg PO TID #90 tablet 12/08/18 Unknown Rx Multivitamin Tab [Multiple Vitamin 1 each PO QDAY #30 tablet 12/08/18 Unknown Rx TAB (Theragran)] Pantoprazole [Protonix TAB] 40 mg PO BID #60 tablet 12/08/18 Unknown Rx Rifaximin [Xifaxan] 550 mg PO BID #60 tablet 12/08/18 Unknown Rx Sucralfate [Carafate] 1 gm PO ACHS #60 tablet 12/08/18 Unknown Rx Thiamine [Vitamin B-1] 100 mg PO QDAY #30 tablet 12/08/18 Unknown Rx Active Meds: Active Medications Acetaminophen (Tylenol) 650 mg PO Q4H PRN PRN Reason: Pain MILD(1-3)/Fever >100.5/NASH Dextrose (D50w (25gm) Syringe) 50 ml IV ONCE ONE Stop: 12/25/18 10:01 Last Admin: 12/25/18 09:20 Dose: 50 ml Documented by: Pantoprazole Sodium 80 mg/ (Sodium Chloride) 100 mls @ 10 mls/hr IV DIRECT LUBA Last Admin: 12/25/18 08:30 Dose: 8 mg/hr, 10 mls/hr Documented by: Sodium Chloride (Nacl 0.9% 1000 Ml) 1,000 mls @ 42 mls/hr IV DIRECT LUBA Stop: 12/28/18 09:49 Ceftriaxone Sodium (Rocephin/Ns 2 Gm/100 Ml) 2 gm in 100 mls @ 200 mls/hr IV Q24HR LUBA; Protocol Norepinephrine (Levophed Drip 4 Mg/Ns 250 Ml) 4 mg in 250 mls @ 7.5 mls/hr IV TITR LUBA; Protocol Last Admin: 12/25/18 06:40 Dose: 2 mcg/min, 7.5 mls/hr Documented by: Phenylephrine HCl 100 mg/ (Sodium Chloride) 100 mls @ 3 mls/hr IV TITR LUBA; Protocol Last Admin: 12/25/18 08:32 Dose: 50 mcg/min, 3 mls/hr Documented by: Vasopressin 20 unit/ Sodium (Chloride) 101 mls @ 9.09 mls/hr IV TITR LUBA; Protocol Last Admin: 12/25/18 07:57 Dose: 0.03 units/min, 9.09 mls/hr Documented by: Octreotide Acetate 500 mcg/ (Sodium Chloride) 101 mls @ 5.05 mls/hr IV TITR LUBA; Protocol Dopamine HCl/Dextrose (Intropin Drip 800 Mg/D5w 250 Ml) 800 mg in 250 mls @ 3.657 mls/hr IV TITR LUBA; Protocol Last Titration: 12/25/18 09:23 Dose: 15 mcg/kg/min, 27.428 mls/hr Documented by: Norepinephrine 8 mg/ Sodium (Chloride) 250 mls @ 3.75 mls/hr IV TITR LUBA; Protocol Last Admin: 12/25/18 09:01 Dose: 30 mcg/min, 56.25 mls/hr Documented by: Epinephrine 8 mg/ Sodium (Chloride) 250 mls @ 3.75 mls/hr IV TITR LUBA; Protocol Morphine Sulfate (Morphine) 2 mg IV Q4H PRN PRN Reason: Pain, Moderate (4-6) Stop: 12/26/18 23:59 Ondansetron HCl (Zofran) 4 mg IV Q8H PRN PRN Reason: Nausea And Vomiting Sodium Bicarbonate (Sodium Bicarbonate 50meq Syringe) 100 meq IV ONCE ONE Stop: 12/25/18 10:01 Last Admin: 12/25/18 09:16 Dose: 100 meq Documented by: Sodium Chloride (Sodium Chloride Flush Syringe 10 Ml) 10 ml IV BID LUBA Sodium Chloride (Sodium Chloride Flush Syringe 10 Ml) 10 ml IV PRN PRN PRN Reason: LINE FLUSH Review of Systems ROS unobtainable: due to endotracheal tube Exam - Constitutional Vitals: Temp Pulse Resp BP Pulse Ox 92.6 F L 108 H 18 88/12 96 12/25/18 09:00 12/25/18 09:00 12/25/18 09:00 12/25/18 09:00 12/25/18 09:00 General appearance: Present: severe distress Results - Labs CBC & Chem 7: 12/25/18 07:10 12/25/18 07:10 Labs: Abnormal lab results 12/24/18 12/24/18 12/24/18 Range/Units 21:53 21:53 21:53 WBC 4.1 L (4.5-11.0) K/mm3 RBC 2.29 L (3.65-5.03) M/mm3 Hgb 8.2 L (11.8-15.2) gm/dl Hct 23.9 L (35.5-45.6) % MCV 104 H (84-94) fl MCH 36 H (28-32) pg RDW 23.7 H (13.2-15.2) % Plt Count 49 L (140-440) K/mm3 Seg Neuts % (Manual) 36.0 L (40.0-70.0) % Lymphocytes % (Manual) 0 L (13.4-35.0) % Monocytes % (Manual) 8.0 H (0.0-7.3) % Seg Neutrophils # Man 1.5 L (1.8-7.7) K/mm3 Lymphocytes # (Manual) 0.0 L (1.2-5.4) K/mm3 PT (12.2-14.9) Sec. INR (0.87-1.13) APTT (24.2-36.6) Sec. POC ABG pH (7.35-7.45) POC ABG pCO2 (35-45) POC ABG pO2 (80-105) VBG pH (7.320-7.420) Sodium 127 L (137-145) mmol/L Chloride 91.3 L (98-107) mmol/L Carbon Dioxide 11 L (22-30) mmol/L BUN 56 H (9-20) mg/dL Creatinine 11.0 H (0.8-1.5) mg/dL Glucose 59 L (75-100) mg/dL POC Glucose (70-105) Lactic Acid (0.7-2.0) mmol/L Calcium 7.7 L (8.4-10.2) mg/dL Total Bilirubin 3.10 H (0.1-1.2) mg/dL Ammonia 217.0 H (25-60) umol/L Total Creatine Kinase (55-170) units/L CK-MB (CK-2) Rel Index (0-4) NT-Pro-B Natriuret Pep 3036 H (0-900) pg/mL Total Protein 5.7 L (6.3-8.2) g/dL Albumin 1.5 L (3.9-5) g/dL Crossmatch 12/24/18 12/24/18 12/24/18 Range/Units 21:53 21:53 21:53 WBC (4.5-11.0) K/mm3 RBC (3.65-5.03) M/mm3 Hgb (11.8-15.2) gm/dl Hct (35.5-45.6) % MCV (84-94) fl MCH (28-32) pg RDW (13.2-15.2) % Plt Count (140-440) K/mm3 Seg Neuts % (Manual) (40.0-70.0) % Lymphocytes % (Manual) (13.4-35.0) % Monocytes % (Manual) (0.0-7.3) % Seg Neutrophils # Man (1.8-7.7) K/mm3 Lymphocytes # (Manual) (1.2-5.4) K/mm3 PT (12.2-14.9) Sec. INR (0.87-1.13) APTT (24.2-36.6) Sec. POC ABG pH (7.35-7.45) POC ABG pCO2 (35-45) POC ABG pO2 (80-105) VBG pH (7.320-7.420) Sodium (137-145) mmol/L Chloride (98-107) mmol/L Carbon Dioxide (22-30) mmol/L BUN (9-20) mg/dL Creatinine (0.8-1.5) mg/dL Glucose (75-100) mg/dL POC Glucose (70-105) Lactic Acid 11.70 H* (0.7-2.0) mmol/L Calcium (8.4-10.2) mg/dL Total Bilirubin (0.1-1.2) mg/dL Ammonia (25-60) umol/L Total Creatine Kinase 36 L (55-170) units/L CK-MB (CK-2) Rel Index 4.7 H (0-4) NT-Pro-B Natriuret Pep (0-900) pg/mL Total Protein (6.3-8.2) g/dL Albumin (3.9-5) g/dL Crossmatch See Detail 12/24/18 12/24/18 12/24/18 Range/Units 22:06 22:11 22:12 WBC (4.5-11.0) K/mm3 RBC (3.65-5.03) M/mm3 Hgb (11.8-15.2) gm/dl Hct (35.5-45.6) % MCV (84-94) fl MCH (28-32) pg RDW (13.2-15.2) % Plt Count (140-440) K/mm3 Seg Neuts % (Manual) (40.0-70.0) % Lymphocytes % (Manual) (13.4-35.0) % Monocytes % (Manual) (0.0-7.3) % Seg Neutrophils # Man (1.8-7.7) K/mm3 Lymphocytes # (Manual) (1.2-5.4) K/mm3 PT (12.2-14.9) Sec. INR (0.87-1.13) APTT 67.2 H* (24.2-36.6) Sec. POC ABG pH (7.35-7.45) POC ABG pCO2 (35-45) POC ABG pO2 (80-105) VBG pH 7.313 L (7.320-7.420) Sodium (137-145) mmol/L Chloride (98-107) mmol/L Carbon Dioxide (22-30) mmol/L BUN (9-20) mg/dL Creatinine (0.8-1.5) mg/dL Glucose (75-100) mg/dL POC Glucose 53 L (70-105) Lactic Acid (0.7-2.0) mmol/L Calcium (8.4-10.2) mg/dL Total Bilirubin (0.1-1.2) mg/dL Ammonia (25-60) umol/L Total Creatine Kinase (55-170) units/L CK-MB (CK-2) Rel Index (0-4) NT-Pro-B Natriuret Pep (0-900) pg/mL Total Protein (6.3-8.2) g/dL Albumin (3.9-5) g/dL Crossmatch 12/24/18 12/24/18 12/25/18 Range/Units 22:50 23:19 00:33 WBC (4.5-11.0) K/mm3 RBC (3.65-5.03) M/mm3 Hgb (11.8-15.2) gm/dl Hct (35.5-45.6) % MCV (84-94) fl MCH (28-32) pg RDW (13.2-15.2) % Plt Count (140-440) K/mm3 Seg Neuts % (Manual) (40.0-70.0) % Lymphocytes % (Manual) (13.4-35.0) % Monocytes % (Manual) (0.0-7.3) % Seg Neutrophils # Man (1.8-7.7) K/mm3 Lymphocytes # (Manual) (1.2-5.4) K/mm3 PT (12.2-14.9) Sec. INR (0.87-1.13) APTT (24.2-36.6) Sec. POC ABG pH (7.35-7.45) POC ABG pCO2 (35-45) POC ABG pO2 (80-105) VBG pH (7.320-7.420) Sodium (137-145) mmol/L Chloride (98-107) mmol/L Carbon Dioxide (22-30) mmol/L BUN (9-20) mg/dL Creatinine (0.8-1.5) mg/dL Glucose (75-100) mg/dL POC Glucose 122 H (70-105) Lactic Acid 11.20 H* 11.10 H* (0.7-2.0) mmol/L Calcium (8.4-10.2) mg/dL Total Bilirubin (0.1-1.2) mg/dL Ammonia (25-60) umol/L Total Creatine Kinase (55-170) units/L CK-MB (CK-2) Rel Index (0-4) NT-Pro-B Natriuret Pep (0-900) pg/mL Total Protein (6.3-8.2) g/dL Albumin (3.9-5) g/dL Crossmatch 12/25/18 12/25/18 12/25/18 Range/Units 07:10 07:10 07:10 WBC (4.5-11.0) K/mm3 RBC 3.27 L (3.65-5.03) M/mm3 Hgb 11.1 L (11.8-15.2) gm/dl Hct 33.7 L D (35.5-45.6) % MCV 103 H (84-94) fl MCH 34 H (28-32) pg RDW 19.2 H (13.2-15.2) % Plt Count 29 L (140-440) K/mm3 Seg Neuts % (Manual) (40.0-70.0) % Lymphocytes % (Manual) (13.4-35.0) % Monocytes % (Manual) (0.0-7.3) % Seg Neutrophils # Man (1.8-7.7) K/mm3 Lymphocytes # (Manual) (1.2-5.4) K/mm3 PT 46.2 H (12.2-14.9) Sec. INR 4.53 H (0.87-1.13) APTT 73.1 H* (24.2-36.6) Sec. POC ABG pH (7.35-7.45) POC ABG pCO2 (35-45) POC ABG pO2 (80-105) VBG pH (7.320-7.420) Sodium (137-145) mmol/L Chloride (98-107) mmol/L Carbon Dioxide (22-30) mmol/L BUN (9-20) mg/dL Creatinine (0.8-1.5) mg/dL Glucose (75-100) mg/dL POC Glucose (70-105) Lactic Acid 12.90 H* (0.7-2.0) mmol/L Calcium (8.4-10.2) mg/dL Total Bilirubin (0.1-1.2) mg/dL Ammonia (25-60) umol/L Total Creatine Kinase (55-170) units/L CK-MB (CK-2) Rel Index (0-4) NT-Pro-B Natriuret Pep (0-900) pg/mL Total Protein (6.3-8.2) g/dL Albumin (3.9-5) g/dL Crossmatch 12/25/18 12/25/18 12/25/18 Range/Units 07:10 07:29 08:59 WBC (4.5-11.0) K/mm3 RBC (3.65-5.03) M/mm3 Hgb (11.8-15.2) gm/dl Hct (35.5-45.6) % MCV (84-94) fl MCH (28-32) pg RDW (13.2-15.2) % Plt Count (140-440) K/mm3 Seg Neuts % (Manual) (40.0-70.0) % Lymphocytes % (Manual) (13.4-35.0) % Monocytes % (Manual) (0.0-7.3) % Seg Neutrophils # Man (1.8-7.7) K/mm3 Lymphocytes # (Manual) (1.2-5.4) K/mm3 PT (12.2-14.9) Sec. INR (0.87-1.13) APTT (24.2-36.6) Sec. POC ABG pH 6.990 L (7.35-7.45) POC ABG pCO2 30.4 L (35-45) POC ABG pO2 196 H (80-105) VBG pH (7.320-7.420) Sodium 130 L (137-145) mmol/L Chloride 96.4 L (98-107) mmol/L Carbon Dioxide 7 L* (22-30) mmol/L BUN 54 H (9-20) mg/dL Creatinine 10.3 H (0.8-1.5) mg/dL Glucose 126 H (75-100) mg/dL POC Glucose < 40 L (70-105) Lactic Acid (0.7-2.0) mmol/L Calcium 7.5 L (8.4-10.2) mg/dL Total Bilirubin (0.1-1.2) mg/dL Ammonia (25-60) umol/L Total Creatine Kinase (55-170) units/L CK-MB (CK-2) Rel Index (0-4) NT-Pro-B Natriuret Pep (0-900) pg/mL Total Protein (6.3-8.2) g/dL Albumin (3.9-5) g/dL Crossmatch Assessment and Plan Patient is decompensating rapidly. Given his MELD score but is greater than 40, patient is not a candidate for tips secondary to the significantly high mortality. Would recommend hospice
[2018-12-25] MEDS ORDERED: ROCEPHIN/NS 2 GM/100 ML 2 GM/100 ML BAG IV SCH (10:00)
[2018-12-25] MEDS ORDERED: SODIUM CHLORIDE FLUSH SYRINGE 10 ML IV SCH (10:00)
[2018-12-25] MEDS ORDERED: ADRENALIN 8 MG in NACL 0.9% 250ML 242 ML IV SCH (10:00)
[2018-12-25] MEDS ORDERED: NACL 0.9% 1000 ML 1,000 ML IV SCH (10:00)
--- NOTE | 2018-12-25 11:12 | Consultation ---
History of Present Illness Consult date: 12/25/18 Requesting physician: ADRIANA OLIVO Reason for consult: other (Multiorgan system failure, secondary to liver disease) History of present illness: 63 y/o male, currently intubated, not sedated and maxed out on 5 vasopressors, admitted to the ICU after presenting with Upper GI bleed. Patient has been admitted to the hospital at least 5x in the last 2 months with the same issues. He has been banded in the past for esophageal varices. Has known liver disease with cirrhosis and noncompliance. Hospice had been suggested in the past but patient refused. I spoke with Daughter Evelyn over the phone and asked her to come in immediately, as this patient is pending cardiac arrest. Past History Past Medical History: ESRD (on HD T/NICKOLAS/S), GERD, hypertension, liver disease (history of ascites, status post multiple paracentesis) Past Surgical History: Other (left upper chest vascath access and esophageal banding of varices) Medications and Allergies Allergies Allergy/AdvReac Type Severity Reaction Status Date / Time No Known Allergies Allergy Verified 11/26/16 14:51 Home Medications Medication Instructions Recorded Confirmed Last Taken Type Folic Acid [Folvite] 1 mg PO QDAY #30 tablet 12/08/18 Unknown Rx Lactulose [Cephulac] 30 ml PO Q12HR 30 Days oral.liqd 12/08/18 Unknown Rx Midodrine [Proamatine] 10 mg PO TID #90 tablet 12/08/18 Unknown Rx Multivitamin Tab [Multiple Vitamin 1 each PO QDAY #30 tablet 12/08/18 Unknown Rx TAB (Theragran)] Pantoprazole [Protonix TAB] 40 mg PO BID #60 tablet 12/08/18 Unknown Rx Rifaximin [Xifaxan] 550 mg PO BID #60 tablet 12/08/18 Unknown Rx Sucralfate [Carafate] 1 gm PO ACHS #60 tablet 12/08/18 Unknown Rx Thiamine [Vitamin B-1] 100 mg PO QDAY #30 tablet 12/08/18 Unknown Rx Active Meds: Active Medications Acetaminophen (Tylenol) 650 mg PO Q4H PRN PRN Reason: Pain MILD(1-3)/Fever >100.5/NASH Pantoprazole Sodium 80 mg/ (Sodium Chloride) 100 mls @ 10 mls/hr IV DIRECT LUBA Last Admin: 12/25/18 08:30 Dose: 8 mg/hr, 10 mls/hr Documented by: Sodium Chloride (Nacl 0.9% 1000 Ml) 1,000 mls @ 42 mls/hr IV DIRECT LUBA Stop: 12/28/18 09:49 Ceftriaxone Sodium (Rocephin/Ns 2 Gm/100 Ml) 2 gm in 100 mls @ 200 mls/hr IV Q24HR LUBA; Protocol Norepinephrine (Levophed Drip 4 Mg/Ns 250 Ml) 4 mg in 250 mls @ 7.5 mls/hr IV TITR LUBA; Protocol Stop: 12/25/18 14:00 Last Admin: 12/25/18 06:40 Dose: 2 mcg/min, 7.5 mls/hr Documented by: Phenylephrine HCl 100 mg/ (Sodium Chloride) 100 mls @ 3 mls/hr IV TITR LUBA; Protocol Last Admin: 12/25/18 08:32 Dose: 50 mcg/min, 3 mls/hr Documented by: Vasopressin 20 unit/ Sodium (Chloride) 101 mls @ 9.09 mls/hr IV TITR LUBA; Protocol Last Admin: 12/25/18 07:57 Dose: 0.03 units/min, 9.09 mls/hr Documented by: Octreotide Acetate 500 mcg/ (Sodium Chloride) 101 mls @ 5.05 mls/hr IV TITR LUBA; Protocol Dopamine HCl/Dextrose (Intropin Drip 800 Mg/D5w 250 Ml) 800 mg in 250 mls @ 3.657 mls/hr IV TITR LUBA; Protocol Last Titration: 12/25/18 09:38 Dose: 20 mcg/kg/min, 36.571 mls/hr Documented by: Norepinephrine 8 mg/ Sodium (Chloride) 250 mls @ 3.75 mls/hr IV TITR LUBA; Protocol Last Admin: 12/25/18 09:01 Dose: 30 mcg/min, 56.25 mls/hr Documented by: Epinephrine 8 mg/ Sodium (Chloride) 250 mls @ 3.75 mls/hr IV TITR LUBA; Protocol Last Titration: 12/25/18 11:02 Dose: 7 mcg/min, 13.125 mls/hr Documented by: Morphine Sulfate (Morphine) 2 mg IV Q4H PRN PRN Reason: Pain, Moderate (4-6) Stop: 12/26/18 23:59 Ondansetron HCl (Zofran) 4 mg IV Q8H PRN PRN Reason: Nausea And Vomiting Sodium Chloride (Sodium Chloride Flush Syringe 10 Ml) 10 ml IV BID LUBA Last Admin: 12/25/18 09:54 Dose: 10 ml Documented by: Sodium Chloride (Sodium Chloride Flush Syringe 10 Ml) 10 ml IV PRN PRN PRN Reason: LINE FLUSH Review of Systems ROS unobtainable: due to endotracheal tube, due to mental status Physical Examination Vital signs: Vital Signs Pulse Resp 102 H 33 H 12/24/18 21:16 12/24/18 21:16 General appearance: comatose Eyes: injected ENT: other (orally intubated) Neck: supple Effort: mildly labored Ascultation: Bilateral: diminished breath sounds Percussion: Bilateral: not dull Cardiovascular: other (tachycardic) Gastrointestinal: other (distended, ascities present) Extremities: anasarca Results - Laboratory Findings CBC and BMP: 12/25/18 07:10 12/25/18 07:10 ABG POC ABG pH 6.990 (7.35-7.45) L 12/25/18 08:59 POC ABG pCO2 30.4 (35-45) L 12/25/18 08:59 POC ABG pO2 196 (80-105) H 12/25/18 08:59 POC ABG HCO3 7.3 (22-26 mml/L) 12/25/18 08:59 POC ABG Total CO2 8 (23-27mmol/L) 12/25/18 08:59 POC ABG O2 Sat 99 12/25/18 08:59 PT/INR, D-dimer PT 46.2 Sec. (12.2-14.9) H 12/25/18 07:10 INR 4.53 (0.87-1.13) H 12/25/18 07:10 Abnormal lab findings: Abnormal Labs 12/24/18 12/24/18 12/24/18 21:53 21:53 21:53 WBC 4.1 L RBC 2.29 L Hgb 8.2 L Hct 23.9 L MCV 104 H MCH 36 H RDW 23.7 H Plt Count 49 L Seg Neuts % (Manual) 36.0 L Lymphocytes % (Manual) 0 L Monocytes % (Manual) 8.0 H Seg Neutrophils # Man 1.5 L Lymphocytes # (Manual) 0.0 L PT INR APTT POC ABG pH POC ABG pCO2 POC ABG pO2 VBG pH Sodium 127 L Chloride 91.3 L Carbon Dioxide 11 L BUN 56 H Creatinine 11.0 H Glucose 59 L POC Glucose Lactic Acid Calcium 7.7 L Total Bilirubin 3.10 H Ammonia 217.0 H Total Creatine Kinase CK-MB (CK-2) Rel Index NT-Pro-B Natriuret Pep 3036 H Total Protein 5.7 L Albumin 1.5 L Crossmatch 12/24/18 12/24/18 12/24/18 21:53 21:53 21:53 WBC RBC Hgb Hct MCV MCH RDW Plt Count Seg Neuts % (Manual) Lymphocytes % (Manual) Monocytes % (Manual) Seg Neutrophils # Man Lymphocytes # (Manual) PT INR APTT POC ABG pH POC ABG pCO2 POC ABG pO2 VBG pH Sodium Chloride Carbon Dioxide BUN Creatinine Glucose POC Glucose Lactic Acid 11.70 H* Calcium Total Bilirubin Ammonia Total Creatine Kinase 36 L CK-MB (CK-2) Rel Index 4.7 H NT-Pro-B Natriuret Pep Total Protein Albumin Crossmatch See Detail 12/24/18 12/24/18 12/24/18 22:06 22:11 22:12 WBC RBC Hgb Hct MCV MCH RDW Plt Count Seg Neuts % (Manual) Lymphocytes % (Manual) Monocytes % (Manual) Seg Neutrophils # Man Lymphocytes # (Manual) PT INR APTT 67.2 H* POC ABG pH POC ABG pCO2 POC ABG pO2 VBG pH 7.313 L Sodium Chloride Carbon Dioxide BUN Creatinine Glucose POC Glucose 53 L Lactic Acid Calcium Total Bilirubin Ammonia Total Creatine Kinase CK-MB (CK-2) Rel Index NT-Pro-B Natriuret Pep Total Protein Albumin Crossmatch 12/24/18 12/24/18 12/25/18 22:50 23:19 00:33 WBC RBC Hgb Hct MCV MCH RDW Plt Count Seg Neuts % (Manual) Lymphocytes % (Manual) Monocytes % (Manual) Seg Neutrophils # Man Lymphocytes # (Manual) PT INR APTT POC ABG pH POC ABG pCO2 POC ABG pO2 VBG pH Sodium Chloride Carbon Dioxide BUN Creatinine Glucose POC Glucose 122 H Lactic Acid 11.20 H* 11.10 H* Calcium Total Bilirubin Ammonia Total Creatine Kinase CK-MB (CK-2) Rel Index NT-Pro-B Natriuret Pep Total Protein Albumin Crossmatch 12/25/18 12/25/18 12/25/18 07:10 07:10 07:10 WBC RBC 3.27 L Hgb 11.1 L Hct 33.7 L D MCV 103 H MCH 34 H RDW 19.2 H Plt Count 29 L Seg Neuts % (Manual) Lymphocytes % (Manual) Monocytes % (Manual) Seg Neutrophils # Man Lymphocytes # (Manual) PT 46.2 H INR 4.53 H APTT 73.1 H* POC ABG pH POC ABG pCO2 POC ABG pO2 VBG pH Sodium Chloride Carbon Dioxide BUN Creatinine Glucose POC Glucose Lactic Acid 12.90 H* Calcium Total Bilirubin Ammonia Total Creatine Kinase CK-MB (CK-2) Rel Index NT-Pro-B Natriuret Pep Total Protein Albumin Crossmatch 12/25/18 12/25/18 12/25/18 07:10 07:29 08:59 WBC RBC Hgb Hct MCV MCH RDW Plt Count Seg Neuts % (Manual) Lymphocytes % (Manual) Monocytes % (Manual) Seg Neutrophils # Man Lymphocytes # (Manual) PT INR APTT POC ABG pH 6.990 L POC ABG pCO2 30.4 L POC ABG pO2 196 H VBG pH Sodium 130 L Chloride 96.4 L Carbon Dioxide 7 L* BUN 54 H Creatinine 10.3 H Glucose 126 H POC Glucose < 40 L Lactic Acid Calcium 7.5 L Total Bilirubin Ammonia Total Creatine Kinase CK-MB (CK-2) Rel Index NT-Pro-B Natriuret Pep Total Protein Albumin Crossmatch - Diagnostic Findings Chest x-ray: image reviewed (clear) Assessment and Plan 63 y/o male with multisystem organ failure 1. Long discussion with daughter at bedside. Asked her to make patient a DNR as coding him would not improve his underlying liver disease which is the root of this problem. I feel that she is in agreement but has not signed yet. Patient will likely have cardiac arrest today. Will continue current management. Prognosis is poor. CCT 31 minutes.
--- NOTE | 2018-12-25 12:37 | Progress Note ---
Assessment and Plan Acute hypoxic respiratory failue Hepatic encephalopathy Hypotension Thrombocytopenia Coagulopathic Hypoglycemia Hyponatremia-likely secondary ESRD on HD T/Th/S Ascites Suspicion of sepsis SIRS Alcoholic hepatic cirrhosis Plan: Continue supportive care Continue to monitor BP Continue Levophed gtt Nothing by mouth Monitor I&O's Monitor LFTs Cultures pending UA pending cpnt iv abx and Protonix gtt Dr. Kapoor consulted and following Continue monitoring CBC Monitor Hgb, transfuse when necessary Monitor platelets, to use when necessary Monitor electrolytes, replete as needed Consulted nephrology Consulted IR for therapeutic paracentesis DVT PPX on SCD's DNR code status Subjective Date of service: 12/25/18 Interval history: Patient seen and examined remained intubated, unresponsive family at bedside updated, Family agreed for DNR and inpt hospice Objective - Exam Narrative Exam: General appearance: comatose Eyes: injected ENT: other (orally intubated) Neck: supple Effort: mildly labored Ascultation: Bilateral: diminished breath sounds Percussion: Bilateral: not dull Cardiovascular: other (tachycardic) Gastrointestinal: other (distended, ascities present) Extremities: anasarca - Constitutional Vitals: Vital Signs - 12hr 12/25/18 12/25/18 12/25/18 00:40 00:45 00:50 Temperature Pulse Rate 105 H 107 H 106 H Respiratory 29 H 28 H 30 H Rate Blood Pressure 65/30 75/46 73/40 O2 Sat by Pulse 85 84 86 Oximetry 12/25/18 12/25/18 12/25/18 00:55 01:00 01:05 Temperature Pulse Rate 107 H 106 H 107 H Respiratory 26 H 27 H 28 H Rate Blood Pressure 76/42 82/44 91/45 O2 Sat by Pulse 84 92 92 Oximetry 12/25/18 12/25/18 12/25/18 01:10 01:15 01:20 Temperature Pulse Rate 105 H 107 H 106 H Respiratory 27 H 33 H 32 H Rate Blood Pressure 81/36 71/41 81/42 O2 Sat by Pulse 92 93 93 Oximetry 12/25/18 12/25/18 12/25/18 01:25 01:30 01:35 Temperature Pulse Rate 105 H 106 H 103 H Respiratory 33 H 29 H 20 Rate Blood Pressure 69/40 73/41 74/44 O2 Sat by Pulse 94 93 92 Oximetry 12/25/18 12/25/1812/25/19 01:40 01:53 04:32 Temperature 97 F L Pulse Rate 103 H 96 H 96 H Respiratory 29 H 31 H Rate Blood Pressure 68/41 89/23 89/23 O2 Sat by Pulse 95 100 100 Oximetry 12/25/18 12/25/18 12/25/18 05:01 05:16 05:45 Temperature Pulse Rate 90 97 H 99 H Respiratory 18 18 18 Rate Blood Pressure 83/23 82/23 84/31 O2 Sat by Pulse Oximetry 12/25/18 12/25/18 12/25/18 06:33 06:41 06:51 Temperature Pulse Rate 106 H 106 H 107 H Respiratory 18 18 18 Rate Blood Pressure 86/38 86/38 O2 Sat by Pulse 99 98 98 Oximetry 12/25/18 12/25/18 12/25/18 07:00 07:11 07:21 Temperature Pulse Rate 104 H 105 H 100 H Respiratory 18 18 18 Rate Blood Pressure 79/26 86/19 75/16 O2 Sat by Pulse 97 98 98 Oximetry 12/25/18 12/25/18 12/25/18 07:30 07:41 07:51 Temperature Pulse Rate 107 H 101 H 105 H Respiratory 18 18 18 Rate Blood Pressure 83/21 83/21 75/18 O2 Sat by Pulse 99 99 98 Oximetry 12/25/18 12/25/18 12/25/18 08:00 08:11 08:13 Temperature 92.7 F L 92.8 F L Pulse Rate 104 H 104 H 103 H Respiratory 18 18 18 Rate Blood Pressure 90/18 84/22 84/22 O2 Sat by Pulse 99 99 99 Oximetry 12/25/18 12/25/18 12/25/18 08:21 08:28 08:30 Temperature 92.8 F L Pulse Rate 102 H 104 H Respiratory 18 19 Rate Blood Pressure 87/29 94/21 O2 Sat by Pulse 99 99 Oximetry 12/25/18 12/25/18 12/25/18 08:41 08:45 08:51 Temperature 92.8 F L Pulse Rate 100 H 106 H 102 H Respiratory 18 18 18 Rate Blood Pressure 94/21 88/12 103/43 O2 Sat by Pulse 98 99 99 Oximetry 12/25/18 12/25/18 12/25/18 08:59 09:00 09:10 Temperature 92.6 F L Pulse Rate 97 H 96 H 94 H Respiratory 20 19 Rate Blood Pressure 103/43 75/10 90/10 O2 Sat by Pulse 99 97 99 Oximetry 12/25/18 12/25/18 12/25/18 09:21 09:30 09:41 Temperature Pulse Rate 117 H 113 H 115 H Respiratory 19 18 18 Rate Blood Pressure 93/20 97/19 99/17 O2 Sat by Pulse 95 96 98 Oximetry 12/25/18 12/25/18 12/25/18 09:48 09:50 10:00 Temperature Pulse Rate 118 H 119 H Respiratory 19 19 Rate Blood Pressure 97/17 106/16 O2 Sat by Pulse 99 96 98 Oximetry 12/25/18 12/25/18 12/25/18 10:11 10:20 10:30 Temperature Pulse Rate 120 H 122 H 121 H Respiratory 20 22 23 Rate Blood Pressure 113/14 106/16 105/15 O2 Sat by Pulse 99 99 100 Oximetry 12/25/18 12/25/18 12/25/18 10:40 10:50 11:01 Temperature Pulse Rate 122 H 121 H 121 H Respiratory 23 23 22 Rate Blood Pressure 112/16 113/14 103/13 O2 Sat by Pulse 79 L Oximetry 12/25/18 12/25/18 12/25/18 11:11 11:20 11:31 Temperature Pulse Rate 137 H 134 H 135 H Respiratory 24 24 25 H Rate Blood Pressure 101/15 114/33 94/16 O2 Sat by Pulse Oximetry 12/25/18 12/25/18 12/25/18 11:40 11:50 12:00 Temperature Pulse Rate 124 H 123 H 121 H Respiratory 19 25 H 27 H Rate Blood Pressure 112/34 115/38 105/11 O2 Sat by Pulse 78 L 82 L Oximetry 12/25/18 12/25/18 12/25/18 12:10 12:12 12:20 Temperature Pulse Rate 131 H 90 120 H Respiratory 25 H 26 H Rate Blood Pressure 93/16 95/11 O2 Sat by Pulse 121 H Oximetry - Labs CBC & Chem 7: 12/25/18 07:10 12/25/18 07:10 Labs: Abnormal lab results 12/24/18 12/24/18 12/24/18 Range/Units 21:53 21:53 21:53 WBC 4.1 L (4.5-11.0) K/mm3 RBC 2.29 L (3.65-5.03) M/mm3 Hgb 8.2 L (11.8-15.2) gm/dl Hct 23.9 L (35.5-45.6) % MCV 104 H (84-94) fl MCH 36 H (28-32) pg RDW 23.7 H (13.2-15.2) % Plt Count 49 L (140-440) K/mm3 Seg Neuts % (Manual) 36.0 L (40.0-70.0) % Lymphocytes % (Manual) 0 L (13.4-35.0) % Monocytes % (Manual) 8.0 H (0.0-7.3) % Seg Neutrophils # Man 1.5 L (1.8-7.7) K/mm3 Lymphocytes # (Manual) 0.0 L (1.2-5.4) K/mm3 PT (12.2-14.9) Sec. INR (0.87-1.13) APTT (24.2-36.6) Sec. POC ABG pH (7.35-7.45) POC ABG pCO2 (35-45) POC ABG pO2 (80-105) VBG pH (7.320-7.420) Sodium 127 L (137-145) mmol/L Chloride 91.3 L (98-107) mmol/L Carbon Dioxide 11 L (22-30) mmol/L BUN 56 H (9-20) mg/dL Creatinine 11.0 H (0.8-1.5) mg/dL Glucose 59 L (75-100) mg/dL POC Glucose (70-105) Lactic Acid (0.7-2.0) mmol/L Calcium 7.7 L (8.4-10.2) mg/dL Total Bilirubin 3.10 H (0.1-1.2) mg/dL Ammonia 217.0 H (25-60) umol/L Total Creatine Kinase (55-170) units/L CK-MB (CK-2) Rel Index (0-4) NT-Pro-B Natriuret Pep 3036 H (0-900) pg/mL Total Protein 5.7 L (6.3-8.2) g/dL Albumin 1.5 L (3.9-5) g/dL Crossmatch 12/24/18 12/24/18 12/24/18 Range/Units 21:53 21:53 21:53 WBC (4.5-11.0) K/mm3 RBC (3.65-5.03) M/mm3 Hgb (11.8-15.2) gm/dl Hct (35.5-45.6) % MCV (84-94) fl MCH (28-32) pg RDW (13.2-15.2) % Plt Count (140-440) K/mm3 Seg Neuts % (Manual) (40.0-70.0) % Lymphocytes % (Manual) (13.4-35.0) % Monocytes % (Manual) (0.0-7.3) % Seg Neutrophils # Man (1.8-7.7) K/mm3 Lymphocytes # (Manual) (1.2-5.4) K/mm3 PT (12.2-14.9) Sec. INR (0.87-1.13) APTT (24.2-36.6) Sec. POC ABG pH (7.35-7.45) POC ABG pCO2 (35-45) POC ABG pO2 (80-105) VBG pH (7.320-7.420) Sodium (137-145) mmol/L Chloride (98-107) mmol/L Carbon Dioxide (22-30) mmol/L BUN (9-20) mg/dL Creatinine (0.8-1.5) mg/dL Glucose (75-100) mg/dL POC Glucose (70-105) Lactic Acid 11.70 H* (0.7-2.0) mmol/L Calcium (8.4-10.2) mg/dL Total Bilirubin (0.1-1.2) mg/dL Ammonia (25-60) umol/L Total Creatine Kinase 36 L (55-170) units/L CK-MB (CK-2) Rel Index 4.7 H (0-4) NT-Pro-B Natriuret Pep (0-900) pg/mL Total Protein (6.3-8.2) g/dL Albumin (3.9-5) g/dL Crossmatch See Detail 12/24/18 12/24/18 12/24/18 Range/Units 22:06 22:11 22:12 WBC (4.5-11.0) K/mm3 RBC (3.65-5.03) M/mm3 Hgb (11.8-15.2) gm/dl Hct (35.5-45.6) % MCV (84-94) fl MCH (28-32) pg RDW (13.2-15.2) % Plt Count (140-440) K/mm3 Seg Neuts % (Manual) (40.0-70.0) % Lymphocytes % (Manual) (13.4-35.0) % Monocytes % (Manual) (0.0-7.3) % Seg Neutrophils # Man (1.8-7.7) K/mm3 Lymphocytes # (Manual) (1.2-5.4) K/mm3 PT (12.2-14.9) Sec. INR (0.87-1.13) APTT 67.2 H* (24.2-36.6) Sec. POC ABG pH (7.35-7.45) POC ABG pCO2 (35-45) POC ABG pO2 (80-105) VBG pH 7.313 L (7.320-7.420) Sodium (137-145) mmol/L Chloride (98-107) mmol/L Carbon Dioxide (22-30) mmol/L BUN (9-20) mg/dL Creatinine (0.8-1.5) mg/dL Glucose (75-100) mg/dL POC Glucose 53 L (70-105) Lactic Acid (0.7-2.0) mmol/L Calcium (8.4-10.2) mg/dL Total Bilirubin (0.1-1.2) mg/dL Ammonia (25-60) umol/L Total Creatine Kinase (55-170) units/L CK-MB (CK-2) Rel Index (0-4) NT-Pro-B Natriuret Pep (0-900) pg/mL Total Protein (6.3-8.2) g/dL Albumin (3.9-5) g/dL Crossmatch 12/24/18 12/24/18 12/25/18 Range/Units 22:50 23:19 00:33 WBC (4.5-11.0) K/mm3 RBC (3.65-5.03) M/mm3 Hgb (11.8-15.2) gm/dl Hct (35.5-45.6) % MCV (84-94) fl MCH (28-32) pg RDW (13.2-15.2) % Plt Count (140-440) K/mm3 Seg Neuts % (Manual) (40.0-70.0) % Lymphocytes % (Manual) (13.4-35.0) % Monocytes % (Manual) (0.0-7.3) % Seg Neutrophils # Man (1.8-7.7) K/mm3 Lymphocytes # (Manual) (1.2-5.4) K/mm3 PT (12.2-14.9) Sec. INR (0.87-1.13) APTT (24.2-36.6) Sec. POC ABG pH (7.35-7.45) POC ABG pCO2 (35-45) POC ABG pO2 (80-105) VBG pH (7.320-7.420) Sodium (137-145) mmol/L Chloride (98-107) mmol/L Carbon Dioxide (22-30) mmol/L BUN (9-20) mg/dL Creatinine (0.8-1.5) mg/dL Glucose (75-100) mg/dL POC Glucose 122 H (70-105) Lactic Acid 11.20 H* 11.10 H* (0.7-2.0) mmol/L Calcium (8.4-10.2) mg/dL Total Bilirubin (0.1-1.2) mg/dL Ammonia (25-60) umol/L Total Creatine Kinase (55-170) units/L CK-MB (CK-2) Rel Index (0-4) NT-Pro-B Natriuret Pep (0-900) pg/mL Total Protein (6.3-8.2) g/dL Albumin (3.9-5) g/dL Crossmatch 12/25/18 12/25/18 12/25/18 Range/Units 07:10 07:10 07:10 WBC (4.5-11.0) K/mm3 RBC 3.27 L (3.65-5.03) M/mm3 Hgb 11.1 L (11.8-15.2) gm/dl Hct 33.7 L D (35.5-45.6) % MCV 103 H (84-94) fl MCH 34 H (28-32) pg RDW 19.2 H (13.2-15.2) % Plt Count 29 L (140-440) K/mm3 Seg Neuts % (Manual) (40.0-70.0) % Lymphocytes % (Manual) (13.4-35.0) % Monocytes % (Manual) (0.0-7.3) % Seg Neutrophils # Man (1.8-7.7) K/mm3 Lymphocytes # (Manual) (1.2-5.4) K/mm3 PT 46.2 H (12.2-14.9) Sec. INR 4.53 H (0.87-1.13) APTT 73.1 H* (24.2-36.6) Sec. POC ABG pH (7.35-7.45) POC ABG pCO2 (35-45) POC ABG pO2 (80-105) VBG pH (7.320-7.420) Sodium (137-145) mmol/L Chloride (98-107) mmol/L Carbon Dioxide (22-30) mmol/L BUN (9-20) mg/dL Creatinine (0.8-1.5) mg/dL Glucose (75-100) mg/dL POC Glucose (70-105) Lactic Acid 12.90 H* (0.7-2.0) mmol/L Calcium (8.4-10.2) mg/dL Total Bilirubin (0.1-1.2) mg/dL Ammonia (25-60) umol/L Total Creatine Kinase (55-170) units/L CK-MB (CK-2) Rel Index (0-4) NT-Pro-B Natriuret Pep (0-900) pg/mL Total Protein (6.3-8.2) g/dL Albumin (3.9-5) g/dL Crossmatch 12/25/18 12/25/18 12/25/18 Range/Units 07:10 07:29 08:59 WBC (4.5-11.0) K/mm3 RBC (3.65-5.03) M/mm3 Hgb (11.8-15.2) gm/dl Hct (35.5-45.6) % MCV (84-94) fl MCH (28-32) pg RDW (13.2-15.2) % Plt Count (140-440) K/mm3 Seg Neuts % (Manual) (40.0-70.0) % Lymphocytes % (Manual) (13.4-35.0) % Monocytes % (Manual) (0.0-7.3) % Seg Neutrophils # Man (1.8-7.7) K/mm3 Lymphocytes # (Manual) (1.2-5.4) K/mm3 PT (12.2-14.9) Sec. INR (0.87-1.13) APTT (24.2-36.6) Sec. POC ABG pH 6.990 L (7.35-7.45) POC ABG pCO2 30.4 L (35-45) POC ABG pO2 196 H (80-105) VBG pH (7.320-7.420) Sodium 130 L (137-145) mmol/L Chloride 96.4 L (98-107) mmol/L Carbon Dioxide 7 L* (22-30) mmol/L BUN 54 H (9-20) mg/dL Creatinine 10.3 H (0.8-1.5) mg/dL Glucose 126 H (75-100) mg/dL POC Glucose < 40 L (70-105) Lactic Acid (0.7-2.0) mmol/L Calcium 7.5 L (8.4-10.2) mg/dL Total Bilirubin (0.1-1.2) mg/dL Ammonia (25-60) umol/L Total Creatine Kinase (55-170) units/L CK-MB (CK-2) Rel Index (0-4) NT-Pro-B Natriuret Pep (0-900) pg/mL Total Protein (6.3-8.2) g/dL Albumin (3.9-5) g/dL Crossmatch
[2018-12-25] MEDS ORDERED: ARTIFICIAL TEARS OPHTH OINT OU PRN (13:48)
[2018-12-25] MEDS ORDERED: SODIUM BICARBONATE 150 MEQ in D5W 1,000 ML IV SCH (16:00)
[2018-12-25] MEDS ORDERED: MORPHINE IV ONE (17:10)
[2018-12-25] MEDS ORDERED: ATIVAN IV ONE (17:10)
--- NOTE | 2018-12-25 17:13 | Event Note ---
Date: 12/25/18 Daughter requesting withdrawal of care. This is appropriate given current clinical state. Signed withdrawal form and ordered extubation. Family present at bedside. Discussed with nursing. Ordered some PRN sedation for comfort.
[2018-12-25 19:09] VITALS: BP 74/32
--- NOTE | 2018-12-25 21:39 | Event Note ---
Date: 12/25/18 Patient is DO NOT RESUSCITATE Patient had cardiovascular respiratory arrest and 1803 hrs. Pronounced around 18 Hours Family member at bedside
[2018-12-25] MEDS ORDERED: MAXIPIME/NS 1 GM/100 ML 1 GM/100 ML BAG IV SCH (22:00)
--- NOTE | 2018-12-26 10:18 | Death Summary ---
Summary - Providers Date of service: 12/25/18 Consults: 12/24/18 23:46 Consult to Physician [CONS] Urgent Comment: Dr. Cooper spoke with Dr. Mendez @ [phone] Consulting Provider: ROB MENDEZ Physician Instructions: Reason For Exam: liver cirrhosis, hematemesis 12/25/18 00:02 Consult to Physician [CONS] Urgent Comment: Dr. Cooper spoke with Dr. Hughes @ [phone] Consulting Provider: VERNA HUGHES Physician Instructions: Reason For Exam: esrd dialysis pt 12/25/18 02:26 Consult to Interventional Radiology [CONS] Routine Consulting Provider: ROB CAMPOVERDE Reason For Exam: ascites Notified:: Yes Was contact made?: Yes Comment:: Dr. Campoverde aware 12/25/18 09:25 Consult to Physician [CONS] Routine Comment: Consulting Provider: CATHLEEN MA Physician Instructions: Reason For Exam: critical care management Attending: ADRIANA OLIVO - summary Date of admission: 12/25/18 01:00 Date of : 12/25/18 Reason for admission: Cardiorespiratory arrest due to severe sepsis hepatic failure Significant findings: 63-year-old -[place] male with history of EtOH dependence, cirrhosis, ESRD on HD T//, hepatic encephalopathy, ascites requiring multiple therapeutic paracentesis, thrombocytopenia, recurrent anemia secondary to GI bleed, PUD with grade 3 varices, who represents to [facility] via EMS complaints of generalized weakness and altered mental status. According to patient's sister he was found to be weak, confused and had difficulty ambulating. She decided to check his blood pressure and noted it to be low (recall exact reading), and decided to call EMS. Upon arrival to ED patient was found to be tachycardic and hypotensive. Patient experienced witnessed elise hemoptysis 2. He was kimberley leti with fluid boluses and blood pressure slightly improved for a short period. Ultimately he was started on Levophed gtt to maintain map [address] Mendez was consulted and proceed with emergent EGD which showed upper GI bleed but unable to see or treat the source of the bleeding due to extensive amount of debris and despite extensive attempts failed to empirically band esophageal varices. Therefore GI recommended to continue supportive care with octreotide, protonix, and antibiotics for SBP prophylaxis, and transfusion of blood products as needed. I spoke with the patient's daughter in regards to hospice services. and discussed patient's CODE STATUS and family agreed for DNR and withdraw care. Patient had cardiovascular respiratory arrest and 1803 hrs, Pronounced around [address] Jay, Family members were at bedside. Cause of : Cardiorespiratory arrest due to severe sepsis hepatic failure Diagnosis on : Cardiac arrest Acute respiratory failure Hepatic encephalopathy septic shock Severe sepsis with bacteremia Thrombocytopenia Coagulopathy Hypoglycemia Hyponatremia ESRD on HD T//S Ascites Alcoholic hepatic cirrhosis
== END 2018-12-25 18:05 | DRG 871 ==
LOC: ED 21:02 → CC1 12-25 01:00
PROVIDERS: ADMIT Internal Medicine; ATTEND Internal Medicine
PROC: 5A1935Z Respiratory Ventilation, Less than 24 Consecutive Hours (ICD-10-PCS; principal; 2018-12-25)
PROC: 4A033R1 Measurement of Arterial Saturation, Peripheral, Percutaneous Approach (ICD-10-PCS; 2018-12-25)
PROC: 30233R1 Transfusion of Nonautologous Platelets into Peripheral Vein, Percutaneous Approach (ICD-10-PCS; 2018-12-25)
PROC: 30233N1 Transfusion of Nonautologous Red Blood Cells into Peripheral Vein, Percutaneous Approach (ICD-10-PCS; 2018-12-25)
PROC: 0BP1XDZ Removal of Intraluminal Device from Trachea, External Approach (ICD-10-PCS; 2018-12-25)
PROC: 0D9670Z Drainage of Stomach with Drainage Device, Via Natural or Artificial Opening (ICD-10-PCS; 2018-12-25)
PROC: 0DC58ZZ Extirpation of Matter from Esophagus, Via Natural or Artificial Opening Endoscopic (ICD-10-PCS; 2018-12-25)
DX: A41.9 Sepsis, unspecified organism (principal); N18.6 End stage renal disease; R65.21 Severe sepsis with septic shock; J96.00 Acute respiratory failure, unspecified whether with hypoxia or hypercapnia; I12.0 Hypertensive chronic kidney disease with stage 5 chronic kidney disease or end stage renal disease; E87.1 Hypo-osmolality and hyponatremia; E72.20 Disorder of urea cycle metabolism, unspecified; D68.9 Coagulation defect, unspecified; I85.10 Secondary esophageal varices without bleeding; D69.6 Thrombocytopenia, unspecified; K72.90 Hepatic failure, unspecified without coma; Z99.2 Dependence on renal dialysis; K21.9 Gastro-esophageal reflux disease without esophagitis; E16.2 Hypoglycemia, unspecified; K70.31 Alcoholic cirrhosis of liver with ascites; Z66 Do not resuscitate; I46.9 Cardiac arrest, cause unspecified
CPT/HCPCS: 36415; 36600; 71045; 74018; 80048; 80053; 82140; 82271; 82533; 82550; 82553; 82803; 82805; 82962; 83735; 83880; 84484; 85007; 85025; 85027; 85610; 85730; 86850; 86870; 86900; 86901; 86920; 87040; 87070; 87076; 87186; 87205; 93005; 93010; 94002; 94003; G0378; C9113; J0171; J0330; J0692; J0696; J1265; J1720; J2060; J2270; J2354; J2370; J2405; J2543; J2704; J3370; J7030; J7050; J7070; P9016; P9035